=== PATIENT | female | born 1940 | race Caucasian/White ===

== ENCOUNTER → 2016-10-28 | Outpatient (CLI) | payer OTHER ==
[~2016-10-28] MED LIST: ALBU1AER9 INH; ALL180 PO; ATOR10TA88 PO; CLOP1TAB15 PO; GLC500 PO; GLYB2.5T7 PO; LABE1TAB28 PO; PRLSR20 PO; SNG10 PO; SYN75 PO; ULT/50 PO; VERAMYST; WARF5TAB90 PO; ZOLP5TAB PO
--- NOTE | 2016-10-28 15:14 | MAMMOGRAPHY REPORT ---
BILATERAL DIGITAL SCREENING MAMMOGRAM WITH CAD: 10/28/2016 CLINICAL HISTORY: Routine screening. Patient has no complaints. TECHNIQUE: Bilateral CC and MLO views were obtained. Current study was also evaluated with a Comput er Aided Detection (CAD) system. COMPARISON: Comparison is made to exams dated: 10/10/2015 mammogram, 09/26/2014 mammogram, 07/01/2013 mammogram, 12/12/2011 mammogram, 07/06/2013 ultrasound, and 07/06/2013 mammogram - [facility]. BREAST COMPOSITION: The tissue of both breasts is almost entirely fatty. FINDINGS: There are benign rim calcifications in both breasts. No suspicious mass, architectural d istortion or cluster of microcalcifications is seen. IMPRESSION: ACR BI-RADS CATEGORY 2: BENIGN There is no mammographic evidence of malignancy. A 1 year screening mammogram is recommended. The p atient will receive written notification of the results. Approximately 10% of breast cancers are not detected with mammography. A negative mammographic repor t should not delay biopsy if a clinically suggestive mass is present. Ivette Damian M.D. ay/:10/28/2016 15:00:37 Tank Shop Supervisor: Shelly MEAD(R)(M), [facility] letter sent: Normal 1/2 BI-RADS Code: ACR BI-RADS Category 2: Benign
== END | disposition home or self-care (01) ==
LOC: C.MAMM 14:11
PROVIDERS: ATTEND Internal Medicine
DX: Z12.31 Encounter for screening mammogram for malignant neoplasm of breast (principal)

== ENCOUNTER → 2017-01-02 | Outpatient (CLI) | payer OTHER ==
[~2017-01-02] MED LIST changes: +ATOR10TA82 PO; -ATOR10TA88 PO
[2017-01-02 12:07] LABS: HEMATOCRIT 40.1 % (37-47); MEAN CORPUSCULAR HEMOGLOBIN 26.1 pg (25-34); MEAN CORPUSCULAR HGB CONC 30.7 g/dl (32-36); PLATELET COUNT 216 K/uL (130-400); RED BLOOD COUNT 4.72 M/uL (4.2-5.4); WHITE BLOOD COUNT 7.62 K/uL (4.8-10.8)
[2017-01-02 12:47] LABS: ESTIMATED AVERAGE GLUCOSE 146 mg/dl; HA1C FLAG Normal (Normal)
[2017-01-02 12:59] LABS: ALT/SGPT 40 U/L (12-78); BLOOD UREA NITROGEN 15 mg/dl (7-18); BUN/CREATININE RATIO 11.7 (10-20); CALCIUM 9.1 mg/dl (8.5-10.1); CARBON DIOXIDE 29 mmol/L (21-32); CHLORIDE 105 mmol/L (98-107); CHOLESTEROL 139 mg/dl (0-200); GLUCOSE 144 mg/dl (70-99); POTASSIUM 4.3 mmol/L (3.5-5.1); SODIUM 138 mmol/L (136-145)
[2017-01-02 13:08] LABS: ALB/GLOB RATIO 0.7 (0.9-2); ALKALINE PHOSPHATASE 119 U/L (45-117); AST/SGOT 42 U/L (15-37); CHOLESTEROL/HDL RATIO 4.6; HDL CHOLESTEROL 30 mg/dl; LDL CHOLESTEROL CALCULATED 77 mg/dl; TRIGLYCERIDES 161 mg/dl (0-150); VERY LOW DENSITY LIPOPROT CALC 32 mg/dl
[2017-01-02 16:39] LABS: URINE APPEARANCE CLOUDY (CLEAR); URINE BILIRUBIN NEG (NEG); URINE COLOR YELLOW; URINE EPITHELIAL CELL AUTO >30 /lpf (0-5); URINE NITRITE NEG (NEG); URINE PH 5.5 (4.5-7.5); URINE SPECIFIC GRAVITY 1.016 (1.000-1.030); UROBILINOGEN NEG (NEG)
[2017-01-02 16:40] LABS: MANUAL MICROSCOPIC REQUIRED? NO; REVIEW REQ? NO
[2017-01-02 17:39] LABS: URINE PROTIEN/CREAT RATIO 0.3 (0-0.2); URINE TOTAL PROTEIN 26.8 mg/dl (0-11.9)
== END | disposition home or self-care (01) ==
LOC: C.LAB1850 10:00
PROVIDERS: ATTEND Internal Medicine
DX: E78.00 Pure hypercholesterolemia, unspecified (principal); E03.9 Hypothyroidism, unspecified; E11.40 Type 2 diabetes mellitus with diabetic neuropathy, unspecified; E55.9 Vitamin D deficiency, unspecified; N18.3 Chronic kidney disease, stage 3 (moderate); R60.9 Edema, unspecified; I12.9 Hypertensive chronic kidney disease with stage 1 through stage 4 chronic kidney disease, or unspecified chronic kidney disease; E11.22 Type 2 diabetes mellitus with diabetic chronic kidney disease

== ENCOUNTER → 2017-06-19 | Outpatient (CLI) | payer OTHER ==
[~2017-06-19] MED LIST changes: -ATOR10TA82 PO; +ATOR10TA88 PO
--- NOTE | 2017-06-19 15:32 | DIAGNOSTIC IMAGING REPORT ---
CHEST 2 VIEWS ROUTINE CLINICAL HISTORY: J06.9 Acute upper respiratory [id number] COMPARISON STUDY: 03/14/2012 FINDINGS: The heart is normal in size. There is a mild scoliosis. There is no failure. There is no focal pulmonary consolidation. There are no pleural effusions. There is an air-containing retrocardiac opacity consistent with a hiatal hernia.[ IMPRESSION: Hiatal hernia. No active disease in the chest. Electronically signed by: Virgilio Young M.D. 06/19/2017 3:30 PM Dictated Date/Time: 06/19/2017 3:30 PM
[2017-06-19 15:50] LABS: BASO % 0.6 %; BASO ABS # 0.05 K/uL (0-0.2); COMPLETE YES; EOS % 3.6 %; HEMATOCRIT 38.2 % (37-47); IG% 0.6 %; LYMPH % 29.9 %; LYMPH ABS # 2.39 K/uL (1.2-3.4); MEAN CELL VOLUME 83.4 fL (80-100); MEAN CORPUSCULAR HEMOGLOBIN 26.9 pg (25-34); MEAN CORPUSCULAR HGB CONC 32.2 g/dl (32-36); MEAN PLATELET VOLUME 9.7 fL (7.4-10.4); MONO % 6.1 %; NEUT % 59.2 %; PLATELET COUNT 220 K/uL (130-400); RED BLOOD COUNT 4.58 M/uL (4.2-5.4); WHITE BLOOD COUNT 7.99 K/uL (4.8-10.8)
[2017-06-19 16:57] LABS: ALB/GLOB RATIO 0.7 (0.9-2); ALKALINE PHOSPHATASE 122 U/L (45-117); ALT/SGPT 46 U/L (12-78); AST/SGOT 54 U/L (15-37); BLOOD UREA NITROGEN 11 mg/dl (7-18); CALCIUM 9.6 mg/dl (8.5-10.1); CARBON DIOXIDE 24 mmol/L (21-32); CHLORIDE 105 mmol/L (98-107); GLUCOSE 188 mg/dl (70-99); POTASSIUM 3.9 mmol/L (3.5-5.1); SODIUM 137 mmol/L (136-145)
== END | disposition home or self-care (01) ==
LOC: C.LAB1850 14:55
PROVIDERS: ATTEND Internal Medicine
DX: J06.9 Acute upper respiratory infection, unspecified (principal); N18.3 Chronic kidney disease, stage 3 (moderate)

== ENCOUNTER → 2017-10-30 | Outpatient (CLI) | payer OTHER ==
[~2017-10-30] MED LIST changes: +ATOR10TA82 PO; -ATOR10TA88 PO
--- NOTE | 2017-10-30 14:02 | MAMMOGRAPHY REPORT ---
BILATERAL DIGITAL SCREENING MAMMOGRAM TOMOSYNTHESIS WITH CAD: 10/30/2017 CLINICAL HISTORY: Routine screening. Patient has no complaints. TECHNIQUE: Breast tomosynthesis in addition to standard 2D mammography was performed. Current study was also evaluated with a Computer Aided Detection (CAD) system. COMPARISON: Comparison is made to exams dated: 10/28/2016 mammogram, 10/10/2015 mammogram, 09/26/2014 ul trasound, 09/26/2014 mammogram, 07/06/2013 mammogram, and 07/06/2013 ultrasound - [facility]. BREAST COMPOSITION: The tissue of both breasts is almost entirely fatty. FINDINGS: There are scattered benign round and rim calcifications in the breasts. A 4 mm nodular as ymmetry in the anterior subareolar right breast on the CC view appears stable in size dating back to at least 2011, therefore likely benign. No new suspicious mass, architectural distortion or cluster of microcalcifications is seen. IMPRESSION: ACR BI-RADS CATEGORY 2: BENIGN There is no mammographic evidence of malignancy. A 1 year screening mammogram is recommended. The pa tient will receive written notification of the results. Approximately 10% of breast cancers are not detected with mammography. A negative mammographic report should not delay biopsy if a clinically suggestive mass is present. Ivette Damian M.D. ay/:10/30/2017 13:40:23 Screed Person: Shelly Heaton, [facility] letter sent: Normal 1/2 BI-RADS Code: ACR BI-RADS Category 2: Benign
== END | disposition home or self-care (01) ==
LOC: C.MAMM 11:42
PROVIDERS: ATTEND Internal Medicine
DX: Z12.31 Encounter for screening mammogram for malignant neoplasm of breast (principal)

== ENCOUNTER → 2017-12-25 | Outpatient (CLI) | payer OTHER ==
[2017-12-25 10:41] LABS: BASO % 0.4 %; BASO ABS # 0.03 K/uL (0-0.2); EOS ABS # 0.32 K/uL (0-0.5); HEMATOCRIT 39.7 % (37-47); HEMOGLOBIN 12.5 g/dL (12.0-16.0); IG# 0.02 K/uL (0.00-0.02); LYMPH % 31.2 %; LYMPH ABS # 2.48 K/uL (1.2-3.4); MEAN CELL VOLUME 84.1 fL (80-100); MEAN CORPUSCULAR HEMOGLOBIN 26.5 pg (25-34); MEAN CORPUSCULAR HGB CONC 31.5 g/dl (32-36); NEUT % 59.1 %; NEUT ABS # 4.71 K/uL (1.4-6.5); PLATELET COUNT 199 K/uL (130-400); RED CELL DISTRIBUTION WIDTH CV 15.3 % (11.5-14.5); RED CELL DISTRIBUTION WIDTH SD 47.2 fL (36.4-46.3); WHITE BLOOD COUNT 7.96 K/uL (4.8-10.8)
[2017-12-25 11:03] LABS: ALBUMIN 3.2 gm/dl (3.4-5.0); ALT/SGPT 33 U/L (12-78); AST/SGOT 37 U/L (15-37); BLOOD UREA NITROGEN 9 mg/dl (7-18); CARBON DIOXIDE 23 mmol/L (21-32); CHOLESTEROL 120 mg/dl (0-200); CREATININE 1.43 mg/dl (0.60-1.20); GLUCOSE 166 mg/dl (70-99); LIPASE 79 U/L (73-393); POTASSIUM 4.3 mmol/L (3.5-5.1); SODIUM 136 mmol/L (136-145)
[2017-12-25 11:14] LABS: ALKALINE PHOSPHATASE 118 U/L (45-117); LDL CHOLESTEROL CALCULATED 62 mg/dl; TOTAL PROTEIN 7.3 gm/dl (6.4-8.2)
[2017-12-25 11:48] LABS: HEMOGLOBIN A1C 6.5 % (4.5-5.6)
== END | disposition home or self-care (01) ==
LOC: C.LAB1850 09:52
PROVIDERS: ATTEND Internal Medicine
DX: I12.9 Hypertensive chronic kidney disease with stage 1 through stage 4 chronic kidney disease, or unspecified chronic kidney disease (principal); E55.9 Vitamin D deficiency, unspecified; N18.3 Chronic kidney disease, stage 3 (moderate); R80.9 Proteinuria, unspecified; E03.9 Hypothyroidism, unspecified; E11.9 Type 2 diabetes mellitus without complications; R11.2 Nausea with vomiting, unspecified

== ENCOUNTER → 2017-12-31 | Outpatient (CLI) | payer OTHER ==
--- NOTE | 2017-12-31 08:07 | DIAGNOSTIC IMAGING REPORT ---
ULTRASOUND RIGHT UPPER QUADRANT ABDOMEN CLINICAL HISTORY: Nausea and vomiting. COMPARISON STUDY: Abdominal CT dated 06/22/2009. TECHNIQUE: Real-time, grayscale, and color flow sonography of the right upper quadrant of the abdomen was performed. Images are reviewed in the transverse and longitudinal planes. FINDINGS: Liver: The liver is normal in size and demonstrates heterogeneously increased echotexture consistent with hepatic steatosis. There is no intrahepatic biliary ductal dilatation. The main portal vein is patent. Gallbladder: The gallbladder is surgically absent. The common bile duct measures up to 0.5 cm in diameter. Pancreas: Visualized portions of the pancreatic head and body are normal in appearance. The splenic vein is patent. Right kidney: Survey images of the right kidney demonstrate cortical atrophy. There is no hydronephrosis. Ascites: None. IMPRESSION: 1. No acute sonographic abnormality is identified noting status post cholecystectomy. 2. Findings are consistent with mild hepatic steatosis. Electronically signed by: Huan Quintero M.D. 12/31/2017 8:05 AM Dictated Date/Time: 12/31/2017 7:58 AM
--- NOTE | 2017-12-31 08:36 | DIAGNOSTIC IMAGING REPORT ---
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 Dizziness. Gait disturbance. COMPARISON STUDY: MRI of the brain dated 02/05/2013. MR angiogram of the brain dated 12/20/2015. TECHNIQUE: MRI of the brain was performed utilizing various T1 and T2-weighted sequences in the axial, sagittal, and coronal planes. IV contrast was not administered for this examination. FINDINGS: Brain parenchyma: There are age-related involutional changes noting mild subcortical and periventricular microangiopathic disease. There is no hemorrhage or mass effect. There is no restricted diffusion to suggest acute ischemia. Cuevas-white matter differentiation is preserved. No extra-axial fluid collection is seen. The cerebellar tonsils are normal in configuration. Ventricles, sulci, and cisterns: Prominent secondary to involutional change. Pituitary and sella: Unremarkable. Intracranial vasculature: Normal flow voids are maintained at the skull base. Orbits: The bony orbits are grossly intact. Orbital contents are normal in appearance noting bilateral ocular lens implants. Sinuses and mastoids: There is a right mastoid effusion. Left mastoid air cells are clear, as are the paranasal sinuses. Calvarium: Unremarkable. Cervical cord: Partially visualized cervical spinal cord is normal in morphology and signal intensity. IMPRESSION: No acute intracranial abnormality Electronically signed by: Huan Quintero M.D. 12/31/2017 8:35 AM Dictated Date/Time: 12/31/2017 8:31 AM
== END | disposition home or self-care (01) ==
LOC: C.ULTR 07:25
PROVIDERS: ATTEND Internal Medicine
DX: I67.2 Cerebral atherosclerosis (principal); I72.0 Aneurysm of carotid artery; R42 Dizziness and giddiness; R26.9 Unspecified abnormalities of gait and mobility; R11.2 Nausea with vomiting, unspecified; K76.0 Fatty (change of) liver, not elsewhere classified

== ENCOUNTER → 2018-01-01 | Outpatient (CLI) | payer OTHER ==
--- NOTE | 2018-01-01 11:28 | DIAGNOSTIC IMAGING REPORT ---
L RIBS UNILATERAL WITH PA CHEST CLINICAL HISTORY: W19.XXXA trauma. Left rib pain. COMPARISON STUDY: No previous studies for comparison. FINDINGS: Erect chest reveals no pneumothorax. There is a hiatal hernia. No acute rib fractures are visualized. There is a left upper quadrant axial calcification. IMPRESSION: 1. No acute fractures identified on conventional radiographic imaging 2. No evidence of pneumothorax. Electronically signed by: Virgilio Young M.D. 01/01/2018 11:26 AM Dictated Date/Time: 01/01/2018 11:25 AM
== END | disposition home or self-care (01) ==
LOC: C.RAD1850 11:08
PROVIDERS: ATTEND Nurse Practitioner Adult Health
DX: E88.89 Other specified metabolic disorders (principal); R07.81 Pleurodynia; W19.XXXA Unspecified fall, initial encounter

== ENCOUNTER → 2018-01-07 | Outpatient (CLI) | payer OTHER ==
--- NOTE | 2018-01-07 13:21 | DIAGNOSTIC IMAGING REPORT ---
GASTRIC EMPTYING HISTORY: Nausea. Vomiting. M85.80 COMPARISON: None. TECHNIQUE: Following the oral administration of 1.0 mCi of technetium 99m sulfur colloid in egg sandwich and 8 ounces of water, static abdominal images are obtained anteriorly and posteriorly at 0 minutes, 1 hour, 2 hour, and 4 hour time intervals. Gastric emptying was calculated utilizing the geometric mean method. FINDINGS: There is approximately 84 % activity remaining at the 1 hour time interval (normal is less than 90%), 62 % remaining at the 2 hour time interval (normal is less than 60%), and 31 % activity remaining at the 4 hour time interval (normal is less than 10%). IMPRESSION: Moderate gastric emptying delay. The above report was generated using voice recognition software. It may contain grammatical, syntax or spelling errors. Electronically signed by: Yohannes Grover M.D. 01/07/2018 1:20 PM Dictated Date/Time: 01/07/2018 1:19 PM
== END | disposition home or self-care (01) ==
LOC: C.NUCL 08:21
PROVIDERS: ATTEND Internal Medicine
DX: E11.9 Type 2 diabetes mellitus without complications (principal); M85.80 Other specified disorders of bone density and structure, unspecified site; R63.0 Anorexia; R11.2 Nausea with vomiting, unspecified

== ENCOUNTER 2019-03-20 21:25 | Observation (INO) ==
--- NOTE | 2019-03-20 22:23 | XRay Report ---
XR chest 1V portable CLINICAL HISTORY: 78 years-old Female presenting with Chest Pain. TECHNIQUE: Portable upright AP view of the chest was obtained. COMPARISON: 03/16/2018. FINDINGS: Atherosclerosis of the aortic arch. Cardiac silhouette enlarged. No focal opacity. No large effusion or pneumothorax. Degenerative changes of the thoracic spine. Hiatal hernia. IMPRESSION: 1. Cardiomegaly. No other convincing evidence of acute cardiopulmonary disease. 2. Hiatal hernia. Electronically signed by: Juan F Oneal M.D. 03/20/2019 10:22 PM
[2019-03-20 22:30] LABS: Basophils # (auto) 0.02 K/uL (0-0.2); Basophils % (auto) 0.3 %; Eosinophils # (auto) 0.36 K/uL (0-0.5); Eosinophils % (auto) 4.9 %; Hematocrit (blood only) 41.5 % (37-47); Immature Granulocytes # (auto) 0.02 K/uL (0.00-0.02); Immature Granulocytes % (auto) 0.3 %; Lymphocytes # (auto) 2.79 K/uL (1.2-3.4); Lymphocytes % (auto) 37.9 %; Mean Corpuscular Hgb Conc 31.3 g/dL (32-36); Mean Corpuscular Volume 83.3 fL (80-100); Monocytes # (auto) 0.36 K/uL (0.11-0.59); Monocytes % (auto) 4.9 %; Neutrophils # (auto) 3.82 K/uL (1.4-6.5); Neutrophils % (auto) 51.7 %; Platelet Count 213 K/uL (130-400); RDW Coefficient of Variation 15.3 % (11.5-14.5); RDW Standard Deviation 46.4 fL (36.4-46.3); Red Blood Count 4.98 M/uL (4.2-5.4); White Blood Count 7.37 K/uL (4.8-10.8)
--- NOTE | 2019-03-20 22:42 | CT Scan Report ---
CT head/brain wo con CLINICAL HISTORY: 78 years-old Female presenting with tingling, balance problems. TECHNIQUE: Multidetector CT imaging of the head was performed without the use of intravenous contrast . IV contrast: None. One or more dose lowering techniques were used consistent with the principles of ALARA (as low as reasonably achievable), including automatic exposure control, mA or kV adjustment t o individual patient size, and/or use of iterative reconstruction. COMPARISON: 06/26/2018 CT DOSE (mGy.cm): The estimated cumulative dose is 537.48 mGy.cm. FINDINGS: Director Of Fundraising topogram: The patient is edentulous. Ventricles and sulci normal in size. No hemorrhage. Brain parenchyma normal in appearance with preser willa castillo-white differentiation. No acute territorial infarct. No mass effect or midline shift. No ext ra-axial fluid collection. Paranasal sinuses and mastoid air cells clear. Calvarium intact. IMPRESSION: 1. No acute intracranial abnormality. Electronically signed by: Juan F Oneal M.D. 03/20/2019 10:39 PM
[2019-03-20] MEDS ORDERED: ACETAMINOPHEN 1,000 MG/100 ML VIAL IV STA (22:48)
[2019-03-20 22:54] LABS: Alanine Aminotransferase 34 U/L (12-78); Albumin Level 3.5 gm/dl (3.4-5.0); Aspartate Aminotransferase 39 U/L (15-37); BUN Creatinine Ratio 9.9 (10-20); Blood Urea Nitrogen 14 mg/dl (7-18); Calcium 9.2 mg/dl (8.5-10.1); Carbon Dioxide 28 mmol/L (21-32); Chloride 106 mmol/L (98-107); Creatinine Clr Calc Pharmacy 39.2 ml/min; Est GFR (African American) 43.1; Est GFR (Non-African American) 37.2; Glucose 127 mg/dl (70-99); Potassium 3.7 mmol/L (3.5-5.1); Sodium 139 mmol/L (136-145)
[2019-03-20 22:59] LABS: Albumin Globulin Ratio 0.7 (0.9-2); Alkaline Phosphatase 166 U/L (45-117); Bilirubin,Total 0.3 mg/dl (0.2-1); Creatine Kinase 191 U/L (26-192); Globulin 4.8 gm/dl (2.5-4.0); Total Protein 8.3 gm/dl (6.4-8.2); Troponin I < 0.015 ng/ml (0-0.045)
[2019-03-20 23:00] LABS: Appearance Urine Clear (Clear); Bilirubin Urine Negative (Negative); Blood Urine Negative (Negative); Color Urine Yellow; Glucose Urine UA Negative (Negative); Ketones Urine Negative (Negative); Leukocyte Esterase Urine 1+ (Negative); Nitrite Urine Negative (Negative); Protein Urine Negative (Negative); Specific Gravity Urine <= 1.005 (1.000-1.030); Urobilinogen Urine Negative (Negative); pH Urine 5.5 (4.5-7.5)
[2019-03-20 23:30] LABS: Bacteria Urine Negative (Negative); RBC Urine 0-4 /hpf (0-4)
[2019-03-20] MEDS ORDERED: OPTIRAY 320 125ml IV PRN (23:38)
[2019-03-21] MEDS ORDERED: MECLIZINE HCL 25 MG TAB PO PRN (01:27)
--- NOTE | 2019-03-21 01:32 | History & Physical Report ---
Date of Service March 21, 2019 Assessment & Plan (1) Chest pain: The patient will be admitted to telemetry for serial cardiac enzymes, serial EKG's, cardiac rhythm monitoring and a 2-D echocardiogram with Dopplers. Continue all hypertension the vascular medications as noted. Greater likelihood of musculoskeletal pain as opposed to cardiac pain, but could consider stress test as an outpatient if inpatient work-up is negative. 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 Cardiac work-up is negative, should consider trial of Voltaren gel. Present on Admission?: Yes (3) Allergic rhinitis: Continue Singulair Present on Admission?: Yes (4) Asthma: Continue Singulair and albuterol sulfate HFA as needed Present on Admission?: Yes (5) Carotid artery stenosis: Monitored as outpatient. Present on Admission?: Yes (6) Hypercholesterolemia: No medications on outpatient listing Present on Admission?: Yes (7) Hypertension: Continue amlodipine, aspirin, clopidogrel, and labetalol. Present on Admission?: Yes (8) Hypothyroidism: Continue levothyroxine sodium 112 mcg p.o. daily Present on Admission?: Yes (9) Diabetes mellitus type II, controlled: Continue Lantus insulin 30 units subcu at bedtime. Hold standing orders for 40 to 50 units subcu Humalog KwikPen AC. Placed on Accu-Cheks before meals and at bedtime with NovoLog coverage per scale. Present on Admission?: Yes (10) GERD (gastroesophageal reflux disease): Change omeprazole to pantoprazole per formulary interchange Present on Admission?: Yes History of Present Illness Chief Complaint: The patient presents to the ED with 3 days of off an on precordial xiphisternal area discomfort, primarily made worse by activity and moving. Primary Care Provider: Jordana Chen MD The patient is a 78yo female with a PMH including DM, GERD, hypothyroidism, H TN, vertigo, carotid artery stenosis, asthma and hiatal hernia, who presents to the ED with 3 days of intermittent xiphisternal area discomfort worsened by movement. She denies any recent trama, and has not had any recent infections. There is no change in her chronic dyspnea on exertion. Allergies Allergy/AdvReac Type Severity Reaction Status Date / Time fluorouracil Allergy Intermediate Hives Unverified 03/20/19 23:27 codeine Allergy Unknown RECEIVED Verified 03/20/19 23:27 MORPHINE IN OR & PACU, NO REPORTED RXN potassium AdvReac Mild Verified 03/20/19 23:27 enoxaparin AdvReac Unknown UNKNOWN Verified 03/20/19 23:27 Home Medications Home Medications Medication Instructions Recorded Confirmed Type amlodipine 2.5 mg tablet 2.5 mg PO DAILY #90 tab 02/24/19 03/20/19 History aspirin 81 mg tablet,delayed 81 mg PO DAILY tab 02/24/19 03/20/19 History release clopidogrel 75 mg tablet 75 mg PO DAILY #90 tab 02/24/19 03/20/19 History labetalol 100 mg tablet 100 mg PO Q12H #180 tab 02/24/19 03/20/19 History levothyroxine 112 mcg tablet 112 mcg PO DAILY #90 tab 02/24/19 03/20/19 History montelukast 10 mg tablet 10 mg PO QPM #90 tab 02/24/19 03/20/19 Rx omeprazole 20 mg capsule,delayed 20 mg PO DAILY #90 cap 02/24/19 03/20/19 History release albuterol sulfate 2 puff INHALATION Q6H 03/20/19 03/20/19 History cholecalciferol (vitamin D3) 5,000 unit PO 3XWK 03/20/19 03/20/19 History cyanocobalamin (vitamin B-12) 1,000 mcg PO DAILY 03/20/19 03/20/19 History folic acid 1 mg PO DAILY 03/20/19 03/20/19 History insulin glargine [Lantus Solostar 30 unit SUBCUT HS 03/20/19 03/20/19 History U-100 Insulin] insulin lispro [Humalog KwikPen 40 - 50 unit SUBCUT AC 03/20/19 03/20/19 History Insulin] meclizine 25 mg PO DAILY 03/20/19 03/20/19 History tramadol 50 mg PO BID PRN 03/20/19 03/20/19 History Past Med/Surg History Social History Preferred Language: Faroese Beliefs That Will Affect Care: None Current Living Situation: Spouse Other Information That Helps Us Care for You: No Feels Safe at Home: Yes Safety Concerns: Feels Safe At This Time Smoking Status: Never smoker Hx Alcohol Use: No Hx Substance Use: No Review of Systems Review of Systems: The patient denies palpitations, shortness of breath at rest, cough, lower extremity swelling, sore throat, fevers, chills, sweats, weight change, nausea, vomiting, diarrhea , constipation, abdominal pain, pelvic pain, blood in urine or stool, dysuria, urinary frequency or urgency, lightheadedness, dizziness, headache, loss of consciousness, rash, abnormal bruising or bleeding, focal weakness, numbness or tingling in arms or legs, generalized arthralgias or myalgias, back or neck pain, or night sweats. The review of systems is otherwise negative other than for that already noted above, and at least 10 systems have been reviewed. Physical Exam Physical Exam: The patient is awake, alert and oriented 3, well developed and well nourished, normocephalic and atraumatic, lying in bed and in no acute distress. HEENT--PERRL, EOMI, mucous membranes and oropharynx normal. Neck--supple. No JVD. No bruits. Thyroid normal, trachea midline, no adenopathy. Heart--normal S1 and S2. No murmurs, rubs or gallops. Lungs/chest wall--clear bilaterally, no respiratory distress, no accessory muscle use. Very tender to light touch over xiphisternal process. Abdomen--normal bowel sounds and soft. Nontender. Nondistended, obese. Extremities--no cyanosis or clubbing. No edema. There are good distal pulses b/l. Dermatologic--normal skin turgor, normal color, no abnormal lymph nodes, no rash. Neurologic--cranial nerves II through XII grossly intact. Rheumatologic--normal range of motion. Psychiatric--normal affect. Results & Data Vital Signs (Past 12 Hours) Vital Signs Temp Pulse Pulse Resp BP BP Pulse Ox 03/21/19 00:39 73 20 187/61 H 97 03/20/19 21:27 98.1 F 106 H 20 199/80 H 94 Laboratory Results Laboratory Results WBC 7.37 K/uL (4.8-10.8) 03/20/19 22:14 RBC 4.98 M/uL (4.2-5.4) 03/20/19 22:14 Hgb 13.0 g/dL (12.0-16.0) 03/20/19 22:14 Hct 41.5 % (37-47) 03/20/19 22:14 MCV 83.3 fL (80-100) 03/20/19 22:14 MCH 26.1 pg (25-34) 03/20/19 22:14 MCHC 31.3 g/dL (32-36) L 03/20/19 22:14 RDW Std Deviation 46.4 fL (36.4-46.3) H 03/20/19 22:14 RDW Coeff of Afllon 15.3 % (11.5-14.5) H 03/20/19 22:14 Plt Count 213 K/uL (130-400) 03/20/19 22:14 MPV 10.0 fL (7.4-10.4) 03/20/19 22:14 Immature Gran % (Auto) 0.3 % 03/20/19 22:14 Neut % (Auto) 51.7 % 03/20/19 22:14 Lymph % (Auto) 37.9 % 03/20/19 22:14 [place] % (Auto) 4.9 % 03/20/19 22:14 Eos % (Auto) 4.9 % 03/20/19 22:14 Baso % (Auto) 0.3 % 03/20/19 22:14 Immature Gran # (Auto) 0.02 K/uL (0.00-0.02) 03/20/19 22:14 Neut # (Auto) 3.82 K/uL (1.4-6.5) 03/20/19 22:14 Lymph # (Auto) 2.79 K/uL (1.2-3.4) 03/20/19 22:14 [place] # (Auto) 0.36 K/uL (0.11-0.59) 03/20/19 22:14 Eos # (Auto) 0.36 K/uL (0-0.5) 03/20/19 22:14 Baso # (Auto) 0.02 K/uL (0-0.2) 03/20/19 22:14 Sodium 139 mmol/L (136-145) 03/20/19 22:14 Potassium 3.7 mmol/L (3.5-5.1) 03/20/19 22:14 Chloride 106 mmol/L (98-107) 03/20/19 22:14 Carbon Dioxide 28 mmol/L (21-32) 03/20/19 22:14 Anion Gap 5.0 (3-11) 03/20/19 22:14 BUN 14 mg/dl (7-18) 03/20/19 22:14 Creatinine 1.36 mg/dl (0.6-1.2) H 03/20/19 22:14 Est Cr Clr Drug Dosing 39.2 ml/min 03/20/19 22:14 Est GFR ( Amer) 43.1 03/20/19 22:14 Est GFR (Non-Af Amer) 37.2 03/20/19 22:14 BUN/Creatinine Ratio 9.9 (10-20) L 03/20/19 22:14 Glucose 127 mg/dl (70-99) H 03/20/19 22:14 Calcium 9.2 mg/dl (8.5-10.1) 03/20/19 22:14 Magnesium 2.0 mg/dl (1.8-2.4) 03/20/19 22:14 Total Bilirubin 0.3 mg/dl (0.2-1) 03/20/19 22:14 AST 39 U/L (15-37) H 03/20/19 22:14 ALT 34 U/L (12-78) 03/20/19 22:14 Alkaline Phosphatase 166 U/L (45-117) H 03/20/19 22:14 Total Creatine Kinase 191 U/L (26-192) 03/20/19 22:14 POC Troponin I < 0.03 ng/ml (0-0.045) 03/20/19 22:19 Troponin I < 0.015 ng/ml (0-0.045) 03/20/19 22:14 Total Protein 8.3 gm/dl (6.4-8.2) H 03/20/19 22:14 Albumin 3.5 gm/dl (3.4-5.0) 03/20/19 22:14 Globulin 4.8 gm/dl (2.5-4.0) H 03/20/19 22:14 Albumin/Globulin Ratio 0.7 (0.9-2) L 03/20/19 22:14 Lipase 108 U/L (73-393) 03/20/19 22:14 Urine Color Yellow 03/20/19 22:30 Urine Appearance Clear (Clear) 03/20/19 22:30 Urine pH 5.5 (4.5-7.5) 03/20/19 22:30 Ur Specific Edna <= 1.005 (1.000-1.030) 03/20/19 22:30 Urine Protein Negative (Negative) 03/20/19 22:30 Urine Glucose (UA) Negative (Negative) 03/20/19 22:30 Urine Ketones Negative (Negative) 03/20/19 22:30 Urine Blood Negative (Negative) 03/20/19 22:30 Urine Nitrite Negative (Negative) 03/20/19: Urine Bilirubin Negative (Negative) 03/20/19 22: Urine Urobilinogen Negative (Negative) 03/20/19 22:30 Ur Leukocyte Esterase 1+ (Negative) H 03/20/19 22:30 Urine RBC 0-4 /hpf (0-4) 03/20/19 22:30 Urine WBC 5-10 /hpf (0-5) H 03/20/19 22:30 Ur Epithelial Cells 10-20 /lpf (0-5) H 03/20/19 22:30 Urine Bacteria Negative (Negative) 03/20/19:30 Diagnostic Findings [place], [place] [phone] CT Scan Report Patient: JACKIE CESPEDES Date: 03/20/19 MR#: [id number]: [address] Acct ID:[id number]: [facility] Zip[facility] [place] [address] Age: 78Location: ED Sex: F Room/Bed: Att Phy: Diagnosis: PAIN IN CHEST, MOVING LUMP IN CHEST Jessica Phy: RV. Rebekah, MDService Date: 03/20/19 Fam Phy: Interpreting Phy: Juan F Oneal MD Admit Phy: Ordering Phy: Tg Amanda .CONOR cc: ~ CT head/brain wo con CLINICAL HISTORY: 78 years-old Female presenting with tingling, balance problems. TECHNIQUE: Multidetector CT imaging of the head was performed without the use of intravenous contrast. IV contrast: None. One or more dose lowering techniques were used consistent with the principles of ALARA (as low as reasonably achievable), including automatic exposure control, mA or kV adjustment to individual patient size, and/or use of iterative reconstruction. COMPARISON: 06/26/2018 CT DOSE (mGy.cm): The estimated cumulative dose is 537.48 mGy.cm. FINDINGS: Guest Services Agent topogram: The patient is edentulous. Ventricles and sulci normal in size. No hemorrhage. Brain parenchyma normal in appearance with preserved castillo-white differentiation. No acute territorial infarct. No mass effect or midline shift. No extra-axial fluid collection. Paranasal sinuses and mastoid air cells clear. Calvarium intact. IMPRESSION: 1. No acute intracranial abnormality. Electronically signed by: Juan F Oneal M.D. 03/20/2019 10:39 PM Dictated: 03/20/192236 Transcribed: 03/20/192236 [facility] [place] [phone] XRay Report Patient: JACKIE CESPEDES Date: 03/20/19 MR#: [id number]: [address] Acct ID:[id number]: Date: [facility] Zip: [place] [address] Age: 78Location: ED Sex: F Room/Bed: Att Phy: Diagnosis: PAIN IN CHEST, MOVING LUMP IN CHEST Jessica Phy: RV. Rebekah, MDService Date: 03/20/19 Fam Phy: Interpreting Phy: Juan F Oneal MD Admit Phy: Ordering Phy: Tg Amanda .CONOR cc: ~ XR chest 1V portable CLINICAL HISTORY: 78 years-old Female presenting with Chest Pain. TECHNIQUE: Portable upright AP view of the chest was obtained. COMPARISON: 03/16/2018. FINDINGS: Atherosclerosis of the aortic arch. Cardiac silhouette enlarged. No focal opacity. No large effusion or pneumothorax. Degenerative changes of the thoracic spine. Hiatal hernia. IMPRESSION: 1. Cardiomegaly. No other convincing evidence of acute cardiopulmonary disease. 2. Hiatal hernia. Electronically signed by: Juan F Oneal M.D. 03/20/2019 10:22 PM Dictated: 03/20/192220 Transcribed: 03/20/192220 [facility] Patient: JACKIE CESPEDES (Female) Age: 78 MR #: [id number] Status: ER Date: 03/20/19 23:48 Slices: [id number] History: mid sternalm chest pain Priors: Tech: Chevy Hanson @ [phone] Exams: CTA CHEST Contrast: IV Amt: 115 ml optiray Accession Numbers: [id number] Preliminary Findings Only See Final Report For Complete Findings CTA CHEST: No pulmonary embolus. Trace left pleural fluid. No consolidation. Moderate to large hiatal hernia. Cholecystectomy. Radiologist: Brant Garcia M.D. Study ready at 23:53 and initial results transmitted at 00:16 *This report constitutes a preliminary interpretation only. Non-acute findings felt to be unrelated to the clinical presentation may not be discussed in this report. The study will be interpreted and a final report will be generated by the local Radiologist the following shift. To reach the hospital radiology department call [phone]. If a discrepancy is found between the preliminary and final interpretations of this study, please notify us via our Client Portal at [email or web address] under QA [email or web address]. You can also fax this report with a description of the discrepancy, or include the final report, to our daytime fax number [phone]. If faxing, please indicate the severity of discrepancy using one of the following categories: [ ] 1 - Agree/Informational [ ] 2 - Unlikely to Affect Management [ ] 3 - Possible Eventual Change of Management [ ] 4 - Probable Immediate Change of Management For all other patient related information, please fax us at [phone]. [id number] Code Status & VTE Plan Code Status Full code VTE Prophylaxis Plan VTE Prophylaxis will be ordered: Yes PG Care Time/CCT Total # of Minutes Spent Total Time Spent with Patient: Total time spent is greater than 50% in coordination of care (as documented) at patient's floor/unit and/or counseling patient:
[2019-03-21] MEDS ORDERED: TRAMADOL HCL 50 MG TABLET PO PRN (02:20)
[2019-03-21] MEDS ORDERED: ACETAMINOPHEN 325 MG TAB PO PRN (02:20)
[2019-03-21] MEDS ORDERED: ONDANSETRON INJ 2 MG/ML 2 ML VIAL IV PRN (02:20)
[2019-03-21] MEDS ORDERED: MAGNESIUM HYDROXIDE SUSP 30 ML UDC PO PRN (02:20)
[2019-03-21] MEDS ORDERED: ALUMINUM/MAGNESIUM SUSP 30 ML UDC PO PRN (02:20)
[2019-03-21] MEDS ORDERED: ALBUTEROL HFA 8 GM INHALER INH PRN (02:20)
[2019-03-21] MEDS ORDERED: DEXTROSE 50% 50 ML SYRINGE IV PRN (03:00)
[2019-03-21] MEDS ORDERED: GLUCOSE 40% GEL 15 GM TUBE PO PRN (03:00)
[2019-03-21] MEDS ORDERED: GLUCAGON FOR INJ 1 MG VIAL SQ PRN (03:00)
[2019-03-21] MEDS ORDERED: CARBOHYDRATES FOR HYPOGLYCEMIA PO PRN (03:00)
[2019-03-21] MEDS ORDERED: GLUCOSE 10 TABS/TUBE PO PRN (03:00)
--- NOTE | 2019-03-21 04:12 | Emergency Department Note ---
History of Present Illness General Chief complaint: Chest Pain Stated complaint: PAIN IN CHEST, MOVING LUMP History of Present Illness Maximum Pain Intensity: 0 This 78-year-old presents to the ER complaining of midsternal chest pain and vertigo Location: Midsternal chest Quality: Painful Severity: Moderate Duration: Past few days Timing: Started few days Context: Symptoms persisted and patient came in Modifying factors: better with rest; worse with activity Patient also states she is been having some vertigo problems and some tingling in her right arm. She is a history of vertigo. No prior heart disease. Patient denies exertional chest pain, cough, congestion, dyspnea, abdominal pain, leg pain, localized weakness. Home Medications Home Medications Medication Instructions Recorded Confirmed Type amlodipine 2.5 mg tablet 2.5 mg PO DAILY #90 tab 02/24/19 03/20/19 History aspirin 81 mg tablet,delayed 81 mg PO DAILY tab 02/24/19 03/20/19 History release clopidogrel 75 mg tablet 75 mg PO DAILY #90 tab 02/24/19 03/20/19 History labetalol 100 mg tablet 100 mg PO Q12H #180 tab 02/24/19 03/20/19 History levothyroxine 112 mcg tablet 112 mcg PO DAILY #90 tab 02/24/19 03/20/19 History montelukast 10 mg tablet 10 mg PO QPM #90 tab 02/24/19 03/20/19 Rx omeprazole 20 mg capsule,delayed 20 mg PO DAILY #90 cap 02/24/19 03/20/19 History release albuterol sulfate 2 puff INHALATION Q6H 03/20/19 03/20/19 History cholecalciferol (vitamin D3) 5,000 unit PO 3XWK 03/20/19 03/20/19 History cyanocobalamin (vitamin B-12) 1,000 mcg PO DAILY 03/20/19 03/20/19 History folic acid 1 mg PO DAILY 03/20/19 03/20/19 History insulin glargine [Lantus Solostar 30 unit SUBCUT HS 03/20/19 03/20/19 History U-100 Insulin] insulin lispro [Humalog KwikPen 40 - 50 unit SUBCUT AC 03/20/19 03/20/19 History Insulin] meclizine 25 mg PO DAILY 03/20/19 03/20/19 History tramadol 50 mg PO BID PRN 03/20/19 03/20/19 History Allergies Allergy/AdvReac Type Severity Reaction Status Date / Time fluorouracil Allergy Intermediate Hives Unverified 03/20/19 23:27 codeine Allergy Unknown RECEIVED Verified 03/20/19 23:27 MORPHINE IN OR & PACU, NO REPORTED RXN potassium AdvReac Mild Verified 03/20/19 23:27 enoxaparin AdvReac Unknown UNKNOWN Verified 03/20/19 23:27 Past Med/Surg History Medical History Diabetes mellitus type II, controlled (Acute) Social History Preferred Language: Maori Beliefs That Will Affect Care: None Current Living Situation: Spouse Other Information That Helps Us Care for You: No Feels Safe at Home: Yes Safety Concerns: Feels Safe At This Time Smoking Status: Never smoker Hx Alcohol Use: No Hx Substance Use: No Review of Systems All systems reviewed & are unremarkable except as noted in HPI & below Physical Exam Vital Signs Vital Signs - 24 hr 03/20/19 21:26 03/20/19 21:27 03/20/19 21:57 Temperature 36.7 C Temperature Source Oral Sepsis Recent Fever Within 48 Hours No Sepsis Action Taken by Nursing No Action Required Pulse Rate 106 H Pulse Rate [Apical] Respiratory Rate 20 Respiratory Effort / Characteristics Non-Labored Spontaneous Respiratory Depth Normal Blood Pressure 199/80 H Blood Pressure [Right Arm] Blood Pressure Mean 119 Blood Pressure Mean [Right Arm] Pulse Oximetry 94 Oxygen Delivery Method Room Air Room Air Room Air 03/21/19 00:39 Temperature Temperature Source Sepsis Recent Fever Within 48 Hours Sepsis Action Taken by Nursing Pulse Rate Pulse Rate [Apical] 73 Respiratory Rate 20 Respiratory Effort / Characteristics Non-Labored Spontaneous Respiratory Depth Normal Blood Pressure Blood Pressure [Right Arm] 187/61 H Blood Pressure Mean Blood Pressure Mean [Right Arm] 103 Pulse Oximetry 97 Oxygen Delivery Method Room Air VITALS: Vitals are noted on the nurse's note and reviewed by myself. Vital signs hypertensive. GENERAL: Does not female, in no acute distress, nondiaphoretic, well-developed well-nourished. SKIN: The skin was without rashes, erythema, edema, or bruising. There is no tenting of the skin. Capillary reflex less than 2 seconds. HEAD: Normocephalic atraumatic. EARS: External auditory canals clear, tympanic membranes pearly castillo without erythema or effusion bilaterally. EYES: Pupils equal round and reactive to light and accommodation. Conjunctivae without injection, sclerae without icterus. Extraocular movements intact. NOSE: Patent, turbinates without inflammation or discharge. MOUTH: Mucous membranes moist. Pharynx without erythema or exudate. Uvula midline. Airway patent. Tongue does not deviate. NECK: Supple without nuchal rigidity. No lymphadenopathy. No thyromegaly. Cervical spine is nontender. No JVD. HEART: Regular rate and rhythm: Midsternal chest tender to palpation easily reproducing symptoms LUNGS: Clear to auscultation bilaterally without wheezes, rales or rhonchi. No retractions or accessory muscle use. ABDOMEN: Positive bowel sounds x 4. Normal tympanic percussion. Soft, nontender, without masses or organomegaly. Griggs sign negative. No guarding or rebound tenderness. No CVA tenderness MUSCULOSKELETAL: No muscle atrophy, erythema, or edema noted. NEURO: Patient was alert and oriented to person place and time. Normal sensation to light and sharp touch. No focal neurological deficits. Cranial nerves II through XII grossly intact. No prior drift. Cerebellar exam intact. Course Administered Medications Ioversol (Optiray 320 125ml) 115 ml IV ONCE PRN PRN Reason: Interaction Checking Stop: 03/24/19 23:37 Last Admin: 03/20/19 23:39 Dose: 1 ml Documented by: [id number] Discontinued Medications Acetaminophen (Ofirmev) 1,000 mg in 100 mls @ 400 mls/hr IV NOW STA Stop: 03/20/19 23:02 Last Infusion: 03/20/19 23:30 Dose: 0 mls/hr Documented by: [id number] Admin: 03/20/19 23:05 Dose: 400 mls/hr Documented by: [id number] Medical Decision Making Medical Records Attestation: I reviewed the patient's medical records. Home Medications Current Medication List: was personally reviewed by me Laboratory Data Attestation: I reviewed the patient's lab results. Result diagrams: 03/20/19 22:14 03/20/19 22:14 Lab Results 03/20/19 03/20/19 03/20/19 Range/Units 22:14 22:14 22:19 WBC 7.37 (4.8-10.8) K/uL RBC 4.98 (4.2-5.4) M/uL Hgb 13.0 (12.0-16.0) g/dL Hct 41.5 (37-47) % MCV 83.3 (80-100) fL MCH 26.1 (25-34) pg MCHC 31.3 L (32-36) g/dL RDW Std Deviation 46.4 H (36.4-46.3) fL RDW Coeff of Fallon 15.3 H (11.5-14.5) % Plt Count 213 (130-400) K/uL MPV 10.0 (7.4-10.4) fL Immature Gran % (Auto) 0.3 % Neut % (Auto) 51.7 % Lymph % (Auto) 37.9 % Hall % (Auto) 4.9 % Eos % (Auto) 4.9 % Baso % (Auto) 0.3 % Immature Gran # (Auto) 0.02 (0.00-0.02) K/uL Neut # (Auto) 3.82 (1.4-6.5) K/uL Lymph # (Auto) 2.79 (1.2-3.4) K/uL Hall # (Auto) 0.36 (0.11-0.59) K/uL Eos # (Auto) 0.36 (0-0.5) K/uL Baso # (Auto) 0.02 (0-0.2) K/uL Sodium 139 (136-145) mmol/L Potassium 3.7 (3.5-5.1) mmol/L Chloride 106 (98-107) mmol/L Carbon Dioxide 28 (21-32) mmol/L Anion Gap 5.0 (3-11) BUN 14 (7-18) mg/dl Creatinine 1.36 H (0.6-1.2) mg/dl Est Cr Clr Drug Dosing 39.2 ml/min Est GFR ( Amer) 43.1 Est GFR (Non-Af Amer) 37.2 BUN/Creatinine Ratio 9.9 L (10-20) Glucose 127 H (70-99) mg/dl Calcium 9.2 (8.5-10.1) mg/dl Magnesium 2.0 (1.8-2.4) mg/dl Total Bilirubin 0.3 (0.2-1) mg/dl AST 39 H (15-37) U/L ALT 34 (12-78) U/L Alkaline Phosphatase 166 H (45-117) U/L Total Creatine Kinase 191 (26-192) U/L POC Troponin I < 0.03 (0-0.045) ng/ml Troponin I < 0.015 (0-0.045) ng/ml Total Protein 8.3 H (6.4-8.2) gm/dl Albumin 3.5 (3.4-5.0) gm/dl Globulin 4.8 H (2.5-4.0) gm/dl Albumin/Globulin Ratio 0.7 L (0.9-2) Lipase 108 (73-393) U/L Urine Color Urine Appearance (Clear) Urine pH (4.5-7.5) Ur Specific Ward (1.000-1.030) Urine Protein (Negative) Urine Glucose (UA) (Negative) Urine Ketones (Negative) Urine Blood (Negative) Urine Nitrite (Negative) Urine Bilirubin (Negative) Urine Urobilinogen (Negative) Ur Leukocyte Esterase (Negative) Urine RBC (0-4) /hpf Urine WBC (0-5) /hpf Ur Epithelial Cells (0-5) /lpf Urine Bacteria (Negative) 03/20/19 Range/Units 22:30 WBC (4.8-10.8) K/uL RBC (4.2-5.4) M/uL Hgb (12.0-16.0) g/dL Hct (37-47) % MCV (80-100) fL MCH (25-34) pg MCHC (32-36) g/dL RDW Std Deviation (36.4-46.3) fL RDW Coeff of Fallon (11.5-14.5) % Plt Count (130-400) K/uL MPV (7.4-10.4) fL Immature Gran % (Auto) % Neut % (Auto) % Lymph % (Auto) % Hall % (Auto) % Eos % (Auto) % Baso % (Auto) % Immature Gran # (Auto) (0.00-0.02) K/uL Neut # (Auto) (1.4-6.5) K/uL Lymph # (Auto) (1.2-3.4) K/uL Hall # (Auto) (0.11-0.59) K/uL Eos # (Auto) (0-0.5) K/uL Baso # (Auto) (0-0.2) K/uL Sodium (136-145) mmol/L Potassium (3.5-5.1) mmol/L Chloride (98-107) mmol/L Carbon Dioxide (21-32) mmol/L Anion Gap (3-11) BUN (7-18) mg/dl Creatinine (0.6-1.2) mg/dl Est Cr Clr Drug Dosing ml/min Est GFR ( Amer) Est GFR (Non-Af Amer) BUN/Creatinine Ratio (10-20) Glucose (70-99) mg/dl Calcium (8.5-10.1) mg/dl Magnesium (1.8-2.4) mg/dl Total Bilirubin (0.2-1) mg/dl AST (15-37) U/L ALT (12-78) U/L Alkaline Phosphatase (45-117) U/L Total Creatine Kinase (26-192) U/L POC Troponin I (0-0.045) ng/ml Troponin I (0-0.045) ng/ml Total Protein (6.4-8.2) gm/dl Albumin (3.4-5.0) gm/dl Globulin (2.5-4.0) gm/dl Albumin/Globulin Ratio (0.9-2) Lipase (73-393) U/L Urine Color Yellow Urine Appearance Clear (Clear) Urine pH 5.5 (4.5-7.5) Ur Specific Ward <= 1.005 (1.000-1.030) Urine Protein Negative (Negative) Urine Glucose (UA) Negative (Negative) Urine Ketones Negative (Negative) Urine Blood Negative (Negative) Urine Nitrite Negative (Negative) Urine Bilirubin Negative (Negative) Urine Urobilinogen Negative (Negative) Ur Leukocyte Esterase 1+ H (Negative) Urine RBC 0-4 (0-4) /hpf Urine WBC 5-10 H (0-5) /hpf Ur Epithelial Cells 10-20 H (0-5) /lpf Urine Bacteria Negative (Negative) Imaging Data Attestation: I personally reviewed and interpreted this imaging study as follows: Blood Pressure Blood Pressure Findings: Elevated blood pressure Blood Pressure Disposition: Referred to patients primary care provider MDM Narrative Prior records/ancillary studies reviewed. Triage Nursing notes reviewed. Additional history obtained from family. The patient's history was concerning for chest pain. Differential diagnosis: Etiologies such as cardiac ischemia, aortic dissection, pulmonary embolism, pneumonia, pneumothorax, musculoskeletal, infections, pericarditis, myocarditis, esophageal rupture, gastrointestinal, as well as others were entertained. Physical examination: As above. ER treatment provided: Tylenol On reassessment the patient felt better. Diagnostic interpretation by me: The electrocardiogram was minimal ST depression in the lateral leads, normal intervals. Prior EKG is reviewed with new EKG changes. Impression minimal ST depression in the lateral leads interpreted by myself I think arrhythmia is unlikely. EKG shows normal sinus rhythm with no interval abnormalities such as QT prolongation or WPW. There are no findings to suggest Brugada syndrome. Cardiac monitoring in the emergency department reveals no tachycardic or bradycardic dysrhythmia. Hypertrophic cardiomyopathy was considered but there are no clear historical elements pointing toward this. EKG is not suggestive. The QRS voltage is not extremely large and there are no suggestive Q waves. The labs revealed negative troponin Imaging studies: XR chest 1V portable CLINICAL HISTORY: 78 years-old Female presenting with Chest Pain. TECHNIQUE: Portable upright AP view of the chest was obtained. COMPARISON: 03/16/2018. FINDINGS: Atherosclerosis of the aortic arch. Cardiac silhouette enlarged. No focal opacity. No large effusion or pneumothorax. Degenerative changes of the thoracic spine. Hiatal hernia. IMPRESSION: 1. Cardiomegaly. No other convincing evidence of acute cardiopulmonary disease. 2. Hiatal hernia. Electronically signed by: Juan F Oneal M.D. 03/20/2019 10:[address] head/brain wo con CLINICAL HISTORY: 78 years-old Female presenting with tingling, balance problems. TECHNIQUE: Multidetector CT imaging of the head was performed without the use of intravenous contrast. IV contrast: None. One or more dose lowering techniques were used consistent with the principles of ALARA (as low as reasonably achievable), including automatic exposure control, mA or kV adjustment to individual patient size, and/or use of iterative reconstruction. COMPARISON: 06/26/2018 CT DOSE (mGy.cm): The estimated cumulative dose is 537.48 mGy.cm. FINDINGS: Intelligence Support Officer topogram: The patient is edentulous. Ventricles and sulci normal in size. No hemorrhage. Brain parenchyma normal in appearance with preserved castillo-white differentiation. No acute territorial infarct. No mass effect or midline shift. No extra-axial fluid collection. Paran warner sinuses and mastoid air cells clear. Calvarium intact. IMPRESSION: 1. No acute intracranial abnormality. Electronically signed by: Juan F Oneal M.D. CTA CHEST: No pulmonary embolus. Trace left pleural fluid. No consolidation. Moderate to large hiatal hernia. Cholecystectomy. Radiologist: Brant Garcia M.D. HEART SCORE: Hx: high/mod/low suspicion: 0 ECG: ST depression/nonspecific changes/normal: 1 Age: Greater than 65/45-64/less than 45: 2 Risk factors: (Hypertension, hyperlipidemia, diabetes, coronary disease, tobacco use, cocaine use): 2 Troponin: Greater than 2 times normal limits/1-2 times normal limits/normal: 0 Total: 5 Consultation: A consultation was placed with the hospitalist, Dr. Frye. The case was discussed and diagnostics were reviewed. The patient was evaluated in the ER for further treatment. Exam and history seem consistent with chest pain and vertigo with right arm tingling. Patient has multiple risk factors. Medicine was consulted. Patient will be evaluated for possible admission for chest pain rule out. By the evaluation outlined above emergent etiologies such as aortic dissection, pulmonary embolism, pneumonia, pneumothorax, infections, pericarditis, myocarditis, gastrointestinal, as well as others were deemed relatively u nlikely. The pt informed about the findings as listed above. All questions were answered and pleased with the treatment. Case reviewed with my attending The chart was completed utilizing studentSN voice recognition software. Grammatical errors, random word insertions, pronoun errors, and incomplete sentences are an occassional consequence of this system due to software limitations, ambient noise, and hardware issues. Any formal questions or concerns about the content, text, or information contained within the body of this dictation should be directly addressed to the physician photography assistant for clarification. Impression & Plan Chest pain, Vertigo, Tingling of right upper extremity Discharge Plan Visit Data *Final* Discharge Date/Time: 03/21/19 01:57 Chief Complaint: Chest Pain Stated Complaint: PAIN IN CHEST, MOVING LUMP ED Provider: Anders Nino ED Midlevel Provider: Tg Amanda Discharge Problem: Chest pain, Vertigo, Tingling of right upper extremity Patient Disposition: Admitted As Inpatient Condition: Fair Discharge Instructions Interventions: ED Discharge Assessment Last Done: 03/21/19 01:57
[2019-03-21] MEDS ORDERED: LEVOTHYROXINE SODIUM 112 MCG TABLET PO SCH (06:30)
[2019-03-21] MEDS ORDERED: CLOPIDOGREL BISULFATE 75 MG TAB PO SCH (09:00)
[2019-03-21] MEDS ORDERED: FOLIC ACID 1 MG TAB PO SCH (09:00)
[2019-03-21] MEDS ORDERED: CYANOCOBALAMIN 500 MCG TABLET (VITAMIN B-12) PO SCH (09:00)
[2019-03-21] MEDS ORDERED: PANTOprazole 40 MG TAB PO SCH (09:00)
[2019-03-21] MEDS ORDERED: ASPIRIN 81 MG ECTAB PO SCH (09:00)
[2019-03-21] MEDS ORDERED: LABETALOL HCL 100 MG TAB PO SCH (09:00)
[2019-03-21] MEDS ORDERED: AMLODIPINE BESYLATE 5 MG TAB PO SCH (09:00)
--- NOTE | 2019-03-21 09:28 | CT Scan Report ---
CT ANGIOGRAM OF THE CHEST CLINICAL HISTORY: Midsternal chest pain. COMPARISON STUDY: Chest x-ray dated 03/20/2019. Chest CT dated 03/12/2012. TECHNIQUE: Following the IV administration of 115 cc of Optiray 320, CT angiogram of the chest was pe rformed from the upper abdomen to the thoracic inlet utilizing the pulmonary embolus protocol. Images are reviewed in the axial, sagittal, and coronal planes. 3-D MIPS images are created and assessed. I V contrast was administered without complication. A dose lowering technique was utilized adhering to the principles of ALARA. CT DOSE: 683.28 mGy.cm FINDINGS: Thyroid: Imaged portions of the thyroid gland are normal in size and attenuation. Thoracic aorta: There is atherosclerotic calcification of the thoracic aorta, which is normal in melissa srinivasa and demonstrates standard 3-vessel arch anatomy. No dissection is seen. Pulmonary vasculature: The pulmonary trunk is normal in caliber. There are no filling defects identif ied in main, lobar, or segmental pulmonary branches to suggest pulmonary embolus. Heart: The heart is enlarged and without pericardial effusion. The coronary arteries are densely calc ified. Lungs and pleural spaces: There is a trace left pleural effusion with left basilar scarring/atelecta sis. No airspace consolidation is seen typical for pneumonia. Mild diffuse peribronchial thickening i s observed. The trachea and central airways are clear. Mediastinum: There is no mediastinal lymphadenopathy. Krystina: Clear. Axillae: There is no axillary lymphadenopathy. Upper abdomen: There is a large hiatal hernia, with the majority of the stomach located in the thorac ic cavity. Cholecystectomy clips are noted. There is minimal central intrahepatic biliary ductal dila tation. Prominent lymph nodes are noted in the upper abdomen and measure up to 11 mm in short axis. Skeletal structures: The skeletal structures are osteopenic. Degenerative change is noted in the shou lders and thoracic spine. There is mild thoracic kyphoscoliosis. A hemangioma is noted in the body of T4. No lytic or blastic bony lesions are seen. IMPRESSION: 1. There is no evidence of pulmonary embolus in the main, lobar, or segmental pulmonary arteries. 2. There is a trace left pleural effusion. No airspace consolidation is seen typical for pneumonia. 3. Mild diffuse peribronchial thickening suggests reactive air disease. Clinical correlation will be required. 4. Cardiomegaly. 5. Large hiatal hernia. Electronically signed by: Huan Quintero M.D. 03/21/2019 9:27 AM
[2019-03-21 09:53] LABS: iSTAT Creatinine 1.3 mg/dl (0.6-1.3); iSTAT Hemoglobin 14.3 g/dl (12.0-16.0); iSTAT Ionized Calcium 1.22 mmol/l (1.12-1.32); iSTAT Potassium 3.7 mEq/L (3.3-5.0)
--- NOTE | 2019-03-21 13:54 | Discharge Summary ---
Date of Service March 21, 2019 Admission HPI Per Admitting Provider The patient is a 78yo female with a PMH including DM, GERD, hypothyroidism, HTN, vertigo, carotid artery stenosis, asthma and hiatal hernia, who presents to the ED with 3 days of intermittent xiphisternal area discomfort worsened by movement. She denies any recent trama, and has not had any recent infections. There is no change in her chronic dyspnea on exertion. Principal Diagnosis Chest pain, likely costochondritis Discharge Exam Constitutional WD/WN, vitals as above + obese Eyes PERRL, conjunctivae normal, anicteric sclerae ENMT external ear and nose normal, oropharynx normal Neck trachea midline, no thyromegaly Respiratory normal respiratory effort, lungs clear to auscultation Cardiovascular RRR, no murmur, no edema Chest (Breasts) normal inspection/palpation of breasts (chest tender to palpation over sternum) Gastrointestinal (Abdomen) normal bowel sounds, soft, nontender, no hepatosplenomegaly Musculoskeletal no cyanosis or clubbing, extremities motor strength 5/5 Skin no rashes, warm and dry Neurologic patellar DTR's 2+ bilat, sensation intact and PERRL, EOMI, accommodation nl, no face palsy, no dysarthria Psychiatric A+Ox3, euthymic affect Lymphatic no cervical or axillary lymphadenopathy Discharge Data Allergies Allergy/AdvReac Type Severity Reaction Status Date / Time fluorouracil Allergy Intermediate Hives Unverified 03/20/19 23:27 codeine Allergy Unknown RECEIVED Verified 03/20/19 23:27 MORPHINE IN OR & PACU, NO REPORTED RXN potassium AdvReac Mild Verified 03/20/19 23:27 enoxaparin AdvReac Unknown UNKNOWN Verified 03/20/19 23:27 Consultations 03/21/19 00:39 ED Decision to Admit Stat 03/21/19 02:20 Consult Case Management - Discharge Planning Routine Ordered Studies 03/20/19 21:57 CT head/brain wo con Stat 03/20/19 22:58 CT angio chest PE protocol Stat Hospital Course (1) Chest pain: still with pain on palpation EKG in the morning on day of discharge showed sinus rhythm, no ischemic changes troponin negative x 3 sets echocardiogram showed EF 65%, no regional wall motion abnormalities, was exactly the same as previous echo thus ACS was ruled out Greater likelihood of musculoskeletal pain as opposed to cardiac pain discussed that patient could talk with PCP about a stress test as outpatient (2) Costochondritis: 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 will try Ibuprofen 600mg q8 x 3-5 days, take with food look for improvement in pain follow up with PCP (3) Allergic rhinitis: Continue Singulair (4) Asthma: Continue Singulair and albuterol sulfate HFA as needed (5) Carotid artery stenosis: Monitored as outpatient. (6) Hypercholesterolemia: No medications on outpatient listing (7) Hypertension: Continue amlodipine, aspirin, clopidogrel, and labetalol. BP well controlled (8) Hypothyroidism: Continue levothyroxine sodium 112 mcg p.o. daily (9) Diabetes mellitus type II, controlled: Continue Lantus insulin 30 units subcu at bedtime. Hold standing orders for 40 to 50 units subcu Humalog KwikPen AC. Placed on Accu-Cheks before meals and at bedtime with NovoLog coverage per scale. (10) GERD (gastroesophageal reflux disease): Change omeprazole to pantoprazole per formulary interchange Total Time Total Time Spent Total Time Spent (In Minutes): 31 minutes Total Time Includes: Examination of the Patient, Discharge Planning and Medication Reconciliation Discharge Plan Discharge Items Patient Disposition: Home - Self-Care Reason For Visit: CHEST PAIN Discharge Diagnosis: Chest pain, likely musculoskeletal Condition: Good Discharge Goals: Diagnostic testing and Improve function Activity: Resume your previous activity Non-emergency contact: Primary Care Provider Call non-emergency contact if: you have any medication questions, your symptoms worsen, your pain is not controlled and you have a fever Follow-up/Referrals: Jordana Chen MD [Primary Care Provider] - Diet: Carb Consistent or DM2 Addtl Provider Instructions: Medications: no changes to outpatient medications - IBUPROFEN: take 600mg every 8 hours as needed for chest pain, no more than 5 days take with full stomach Chest pain: atypical symptoms for anginal type pain pain is reproducible suggesting musculoskeletal, could be costochondritis troponin (heart enzyme) negative for three sets, rules out heart attack no ischemic changes on resting EKG today echocardiogram done and results pending but can be followed up on as outpatient recommend that you try taking the ibuprofen 600mg every 8 hours for 5 days if pain goes away this would confirm that this is muscular pain can follow up with DR. Mead to discuss the pain, discuss getting stress test as outpatient recommend that you call her office tomorrow to be seen later this week Prescriptions: New ibuprofen 200 mg capsule 600 mg PO Q8H PRN (Reason: pain) 5 Days Qty: 60 RF: 0 Continued montelukast 10 mg tablet 10 mg PO QPM Qty: 90 RF: 3 labetalol 100 mg tablet 100 mg PO Q12H Qty: 180 RF: 0 levothyroxine 112 mcg tablet 112 mcg PO DAILY Qty: 90 RF: 0 omeprazole 20 mg capsule,delayed release(DR/EC) 20 mg PO DAILY Qty: 90 RF: 0 amlodipine 2.5 mg tablet 2.5 mg PO DAILY Qty: 90 RF: 0 aspirin 81 mg tablet,delayed release (DR/EC) 81 mg PO DAILY RF: 0 clopidogrel 75 mg tablet 75 mg PO DAILY Qty: 90 RF: 0 meclizine 25 mg tablet 25 mg PO DAILY RF: 0 albuterol sulfate 90 mcg/actuation HFA aerosol inhaler 2 puff inhalation Q6H RF: 0 folic acid 1 mg tablet 1 mg PO DAILY RF: 0 tramadol 50 mg tablet 50 mg PO BID PRN (Reason: Pain) RF: 0 cyanocobalamin (vitamin B-12) 1,000 mcg Tablet 1,000 mcg PO DAILY RF: 0 cholecalciferol (vitamin D3) 5,000 unit Tablet 5,000 unit PO 3XWK RF: 0 Lantus Solostar U-100 Insulin 100 unit/mL (3 mL) insulin pen 30 unit subcut HS RF: 0 insulin lispro [Humalog KwikPen Insulin] 100 unit/mL insulin pen 40 - 50 unit subcut AC RF: 0 Stand-Alone Forms: Call Back Authorization, [facility] Discharge Orders: Discharge Order (Routine); Ordered 03/21/19 Ordered By: Jay Becker Admission Data Admit Date/Time: 03/21/19 01:24 Attending Provider: Jay Becker Admit Provider: Franklin Mack Primary Care Provider: Jordana Chen V. Other Providers: Franklin Mack Service: Telemetry Other Interventions: Discharge Summary Assessment (RN) Last Done: 03/21/19 14:21 DC Date/Time DO NOT enter until pt leaves facility: 03/21/19 14:28
[2019-03-21] MEDS ORDERED: INSULIN GLARGINE SOLOSTAR 100 UNITS/ML 3 ML PEN SQ SCH (21:00)
[2019-03-21] MEDS ORDERED: MONTELUKAST SODIUM 10 MG TABLET PO SCH (21:00)
== END 2019-03-21 14:28 | disposition home or self-care (01) ==
LOC: ED 21:25 → 2E 21:25 → SUATTDRO 03-21 01:24 → 2E 03-21 01:57

== ENCOUNTER 2019-06-16 06:14 | Observation (INO) ==
--- NOTE | 2019-06-09 15:15 | Anesthesiology Consultation ---
Date of Service June 09, 2019 Assessment & Plan Chart Review Chart Review: Pending: Refer to Additional Notes / Consult section (labs,EKG,) Patient has a left distal ICA aneurysm. Is being followed by neurosurgery at [place]. It is stable and has not progressed in a year. History Surgery Operation Date: 06/16/19 07:30 Proposed Procedures p Robotic Laparoscopic Fundoplication Esophagogastroduoedenoscopy - Luís Mueller MD, FACS Height/Weight Height: 5 ft 6 in Weight: 98.8 kg Allergies Allergy/AdvReac Type Severity Reaction Status Date / Time codeine Allergy Intermediate HYPERACTIVE, Verified 06/08/19 09:04 HIVES/SYNCOPE enoxaparin Allergy Intermediate syncope Verified 06/08/19 09:04 fluorouracil Allergy Intermediate Hives Verified 06/08/19 09:04 potassium Allergy Mild IV Verified 06/08/19 09:04 potassium caused hypotension Medications Home Medications Medication Instructions Recorded Confirmed Last Taken aspirin 81 mg tablet,delayed 81 mg PO QAM tab 02/24/19 06/08/19 04/27/19 release clopidogrel 75 mg tablet 75 mg PO QAM #90 tab 02/24/19 06/08/19 04/27/19 labetalol 100 mg tablet 50 mg PO Q12H #180 tab 02/24/19 06/08/19 04/28/19 10:00 albuterol sulfate 2 puff INHALATION Q6H PRN 03/20/19 06/08/19 Unknown cholecalciferol (vitamin D3) 5,000 unit PO 3XWK 03/20/19 06/08/19 04/27/19 folic acid 1 mg PO QAM 03/20/19 06/08/19 04/27/19 insulin lispro [Humalog KwikPen 40 - 60 unit SUBCUT AC 03/20/19 06/08/19 04/27/19 19:00 Insulin] meclizine 25 mg PO HS 03/20/19 06/08/19 04/27/19 21:00 gabapentin 100 mg capsule 100 mg PO HS 03/26/19 06/09/19 04/27/19 amlodipine 2.5 mg PO QAM 04/19/19 06/08/19 04/27/19 levothyroxine 112 mcg PO QAM 04/19/19 06/08/19 04/28/19 10:00 montelukast 10 mg PO QAM 04/19/19 06/08/19 04/28/19 10:00 Lantus Solostar U-100 Insulin 100 30 units SUBCUT HS #30 ml NS 05/14/19 06/08/19 Unknown unit/mL (3 mL) subcutaneous pen omeprazole 20 mg capsule,delayed 20 mg PO BID #180 cap 05/25/19 06/08/19 Unknown release atorvastatin 10 mg tablet 10 mg PO QAM #90 tab 05/31/19 06/08/19 Unknown Past Medical History Medical History Aneurysm of left carotid artery (Chronic) 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 NO PROBLEMS CURRENTLY. Stroke 1985. MILD [facility] MEMORY LOSS. TIA (transient ischemic attack) MULTIPLE. MOST RECENT MARCH 2018 Past Family History Family History Unknown Osteoporosis Mother Rheumatoid arthritis History of nephrectomy Stroke syndrome Hypertension Stroke Family history of diabetes mellitus Aunt Rheumatoid arthritis Father Heart disease Hx of CABG Hypertension Brother Acute myocardial infarction Past Surgical History Surgical History H/O dilation and curettage History of ankle surgery RIGHT History of appendectomy History of colonoscopy History of esophagogastroduodenoscopy (EGD) WITH REMOVAL OF ESOPHAGEAL POLYPS History of tonsillectomy and adenoidectomy History of total abdominal hysterectomy and bilateral salpingo-oophorectomy History of total knee replacement BILATERAL AND A STEEL JAD IN RIGHT LEG D/T CURVATURE Hx of cholecystectomy Social History Smoking Status: Never smoker Do You Dip or Chew Tobacco: No Hx Alcohol Use: No Hx Substance Use: No Physical Exam Vital Signs Last Vital Signs Temp 36.7 C 06/09/19 14:39 Pulse 83 06/09/19 14:39 Resp 18 06/09/19 14:39 BP 149/84 H 06/09/19 14:39 Pulse Ox 96 06/09/19 14:39 Testing Electrocardiogram Date: 06/09/19 Findings: + NSR @ (76) and + no change from Chest X-Ray Date: 03/20/19 No convincing evidence of cardiopulmonary disease. Hiatal hernia. Echocardiogram Date: 03/16/18 EF: 60-65% LV Function: normal RWMA: + none Other Findings: + diastolic dysfunction (grade 1 DD) Valvular Disease: + no significant valvular disease Saline contrast study negative for interatrial shunt. chest ct 03/20/19: trace L pleursl effusing. No consolidation typical of pneumonia. Mild diffuse peribronchial thickening suggesting reactive airway disease. Cardiomegaly. Large hiatal hernia.
[2019-06-09 15:42] LABS: Basophils # (auto) 0.03 K/uL (0-0.2); Basophils % (auto) 0.4 %; Eosinophils # (auto) 0.19 K/uL (0-0.5); Eosinophils % (auto) 2.7 %; Hematocrit (blood only) 37.3 % (37-47); Hemoglobin 11.4 g/dL (12.0-16.0); Immature Granulocytes # (auto) 0.02 K/uL (0.00-0.02); Immature Granulocytes % (auto) 0.3 %; Lymphocytes # (auto) 3.16 K/uL (1.2-3.4); Lymphocytes % (auto) 44.8 %; Mean Corpuscular Hemoglobin 25.3 pg (25-34); Mean Corpuscular Hgb Conc 30.6 g/dL (32-36); Mean Corpuscular Volume 82.9 fL (80-100); Mean Platelet Volume 10.2 fL (7.4-10.4); Monocytes # (auto) 0.31 K/uL (0.11-0.59); Monocytes % (auto) 4.4 %; Neutrophils # (auto) 3.35 K/uL (1.4-6.5); Neutrophils % (auto) 47.4 %; Platelet Count 205 K/uL (130-400); RDW Coefficient of Variation 15.2 % (11.5-14.5); RDW Standard Deviation 46.2 fL (36.4-46.3); White Blood Count 7.06 K/uL (4.8-10.8)
[2019-06-09 15:50] LABS: Calcium 8.7 mg/dl (8.5-10.1); Creatinine Clr Calc Pharmacy 42.6 ml/min; Est GFR (African American) 45.9; Est GFR (Non-African American) 39.6; Potassium 3.9 mmol/L (3.5-5.1)
[~2019-06-16 06:14] MED LIST changes: -ALBU1AER9 INH; -ALL180 PO; -ATOR10TA82 PO; -CLOP1TAB15 PO; -GLC500 PO; -GLYB2.5T7 PO; -LABE1TAB28 PO; +LR 15ML/HR IV SCH; -PRLSR20 PO; -SNG10 PO; -SYN75 PO; -ULT/50 PO; -VERAMYST; -WARF5TAB90 PO; -ZOLP5TAB PO
[2019-06-16] MEDS ORDERED: SODIUM CHLORIDE 0.9% PF 50 ML VIAL ONE (07:02)
[2019-06-16] MEDS ORDERED: BUPIVACAINE 0.5 % 5 MG/1 ML MPF 30ML VIAL ONE (07:02)
[2019-06-16] MEDS ORDERED: BUPIVACAINE LIPOSOME 1.3% 266 MG/20 ML VIAL ONE (07:02)
[2019-06-16] MEDS ORDERED: ePHEDrine sulfate 50 MG/ML AMP IV PRN (07:03)
[2019-06-16] MEDS ORDERED: ONDANSETRON INJ 2 MG/ML 2 ML VIAL IV PRN (07:03)
[2019-06-16] MEDS ORDERED: ATROPINE SULFATE 0.1 MG/ML 10ML SYR IV PRN (07:03)
[2019-06-16] MEDS ORDERED: fentaNYL citrate 100 MCG/2 ML VIAL IV PRN (07:03)
--- NOTE | 2019-06-16 07:04 | History & Physical Bridge Note ---
Date of Service June 16, 2019 History & Physical Bridge Note I have examined the patient, reviewed the History & Physical and in the interval since the performance of the History & Physical I have noted the following changes of clinical significance: no changes noted
[2019-06-16] MEDS ORDERED: fentaNYL citrate 100 MCG/2 ML VIAL ONE ×2 (07:12→11:34)
[2019-06-16] MEDS ORDERED: CLINDAMYCIN PHOS 900 MG/6 ML VIAL IV SCH (09:15)
[2019-06-16] MEDS ORDERED: NEOSTIGMINE METHYLSULFATE 5 MG/5 ML SYR ONE (10:02)
[2019-06-16] MEDS ORDERED: LIDOCAINE HCL 2% 2 ML VIAL/AMP(20MG/ML) INFIL ONE (10:02)
[2019-06-16] MEDS ORDERED: CLINDAMYCIN PHOS 300 MG/2 ML VIAL ONE (10:02)
[2019-06-16] MEDS ORDERED: GLYCOPYRROLATE 0.2 MG/ML VIAL ONE (10:02)
[2019-06-16] MEDS ORDERED: ROCURONIUM BROMIDE 10 MG/ML 5 ML VIAL ONE (10:02)
[2019-06-16] MEDS ORDERED: PHENYLEPHRINE HCL 10 MG/ML VIAL ONE (10:02)
[2019-06-16] MEDS ORDERED: PROPOFOL IV EMULSION 10 MG/ML 20 ML VIAL IV ONE (10:02)
[2019-06-16] MEDS ORDERED: ePHEDrine sulfate 50 MG/ML SYR ONE (10:02)
[2019-06-16] MEDS ORDERED: PHENYLEPHRINE 100MCG/ML 5ML SYR ONE (10:02)
--- NOTE | 2019-06-16 11:29 | Post Operative Brief Note ---
PG Immediate Post Op with CF Date of Surgery June 16, 2019 Pre & Post Diagnosis Operation Date: 06/16/19 07:30 Pre-Op Diagnosis: Hiatal Hernia Post-Op Diagnosis: Hiatal Hernia I personally identified the patient: Yes Procedure Operation Date: 06/16/19 07:30 Actual Procedures p Robotic assisted Laparoscopic repair of hiatal hernia with prosthetic bio- absorbable mesh, robert Fundoplication Esophagogastroduoedenoscopy(Not Applicable) - Luís Mueller MD, FACS Surgeon Luís Mueller MD, FACS [employer] Roxane AMAYA, Margy Yang DO Estimated Blood Loss 75 Findings Consistent with Post-Op Diagnosis Specimens Specimen Description: A: gastroesophageal fat pad and hernia sac Drains [place] Catheter (inserted without difficulty with normal drainag present, anesthesia to monitor output throughout procedure)
[2019-06-16] MEDS ORDERED: METOCLOPRAMIDE HCL INJ 5 MG/ML 2 ML VIAL IV ONE (11:45)
--- NOTE | 2019-06-16 12:05 | XRay Report ---
XR chest 1V portable CLINICAL HISTORY: Postop Randolph fundoplication COMPARISON STUDY: 03/20/2019 FINDINGS: The heart is enlarged. There is no pneumothorax. There is no pneumoperitoneum. Minimal pneu momediastinum is suspected. There are low lung volumes with bronchovascular crowding at the lung base s. There is mild elevation of interstitium finding which may be exaggerated by the suboptimal inspira tion IMPRESSION: 1. Low lung volumes with bronchovascular crowding the lung bases and elevation of interstitium 2. Suspected minimal mediastinal gas 3. No evidence of pneumothorax. No evidence of pneumoperitoneum Electronically signed by: Virgilio Young M.D. 06/16/2019 12:04 PM
--- NOTE | 2019-06-16 13:04 | Anesthesiology Progress Note ---
Date of Service June 16, 2019 Anesthesia Post Procedure Vital Signs Vital Signs: Temp Pulse Pulse Resp BP Pulse Ox 06/16/19 12:55 98.2 F 81 21 126/60 93 06/16/19 12:46 98.2 F 80 19 132/67 94 06/16/19 12:35 80 22 138/76 94 06/16/19 12:25 84 15 129/70 94 06/16/19 12:15 81 18 121/66 97 06/16/19 12:05 97.3 F L 83 17 115/64 97 06/16/19 11:55 97.3 F L 88 20 123/59 L 96 06/16/19 11:45 97.3 F L 82 16 109/54 L 96 06/16/19 06:54 98.6 F 73 20 173/78 H 97 Pain Intensity Upper Back: Pain Intensity: 4 Transfer of Care Handoff Completed per policy Notes Mental Status: alert / awake / arousable and participated in evaluation Patient Amnestic to Procedure: Yes Nausea / Vomiting: adequately controlled Pain: adequately controlled Airway Patency, RR, SpO2: stable & adequate BP & HR: stable & adequate Hydration State: stable & adequate Anesthetic Complications: no major complications apparent and Pt Satisfied with anesthetic care Notes: The patient states having mild L scapular pain, described as achy. The patient denies radiation of the pain. She denies CP or SOB. VSS throughout. The patient is otherwise stable for discharge.
[2019-06-16] MEDS ORDERED: HYDROmorphone INJ 0.5 MG/0.5 ML SYR IV PRN (13:33)
[2019-06-16] MEDS ORDERED: ALBUTEROL HFA 8 GM INHALER INH PRN (13:33)
[2019-06-16] MEDS ORDERED: MECLIZINE HCL 25 MG TAB PO PRN (13:56)
[2019-06-16] MEDS ORDERED: GLUCOSE 40% GEL 15 GM TUBE PO PRN (14:00)
[2019-06-16] MEDS ORDERED: GLUCOSE 10 TABS/TUBE PO PRN (14:00)
[2019-06-16] MEDS ORDERED: DEXTROSE 50% 50 ML SYRINGE IV PRN (14:00)
[2019-06-16] MEDS ORDERED: GLUCAGON FOR INJ 1 MG VIAL IM PRN (14:00)
[2019-06-16] MEDS ORDERED: CARBOHYDRATES FOR HYPOGLYCEMIA PO PRN (14:00)
[2019-06-16] MEDS: SODIUM CHLORIDE 0.9% 1000ML 1,000 ML IV SCH (14:01)
[2019-06-16] MEDS: ACETAMINOPHEN 1,000 MG/100 ML VIAL IV SCH ×2 (14:11→21:07)
[2019-06-16] MEDS: ONDANSETRON INJ 2 MG/ML 2 ML VIAL IV SCH ×3 (14:11→21:24)
[2019-06-16] MEDS: INSULIN ASPART 100 UNITS/ML 3 ML PEN SC SCH ×2 (18:12→21:09)
[2019-06-16] MEDS ORDERED: GABAPENTIN 100 MG CAP PO SCH (21:00)
[2019-06-16] MEDS: METOCLOPRAMIDE HCL INJ 5 MG/ML 2 ML VIAL IV SCH (21:05)
[2019-06-16] MEDS: PANTOprazole 40 MG TAB PO SCH (21:07)
[2019-06-16] MEDS: LABETALOL HCL 100 MG TAB PO SCH (21:20)
--- NOTE | 2019-06-17 00:22 | Operative Report ---
DATE OF OPERATION: 06/16/2019 PREOPERATIVE DIAGNOSES: 1. Large hiatal hernia with paraesophageal component. 2. Gastroesophageal reflux disease. POSTOPERATIVE DIAGNOSES: 1. Large hiatal hernia with paraesophageal component. 2. Gastroesophageal reflux disease. PROCEDURES: 1. Robot-assisted thoracoscopic repair of hiatal hernia with reduction of paraesophageal hernia. 2. Reinforcement of hiatal repair using OviTex bioabsorbable mesh. 3. Randolph fundoplication. 4. On-table esophagogastroscopy. SURGEON: Luís Mueller MD. CLIPPER COUNTERS: JOSE LUIS Dickey (MrParker Leta was present for the entire case and was instrumental at the patient's bedside while I was at the console and then closed incisions at the conclusion of the case) (Margy Yang DO) ANESTHESIA: General anesthesia, endotracheal intubation. INDICATION FOR PROCEDURE AND FINDINGS: Unique Alegria is a very nice 78-year-old female that I have seen several times in the office. The patient has marked reflux and has to sleep sitting up and often times will sleep in a chair. She was found to have a large hiatal hernia. This appeared to me to have a paraesophageal component and indeed it did when we went in. We elected to proceed with a robot-assisted laparoscopic repair. On 06/16/2019, the patient was brought to the operating room and underwent uncomplicated robot-assisted laparoscopic repair. The patient had very large hernia sac and hernia, but we were able to reduce the stomach all the way back down and really the esophagus had plenty of length. This all went without difficulty. We identified the vagus nerves. We performed a repair and actually there was no tension on the crura at all, but it was a sizable defect. We reinforced this with an OviTex patch. We then did a fairly loose Randolph fundoplication, which came together very nicely under no tension. She tolerated it well. Esophagoscopy looked quite good at the conclusion of the case. She was extubated in the room with negligible blood loss. DESCRIPTION OF PROCEDURE: The patient was brought to the operating room and laid in supine position. General anesthesia induced. Endotracheal intubation was performed. After prepping and draping with appropriate positioning on the table, a timeout was called and prophylactic antibiotics given. Incision was made in the midline below the xiphoid process with a 5-mm scope which was placed under vision with the 5-mm trocar and we went into the pleural cavity and carbon dioxide was insufflated. This was switched over to a 12 mm camera port. We then put an 8 mm port in the left midclavicular line just below the costal margin. We also put an 8 mm port in the midclavicular line on the right; however, we did this several centimeters below the costal margin. A 5 mm port was placed on the left and the right flanks. One was for a 5 mm thoracic grasper for the robot and the other was for the liver retractor. The assistance port was then placed in the left paraumbilical area. We had some adhesions to taken down, which were done sharply using a cautery and this helped quite nicely. We then placed the pretzel retractor in and retracted the liver up. The patient had a very large amount of intra-abdominal fat. We were able to identify the left crura fairly easily and then we went ahead and took down all of our short gastrics with a vessel sealer. This worked very nicely. As we did this, the stomach began to reduce. We then created a flap between the hernia sac and the mediastinal area. We did not get into either pleural cavity. The esophagus was identified and it really was not very high up and there was a large gastric component which indeed was a paraesophageal hernia. We were able to finally reduce this with all of the fat and this came out quite nicely. We had a fairly large defect. I removed the hernia sac sharply as well as the gastroesophageal fat pad. Upon removing all of these, the GE junction was nicely seen and we identified both vagus nerves. A 0 Vicryl was used in a [id number] fashion x3 sutures to reapproximate the left and right crura. It should be noted that there was really no tension under this at all. It still appeared that the defect was a bit larger than I would liked, so I put one more single 0 silk simple suture. I was quite pleased with the way it looked. A piece of OviTex was selected and cut to shape and I sutured this over the repair and on either side, although it was only about 4 x 6 cm. It did not touch the esophagus. This was held in place with 3-0 Vicryl suture. I then selected an area on the anterior and posterior fundus and then this pulled around as we developed a nice area around the retroesophageal area. We did put a 3/4-inch [place] around the distal esophagus and used it for retraction. The fundus was under no tension, it came together nicely, and we did perform a shoeshine maneuver and made sure we did not have this twisted or folded in the back. A 2-0 Vicryl was used in a simple fashion to suture the posterior and anterior fundus together anteriorly. We then did 2 more 2-0 silk sutures, but incorporated the esophagus into each. We then placed 1 more suture from both fundi to the anterior crura. This was all under no tension and actually looked quite good. We then undocked the robot and placed the patient from her marked reverse Trendelenburg position back into a supine position. I performed an esophagoscopy and this actually looked quite good. She had very mild narrowing at the GE junction, but upon retroflexion, the fundoplication looked very good. We saw no evidence of perforation when insufflating air and bathing the area with warm saline. I then suctioned out the CO2 and decompressed the stomach and removed the esophagoscope. We then closed the 2 larger incisions which were the camera port and the left paramedian assistance port with #1 Maxon. A 4-0 Monocryl was then used in running subcuticular fashion to approximate all of the wound edges after we had evacuated the carbon dioxide from the abdomen. She tolerated this quite well and was extubated in the room. I attest to the content of the Intraoperative Record and any orders documented therein. Any exceptions are noted below. GREYSON
[2019-06-17] MEDS ORDERED: Nursing to Pharmacy Communication ONE (01:12)
[2019-06-17] MEDS: ONDANSETRON INJ 2 MG/ML 2 ML VIAL IV SCH ×4 (01:28→13:19)
[2019-06-17] MEDS: SODIUM CHLORIDE 0.9% 1000ML 1,000 ML IV SCH (03:38)
[2019-06-17] MEDS: METOCLOPRAMIDE HCL INJ 5 MG/ML 2 ML VIAL IV SCH (03:38)
[2019-06-17] MEDS: INSULIN ASPART 100 UNITS/ML 3 ML PEN SC SCH ×2 (05:38→13:23)
[2019-06-17] MEDS: ACETAMINOPHEN 1,000 MG/100 ML VIAL IV SCH (05:48)
[2019-06-17] MEDS ORDERED: LEVOTHYROXINE SODIUM 112 MCG TABLET PO SCH (06:30)
--- NOTE | 2019-06-17 08:31 | Anesthesiology Progress Note ---
Date of Service June 17, 2019 Anesthesia Post Procedure Vital Signs Vital Signs: Temp Pulse Pulse Resp BP BP Pulse Ox 06/17/19 05:50 93 06/17/19 05:45 81 L 06/17/19 05:25 36.9 C 87 18 144/72 H 95 06/17/19 01:23 37.2 C 79 18 101/59 L 93 06/16/19 23:22 37.1 C 76 16 110/66 95 06/16/19 21:16 36.9 C 86 16 145/73 H 90 06/16/19 19:17 36.6 C 85 16 148/70 H 92 06/16/19 17:37 36.6 C 83 16 118/67 94 06/16/19 16:21 36.9 C 82 16 123/69 94 06/16/19 15:29 36.5 C 81 18 116/67 95 06/16/19 14:20 81 18 126/70 91 06/16/19 13:53 80 18 127/73 93 06/16/19 13:25 36.4 C L 85 18 117/71 93 06/16/19 13:05 36.8 C 78 17 119/65 93 06/16/19 12:55 36.8 C 81 21 126/60 93 06/16/19 12:46 36.8 C 80 19 132/67 94 06/16/19 12:35 80 22 138/76 94 06/16/19 12:25 84 15 129/70 94 06/16/19 12:15 81 18 121/66 97 06/16/19 12:05 36.3 C L 83 17 115/64 97 06/16/19 11:55 36.3 C L 88 20 123/59 L 96 06/16/19 11:45 36.3 C L 82 16 109/54 L 96 Pain Intensity Upper Back: Pain Intensity: 4 Notes Notes: Patient not in room. EDGAR.
--- NOTE | 2019-06-17 08:55 | Fluoroscopy Report ---
SINGLE CONTRAST ESOPHAGRAM CLINICAL HISTORY: Postoperative examination status post Randolph fundoplication. COMPARISON STUDY: Barium esophagram dated 04/19/2019. TECHNIQUE: A single contrast esophagram is performed plan the patient perform several swallows of Opt iray 300. Multiple spot images of the stomach and esophagus are acquired. FINDINGS: The patient swallowed water-soluble contrast without difficulty. Postoperative change is co nsistent with a Randolph fundoplication. The esophagus is morphologically normal. Mild dysmotility is s een distally. No extraluminal contrast is identified. The gastroesophageal junction distends normally . There is minimal pooling of contrast within the stomach with normal emptying into the duodenum and proximal small bowel. Fluoroscopy time: 1.3 minutes. Fluoroscopic images: 15 IMPRESSION: 1. Findings are consistent with the reported history of Randolph fundoplication. No extraluminal contra st is identified. 2. Mild esophageal dysmotility. 3. There is mild pooling of contrast within the stomach which then clears into the duodenum. Electronically signed by: Huan Quintero M.D. 06/17/2019 8:53 AM
[2019-06-17] MEDS ORDERED: ATORVASTATIN 10 MG TAB PO SCH (09:00)
[2019-06-17] MEDS ORDERED: NYSTATIN CR 15 GM TUBE EXT SCH (09:00)
[2019-06-17] MEDS ORDERED: ASPIRIN 81 MG ECTAB PO SCH (09:00)
[2019-06-17] MEDS ORDERED: FOLIC ACID 1 MG TAB PO SCH (09:00)
[2019-06-17] MEDS ORDERED: MONTELUKAST SODIUM 10 MG TABLET PO SCH (09:00)
[2019-06-17] MEDS ORDERED: AMLODIPINE BESYLATE 5 MG TAB PO SCH (09:00)
[2019-06-17] MEDS: PANTOprazole 40 MG TAB PO SCH (13:14)
[2019-06-17] MEDS: ACETAMINOPHEN 325 MG TAB PO SCH ×2 (13:15→13:42)
[2019-06-17] MEDS: LABETALOL HCL 100 MG TAB PO SCH (13:16)
--- NOTE | 2019-06-18 00:34 | Discharge Summary ---
ADMISSION DIAGNOSES: Large hiatal hernia with paraesophageal component and gastroesophageal reflux disease. DISCHARGE DIAGNOSES: Large hiatal hernia with paraesophageal component and gastroesophageal reflux disease. HOSPITAL COURSE: The patient was seen and evaluated by Dr. Mueller as an outpatient secondary to admission diagnosis. On date of admission, Dr. Mueller took her to the operating room and performed a robotic-assisted laparoscopic repair of hiatal hernia and reduction of paraesophageal hernia which was reinforced by absorbable mesh patch along with a Randolph fundoplication and intraoperative EGD. The patient's surgery was without complications. On postoperative day #1, the patient did undergo a barium swallow evaluation. This did not show any evidence of contrast extravasation. Some esophageal dysmotility was noted and some contrast did pull in the stomach, but cleared into the duodenum. Following the study, the patient was advanced to a liquid diet which she tolerated well. She did not have any nausea, vomiting and had adequate pain control. She ambulated in the hallway and had her oxygen successfully weaned off as her pulse ox was greater than 90% on room air. Because of this, she was deemed stable for discharge home. DISCHARGE INSTRUCTIONS: The patient was given both written and verbal instructions. She was told to walk daily. She was told not to drive until cleared by Dr. Mueller. She was also told not to lift objects heavier than 10 pounds until cleared by Dr. Mueller. She was told she can remove her dressings in 3 days and then shower. DIET: She was allowed full liquids, but not to consume any foods that require chewing such as meat or bread. FOLLOWUP: The patient will have a followup with Dr. Mueller in approximately 1 week and the office will call to verify time and date of appointment. DISCHARGE MEDICATIONS: The patient does have AN ALLERGY TO CODEINE WHICH CAUSES HIVES, so she was not given any narcotic pain medications. She was instructed to take Tylenol 650 mg every 6 hours, regardless whether or not she was having pain as this should achieve adequate pain control. She was also given a prescription for Zofran 4 mg every 6 hours as needed for nausea, vomiting and she was instructed on the use of this and this was sent to her pharmacy. The remainder of her home medicines was the same. As noted, her postoperative course was uneventful. She was discharged home on postoperative day #1.
== END 2019-06-17 16:40 | disposition home or self-care (01) ==
LOC: 3N 06:14 → ASU 06:14

== ENCOUNTER 2021-01-29 14:21 | Inpatient (IN) ==
[2021-01-29] MEDS ORDERED: OPTIRAY 350 500ml IV ONE ×2 (14:41→23:06)
[2021-01-29 14:50] LABS: Basophils # (auto) 0.02 K/uL (0-0.2); Basophils % (auto) 0.4 %; Eosinophils # (auto) 0.35 K/uL (0-0.5); Eosinophils % (auto) 6.4 %; Hematocrit (blood only) 42.8 % (37-47); Hemoglobin 14.2 g/dL (12.0-16.0); Lymphocytes # (auto) 2.25 K/uL (1.2-3.4); Lymphocytes % (auto) 41.1 %; Mean Corpuscular Hemoglobin 30.3 pg (25-34); Mean Corpuscular Hgb Conc 33.2 g/dL (32-36); Mean Corpuscular Volume 91.5 fL (80-100); Mean Platelet Volume 10.8 fL (7.4-10.4); Monocytes % (auto) 5.5 %; Neutrophils # (auto) 2.55 K/uL (1.4-6.5); Neutrophils % (auto) 46.6 %; Platelet Count 109 K/uL (130-400); RDW Coefficient of Variation 13.8 % (11.5-14.5); RDW Standard Deviation 46.2 fL (36.4-46.3); Red Blood Count 4.68 M/uL (4.2-5.4); White Blood Count 5.47 K/uL (4.8-10.8)
--- NOTE | 2021-01-29 14:58 | CT Scan Report ---
CT head/brain wo con CLINICAL HISTORY: Stroke Like Symptoms COMPARISON STUDY: 09/03/2020 TECHNIQUE: Axial CT of the brain is performed from the vertex to the skull base. IV contrast was not administered for this examination. A dose lowering technique was utilized adhering to the principles of ALARA. CT DOSE: 1050.71 mGy.cm FINDINGS: No intra or extra-axial mass lesions are visualized. There is no CT evidence of acute cortical infarc tion. There is no evidence of midline shift. There is no acute hemorrhage. No calvarial fractures ar e visualized. There are patchy white matter hypodensities likely on a small vessel basis. 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 There is a chronic right mastoid effusion. IMPRESSION: No acute intracranial findings ACT 112: Negative or not required by law. Electronically signed by: Virgilio Young M.D. 01/29/2021 2:56 PM
[2021-01-29 15:01] LABS: Partial Thromboplastin Time 26.2 Seconds (21.0-31.0); Prothrombin Time 10.3 Seconds (9.0-12.0)
[2021-01-29 15:08] LABS: Alanine Aminotransferase 30 U/L (12-78); Albumin Level 3.5 gm/dl (3.4-5.0); Aspartate Aminotransferase 42 U/L (15-37); BUN Creatinine Ratio 10.9 (10-20); Blood Urea Nitrogen 12 mg/dl (7-18); Calcium 9.2 mg/dl (8.5-10.1); Carbon Dioxide 26 mmol/L (21-32); Chloride 111 mmol/L (98-107); Est GFR (African American) 56.1 ml/min; Est GFR (Non-African American) 48.4 ml/min; Glucose 135 mg/dl (70-99); Potassium 3.7 mmol/L (3.5-5.1); Sodium 143 mmol/L (136-145)
--- NOTE | 2021-01-29 15:09 | CT Scan Report ---
HEAD CTA HISTORY: Left-sided weakness. Difficulty speaking. TECHNIQUE: Multiaxial CT images of the head were performed both before and after the intravenous admi nistration of contrast to evaluate the major cerebral vessels. Maximum intensity projection images we re also obtained. A dose lowering technique was utilized adhering to the principles of ALARA. COMPARISON: None. FINDINGS: There is no mass, hematoma, midline shift, or acute infarct. Mild to moderate multifocal st enosis seen within the bilateral distal vertebral arteries due to the calcified plaque. Mild focal st enosis at the distal basilar artery. Mild to moderate multifocal stenosis seen within the bilateral P Dharmesh. Moderate calcified plaque within the bilateral carotid siphons resulting in mild diffuse narrowi ng. No significant stenosis, occlusion, or aneurysm within the bilateral ACAs are MCAs. The major dur al venous sinuses appear patent. IMPRESSION: 1. Mild to moderate multifocal stenosis seen within the posterior circulation as described above. 2. No significant stenosis, occlusion, or aneurysm within the bilateral ACAs are MCAs. 3. Mild diffuse narrowing of the bilateral carotid siphons due to the calcified plaque. ACT 112: Negative or not required by law. Electronically signed by: Krishan Velasquez M.D. 01/29/2021 3:08 PM
[2021-01-29 15:13] LABS: Albumin Globulin Ratio 0.8 (0.9-2); Alkaline Phosphatase 155 U/L (45-117); Bilirubin,Total 0.7 mg/dl (0.2-1); Globulin 4.5 gm/dl (2.5-4.0); Magnesium 2.2 mg/dl (1.8-2.4); Troponin I < 0.015 ng/ml (0-0.045)
--- NOTE | 2021-01-29 15:22 | CT Scan Report ---
CT angio neck with con CLINICAL HISTORY: Stroke Like Symptoms COMPARISON STUDY: No previous studies for comparison. TECHNIQUE: CT angiography was performed from the aortic arch to the skull base. MIP imaging was perfo rmed. The patient was scanned in a dynamic helical fashion during intravenous administration of cc of Optiray. A dose lowering technique was utilized adhering to the principles of ALARA. CT DOSE: Technique: CT angiogram of the carotid and vertebral arteries was obtained using intravenous contrast and 3-D reconstruction. NASCET criteria was utilized. Findings: Heavy calcified plaque is seen within right carotid bulb and proximal aspect of the left internal car otid artery is with approximately 50% stenosis. Bilateral external carotid arteries are tortuous. Concentric calcified plaques are seen within cavernosal and supraclinoid aspect of the bilateral inte rnal carotid arteries without hemodynamically significant stenosis. There is left predominant vertebral circulation. Significant narrowing of the distal aspect of the V4 segment of the right vertebral artery is unchanged since prior. Redemonstration of concentric calcified plaque at the distal aspect of the left vertebral artery is a gain seen without hemodynamically significant stenosis. Right vertebral artery is extremely tortuous. Redemonstration of slightly beaded appearance of the bilateral internal carotid arteries which someti mes could be seen in fibromuscular dysplasia. No evidence of aneurysmal dilatation, dissection or focal occlusion seen. Overall findings are simila r to prior study performed in September 03, 2020. IMPRESSION: No hemodynamically significant stenosis within internal carotid arteries. Stable atherosclerotic invo lvement as detailed above. Stable long segment of narrowing within right V4 segment. Arterial tortuosity. Stable minimal beaded appearance of the internal carotid arteries which sometime s could be seen in fibromuscular dysplasia. Please correlate above-mentioned findings was prior histo ry. ACT 112: Negative or not required by law. The above report was generated using voice recognition software. It may contain grammatical, syntax o r spelling errors. Electronically signed by: Heather Chanel DO 01/29/2021 3:21 PM
[2021-01-29] MEDS ORDERED: ASPIRIN CHEW 324 MG PO STA (15:39)
--- NOTE | 2021-01-29 15:59 | Emergency Department Note ---
History of Present Illness General Chief complaint: Dizziness Stated complaint: REFERRED BY MD, DIZZINESS, NUMBNESS R SIDE Time Seen by Provider: 01/29/21 14:32 Source: family () History of Present Illness Provider complaint: Dysarthria and weakness Onset (ago): minute(s) (90) 80-year-old female presents emergency department for dysarthria and weakness. She presents to the emergency department with her . reports that her symptoms began at 1 PM when she went for her visit with her PCP Dr. Mead. states that the patient slumped over and then was having increased difficulty speaking and left-sided weakness. History of stroke. Home Medications Medication Instructions Recorded Confirmed Type aspirin 81 mg tablet,delayed 81 mg PO QAM tab 02/24/19 01/29/21 History release albuterol sulfate 1 puff INHALATION Q4 PRN 03/20/19 01/29/21 History cholecalciferol (vitamin D3) 5,000 unit PO 3XWK 03/20/19 01/29/21 History ondansetron HCl [Zofran] 4 mg PO Q4H PRN #20 tab 06/17/19 01/29/21 Rx clopidogrel 75 mg tablet 75 mg PO QAM #90 tab 02/23/20 01/29/21 Rx gabapentin 100 mg capsule 100 mg PO HS #90 cap 03/06/20 01/29/21 Rx insulin lispro 100 unit/mL 80 unit SUBCUT DAILY #5 box 06/08/20 01/29/21 Rx subcutaneous pen labetalol 100 mg tablet 50 mg PO Q12H #180 tab 07/17/20 01/29/21 Rx levothyroxine 112 mcg tablet 112 mcg PO QAM #90 tab 08/25/20 01/29/21 Rx fexofenadine 180 mg PO QAM 09/03/20 01/29/21 History blood sugar diagnostic #10 ea 09/27/20 01/29/21 History folic acid 1 mg tablet 1 mg PO QAM #90 tab 11/30/20 01/29/21 Rx atorvastatin 10 mg tablet 10 mg PO BID #180 tab 12/19/20 01/29/21 Rx amlodipine 5 mg tablet 2.5 mg PO QAM tab 12/27/20 01/29/21 History Lantus Solostar U-100 Insulin 30 unit SUBCUT HS 01/29/21 01/29/21 History cyanocobalamin (vitamin B-12) 1,000 mcg PO DAILY 01/29/21 01/29/21 History meclizine 25 mg PO TID PRN 01/29/21 01/29/21 History montelukast 10 mg PO QPM 01/29/21 01/29/21 History omeprazole 20 mg PO QAM 01/29/21 01/29/21 History Allergies Allergy/AdvReac Type Severity Reaction Status Date / Time codeine Allergy Intermediate HYPERACTIVE, Verified 01/29/21 13:21 HIVES/SYNCOPE enoxaparin Allergy Intermediate syncope Verified 01/29/21 13:21 fluorouracil Allergy Intermediate Hives Verified 01/29/21 13:21 potassium Allergy Mild IV Verified 01/29/21 13:21 potassium caused hypotension Past Med/Surg History Medical History Aneurysm of left carotid artery Pseudoaneurysm, Neurosurg AT [facility] Arthritis Asthma INHALER PRN>HAS NOT USED FOR A WHILE Atrial fibrillation NOTED WHEN WEARING HOLTER MONITOR 2020>[facility] FOLLOWS Chest discomfort Chronic kidney disease, stage III (moderate) FOLLOWS W/ DR. BECKMAN Diabetes mellitus, type 2 IDDM - follows with [facility] endocrine Diastasis recti Fibromuscular hyperplasia of left carotid artery GERD (gastroesophageal reflux disease) Hiatal hernia Hyperlipemia Hypertension Hypothyroidism Idiopathic thrombocytopenia purpura referred to heme/onc for evaluation of thrombocytopenia- clinical picture suggestive of ITP - started on steroid therapy Stroke 1985. MILD RETIREMENT MEMORY LOSS. TIA (transient ischemic attack) MULTIPLE. MOST RECENT 10/2020 >FOLLOWED UP WITH PCP>FACIAL NUMBNESS AND SHORT PERIOD OF NOT BEING ABLE TO TALK. (REASON FOR PLAVIX) Surgical History H/O dilation and curettage H/O hernia repair (03/08/20) Ventral hernia repair Dr. Jane 03/08/20 H/O umbilical hernia repair History of ankle surgery RIGHT History of appendectomy History of colonoscopy History of esophageal dilatation History of esophagogastroduodenoscopy (EGD) WITH REMOVAL OF ESOPHAGEAL POLYPS History of loop recorder IMPLANTED NOVEMBER 2020 History of repair of hiatal hernia (06/16/19) Robotic assisted Laparoscopic repair of hiatal hernia with prosthetic bio- absorbable mesh, robert Fundoplication Esophagogastroduoedenoscopy Dr. Mueller 06/16/19 History of tonsillectomy and adenoidectomy History of total abdominal hysterectomy and bilateral salpingo-oophorectomy History of total knee replacement BILATERAL AND A STEEL JAD IN RIGHT LEG D/T CURVATURE Hx of cholecystectomy Family History Unknown Osteoporosis Mother Rheumatoid arthritis Family history of diabetes mellitus History of nephrectomy Stroke syndrome Hypertension Stroke Aunt Rheumatoid arthritis Father Heart disease Myocardial infarction Hx of CABG Hypertension Brother Acute myocardial infarction Myocardial infarction Other No family history of adverse response to anesthesia Denies family history of Ovarian cancer Prostate cancer Clotting disorder Breast cancer Social History Smoking Status: Never smoker Second Hand Exposure: Yes (as a child); Hx Alcohol Use: No Preferred Language: Ivorian Communication Ability: Effective Visual Impairment: No Limitations Hearing Ability: Normal 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: No Beliefs That Will Affect Care: None marital status: Current Living Situation: Spouse current occupational status: retired How many Children do You have: 4 Feels Safe at Home: Yes Childhood Exposure to Second-Hand Smoke: Yes Dental Care, Regularly: No Physical Activity Frequency: Daily Seatbelt Use: always Sunscreen Use: No Assistive Devices: Cane, Denture - Upper, Denture - Lower and Glasses Review of Systems Unobtainable due to cognitive status Physical Exam Vital Signs Vital Signs - 24 hr 01/29/21 14:27 01/29/21 14:35 01/29/21 14:36 Temperature 36.3 C L Temperature Source Temporal Artery Scan Pulse Rate 72 72 73 Pulse Rate [Right Finger] 69 Pulse Rate from SpO2 Sensor 72 72 Pulse Rhythm [Right Finger] Regular Pulse Strength [Right Finger] Normal Respiratory Rate 20 20 17 Respiratory Effort / Characteristics Non-Labored Spontaneous Respiratory Depth Normal Normal Respiratory Pattern Regular Blood Pressure 169/95 H 180/91 H Blood Pressure [Right Arm] 180/91 H Blood Pressure Mean 119 120 Blood Pressure Mean [Right Arm] 120 Blood Pressure Position [Right Arm] Lying Pulse Oximetry 97 97 98 Oxygen Delivery Method Room Air Room Air Sepsis Recent Fever Within 48 Hours No Sepsis New/Unexplained Change in Mental Status N/A Sepsis Action Taken by Nursing No Action Required 01/29/21 14:54 01/29/21 15:00 01/29/21 15:07 Temperature Temperature Source Pulse Rate 61 75 Pulse Rate [Right Finger] Pulse Rate from SpO2 Sensor 75 77 74 Pulse Rhythm [Right Finger] Pulse Strength [Right Finger] Respiratory Rate 18 21 26 H Respiratory Effort / Characteristics Respiratory Depth Respiratory Pattern Blood Pressure 179/69 H Blood Pressure [Right Arm] Blood Pressure Mean 105 Blood Pressure Mean [Right Arm] Blood Pressure Position [Right Arm] Pulse Oximetry 97 98 98 Oxygen Delivery Method Sepsis Recent Fever Within 48 Hours Sepsis New/Unexplained Change in Mental Status Sepsis Action Taken by Nursing 01/29/21 15:10 01/29/21 15:20 01/29/21 15:30 Temperature Temperature Source Pulse Rate 71 65 69 Pulse Rate [Right Finger] Pulse Rate from SpO2 Sensor 70 62 70 Pulse Rhythm [Right Finger] Pulse Strength [Right Finger] Respiratory Rate 25 H 21 21 Respiratory Effort / Characteristics Respiratory Depth Respiratory Pattern Blood Pressure Blood Pressure [Right Arm] Blood Pressure Mean Blood Pressure Mean [Right Arm] Blood Pressure Position [Right Arm] Pulse Oximetry 97 96 98 Oxygen Delivery Method Sepsis Recent Fever Within 48 Hours Sepsis New/Unexplained Change in Mental Status Sepsis Action Taken by Nursing Physical Exam HENT: Exam performed. -Head: Normocephalic and atraumatic. -Right Ear: External ear normal. No mastoid tenderness. -Left Ear: External ear normal. No mastoid tenderness. -Mouth/Throat: The oropharynx is clear and moist. No trismus in the jaw. No dental abscesses or uvula swelling. No oropharyngeal exudate or tonsillar abscesses. EYES: Conjunctivae and EOM are normal. Pupils are equal, round, and reactive to light. Right eye exhibits no discharge. Left eye exhibits no discharge. No scleral icterus. NECK: Normal range of motion. Neck supple. No JVD present. No spinous process tenderness present. No carotid bruit present. No rigidity. No tracheal deviation and normal range of motion present. No Brudzinski's sign and no Kernig's sign noted. CV: Normal rate, regular rhythm, normal heart sounds and intact distal pulses. There is no peripheral edema. Palpable radial pulses bue. PULM/CHEST: Effort normal and breath sounds normal. No respiratory distress. No stridor. She has no wheezes. She has no rales. -Chest Wall: She exhibits no tenderness. ABD: The abdomen is soft. Bowel sounds are normal. She has no distension. No mass is present. There is no tenderness. There is no rebound, no guarding, no Griggs's sign and no tenderness at McBurney's point. Rovsig negative MUSC/SKEL: Normal range of motion. There is no peripheral edema, tenderness or deformity. LYMPH: No cervical adenopathy. NEURO: NIHSS: 8 (5a:2, 6a:1, 7:1, 8:1, 9:1, 10:1, 11:1) SKIN: Skin is warm and dry. She is not diaphoretic. PSYCH: She has a normal mood and affect. Behavior is normal. Judgment and thought content normal. Course Course 1432: The patient was evaluated in room B11. A complete history and physical exam was performed Cardiac monitoring: An order was placed for continuous cardiac monitoring. The monitor shows a rate of 70 with sinus rhythm Code stroke called. EMR reviewed. Patient has a history of CVAs. She has residual left-sided weakness and dysarthria. states that the dysarthria and weakness are worse than normal. 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 During time of consult by neurosurgery they stated they would watch the aneurysm and if it got significantly larger they will consider endovascular repair. 1508: Spoke with Dr. Helm [facility] who states she will evaluate the patient. She states she will reviewed the notes from neurology and neurosurgery and then evaluate the patient. 1537: On reassessment the patient is neurologically much more intact. Her dysarthria and weakness have improved. CTs are at the patient's baseline. Patient's states she is at his baseline. Spoke with [facility] Dr. Helm who states she reviewed the notes and the patient has multiple similar episodes. She states no TPA at this time. She recommends that the patient be admitted for TIA work-up, she recommends EEG and MRI. She also states that the patient with aspirin. Administered Medications Discontinued Medications Aspirin (Aspirin Chew 324 Mg) 324 mg PO NOW STA Stop: 01/29/21 15:40 Last Admin: 01/29/21 16:05 Dose: Not Given Documented by: Ioversol (Optiray 350 500ml) 120 ml IV ONCE ONE Stop: 01/29/21 14:42 Last Admin: 01/29/21 14:41 Dose: 120 ml Documented by: [id number] Critical Care Time Critical Care Time: Yes Total Critical Care Time: 65 I have personally spent greater than 65 minutes of critical care time in the direct management of this patient. This includes bedside care, interpretation of diagnostic studies, and testing, discussion with consultants, patient, and family members, and other required patient management activities. This 65 minutes is in excess of all separately billable procedures. Medical Decision Making Laboratory Data Result diagrams: 01/29/21 14:40 01/29/21 14:40 Lab Results 01/29/21 01/29/21 01/29/21 Range/Units 14:40 14:40 14:40 WBC 5.47 (4.8-10.8) K/uL RBC 4.68 (4.2-5.4) M/uL Hgb 14.2 (12.0-16.0) g/dL Hct 42.8 (37-47) % MCV 91.5 (80-100) fL MCH 30.3 (25-34) pg MCHC 33.2 (32-36) g/dL RDW Std Deviation 46.2 (36.4-46.3) fL RDW Coeff of Fallon 13.8 (11.5-14.5) % Plt Count 109 L (130-400) K/uL MPV 10.8 H (7.4-10.4) fL Immature Gran % (Auto) 0.0 % Neut % (Auto) 46.6 % Lymph % (Auto) 41.1 % [place] % (Auto) 5.5 % Eos % (Auto) 6.4 % Baso % (Auto) 0.4 % Neut # (Auto) 2.55 (1.4-6.5) K/uL Lymph # (Auto) 2.25 (1.2-3.4) K/uL [place] # (Auto) 0.30 (0.11-0.59) K/uL Eos # (Auto) 0.35 (0-0.5) K/uL Baso # (Auto) 0.02 (0-0.2) K/uL Immature Gran # (Auto) 0.00 (0.00-0.02) K/uL PT 10.3 (9.0-12.0) Seconds INR 1.0 (0.9-1.1) APTT 26.2 (21.0-31.0) Seconds PTT Ratio 1.0 Sodium (136-145) mmol/L Potassium (3.5-5.1) mmol/L Chloride (98-107) mmol/L Carbon Dioxide (21-32) mmol/L Anion Gap (3-11) BUN (7-18) mg/dl Creatinine (0.6-1.2) mg/dl Est Cr Clr Drug Dosing Est GFR ( Amer) ml/min Est GFR (Non-Af Amer) ml/min BUN/Creatinine Ratio (10-20) Glucose (70-99) mg/dl Calcium (8.5-10.1) mg/dl Magnesium (1.8-2.4) mg/dl Total Bilirubin (0.2-1) mg/dl AST (15-37) U/L ALT (12-78) U/L Alkaline Phosphatase (45-117) U/L Troponin I (0-0.045) ng/ml Total Protein (6.4-8.2) gm/dl Albumin (3.4-5.0) gm/dl Globulin (2.5-4.0) gm/dl Albumin/Globulin Ratio (0.9-2) COVID-19 Eval Order Blood Type O Positive Antibody Screen NEGATIVE 01/29/21 01/29/21 Range/Units 14:40 16:05 WBC (4.8-10.8) K/uL RBC (4.2-5.4) M/uL Hgb (12.0-16.0) g/dL Hct (37-47) % MCV (80-100) fL MCH (25-34) pg MCHC (32-36) g/dL RDW Std Deviation (36.4-46.3) fL RDW Coeff of Fallon (11.5-14.5) % Plt Count (130-400) K/uL MPV (7.4-10.4) fL Immature Gran % (Auto) % Neut % (Auto) % Lymph % (Auto) % [place] % (Auto) % Eos % (Auto) % Baso % (Auto) % Neut # (Auto) (1.4-6.5) K/uL Lymph # (Auto) (1.2-3.4) K/uL [place] # (Auto) (0.11-0.59) K/uL Eos # (Auto) (0-0.5) K/uL Baso # (Auto) (0-0.2) K/uL Immature Gran # (Auto) (0.00-0.02) K/uL PT (9.0-12.0) Seconds INR (0.9-1.1) APTT (21.0-31.0) Seconds PTT Ratio Sodium 143 (136-145) mmol/L Potassium 3.7 (3.5-5.1) mmol/L Chloride 111 H (98-107) mmol/L Carbon Dioxide 26 (21-32) mmol/L Anion Gap 6.0 (3-11) BUN 12 (7-18) mg/dl Creatinine 1.08 (0.6-1.2) mg/dl Est Cr Clr Drug Dosing Not Reportable Est GFR ( Amer) 56.1 ml/min Est GFR (Non-Af Amer) 48.4 ml/min BUN/Creatinine Ratio 10.9 (10-20) Glucose 135 H (70-99) mg/dl Calcium 9.2 (8.5-10.1) mg/dl Magnesium 2.2 (1.8-2.4) mg/dl Total Bilirubin 0.7 (0.2-1) mg/dl AST 42 H (15-37) U/L ALT 30 (12-78) U/L Alkaline Phosphatase 155 H (45-117) U/L Troponin I < 0.015 (0-0.045) ng/ml Total Protein 8.0 (6.4-8.2) gm/dl Albumin 3.5 (3.4-5.0) gm/dl Globulin 4.5 H (2.5-4.0) gm/dl Albumin/Globulin Ratio 0.8 L (0.9-2) COVID-19 Eval Order Covid19 at [facility] Blood Type Antibody Screen Imaging Data Radiologist's Impression: Head CT 01/29/21 14:34 CT head/brain wo con CLINICAL HISTORY: Stroke Like Symptoms COMPARISON STUDY: 09/03/2020 TECHNIQUE: Axial CT of the brain is performed from the vertex to the skull base. IV contrast was not administered for this examination. A dose lowering technique was utilized adhering to the principles of ALARA. CT DOSE: 1050.71 mGy.cm FINDINGS: No intra or extra-axial mass lesions are visualized. There is no CT evidence of acute cortical infarction. There is no evidence of midline shift. There is no acute hemorrhage. No calvarial fractures are visualized. There are patchy white matter hypodensities likely on a small vessel basis. 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 There is a chronic right mastoid effusion. IMPRESSION: No acute intracranial findings ACT 112: Negative or not required by law. Electronically signed by: Virgilio Young M.D. 01/29/2021 2:56 PM Head CTA 01/29/21 14:34 HEAD CTA HISTORY: Left-sided weakness. Difficulty speaking. TECHNIQUE: Multiaxial CT images of the head were performed both before and after the intravenous administration of contrast to evaluate the major cerebral vessels. Maximum intensity projection images were also obtained. A dose lowering technique was utilized adhering to the principles of ALARA. COMPARISON: None. FINDINGS: There is no mass, hematoma, midline shift, or acute infarct. Mild to moderate multifocal stenosis seen within the bilateral distal vertebral arteries due to the calcified plaque. Mild focal stenosis at the distal basilar artery. Mild to moderate multifocal stenosis seen within the bilateral custom designer. Moderate calcified plaque within the bilateral carotid siphons resulting in mild diffuse narrowing. No significant stenosis, occlusion, or aneurysm within the bilateral ACAs are MCAs. The major dural venous sinuses appear patent. IMPRESSION: 1. Mild to moderate multifocal stenosis seen within the posterior circulation as described above. 2. No significant stenosis, occlusion, or aneurysm within the bilateral ACAs are MCAs. 3. Mild diffuse narrowing of the bilateral carotid siphons due to the calcified plaque. ACT 112: Negative or not required by law. Electronically signed by: Krishan Velasquez M.D. 01/29/2021 3:08 PM Neck CTA 01/29/21 14:34 CT angio neck with con CLINICAL HISTORY: Stroke Like Symptoms COMPARISON STUDY: No previous studies for comparison. TECHNIQUE: CT angiography was performed from the aortic arch to the skull base. MIP imaging was performed. The patient was scanned in a dynamic helical fashion during intravenous administration of cc of Optiray. A dose lowering technique was utilized adhering to the principles of ALARA. CT DOSE: Technique: CT angiogram of the carotid and vertebral arteries was obtained using intravenous contrast and 3-D reconstruction. NASCET criteria was utilized. Findings: Heavy calcified plaque is seen within right carotid bulb and proximal aspect of the left internal carotid artery is with approximately 50% stenosis. Bilateral external carotid arteries are tortuous. Concentric calcified plaques are seen within cavernosal and supraclinoid aspect of the bilateral internal carotid arteries without hemodynamically significant stenosis. There is left predominant vertebral circulation. Significant narrowing of the distal aspect of the V4 segment of the right vertebral artery is unchanged since prior. Redemonstration of concentric calcified plaque at the distal aspect of the left vertebral artery is again seen without hemodynamically significant stenosis. Right vertebral artery is extremely tortuous. Redemonstration of slightly beaded appearance of the bilateral internal carotid arteries which sometimes could be seen in fibromuscular dysplasia. No evidence of aneurysmal dilatation, dissection or focal occlusion seen. Overall findings are similar to prior study performed in September 03, 2020. IMPRESSION: No hemodynamically significant stenosis within internal carotid arteries. Stable atherosclerotic involvement as detailed above. Stable long segment of narrowing within right V4 segment. Arterial tortuosity. Stable minimal beaded appearance of the internal carotid arteries which sometimes could be seen in fibromuscular dysplasia. Please correlate above-mentioned findings was prior history. ACT 112: Negative or not required by law. The above report was generated using voice recognition software. It may contain grammatical, syntax or spelling errors. Electronically signed by: Heather Chanel DO 01/29/2021 3:21 PM ECG Data Indication: + other (cva) Rate (beats per minute): 63 Rhythm: + normal sinus ECG Intervals/blocks: + Normal MD and + Normal QT-c ECG ST segments: + Normal ST segments Additional Comments: QRS 70 MDM Narrative 1432: The patient was evaluated in room B11. A complete history and physical exam was performed Cardiac monitoring: An order was placed for continuous cardiac monitoring. The monitor shows a rate of 70 with sinus rhythm Code stroke called. EMR reviewed. Patient has a history of CVAs. She has residual left-sided weakness and dysarthria. states that the dysarthria and weakness are worse than normal. 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 During time of consult by neurosurgery they stated they would watch the aneurysm and if it got significantly larger they will consider endovascular repair. 1508: Spoke with Dr. Alicja Fowlery [facility] who states she will evaluate the patient. She states she will reviewed the notes from neurology and neurosurgery and then evaluate the patient. 1537: On reassessment the patient is neurologically much more intact. Her dysarthria and weakness have improved. CTs are at the patient's baseline. Patient's states she is at his baseline. Spoke with [facility] Dr. Helm who states she reviewed the notes and the patient has multiple similar episodes. She states no TPA at this time. She recommends that the patient be admitted for TIA work-up, she recommends EEG and MRI. She also states that the patient with aspirin. Impression & Plan TIA (transient ischemic attack) Discharge Plan Visit Data Chief Complaint: Dizziness Stated Complaint: REFERRED BY MD, DIZZINESS, NUMBNESS R SIDE ED Provider: Bhaskar Rivera Discharge Problem: TIA (transient ischemic attack) Patient Disposition: Admitted As Inpatient Forms Stand Alone Forms: [facility] Prescriptions Prescriptions: No Action clopidogrel 75 mg tablet 75 mg PO QAM Qty: 90 RF: 3 gabapentin 100 mg capsule 100 mg PO HS Qty: 90 RF: 3 insulin lispro [Humalog KwikPen Insulin] 100 unit/mL insulin pen 80 unit subcut DAILY Qty: 5 RF: 3 levothyroxine [Levoxyl] 112 mcg tablet 112 mcg PO QAM Qty: 90 RF: 3 folic acid 1 mg tablet 1 mg PO QAM Qty: 90 RF: 3 aspirin 81 mg tablet,delayed release (DR/EC) 81 mg PO QAM RF: 0 atorvastatin 10 mg tablet 10 mg PO BID Qty: 180 RF: 1 (DME) FreeStyle Lite Strips Strip See Rx Instructions .ROUTE .MEDSUPPLY Qty: 10 RF: 0 amlodipine 5 mg tablet 2.5 mg PO QAM RF: 0 labetalol 100 mg tablet 50 mg PO Q12H Qty: 180 RF: 3 albuterol sulfate 90 mcg/actuation HFA aerosol inhaler 1 puff inhalation Q4 PRN (Reason: Wheezing) RF: 0 cholecalciferol (vitamin D3) 5,000 unit Tablet 5,000 unit PO 3XWK RF: 0 ondansetron HCl [Zofran] 4 mg tablet 4 mg PO Q4H PRN (Reason: nausea and vomiting) Qty: 20 RF: 1 fexofenadine 180 mg Tablet 180 mg PO QAM RF: 0 omeprazole 20 mg capsule,delayed release(DR/EC) 20 mg PO QAM RF: 0 montelukast 10 mg tablet 10 mg PO QPM RF: 0 Lantus Solostar U-100 Insulin 100 unit/mL (3 mL) insulin pen 30 unit subcut HS RF: 0 meclizine 25 mg tablet 25 mg PO TID PRN (Reason: Dizziness) RF: 0 cyanocobalamin (vitamin B-12) 1,000 mcg Tablet 1,000 mcg PO DAILY RF: 0 Referrals Referrals: Jordana Chen MD [Primary Care Provider] -
--- NOTE | 2021-01-29 17:43 | History & Physical Report ---
Date of Service January 29, 2021 Assessment & Plan (1) Left-sided weakness: Mrs. 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 This initially started on the evening of 01/26/21. Patient went to bed and the next morning woke up with normal baseline neurologic status. Today she was scheduled to see her PCP, and as she was walking back to the exam room she developed significant left leg and arm weakness and dysarthric speech. These symptoms have persisted until now -- although patient and her admit that her symptoms have improved. Still with left arm weakness, left leg weakness, and speech is not yet at baseline. When she had these symptoms Friday evening she transmitted her LINQ loop recorde r but I don't have access to that report at the moment. CTA's of Neck and Head as described below. CT Scan Head shows no acute intracranial findings. MRI of the Brain is ordered. -- Admit to PCU on telemetry. -- Continue Aspirin and Plavix daily. -- Stop Omeprazole due to potential interaction with Plavix. -- Begin Protonix 40 mg daily. -- Neurology consultation. -- Neuro checks per protocol. -- PT/OT/Speech Evaluations. -- Interrogate Medtronic LINQ loop recorder, assess for atrial arrhythmias. -- MRI Brain. -- NPO for now. -- IVF NSS. (2) Cryptogenic stroke: -- s/p Medtronic LINQ loop recorder. -- Interrogate device. (3) Fibromuscular hyperplasia of left carotid artery: -- Followed at [facility] [place]. (4) Aneurysm of left carotid artery: Pseudoaneurysm -- followed at [facility] [place]. (5) Hypertension: -- Amlodipine 2.5 mg daily. -- Labetalol 50 mg b.i.d.. (6) Hyperlipemia: Atorvastatin 10 mg daily. (7) Uncontrolled insulin-treated type 2 diabetes mellitus: -- Continue long acting insulin. -- Glycemic pharmacy consult. History of Present Illness Chief Complaint: -- Left sided weakness. -- Dysarthria. -- Recurrent CVA's. Primary Care Provider: Jordana Chen MD Mrs. 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 This initially started on the evening of 01/26/21. Patient went to bed and the next morning woke up with normal baseline neurologic status. Today she was scheduled to see her PCP, and as she was walking back to the exam room she developed significant left leg and arm weakness and dysarthric speech. These symptoms have persisted until now -- although patient and her admit that her symptoms have improved. Still with left arm weakness, left leg weakness, and speech is not yet at baseline. When she had these symptoms Friday evening she transmitted her LINQ loop recorder but I don't have access to that report at the moment. Allergies Allergy/AdvReac Type Severity Reaction Status Date / Time codeine Allergy Intermediate HYPERACTIVE, Verified 01/29/21 13:21 HIVES/SYNCOPE enoxaparin Allergy Intermediate syncope Verified 01/29/21 13:21 fluorouracil Allergy Intermediate Hives Verified 01/29/21 13:21 potassium Allergy Mild IV Verified 01/29/21 13:21 potassium caused hypotension Home Medications Medication Instructions Recorded Confirmed Type aspirin 81 mg tablet,delayed 81 mg PO QAM tab 02/24/19 01/29/21 History release albuterol sulfate 1 puff INHALATION Q4 PRN 03/20/19 01/29/21 History cholecalciferol (vitamin D3) 5,000 unit PO 3XWK 03/20/19 01/29/21 History ondansetron HCl [Zofran] 4 mg PO Q4H PRN #20 tab 06/17/19 01/29/21 Rx clopidogrel 75 mg tablet 75 mg PO QAM #90 tab 02/23/20 01/29/21 Rx gabapentin 100 mg capsule 100 mg PO HS #90 cap 03/06/20 01/29/21 Rx insulin lispro 100 unit/mL 80 unit SUBCUT DAILY #5 box 06/08/20 01/29/21 Rx subcutaneous pen labetalol 100 mg tablet 50 mg PO Q12H #180 tab 07/17/20 01/29/21 Rx levothyroxine 112 mcg tablet 112 mcg PO QAM #90 tab 08/25/20 01/29/21 Rx fexofenadine 180 mg PO QAM 09/03/20 01/29/21 History blood sugar diagnostic #10 ea 09/27/20 01/29/21 History folic acid 1 mg tablet 1 mg PO QAM #90 tab 11/30/20 01/29/21 Rx atorvastatin 10 mg tablet 10 mg PO BID #180 tab 12/19/20 01/29/21 Rx amlodipine 5 mg tablet 2.5 mg PO QAM tab 12/27/20 01/29/21 History Lantus Solostar U-100 Insulin 30 unit SUBCUT HS 01/29/21 01/29/21 History cyanocobalamin (vitamin B-12) 1,000 mcg PO DAILY 01/29/21 01/29/21 History meclizine 25 mg PO TID PRN 01/29/21 01/29/21 History montelukast 10 mg PO QPM 01/29/21 01/29/21 History omeprazole 20 mg PO QAM 01/29/21 01/29/21 History Past Med/Surg History Medical History Aneurysm of left carotid artery Pseudoaneurysm, Neurosurg AT [facility] Arthritis Asthma INHALER PRN>HAS NOT USED FOR A WHILE Atrial fibrillation NOTED WHEN WEARING HOLTER MONITOR 2020>[facility] CARDIOLOGY FOLLOWS Chest discomfort Chronic kidney disease, stage III (moderate) FOLLOWS W/ DR. BECKMAN Diabetes mellitus, type 2 IDDM - follows with [facility] endocrine Diastasis recti Fibromuscular hyperplasia of left carotid artery GERD (gastroesophageal reflux disease) Hiatal hernia Hyperlipemia Hypertension Hypothyroidism Idiopathic thrombocytopenia purpura referred to heme/onc for evaluation of thrombocytopenia- clinical picture suggestive of ITP - started on steroid therapy Stroke 1985. MILD HALF-WAY MEMORY LOSS. TIA (transient ischemic attack) MULTIPLE. MOST RECENT 10/2020 >FOLLOWED UP WITH PCP>FACIAL NUMBNESS AND SHORT PERIOD OF NOT BEING ABLE TO TALK. (REASON FOR PLAVIX) Surgical History H/O dilation and curettage H/O hernia repair (03/08/20) Ventral hernia repair Dr. Jane 03/08/20 H/O umbilical hernia repair History of ankle surgery RIGHT History of appendectomy History of colonoscopy History of esophageal dilatation History of esophagogastroduodenoscopy (EGD) WITH REMOVAL OF ESOPHAGEAL POLYPS History of loop recorder IMPLANTED NOVEMBER 2020 History of repair of hiatal hernia (06/16/19) Robotic assisted Laparoscopic repair of hiatal hernia with prosthetic bio- absorbable mesh, robert Fundoplication Esophagogastroduoedenoscopy Dr. Mueller 06/16/19 History of tonsillectomy and adenoidectomy History of total abdominal hysterectomy and bilateral salpingo-oophorectomy History of total knee replacement BILATERAL AND A STEEL JAD IN RIGHT LEG D/T CURVATURE Hx of cholecystectomy Family History Unknown Osteoporosis Mother Rheumatoid arthritis Family history of diabetes mellitus History of nephrectomy Stroke syndrome Hypertension Stroke Aunt Rheumatoid arthritis Father Heart disease Myocardial infarction Hx of CABG Hypertension Brother Acute myocardial infarction Myocardial infarction Other No family history of adverse response to anesthesia Denies family history of Ovarian cancer Prostate cancer Clotting disorder Breast cancer Social History Smoking Status: Never smoker Second Hand Exposure: Yes (as a child); Hx Alcohol Use: No Preferred Language: Czech Communication Ability: Effective Visual Impairment: No Limitations Hearing Ability: Normal Steno Typist Required: No Beliefs That Will Affect Care: None marital status: Current Living Situation: Spouse current occupational status: retired How many Children do You have: 4 Feels Safe at Home: Yes Childhood Exposure to Second-Hand Smoke: Yes Dental Care, Regularly: No Physical Activity Frequency: Daily Seatbelt Use: always Sunscreen Use: No Assistive Devices: Cane, Denture - Upper, Denture - Lower and Glasses Review of Systems Review of Systems: All systems reviewed & are unremarkable except as noted in Subjective Physical Exam Physical Exam: GENERAL: Patient in no acute distress. HEENT: Head is atraumatic, normocephalic. EOM's intact. Facies symmetric. No perioral cyanosis. NECK: No JVD. JVP is at the level of the clavicle sitting upright. Carotid upstrokes are + 2 bilaterally. No bruits are noted. CHEST/LUNGS: Clear to auscultation throughout all lung brandt. No wheezes, rales, or crackles. CVS: S1 and S2 are regular without obvious murmurs, gallops, or rubs. PMI is nondisplaced. No lifts, heaves, or thrills. No abdominal aortic or renal bruits. Palpable loop recorder is present at the left sternal border. Surgical wound is closed, well healed. ABDOMINAL EXAM: Bowel sounds are present. No masses, organomegaly, or tenderness. EXTREMITIES: No clubbing or cyanosis. No edema. Intact posterior tibial and radial pulses bilaterally. NEUROLOGIC EXAM: Patient is awake, alert, and oriented. Answers questions appropriately. Speech is slightly thick, slurred. +2/5 LUE and +3/5 LLE strength in the major muscle group. Mild left facial droop. Junior Accountant shows normal sinus rhythm. EKG 01/29/21: -- NSR at 63 bpm. -- Low voltage QRS. -- Borderline EKG. Results & Data Results & Data ([facility]) Vital Signs (Past 12 Hours) Vital Signs Temp Pulse Pulse Resp BP BP Pulse Ox 01/29/21 17:10 63 16 96 01/29/21 17:00 66 23 96 01/29/21 16:53 64 19 161/60 H 96 01/29/21 16:51 59 L 14 01/29/21 16:00 65 17 96 01/29/21 15:50 68 16 97 01/29/21 15:40 71 16 96 01/29/21 15:30 69 21 98 01/29/21 15:20 65 21 96 01/29/21 15:10 71 25 H 97 01/29/21 15:07 75 26 H 179/69 H 98 01/29/21 15:00 61 21 98 01/29/21 14:54 18 97 01/29/21 14:36 73 17 98 01/29/21 14:35 72 69 20 180/91 H 180/91 H 97 01/29/21 14:27 36.3 C L 72 20 169/95 H 97 Laboratory Results Laboratory Results - last 24 hr 01/29/21 01/29/21 01/29/21 14:40 14:40 14:40 WBC 5.47 RBC 4.68 Hgb 14.2 Hct 42.8 MCV 91.5 MCH 30.3 MCHC 33.2 RDW Std Deviation 46.2 RDW Coeff of Fallon 13.8 Plt Count 109 L MPV 10.8 H Immature Gran % (Auto) 0.0 Neut % (Auto) 46.6 Lymph % (Auto) 41.1 Sauk % (Auto) 5.5 Eos % (Auto) 6.4 Baso % (Auto) 0.4 Neut # (Auto) 2.55 Lymph # (Auto) 2.25 Sauk # (Auto) 0.30 Eos # (Auto) 0.35 Baso # (Auto) 0.02 Immature Gran # (Auto) 0.00 PT 10.3 INR 1.0 APTT 26.2 PTT Ratio 1.0 Sodium Potassium Chloride Carbon Dioxide Anion Gap BUN Creatinine Est Cr Clr Drug Dosing Est GFR ( Amer) Est GFR (Non-Af Amer) BUN/Creatinine Ratio Glucose Calcium Magnesium Total Bilirubin AST ALT Alkaline Phosphatase Troponin I Total Protein Albumin Globulin Albumin/Globulin Ratio COVID-19 Eval Order SARS-CoV-2 (PCR) Blood Type O Positive Antibody Screen NEGATIVE 01/29/21 01/29/21 01/29/21 14:40 16:05 16:05 WBC RBC Hgb Hct MCV MCH MCHC RDW Std Deviation RDW Coeff of Fallon Plt Count MPV Immature Gran % (Auto) Neut % (Auto) Lymph % (Auto) Sauk % (Auto) Eos % (Auto) Baso % (Auto) Neut # (Auto) Lymph # (Auto) Sauk # (Auto) Eos # (Auto) Baso # (Auto) Immature Gran # (Auto) PT INR APTT PTT Ratio Sodium 143 Potassium 3.7 Chloride 111 H Carbon Dioxide 26 Anion Gap 6.0 BUN 12 Creatinine 1.08 Est Cr Clr Drug Dosing Not Reportable Est GFR ( Amer) 56.1 Est GFR (Non-Af Amer) 48.4 BUN/Creatinine Ratio 10.9 Glucose 135 H Calcium 9.2 Magnesium 2.2 Total Bilirubin 0.7 AST 42 H ALT 30 Alkaline Phosphatase 155 H Troponin I < 0.015 Total Protein 8.0 Albumin 3.5 Globulin 4.5 H Albumin/Globulin Ratio 0.8 L COVID-19 Eval Order Covid19 at [facility] SARS-CoV-2 (PCR) NEGATIVE Blood Type Antibody Screen Diagnostic Findings CTA NECK 01/29/21: Heavy calcified plaque is seen within right carotid bulb and proximal aspect of the left internal carotid artery is with approximately 50% stenosis. Bilateral external carotid arteries are tortuous. Concentric calcified plaques are seen within cavernosal and supraclinoid aspect of the bilateral internal carotid arteries without hemodynamically significant stenosis. There is left predominant vertebral circulation. Significant narrowing of the distal aspect of the V4 segment of the right vertebral artery is unchanged since prior. Redemonstration of concentric calcified plaque at the distal aspect of the left vertebral artery is again seen without hemodynamically significant stenosis. Right vertebral artery is extremely tortuous. Redemonstration of slightly beaded appearance of the bilateral internal carotid arteries which sometimes could be seen in fibromuscular dysplasia. No evidence of aneurysmal dilatation, dissection or focal occlusion seen. Overa ll findings are similar to prior study performed in September 03, 2020. IMPRESSION: -- No hemodynamically significant stenosis within internal carotid arteries. Stable atherosclerotic involvement as detailed above. -- Stable long segment of narrowing within right V4 segment. -- Arterial tortuosity. Stable minimal beaded appearance of the internal carotid arteries which sometimes could be seen in fibromuscular dysplasia. Please correlate above-mentioned findings was prior history. CTA BRAIN 01/29/21: There is no mass, hematoma, midline shift, or acute infarct. Mild to moderate multifocal stenosis seen within the bilateral distal vertebral arteries due to the calcified plaque. Mild focal stenosis at the distal basilar artery. Mild to moderate multifocal stenosis seen within the bilateral zoo caretaker. Moderate calcified plaque within the bilateral carotid siphons resulting in mild diffuse narrowing. No significant stenosis, occlusion, or aneurysm within the bilateral ACAs are MCAs. The major dural venous sinuses appear patent. IMPRESSION: 1. Mild to moderate multifocal stenosis seen within the posterior circulation as described above. 2. No significant stenosis, occlusion, or aneurysm within the bilateral ACAs are MCAs. 3. Mild diffuse narrowing of the bilateral carotid siphons due to the calcified plaque. CT SCAN HEAD 01/29/21: No intra or extra-axial mass lesions are visualized. There is no CT evidence of acute cortical infarction. There is no evidence of midline shift. There is no acute hemorrhage. No calvarial fractures are visualized. There are patchy white matter hypodensities likely on a small vessel basis. There is an old right basal ganglia lacunar infarct There is no evidence of pathologic ventricular dilatation. There is a chronic right mastoid effusion. IMPRESSION: -- No acute intracranial findings. Medications Administered Medications aspirin 81 mg tablet,delayed release 81 mg PO QAM tab 02/24/19 [History Confirmed 01/29/21] albuterol sulfate 1 puff INHALATION Q4 PRN 03/20/19 [History Confirmed 01/29/21] cholecalciferol (vitamin D3) 5,000 unit PO 3XWK 03/20/19 [History Confirmed 0 01/29/21] ondansetron HCl [Zofran] 4 mg PO Q4H PRN #20 tab 06/17/19 [Rx Confirmed 01/29/21] clopidogrel 75 mg tablet 75 mg PO QAM #90 tab 02/23/20 [Rx Confirmed 01/29/21] gabapentin 100 mg capsule 100 mg PO HS #90 cap 03/06/20 [Rx Confirmed 01/29/21] insulin lispro 100 unit/mL subcutaneous pen 80 unit SUBCUT DAILY #5 box 06/08/20 [Rx Confirmed 01/29/21] labetalol 100 mg tablet 50 mg PO Q12H #180 tab 07/17/20 [Rx Confirmed 01/29/21] levothyroxine 112 mcg tablet 112 mcg PO QAM #90 tab 08/25/20 [Rx Confirmed 01/29/21] fexofenadine 180 mg PO QAM 09/03/20 [History Confirmed 01/29/21] blood sugar diagnostic #10 ea 09/27/20 [History Confirmed 01/29/21] folic acid 1 mg tablet 1 mg PO QAM #90 tab 11/30/20 [Rx Confirmed 01/29/21] atorvastatin 10 mg tablet 10 mg PO BID #180 tab 12/19/20 [Rx Confirmed 01/29/21] amlodipine 5 mg tablet 2.5 mg PO QAM tab 12/27/20 [History Confirmed 01/29/21] Lantus Solostar U-100 Insulin 30 unit SUBCUT HS 01/29/21 [History Confirmed 01/29/21] cyanocobalamin (vitamin B-12) 1,000 mcg PO DAILY 01/29/21 [History Confirmed 01/29/21] meclizine 25 mg PO TID PRN 01/29/21 [History Confirmed 01/29/21] montelukast 10 mg PO QPM 01/29/21 [History Confirmed 01/29/21] omeprazole 20 mg PO QAM 01/29/21 [History Confirmed 01/29/21] Code Status & VTE Plan Code Status Full Code VTE Prophylaxis Plan VTE Prophylaxis will be ordered: Yes Supervising Physician Co-Signing Physician Notes Case discussed with CONOR, reviewed note above. Agree with above. Patient is here for left-sided weakness along with dysarthria which seems to be above her baseline. She does have residual weakness from a previous stroke. Concern is for new TIA versus recrudescence of old infarct. Patient is to get a work-up as defined above, including 2D echo, MRI, and interrogation of her loop recorder. Continue on aspirin and Plavix as ordered. Treatment of diabetes. Blood pressure controlled with current medications. PG Care Time/CCT Total # of Minutes Spent Total Time Spent with Patient: Total time spent is greater than 50% in coordination of care (as documented) at patient's floor/unit and/or counseling patient:45 Coding Level of Care Code 10639 Initial Inpt Care Lvl 3 Diagnoses Left-sided weakness R53.1 Cryptogenic stroke I63.9 Fibromuscular hyperplasia of left carotid artery I77.3 Aneurysm of left carotid artery I72.0 Hypertension I10 Hyperlipemia E78.5 Uncontrolled insulin-treated type 2 diabetes mellitus E11.65; Z79.4
[2021-01-29] MEDS ORDERED: MAGNESIUM HYDROXIDE SUSP 30 ML UDC PO PRN (19:40)
[2021-01-29] MEDS ORDERED: POLYETHYLENE (MIRALAX) 17 GM PACK PO PRN (19:40)
[2021-01-29] MEDS ORDERED: SODIUM CHLORIDE 0.9% 1000ML 1,000 ML IV SCH (19:40)
[2021-01-29] MEDS ORDERED: NITROGLYCERIN SL 0.4 MG/TAB TAB SL PRN (19:40)
[2021-01-29] MEDS ORDERED: ACETAMINOPHEN 325 MG TAB PO PRN (19:40)
[2021-01-29] MEDS ORDERED: ALBUTEROL HFA 8 GM INHALER INH PRN (19:40)
[2021-01-29] MEDS ORDERED: ONDANSETRON INJ 2 MG/ML 2 ML VIAL IV PRN (19:40)
[2021-01-29] MEDS ORDERED: ONDANSETRON 4 MG OD TAB PO PRN (19:40)
[2021-01-29] MEDS ORDERED: ALUMINUM/MAGNESIUM SUSP 30 ML UDC PO PRN (19:40)
[2021-01-29] MEDS ORDERED: ZOLPIDEM TARTRATE 5 MG TAB PO PRN (19:40)
[2021-01-29] MEDS ORDERED: PHARMACY GLYCEMIC MGMT CONSULT PRN (19:58)
[2021-01-29] MEDS ORDERED: MECLIZINE HCL 25 MG TAB PO PRN (20:04)
[2021-01-29] MEDS ORDERED: GLUCOSE 40% GEL 15 GM TUBE PO PRN (20:30)
[2021-01-29] MEDS ORDERED: GLUCOSE 10 TABS/TUBE PO PRN (20:30)
[2021-01-29] MEDS ORDERED: GLUCAGON FOR INJ 1 MG VIAL SQ PRN (20:30)
[2021-01-29] MEDS ORDERED: DEXTROSE 50% 50 ML SYRINGE IV PRN (20:30)
[2021-01-29] MEDS ORDERED: CARBOHYDRATES FOR HYPOGLYCEMIA PO PRN (20:30)
[2021-01-29] MEDS ORDERED: INSULIN GLARGINE SOLOSTAR 100 UNITS/ML 3 ML PEN SQ SCH ×2 (21:00)
[2021-01-29] MEDS ORDERED: GABAPENTIN 100 MG CAP PO SCH (21:00)
[2021-01-29] MEDS: LABETALOL HCL 100 MG TAB PO SCH (21:08)
[2021-01-29] MEDS: MONTELUKAST SODIUM 10 MG TABLET PO SCH (21:10)
[2021-01-29] MEDS: ATORVASTATIN 10 MG TAB PO SCH (21:11)
[2021-01-29] MEDS: HEPARIN SOD 5,000 UNIT/0.5 ML VIAL SQ SCH (21:28)
[2021-01-29] MEDS ORDERED: FAMOTIDINE 20 MG in SYRINGE 3 ML IV STA (21:47)
[2021-01-29] MEDS ORDERED: NITROGLYCERIN 2% OINTMENT 30GM TUBE ONE (21:48)
[2021-01-29] MEDS ORDERED: methylPREDNISolone 100 MG in SYRINGE 0 ML IV STA (21:52)
[2021-01-29 22:02] LABS: Basophils # (auto) 0.04 K/uL (0-0.2); Basophils % (auto) 0.6 %; Eosinophils # (auto) 0.36 K/uL (0-0.5); Eosinophils % (auto) 5.4 %; Hematocrit (blood only) 41.3 % (37-47); Hemoglobin 13.6 g/dL (12.0-16.0); Immature Granulocytes # (auto) 0.02 K/uL (0.00-0.02); Immature Granulocytes % (auto) 0.3 %; Lymphocytes # (auto) 2.51 K/uL (1.2-3.4); Lymphocytes % (auto) 37.6 %; Mean Platelet Volume 10.6 fL (7.4-10.4); Monocytes # (auto) 0.25 K/uL (0.11-0.59); Monocytes % (auto) 3.7 %; Neutrophils # (auto) 3.49 K/uL (1.4-6.5); Neutrophils % (auto) 52.4 %; Platelet Count 110 K/uL (130-400); RDW Coefficient of Variation 13.7 % (11.5-14.5); RDW Standard Deviation 45.6 fL (36.4-46.3); Red Blood Count 4.54 M/uL (4.2-5.4); White Blood Count 6.67 K/uL (4.8-10.8)
[2021-01-29 22:06] LABS: Mean Corpuscular Hgb Conc 32.9 g/dL (32-36)
[2021-01-29 22:16] LABS: INR 1.1 (0.9-1.1); Partial Thromboplastin Time 26.9 Seconds (21.0-31.0); Prothrombin Time 10.7 Seconds (9.0-12.0)
[2021-01-29] MEDS ORDERED: diphenhydrAMINE 50 MG/ML VIAL IV STA (22:19)
--- NOTE | 2021-01-29 22:21 | Communication Note ---
Date of Service: January 29, 2021 Presented for evaluation after a Code Purple was called around 21:45 on 01/29/21. Patient had recently received a does of heparin sq shortly before and had in dicated to nursing staff that she was having increased shortness of breathing and a feeling as though she could not breath (this was revisited with the patient several hours later and she noted that she felt as though she was more having cramping and "lumps" in the L side of her neck). This was complicated as patient was having dysarthria due to her recent suspected stroke. Patient was given Benadryl 50mg IV, Pepcid 20mg IV, Methylprednisolone 100mg IV, and NSS bolus 500ml. At this time patient was also noting to have centralized chest pain which improved with sublingual nitroglycerin. EKG was taken without obvious ST- Twave abnormalities during time of chest pain. At roughly 22:00 patient was noted to have worsening weakness of her L arm and L leg. She continued to have dysarthria. Patient then had roughly 30-45 seconds of over all body "shaking" and appeared very drowsy and sleepy afterwards. A stroke alert was called due to the worsening weakness of her L upper and lower extremities. Patient was immediately sent to CT for CT head which was negative for acute bleed. Discussed the case with Dr. Gaitan ([facility]) who noted patient would not be a candidate for TPA since her symptoms had originally started on 01/26/21 and had never returned to baseline. Dr. Gaitan recommended CTA head for the patient which returned negative for any occlusions. Patient was returned to PCU room after CTA head. Evaluated patient again around midnight. Patient now awake and much less dysarthric, able to hold conversation and able to recall the events of the past 2 hours. She also was able to demonstrate movement of her L upper and lower extremity to great improvement. Plan: -Suspect patient may have initially had an allergic reaction to the heparin (has had ?syncope to lovenox in the past) vs. anxiety -In regards to her worsening symptoms, ?cerebral vasospasm vs. drowsiness from diphenhydramine administered for the allergic reaction vs. new stroke -Will hold further heparin at this time -EKG's without ST-Twave abnormalities when compared to previous -Troponin negative and electrolytes balanced -CT head and CTA negative for acute findings -MRI Head pending -Low suspicion for true seizure as patient recalls the event, though at Neurology recommendation will order for morning EEG. -At this time patient well appearing with improved dysarthria and L lower and upper extremity movement/strength -Notified patient's family in regards to tonights events - patient's notes that the patient has been having waxing and waning symptoms the past few days as well, typically worse at night. Resident Activity Tracking Resident Involvement: Resident Care Provided and Animator Coverage Note Care Provided: Adult Hospital Medicine
[2021-01-29 22:36] LABS: Alanine Aminotransferase 27 U/L (12-78); Albumin Level 3.3 gm/dl (3.4-5.0); Blood Urea Nitrogen 11 mg/dl (7-18); Carbon Dioxide 27 mmol/L (21-32); Chloride 110 mmol/L (98-107); Creatinine Clr Calc Pharmacy 51.9 ml/min; Est GFR (African American) 62.4 ml/min; Est GFR (Non-African American) 53.8 ml/min; Glucose 108 mg/dl (70-99); Magnesium 2.3 mg/dl (1.8-2.4); Potassium 3.7 mmol/L (3.5-5.1); Sodium 143 mmol/L (136-145)
[2021-01-29 22:57] LABS: Albumin Globulin Ratio 0.8 (0.9-2); Alkaline Phosphatase 135 U/L (45-117); Aspartate Aminotransferase 37 U/L (15-37); Bilirubin,Total 0.7 mg/dl (0.2-1); Globulin 4.1 gm/dl (2.5-4.0); Phosphorus 2.9 mg/dl (2.5-4.9); Total Protein 7.4 gm/dl (6.4-8.2); Troponin I < 0.015 ng/ml (0-0.045)
[2021-01-29] MEDS: INSULIN ASPART 100 UNITS/ML 3 ML PEN SC SCH (23:56)
[2021-01-30] MEDS: HEPARIN SOD 5,000 UNIT/0.5 ML VIAL SQ SCH (00:04)
[2021-01-30] MEDS: LEVOTHYROXINE SODIUM 112 MCG TABLET PO SCH (05:04)
[2021-01-30] MEDS: INSULIN ASPART 100 UNITS/ML 3 ML PEN SC SCH ×4 (05:59→21:41)
[2021-01-30 06:36] LABS: Basophils # (auto) 0.01 K/uL (0-0.2); Basophils % (auto) 0.2 %; Hematocrit (blood only) 39.3 % (37-47); Immature Granulocytes # (auto) 0.01 K/uL (0.00-0.02); Immature Granulocytes % (auto) 0.2 %; Lymphocytes # (auto) 1.05 K/uL (1.2-3.4); Lymphocytes % (auto) 21.1 %; Mean Corpuscular Hemoglobin 29.6 pg (25-34); Mean Corpuscular Hgb Conc 33.1 g/dL (32-36); Mean Corpuscular Volume 89.5 fL (80-100); Mean Platelet Volume 10.5 fL (7.4-10.4); Monocytes # (auto) 0.05 K/uL (0.11-0.59); Neutrophils # (auto) 3.86 K/uL (1.4-6.5); Neutrophils % (auto) 77.5 %; Platelet Count 103 K/uL (130-400); RDW Coefficient of Variation 13.5 % (11.5-14.5); RDW Standard Deviation 44.2 fL (36.4-46.3); Red Blood Count 4.39 M/uL (4.2-5.4); White Blood Count 4.98 K/uL (4.8-10.8)
[2021-01-30 07:03] LABS: BUN Creatinine Ratio 12.1 (10-20); Calcium 8.8 mg/dl (8.5-10.1); Creatinine Clr Calc Pharmacy 47.6 ml/min; Est GFR (African American) 56.1 ml/min; Est GFR (Non-African American) 48.4 ml/min
[2021-01-30 07:18] LABS: RBC Morphology Unremarkable
--- NOTE | 2021-01-30 07:21 | CT Scan Report ---
NONCONTRAST HEAD CT, HEAD CTA HISTORY: L side weakness TECHNIQUE: Multiaxial CT images of the head were performed both before and after the intravenous admi nistration of contrast to evaluate the major cerebral vessels. Maximum intensity projection images we re also obtained. A dose lowering technique was utilized adhering to the principles of ALARA. COMPARISON: None. FINDINGS: NONCONTRAST HEAD CT: Old lacunar infarct seen within the right basal ganglia and left cerebellar mikhail sphere. Mild atrophy and microvascular ischemic changes are noted. The calvarium and skull base are i ntact. Paranasal sinuses and mastoid air cells are clear. HEAD CTA: Mild to moderate multifocal stenosis seen within the bilateral distal vertebral arteries du e to the calcified plaque. Mild focal stenosis at the distal basilar artery. Mild to moderate multifo donavon stenosis seen within the bilateral all source intelligence analyst. Moderate calcified plaque within the bilateral carotid s iphons resulting in mild diffuse narrowing. No significant stenosis, occlusion, or aneurysm within th e bilateral ACAs are MCAs. The major dural venous sinuses appear patent. IMPRESSION: 1. Mild to moderate multifocal stenosis seen within the posterior circulation as described above. 2. No significant stenosis, occlusion, or aneurysm within the bilateral ACAs are MCAs. 3. Mild diffuse narrowing of the bilateral carotid siphons due to the calcified plaque. 4. No acute intracranial abnormality. ACT 112: Negative or not required by law. Electronically signed by: Krishan Velasquez M.D. 01/30/2021 7:20 AM
[2021-01-30] MEDS: FOLIC ACID 1 MG TAB PO SCH (07:40)
[2021-01-30] MEDS: LABETALOL HCL 100 MG TAB PO SCH ×2 (07:40→21:48)
[2021-01-30] MEDS: ASPIRIN 81 MG ECTAB PO SCH (07:41)
[2021-01-30] MEDS: FEXOFENADINE HCL 180 MG TAB PO SCH (07:41)
[2021-01-30] MEDS: CYANOCOBALAMIN 500 MCG TABLET (VITAMIN B-12) PO SCH (07:41)
[2021-01-30] MEDS: ATORVASTATIN 10 MG TAB PO SCH (07:41)
[2021-01-30] MEDS: PANTOprazole 40 MG TAB PO SCH (07:41)
[2021-01-30] MEDS: CLOPIDOGREL BISULFATE 75 MG TAB PO SCH (07:42)
--- NOTE | 2021-01-30 07:52 | Magnetic Resonance Report ---
Brain MRI WITHOUT CONTRAST HISTORY: Left sided arm weakness. TECHNIQUE: Multiplanar multisequence MRI of the brain was performed without the use of contrast. COMPARISON STUDY: Head CT 01/29/2021. FINDINGS: There is no mass, hematoma, midline shift, or acute infarct. The ventricles and sulci demon strate mild age-related involutional changes. Scattered foci of T2 hyperintensity seen within the per iventricular and subcortical white matter are nonspecific but suggestive of mild microvascular ischem ic changes. The major vascular flow voids at the skull base are well-maintained. There are old lacuna r infarct seen within the right basal ganglia and left cerebellar hemisphere. These remain unchanged. Small mastoid effusions. Mild mucosal thickening within the ethmoid air cells. Evidence for prior bi lateral lens replacement. The temporal lobes are symmetric. IMPRESSION: 1. No acute intracranial abnormality. 2. Old lacunar infarcts within the right basal ganglia and left cerebellar hemisphere, unchanged. 3. Small bilateral mastoid effusions. ACT 112: Negative or not required by law. Electronically signed by: Krishan Velasquez M.D. 01/30/2021 7:51 AM
[2021-01-30] MEDS ORDERED: amLODIPine BESYLATE 5 MG TAB PO SCH (09:00)
[2021-01-30 09:07] LABS: Basophils # (auto) 0.02 K/uL (0-0.2); Basophils % (auto) 0.3 %; Eosinophils # (auto) 0.01 K/uL (0-0.5); Eosinophils % (auto) 0.2 %; Hematocrit (blood only) 37.8 % (37-47); Hemoglobin 12.7 g/dL (12.0-16.0); Immature Granulocytes # (auto) 0.01 K/uL (0.00-0.02); Immature Granulocytes % (auto) 0.2 %; Lymphocytes % (auto) 26.3 %; Mean Corpuscular Hemoglobin 30.3 pg (25-34); Mean Corpuscular Volume 90.2 fL (80-100); Mean Platelet Volume 10.3 fL (7.4-10.4); Monocytes # (auto) 0.23 K/uL (0.11-0.59); Monocytes % (auto) 3.6 %; Neutrophils % (auto) 69.4 %; Platelet Count 110 K/uL (130-400); RDW Coefficient of Variation 13.5 % (11.5-14.5); RDW Standard Deviation 44.9 fL (36.4-46.3); Red Blood Count 4.19 M/uL (4.2-5.4); White Blood Count 6.47 K/uL (4.8-10.8)
[2021-01-30 09:16] LABS: Allen Test Pos (Pos); Base Excess ABG 0.8 mEq/L (-9-1.8); HCO3 ABG 25 mmol/L (19-24); Oxygen Saturation ABG 95.2 % (90-95); PCO2 ABG 38 mmHg (35-46); PO2 ABG 70 mmHg (80-95); pH ABG 7.44 (7.35-7.45)
[2021-01-30 09:23] LABS: BUN Creatinine Ratio 12.8 (10-20); Blood Urea Nitrogen 13 mg/dl (7-18); Calcium 8.6 mg/dl (8.5-10.1); Carbon Dioxide 26 mmol/L (21-32); Chloride 109 mmol/L (98-107); Creatinine Clr Calc Pharmacy 48.6 ml/min; Est GFR (African American) 58.1 ml/min; Est GFR (Non-African American) 50.1 ml/min; Glucose 181 mg/dl (70-99); Lipase 30 U/L (73-393); Potassium 3.9 mmol/L (3.5-5.1); Sodium 141 mmol/L (136-145)
[2021-01-30 09:28] LABS: Troponin I < 0.015 ng/ml (0-0.045)
[2021-01-30 09:43] LABS: Mean Corpuscular Hgb Conc 33.6 g/dL (32-36)
--- NOTE | 2021-01-30 09:49 | Pharmacy Report ---
Pharmacy Glycemic Short Note 2 - Date of Service January 30, 2021 - Glycemic Short BSG Results (Last 24 hours): 01/29/21 01/29/21 01/29/21 14:40 20:43 21:53 Glucose 135 H 108 H POC Glucose 105 H 01/29/21 01/29/21 01/30/21 22:06 23:55 05:55 Glucose POC Glucose 107 H 112 H 191 H 01/30/21 01/30/21 01/30/21 06:13 08:20 08:51 Glucose 188 H 181 H POC Glucose 185 H OUTPATIENT ANTIDIABETIC REGIMEN: * Lantus 34 units HS * Humalog 20 units breakfast and lunch, 30 units dinner + sliding scale * HbA1c = 7.3% (01/01/21) ASSESSMENT: * 80 yo F admitted last evening secondary to stroke-like symptoms. Remains NPO this morning. * Received 15 units of Lantus at bedtime last night * Fasting elevated at 191 mg/dL this morning * Will increase Lantus dose this evening but will not resume home dose until patient starts eating * Novolog tightened to more closely match home dose PLAN FOR INPATIENT GLYCEMIC CONTROL: * Basal insulin - increased * Lantus 28 units SQ HS * Bolus insulin - tightened * NovoLog per scale ACHS or Q6hrs while NPO * Goal Range: Low 110 mg/dL - High 140 mg/dL * Correction Factor: 20 mg/dL/unit * Nutritional / Prandial insulin per carb ratio of 1 unit per 6 grams CHO consumed PLAN FOR DISCHARGE: * HbA1c = 7.3% from December 2020. Given patient's age and comorbidities, goal HbA1c should be < 8%. * No changes recommended to outpatient insulin regimen upon discharge as long as patient is not experiencing hypoglycemia at home. * Continue to [facility] with [facility].
--- NOTE | 2021-01-30 13:11 | Electrocardiogram Report ---
Test Reason : Blood Pressure : / mmHG Vent. Rate : 063 BPM Atrial Rate : 063 BPM P-R Int : 182 ms QRS Dur : 070 ms QT Int : 442 ms P-R-T Axes : 003 004 008 degrees QTc Int : 452 ms Normal sinus rhythm Low voltage QRS Borderline ECG When compared with ECG of 14-DEC-2020 19:14, Premature supraventricular complexes are no longer Present Confirmed by Trey Dixon ([id number]) on 01/30/2021 1:11:12 PM Referred By: Jordana Neri Confirmed By:Trey Dixon
[2021-01-30] MEDS ORDERED: Nursing to Pharmacy Communication SCH (13:15)
--- NOTE | 2021-01-30 13:20 | Electrocardiogram Report ---
Test Reason : Blood Pressure : / mmHG Vent. Rate : 085 BPM Atrial Rate : 085 BPM P-R Int : 172 ms QRS Dur : 074 ms QT Int : 376 ms P-R-T Axes : 017 -06 -09 degrees QTc Int : 447 ms Sinus rhythm with Premature supraventricular complexes Minimal voltage criteria for LVH, may be normal variant Borderline ECG When compared with ECG of 29-JAN-2021 15:51, (unconfirmed) Premature supraventricular complexes are now Present Confirmed by Trey Dixon ([id number]) on 01/30/2021 1:20:44 PM Referred By: Jordana Neri Confirmed By:Trey Dixon
--- NOTE | 2021-01-30 13:21 | Electrocardiogram Report ---
Test Reason : Blood Pressure : / mmHG Vent. Rate : 080 BPM Atrial Rate : 080 BPM P-R Int : 178 ms QRS Dur : 076 ms QT Int : 406 ms P-R-T Axes : 029 -12 -10 degrees QTc Int : 468 ms Normal sinus rhythm Minimal voltage criteria for LVH, may be normal variant Borderline ECG When compared with ECG of 29-JAN-2021 21:47, (unconfirmed) Premature supraventricular complexes are no longer Present Confirmed by Trey Dixon ([id number]) on 01/30/2021 1:21:28 PM Referred By: Jordana Neri Confirmed By:Trey Dixon
--- NOTE | 2021-01-30 13:41 | Medical Student Progress Note ---
Date of Service January 30, 2021 Assessment & Plan (1) Left-sided weakness: Ms. 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 Suspected recrudescence of previous stroke given same clinical picture as previous stroke and lack of acute change on imaging. Believe that this may be secondary to chronic venous stasis resulting in orthostatic hypotension and subsequent decreased perfusion to the cerebral tissue. (1) Stroke Recrudescence - CT Head and MRI on 01/29 with no acute intracranial findings. - Patient on telemetry with no acute events noted. Multiple EKGs which show no acute changes. Loop recorder with no evidence of a-fib. Continue cardiac monitoring. - Continue Aspirin daily. - Neuro checks and vitals per protocol. - Appreciate neuro recs. - Pending TTE. - PT/OT/Speech Evaluations. - Start apixaban given increased stroke risk in the context of possible afib. - Consider increasing to atorvastatin 40 mg for secondary prevention. (2) HTN: - BP parameters: SBP CAP 180, restart home anti-hypertensives. - Consider removing labetalol in the setting of orthostatic hypotension. (3) Orthostasis: - Orthostatic vitals. - Counseled on compression stockings. - Consider removing labetalol as above. (4) DMII: - Sliding scale insulin and accuchecks per primary team to avoid hyperglycemia. (5) Hyperlipidemia - Consider increasing atorvastatin dose as above. Admission and Anticipated Discharge Date Admission Date: January 29, 2021 Supervising Attestation I personally examined the patient and verified all frost points of history and exam, discussed case, and agree with decision making with Vanessa Costa. Feeling better. Still has left arm weakness and difficulty speaking but way better than it was before. She notes this is very similar to her prior stroke. Daughter notes that she has orthostatic-like episodes frequently, way worse recently. Patient notes her feet have been more swollen recently. Both seem to note that she does not drink a whole lot of fluid. Vitals noted, in general she is awake and alert pleasant no distress. HEENT normocephalic atraumatic mucous membranes moist. Neuro shows dysarthria as well as left arm weakness at about 3+ to 4- out of 5. Dysarthria and left arm weaknessdoes not appear to be acute stroke given lack of findings on MRI, however given her orthostasis and symptoms reminiscent of her prior stroke, I agree with stroke recrudescence as the most likely cause of her symptoms. Secondary risk reduction ongoing. Manage orthostasisdiscussed with her venous insufficiency she would likely benefit from compression stockings, discussed adequate p.o. fluid intake, and also we will hold her amlodipine for now. PT/OT eval and treat, may need rehab. Subjective Ms. 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 While the patient's symptoms began to resolve while in the ED, the team was called to the bedside acutely for recurrent episodes of dysarthria and weakness x2. Upon examination later in the day, patient was closer to her baseline and was able to give a thomas history. She continues to endorse left-sided weakness and dysarthria which she states are very similar to her previous stroke. At that time she states she had to do significant speech therapy as she was completely mute but regained her ability to speak and returned almost entirely to her baseline. She also states that she has recently had increased lower extremity swelling. She states that her lower legs and ankles often appear red and very edematous by the end of the day. Moreover, she and her daughter endorse that, frequently, upon standing up the patient loses consciousness. Physical Exam Constitutional: WD/WN, vitals as above Musculoskeletal: Ankle: no skin erythema Skin: no rashes, warm and dry Neurologic: normal touch/pain/proprioception, moves all extremities (decreased strength in left upper extremity ) and awake Speech / Cognition: + abnormal speech (dysarthric speech ) Cranial Nerves: + abnormal facial strength (decreased strength on left lower face) Psychiatric: A+Ox3, euthymic affect Results & Data ([facility]) Vital Signs (Past 12 Hours) Vital Signs Temp Pulse Pulse Resp BP Pulse Ox 01/30/21 11:19 36.6 C 71 18 145/71 H 94 01/30/21 09:13 81 20 159/83 H 96 01/30/21 08:45 80 18 161/83 H 96 01/30/21 08:21 36.8 C 84 18 161/81 H 96 01/30/21 08:00 68 01/30/21 07:13 36.6 C 74 18 134/71 94 01/30/21 02:51 36.8 C 76 17 154/71 H 95 Laboratory Results 01/30/21 01/30/21 01/30/21 16:36 14:41 14:41 WBC RBC Hgb Hct MCV MCH MCHC RDW Std Deviation RDW Coeff of Fallon Plt Count MPV Immature Gran % (Auto) Neut % (Auto) Lymph % (Auto) Bowman % (Auto) Eos % (Auto) Baso % (Auto) Neut # (Auto) Lymph # (Auto) Bowman # (Auto) Eos # (Auto) Baso # (Auto) Immature Gran # (Auto) RBC Morphology ESR PT INR APTT PTT Ratio ABG pH ABG pCO2 ABG pO2 ABG HCO3 ABG O2 Saturation ABG Base Excess Altaf Test Barometric Pressure Oxygen Given Sodium Potassium Chloride Carbon Dioxide Anion Gap BUN Creatinine Est Cr Clr Drug Dosing Est GFR ( Amer) Est GFR (Non-Af Amer) BUN/Creatinine Ratio Glucose POC Glucose 185 H Calcium Phosphorus Magnesium Total Bilirubin AST ALT Alkaline Phosphatase Ammonia Troponin I C-Reactive Protein 0.82 H Total Protein Albumin Globulin Albumin/Globulin Ratio Triglycerides 133 Cholesterol 92 LDL Cholesterol, Calc 35 VLDL Cholesterol, Calc 27 HDL Cholesterol 30 Cholesterol/HDL Ratio 3 Lipase 01/30/21 01/30/21 01/30/21 11:31 08:56 08:56 WBC RBC Hgb Hct MCV MCH MCHC RDW Std Deviation RDW Coeff of Fallon Plt Count MPV Immature Gran % (Auto) Neut % (Auto) Lymph % (Auto) Bowman % (Auto) Eos % (Auto) Baso % (Auto) Neut # (Auto) Lymph # (Auto) Bowman # (Auto) Eos # (Auto) Baso # (Auto) Immature Gran # (Auto) RBC Morphology ESR PT INR APTT PTT Ratio ABG pH 7.44 ABG pCO2 38 ABG pO2 70 L ABG HCO3 25 H ABG O2 Saturation 95.2 H ABG Base Excess 0.8 Altaf Test Pos Barometric Pressure 737.9 Oxygen Given RA Sodium Potassium Chloride Carbon Dioxide Anion Gap BUN Creatinine Est Cr Clr Drug Dosing Est GFR ( Amer) Est GFR (Non-Af Amer) BUN/Creatinine Ratio Glucose POC Glucose 156 H Calcium Phosphorus Magnesium Total Bilirubin AST ALT Alkaline Phosphatase Ammonia 37.0 H Troponin I C-Reactive Protein Total Protein Albumin Globulin Albumin/Globulin Ratio Triglycerides Cholesterol LDL Cholesterol, Calc VLDL Cholesterol, Calc HDL Cholesterol Cholesterol/HDL Ratio Lipase 01/30/21 01/30/21 01/30/21 08:51 08:51 08:51 WBC 6.47 RBC 4.19 L Hgb 12.7 Hct 37.8 MCV 90.2 MCH 30.3 MCHC 33.6 RDW Std Deviation 44.9 RDW Coeff of Fallon 13.5 Plt Count 110 L MPV 10.3 Immature Gran % (Auto) 0.2 Neut % (Auto) 69.4 Lymph % (Auto) 26.3 Bowman % (Auto) 3.6 Eos % (Auto) 0.2 Baso % (Auto) 0.3 Neut # (Auto) 4.50 Lymph # (Auto) 1.70 Bowman # (Auto) 0.23 Eos # (Auto) 0.01 Baso # (Auto) 0.02 Immature Gran # (Auto) 0.01 RBC Morphology ESR 20 PT INR APTT PTT Ratio ABG pH ABG pCO2 ABG pO2 ABG HCO3 ABG O2 Saturation ABG Base Excess Altaf Test Barometric Pressure Oxygen Given Sodium 141 Potassium 3.9 Chloride 109 H Carbon Dioxide 26 Anion Gap 6.0 BUN 13 Creatinine 1.05 Est Cr Clr Drug Dosing 48.6 Est GFR ( Amer) 58.1 Est GFR (Non-Af Amer) 50.1 BUN/Creatinine Ratio 12.8 Glucose 181 H POC Glucose Calcium 8.6 Phosphorus Magnesium Total Bilirubin AST ALT Alkaline Phosphatase Ammonia Troponin I < 0.015 C-Reactive Protein Total Protein Albumin Globulin Albumin/Globulin Ratio Triglycerides Cholesterol LDL Cholesterol, Calc VLDL Cholesterol, Calc HDL Cholesterol Cholesterol/HDL Ratio Lipase 30 L 01/30/21 01/30/21 01/30/21 08:20 06:13 06:13 WBC 4.98 RBC 4.39 Hgb 13.0 Hct 39.3 MCV 89.5 MCH 29.6 MCHC 33.1 RDW Std Deviation 44.2 RDW Coeff of Fallon 13.5 Plt Count 103 L MPV 10.5 H Immature Gran % (Auto) 0.2 Neut % (Auto) 77.5 Lymph % (Auto) 21.1 Bowman % (Auto) 1.0 Eos % (Auto) 0.0 Baso % (Auto) 0.2 Neut # (Auto) 3.86 Lymph # (Auto) 1.05 L Bowman # (Auto) 0.05 L Eos # (Auto) 0.00 Baso # (Auto) 0.01 Immature Gran # (Auto) 0.01 RBC Morphology Unremarkable ESR PT INR APTT PTT Ratio ABG pH ABG pCO2 ABG pO2 ABG HCO3 ABG O2 Saturation ABG Base Excess Altaf Test Barometric Pressure Oxygen Given Sodium 141 Potassium 4.0 Chloride 108 H Carbon Dioxide 27 Anion Gap 6.0 BUN 13 Creatinine 1.08 Est Cr Clr Drug Dosing 47.6 Est GFR ( Amer) 56.1 Est GFR (Non-Af Amer) 48.4 BUN/Creatinine Ratio 12.1 Glucose 188 H POC Glucose 185 H Calcium 8.8 Phosphorus Magnesium Total Bilirubin AST ALT Alkaline Phosphatase Ammonia Troponin I C-Reactive Protein Total Protein Albumin Globulin Albumin/Globulin Ratio Triglycerides Cholesterol LDL Cholesterol, Calc VLDL Cholesterol, Calc HDL Cholesterol Cholesterol/HDL Ratio Lipase 01/30/21 01/29/21 01/29/21 05:55 23:55 22:06 WBC RBC Hgb Hct MCV MCH MCHC RDW Std Deviation RDW Coeff of Fallon Plt Count MPV Immature Gran % (Auto) Neut % (Auto) Lymph % (Auto) Bowman % (Auto) Eos % (Auto) Baso % (Auto) Neut # (Auto) Lymph # (Auto) Bowman # (Auto) Eos # (Auto) Baso # (Auto) Immature Gran # (Auto) RBC Morphology ESR PT INR APTT PTT Ratio ABG pH ABG pCO2 ABG pO2 ABG HCO3 ABG O2 Saturation ABG Base Excess Altaf Test Barometric Pressure Oxygen Given Sodium Potassium Chloride Carbon Dioxide Anion Gap BUN Creatinine Est Cr Clr Drug Dosing Est GFR ( Amer) Est GFR (Non-Af Amer) BUN/Creatinine Ratio Glucose POC Glucose 191 H 112 H 107 H Calcium Phosphorus Magnesium Total Bilirubin AST ALT Alkaline Phosphatase Ammonia Troponin I C-Reactive Protein Total Protein Albumin Globulin Albumin/Globulin Ratio Triglycerides Cholesterol LDL Cholesterol, Calc VLDL Cholesterol, Calc HDL Cholesterol Cholesterol/HDL Ratio Lipase 01/29/21 01/29/21 01/29/21 21:53 21:53 21:53 WBC 6.67 RBC 4.54 Hgb 13.6 Hct 41.3 MCV 91.0 MCH 30.0 MCHC 32.9 RDW Std Deviation 45.6 RDW Coeff of Fallon 13.7 Plt Count 110 L MPV 10.6 H Immature Gran % (Auto) 0.3 Neut % (Auto) 52.4 Lymph % (Auto) 37.6 Bowman % (Auto) 3.7 Eos % (Auto) 5.4 Baso % (Auto) 0.6 Neut # (Auto) 3.49 Lymph # (Auto) 2.51 Bowman # (Auto) 0.25 Eos # (Auto) 0.36 Baso # (Auto) 0.04 Immature Gran # (Auto) 0.02 RBC Morphology ESR PT 10.7 INR 1.1 APTT 26.9 PTT Ratio 1.0 ABG pH ABG pCO2 ABG pO2 ABG HCO3 ABG O2 Saturation ABG Base Excess Altaf Test Barometric Pressure Oxygen Given Sodium 143 Potassium 3.7 Chloride 110 H Carbon Dioxide 27 Anion Gap 6.0 BUN 11 Creatinine 0.99 Est Cr Clr Drug Dosing 51.9 Est GFR ( Amer) 62.4 Est GFR (Non-Af Amer) 53.8 BUN/Creatinine Ratio 11.0 Glucose 108 H POC Glucose Calcium 9.0 Phosphorus 2.9 Magnesium 2.3 Total Bilirubin 0.7 AST 37 ALT 27 Alkaline Phosphatase 135 H Ammonia Troponin I < 0.015 C-Reactive Protein Total Protein 7.4 Albumin 3.3 L Globulin 4.1 H Albumin/Globulin Ratio 0.8 L Triglycerides Cholesterol LDL Cholesterol, Calc VLDL Cholesterol, Calc HDL Cholesterol Cholesterol/HDL Ratio Lipase 01/29/21 20:43 WBC RBC Hgb Hct MCV MCH MCHC RDW Std Deviation RDW Coeff of Fallon Plt Count MPV Immature Gran % (Auto) Neut % (Auto) Lymph % (Auto) Bowman % (Auto) Eos % (Auto) Baso % (Auto) Neut # (Auto) Lymph # (Auto) Bowman # (Auto) Eos # (Auto) Baso # (Auto) Immature Gran # (Auto) RBC Morphology ESR PT INR APTT PTT Ratio ABG pH ABG pCO2 ABG pO2 ABG HCO3 ABG O2 Saturation ABG Base Excess Altaf Test Barometric Pressure Oxygen Given Sodium Potassium Chloride Carbon Dioxide Anion Gap BUN Creatinine Est Cr Clr Drug Dosing Est GFR ( Amer) Est GFR (Non-Af Amer) BUN/Creatinine Ratio Glucose POC Glucose 105 H Calcium Phosphorus Magnesium Total Bilirubin AST ALT Alkaline Phosphatase Ammonia Troponin I C-Reactive Protein Total Protein Albumin Globulin Albumin/Globulin Ratio Triglycerides Cholesterol LDL Cholesterol, Calc VLDL Cholesterol, Calc HDL Cholesterol Cholesterol/HDL Ratio Lipase Medications Administered Current Inpatient Medications Acetaminophen (Acetaminophen 325 Mg Tab) 650 mg PO Q4H PRN PRN Reason: Pain or Fever Stop: 02/28/21 19:39 Al Hydrox/Mg Hydrox/Simethicone (Aluminum/Magnesium Susp 30 Ml Udc) 15 ml PO Q4H PRN PRN Reason: Dyspepsia Stop: 02/28/21 19:39 Albuterol (Albuterol Hfa 8 Gm Inhaler) 1 puffs INH Q4R PRN PRN Reason: Wheezing Stop: 02/28/21 19:39 Amlodipine Besylate (Amlodipine Besylate 5 Mg Tab) 2.5 mg PO QAM [facility] Stop: 03/01/21 08:59 Last Admin: 01/30/21 07:41 Dose: 2.5 mg Documented by: Aspirin (Aspirin 81 Mg Ectab) 81 mg PO QAM [facility] Stop: 03/01/21 08:59 Last Admin: 01/30/21 07:41 Dose: 81 mg Documented by: Atorvastatin Calcium (Atorvastatin 10 Mg Tab) 10 mg PO BID [facility] Stop: 02/28/21 20:59 Last Admin: 01/30/21 07:41 Dose: 10 mg Documented by: Clopidogrel Bisulfate (Clopidogrel Bisulfate 75 Mg Tab) 75 mg PO QAM [facility] Stop: 03/01/21 08:59 Last Admin: 01/30/21 07:42 Dose: 75 mg Documented by: Cyanocobalamin (Cyanocobalamin 500 Mcg Tablet (Vitamin B-12)) 1,000 mcg PO DAILY [facility] Stop: 03/01/21 08:59 Last Admin: 01/30/21 07:41 Dose: 1,000 mcg Documented by: Dextrose (Dextrose 50% 50 Ml Syringe) 25 - 50 ml IV UD PRN; Protocol PRN Reason: Hypoglycemia Protocol Stop: 02/28/21 20:29 Fexofenadine HCl (Fexofenadine Hcl 180 Mg Tab) 180 mg PO QAM [facility] Stop: 03/01/21 08:59 Last Admin: 01/30/21 07:41 Dose: 180 mg Documented by: Folic Acid (Folic Acid 1 Mg Tab) 1 mg PO QAM [facility] Stop: 03/01/21 08:59 Last Admin: 01/30/21 07:40 Dose: 1 mg Documented by: Gabapentin (Gabapentin 100 Mg Cap) 100 mg PO [facility] Stop: 02/28/21 20:59 Last Admin: 01/29/21 21:10 Dose: 100 mg Documented by: Glucagon (Glucagon For Inj 1 Mg Vial) 1 mg SQ UD PRN; Protocol PRN Reason: Hypoglycemia Protocol Stop: 02/28/21 20:29 Glucose (Glucose 40% Gel 15 Gm Tube) 15 - 30 gm PO UD PRN; Protocol PRN Reason: Hypoglycemia Protocol Stop: 02/28/21 20:29 Glucose (Glucose 10 Tabs/Tube) 4 - 8 tabs PO UD PRN; Protocol PRN Reason: Hypoglycemia Protocol Stop: 02/28/21 20:29 Insulin Aspart (Insulin Aspart 100 Units/Ml 3 Ml Pen) 0 units [facility]; Protocol Stop: 03/01/21 16:29 Insulin Glargine (Insulin Glargine Solostar 100 Units/Ml 3 Ml Pen) 28 units SQ [facility]; Protocol Stop: 02/28/21 20:59 Labetalol HCl (Labetalol Hcl 100 Mg Tab) 50 mg PO Q12 [facility] Stop: 02/28/21 20:59 Last Admin: 01/30/21 07:40 Dose: 50 mg Documented by: Levothyroxine Sodium ([facility]othyroxine S[facility] 112 Mcg [facility]t) [facility]: 03/01/21 06:29 Last Admin: 01/30/21 05:04 Dose: 112 mcg Documented by: Magnesium Hydroxide (Magnesium Hydroxide Susp 30 Ml Udc) 30 ml PO Q12H PRN PRN Reason: Constipation Stop: 02/28/21 19:39 Meclizine HCl (Meclizine Hcl 25 Mg Tab) 25 mg PO TID PRN PRN Reason: Dizziness Stop: 02/28/21 20:03 Miscellaneous (Carbohydrates For Hypoglycemia ) 15 - 30 gm PO UD PRN PRN Reason: Hypoglycemia Treatment Stop: 02/28/21 20:29 Miscellaneous Information (Pharmacy Glycemic Mgmt Consult) 1 ea N/A UD PRN PRN Reason: Consult Stop: 02/28/21 19:57 Montelukast Sodium (Montelukast Sodium 10 Mg Tablet) 10 mg PO QPM [facility] Stop: 02/28/21 20:59 Last Admin: 01/29/21 21:10 Dose: 10 mg Documented by: Nitroglycerin (Nitroglycerin Sl 0.4 Mg/Tab Tab) 0.4 mg SL UD PRN PRN Reason: Chest Pain Stop: 02/28/21 19:39 Ondansetron HCl (Ondansetron 4 Mg Od Tab) 4 mg PO Q4H PRN PRN Reason: nausea and vomiting Ondansetron HCl (Ondansetron Inj 2 Mg/Ml 2 Ml Vial) 4 mg IV Q6H PRN PRN Reason: Nausea Stop: 02/28/21 19:39 Pantoprazole Sodium (Pantoprazole 40 Mg Tab) 40 mg PO DAILY [facility] Stop: 03/01/21 08:59 Last Admin: 01/30/21 07:41 Dose: 40 mg Documented by: Polyethylene Glycol (Polyethylene (Miralax) 17 Gm Pack) 17 gm PO DAILY PRN PRN Reason: Constipation Stop: 02/28/21 19:39 Vitamin D (Cholecalciferol 1,000 Units 25 Mcg Tab) 5,000 units PO [id number] [facility] Stop: 03/02/21 08:59 Zolpidem Tartrate (Zolpidem Tartrate 5 Mg Tab) 5 mg PO HS PRN PRN Reason: Sleep Stop: 02/28/21 19:39
--- NOTE | 2021-01-30 13:51 | Electrocardiogram Report ---
Test Reason : Blood Pressure : / mmHG Vent. Rate : 077 BPM Atrial Rate : 077 BPM P-R Int : 172 ms QRS Dur : 076 ms QT Int : 428 ms P-R-T Axes : 054 -08 002 degrees QTc Int : 484 ms Normal sinus rhythm Normal ECG When compared with ECG of 29-JAN-2021 22:08, (unconfirmed) No significant change was found Confirmed by Trey Dixon ([id number]) on 01/30/2021 1:51:08 PM Referred By: Jordana Neri Confirmed By:Trey Dixon
--- NOTE | 2021-01-30 13:56 | Electrocardiogram Report ---
Test Reason : Blood Pressure : / mmHG Vent. Rate : 080 BPM Atrial Rate : 080 BPM P-R Int : 176 ms QRS Dur : 086 ms QT Int : 406 ms P-R-T Axes : 065 -04 -09 degrees QTc Int : 468 ms Normal sinus rhythm with occasional Premature atrial complexes Nonspecific ST abnormality Abnormal ECG When compared with ECG of 30-JAN-2021 06:00, (unconfirmed) No significant change was found Confirmed by Trey Dixon ([id number]) on 01/30/2021 1:55:34 PM Referred By: Jordana Neri Confirmed By:Trey Dixon
--- NOTE | 2021-01-30 14:30 | Neurology Consultation ---
Date of Consultation January 30, 2021 Assessment & Plan (1) TIA (transient ischemic attack): (2) Left-sided weakness: Unique Alegria is an 80 yo woman w/ PMH of asthma, Afib on ASA, HTN, HLD, DM, h/o stroke, CKDIII and FMD who p/t [facility] for acute onset of worsening dysarthria, left sided numbness and dizziness. Symptom localization: right basal ganglia/cerebellum recrudescence Stroke mechanism: cardioembolic vs stroke recrudescence (most likely recrudescence in the setting of hypoglycemic episodes) Stroke WorkUp: - CT head: no hemorrhage or new hypodensity, mild to moderate SVID, chronic right basal ganglia infarct, chronic right mastoid effusion - CTA head/neck: notable for beading of bilateral internal carotid arteries consistent with history of fibromuscular dysplasia, stable right vertebral artery stenosis, diffuse intracranial atherosclerosis predominantly of the posterior circulation with multi focal stenosis noted - MRI brain: shows no acute infarct, stable chronic infarcts in the right basal ganglia and left cerebellum, mild to moderate SVID and bilateral mastoid effusions - TTE: pending (TTE in 09/2020 showed no valvular disease) - Telemetry: pending - A1c: pending - FLP: pending - Troponin, TSH: negative, WNL - Urinalysis: pending Stroke Management: - Acute treatment: ASA - Continuous cardiac monitoring - Vitals, Neurochecks, NIHSS per unit routine - BP parameters: SBP CAP 180, restart home anti-hypertensives for goal normotension over next 3-4 days - Complete ischemic stroke workup with TTE without bubble, A1c, fasting lipid panel, routine EEG, UA - Consult speech, PT, OT for supportive management - Will counsellors concerning stroke education, smoking cessation, healthy diet, physical activity, weight loss - Follow up with PCP for assistance with outpatient goals (BP <130/80, LDL <70, A1c <7) - Follow up in neurology clinic in 6-8 weeks with JOSE LUIS Burgos Secondary Stroke Prevention: - Antiplatelet: stop ASA at this time - Anticoagulation: would change to apixaban given non-valvular pAFib on prior TTE and increased stroke risk - Statin: Increase to Atorvastatin 40mg daily HTN: - BP parameters, as above - Restart home medications with goal of lowering BP to normotension over next 3- 4 days - Would check orthostatic vitals and consider conservative therapy with fluids/light salt/compression stockings; defer to cardiology for medication management if needed (likely 2/2 underlying poorly controlled DM) FEN/GI: - Diet: Cardiac HH/diabetic diet and PO meds given absence of bulbar signs or symptoms - Monitor lytes and replete PRN Glucose Control: - Sliding scale insulin and accuchecks per primary team to avoid hyperglycemia - Would monitor insulin needs as she appears to have brittle diabetes with multiple hypoglycemic episodes that may be causing her recurrent stroke like episodes Thank you for this interesting consult. Plan of care was discussed with primary team. Please call with any questions. 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 [employer] ~1pm on 01/29/21. In the ED, she was afebrile, BP 169/95, heart rate 72, respiratory 20, satting 97% on room air. Labs notable for WBC 11.7, hemoglobin 13.9, platelets low at 109, electrolytes within normal, creatinine 1.0, glucose 135, INR 1, troponin negative, Covid negative. Imaging independently reviewed. CT head shows no hemorrhage or new hypodensity, mild to moderate SVID, chronic right basal ganglia infarct, chronic right mastoid effusion. CTA head and neck notable for beading of bilateral internal carotid arteries consistent with history of fibromuscular dysplasia, stable right vertebral artery stenosis, diffuse intracranial atherosclerosis predominantly of the posterior circulation with multi focal stenosis noted. MRI brain shows no acute infarct, stable chronic infarcts in the right basal ganglia and left cerebellum, mild to moderate SVID and bilateral mastoid effusions. She was admitted for TIA workup with plan to also obtain [place] [facility]. On examination, she was unable to provide a good history; history obtained from family. They report that she has been having recurrent episodes of the above symptoms mainly in the setting of hypoglycemia ( reports that her blood sugars will often be in the 40-60s when these episodes occur) and resolve with eating a candy or other sweet treat. They are also worried that whenever she stands up for any prolonged period, she will get dizzy/lightheaded and have difficulties with ambulation/falls. This has been ongoing for some time now. She reports taking ASA/plavix at home with no recent missed doses. No other recent medication changes, illnesses or injuries. Family is concerned that her insulin dose is high at home and she has not been receiving as much insulin while admitted (on SSI currently). Allergies Allergy/AdvReac Type Severity Reaction Status Date / Time codeine Allergy Intermediate HYPERACTIVE, Verified 01/29/21 13:21 HIVES/SYNCOPE enoxaparin Allergy Intermediate syncope Verified 01/29/21 13:21 fluorouracil Allergy Intermediate Hives Verified 01/29/21 13:21 potassium Allergy Mild IV Verified 01/29/21 13:21 potassium caused hypotension Home Medications Medication Instructions Recorded Confirmed Type aspirin 81 mg tablet,delayed 81 mg PO QAM tab 02/24/19 01/29/21 History release albuterol sulfate 1 puff INHALATION Q4 PRN 03/20/19 01/29/21 History cholecalciferol (vitamin D3) 5,000 unit PO 3XWK 03/20/19 01/29/21 History ondansetron HCl [Zofran] 4 mg PO Q4H PRN #20 tab 06/17/19 01/29/21 Rx clopidogrel 75 mg tablet 75 mg PO QAM #90 tab 02/23/20 01/29/21 Rx gabapentin 100 mg capsule 100 mg PO HS #90 cap 03/06/20 01/29/21 Rx insulin lispro 100 unit/mL 80 unit SUBCUT DAILY #5 box 06/08/20 01/29/21 Rx subcutaneous pen labetalol 100 mg tablet 50 mg PO Q12H #180 tab 07/17/20 01/29/21 Rx levothyroxine 112 mcg tablet 112 mcg PO QAM #90 tab 08/25/20 01/29/21 Rx fexofenadine 180 mg PO QAM 09/03/20 01/29/21 History blood sugar diagnostic #10 ea 09/27/20 01/29/21 History folic acid 1 mg tablet 1 mg PO QAM #90 tab 11/30/20 01/29/21 Rx atorvastatin 10 mg tablet 10 mg PO BID #180 tab 12/19/20 01/29/21 Rx amlodipine 5 mg tablet 2.5 mg PO QAM tab 12/27/20 01/29/21 History Lantus Solostar U-100 Insulin 30 unit SUBCUT HS 01/29/21 01/29/21 History cyanocobalamin (vitamin B-12) 1,000 mcg PO DAILY 01/29/21 01/29/21 History meclizine 25 mg PO TID PRN 01/29/21 01/29/21 History montelukast 10 mg PO QPM 01/29/21 01/29/21 History omeprazole 20 mg PO QAM 01/29/21 01/29/21 History Patient History Medical History Aneurysm of left carotid artery Pseudoaneurysm, Neurosurg AT [facility] Arthritis Asthma INHALER PRN>HAS NOT USED FOR A WHILE Atrial fibrillation NOTED WHEN WEARING HOLTER MONITOR 2020>[facility] CARDIOLOGY FOLLOWS Chest discomfort Chronic kidney disease, stage III (moderate) FOLLOWS W/ DR. BECKMAN Diabetes mellitus, type 2 IDDM - follows with [facility] endocrine Diastasis recti Fibromuscular hyperplasia of left carotid artery GERD (gastroesophageal reflux disease) Hiatal hernia Hyperlipemia Hypertension Hypothyroidism Idiopathic thrombocytopenia purpura referred to heme/onc for evaluation of thrombocytopenia- clinical picture suggestive of ITP - started on steroid therapy Stroke 1985. MILD JAIL MEMORY LOSS. TIA (transient ischemic attack) MULTIPLE. MOST RECENT 10/2020 >FOLLOWED UP WITH PCP>FACIAL NUMBNESS AND SHORT PERIOD OF NOT BEING ABLE TO TALK. (REASON FOR PLAVIX) Surgical History H/O dilation and curettage H/O hernia repair (03/08/20) Ventral hernia repair Dr. Jane 03/08/20 H/O umbilical hernia repair History of ankle surgery RIGHT History of appendectomy History of colonoscopy History of esophageal dilatation History of esophagogastroduodenoscopy (EGD) WITH REMOVAL OF ESOPHAGEAL POLYPS History of loop recorder IMPLANTED NOVEMBER 2020 History of repair of hiatal hernia (06/16/19) Robotic assisted Laparoscopic repair of hiatal hernia with prosthetic bio- absorbable mesh, robert Fundoplication Esophagogastroduoedenoscopy Dr. Mueller 06/16/19 History of tonsillectomy and adenoidectomy History of total abdominal hysterectomy and bilateral salpingo-oophorectomy History of total knee replacement BILATERAL AND A STEEL JAD IN RIGHT LEG D/T CURVATURE Hx of cholecystectomy Family History Unknown Osteoporosis Mother Rheumatoid arthritis Family history of diabetes mellitus History of nephrectomy Stroke syndrome Hypertension Stroke Aunt Rheumatoid arthritis Father Heart disease Myocardial infarction Hx of CABG Hypertension Brother Acute myocardial infarction Myocardial infarction Other No family history of adverse response to anesthesia Denies family history of Ovarian cancer Prostate cancer Clotting disorder Breast cancer Social History Smoking Status: Never smoker Second Hand Exposure: No; Do You Dip or Chew Tobacco: No; Tobacco Cessation Education Requested by Patient: No Hx Alcohol Use: No Hx Substance Use: No Preferred Language: Greenlandic Communication Ability: Impaired Visual Impairment: No Limitations Hearing Ability: Normal 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 Exam (Neuro) Physical Exam: General Exam: GEN: NAD, lying down in examination bed. HEENT: No conjunctival injection, no rhinorrhea. CV: RRR on monitor, no significant edema. PULM: Nonlabored respirations on room air. Neuro Exam: MS: Awake and Alert. Oriented to person, place, and date. Speech fluent and appropriate without dysarthria or paraphasic errors. Language intact including naming, comprehension, repetition. Cognition and memory grossly intact. Attention intact. No neglect. CN: Visual brandt full, + blink to threat bilaterally (left eye blurry compared to right eye per pt report). No extinction to double simultaneous stimuli. Unable to visualize fundi on fundoscopic exam. PERRLA OU. EOMI without nys tagmus. Facial sensation intact to LT. Facial muscles full and symmetric. Hearing intact to conversation. Shoulder shrug normal. Tongue midline. MOTOR: Normal bulk and tone. No pronator drift. BUE strength 5/5 at deltoids, biceps, triceps, wrist flexors and extensors, and finger flexors bilaterally. BLE strength 5/5 at iliopsoas, hamstrings, quadriceps, tibialis anterior, and gastrocnemius bilaterally. REFLEXES: Trace at biceps, triceps, brachioradialis, absent patella, and absent Achilles bilaterally. Flexor plantar responses bilaterally. SENSORY: Intact to LT throughout, no extinction to double simultaneous stimuli. Reports mildly decreased vibration in the LUE compared to the RUE COORDINATION: No dysmetria or ataxia on [id number] bilaterally. Normal Marilin bilaterally. GAIT: Deferred due to physical status. NIH STROKE SCALE 1A. Level of Consciousness (0-3) = 0 1B. LOC Questions (0-2) = 0 1C. LOC Commands (0-2) = 0 2. Best Horizontal Gaze (0-2) = 0 3. Visual Brandt (0-3) = 0 4. Facial Palsy (0-3) = 0 5. Motor Arm Right (0-4) = 0 Left (0-4) = 0 6. Motor Leg Right (0-4) = 0 Left (0-4) = 0 7. Limb Ataxia (0-2) = 0 8. Sensory (0-2) = 1 9. Best Language (0-3) = 0 10. Dysarthria (0-2) = 0 11. Extinction and Inattention (0-2) = 0 NIHSS TOTAL = 1 Results & Data ([facility]) Vital Signs (Past 12 Hours) Vital Signs Temp Pulse Pulse Resp BP Pulse Ox 01/30/21 11:19 36.6 C 71 18 145/71 H 94 01/30/21 09:13 81 20 159/83 H 96 01/30/21 08:45 80 18 161/83 H 96 01/30/21 08:21 36.8 C 84 18 161/81 H 96 01/30/21 08:00 68 01/30/21 07:13 36.6 C 74 18 134/71 94 01/30/21 02:51 36.8 C 76 17 154/71 H 95 PG Care Time/CCT Total # of Minutes Spent Total Time Spent with Patient: Total time spent is greater than 50% in coordination of care (as documented) at patient's floor/unit and/or counseling patient: Coding Level of Care Code 87647 Initial Inpt Care Lvl 3 Diagnoses TIA (transient ischemic attack) G45.9 Left-sided weakness R53.1 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
[2021-01-30 15:23] LABS: Chol HDL Ratio 3; Cholesterol 92 mg/dl (0-200); HDL Cholesterol 30 mg/dl; LDL Cholesterol Calculated 35 mg/dl; Triglycerides 133 mg/dl (0-150); VLDL Cholesterol 27 mg/dl
--- NOTE | 2021-01-30 16:41 | XRay Report ---
SINGLE VIEW CHEST CLINICAL HISTORY: Aspiration. FINDINGS: An AP, portable, upright chest radiograph is compared to chest x-ray and chest CT dated 12/14. The heart is enlarged noting atherosclerotic calcification of the thoracic aorta. The pulmonar y vasculature is noncongested. Chronic interstitial thickening is similar to previous. Atelectasis is noted at the left lung base. No airspace consolidation or large pleural effusion is identified. No p neumothorax is seen. The skeletal structures are osteopenic. The bony thorax is grossly intact. Degen erative change and scoliosis are noted in the thoracic spine. IMPRESSION: Cardiomegaly with no acute cardiopulmonary abnormality. ACT 112: Negative or not required by law. Electronically signed by: Huan Quintero M.D. 01/30/2021 4:40 PM
--- NOTE | 2021-01-30 19:00 | Billing Data ---
Date of Service January 30, 2021 Coding Level of Care Code 15116 Subseq Hosp Care Lvl 3
[2021-01-30 20:28] LABS: Appearance Urine Cloudy (Clear); Bacteria Urine Automated 4+ (Negative); Bilirubin Urine Negative (Negative); Blood Urine Trace (Negative); Color Urine Yellow; Epithelial Cell Urine Auto >30 /lpf (0-5); Glucose Urine UA Negative (Negative); Ketones Urine Trace (Negative); Leukocyte Esterase Urine 1+ (Negative); Nitrite Urine Negative (Negative); Protein Urine 1+ (Negative); Specific Gravity Urine 1.036 (1.000-1.030); Urobilinogen Urine Negative (Negative); WBC Urine Automated >30 /hpf (0-5); pH Urine 5.5 (4.5-7.5)
[2021-01-30] MEDS ORDERED: INSULIN GLARGINE SOLOSTAR 100 UNITS/ML 3 ML PEN SQ SCH (21:00)
[2021-01-30] MEDS: MONTELUKAST SODIUM 10 MG TABLET PO SCH (21:44)
[2021-01-31] MEDS: LEVOTHYROXINE SODIUM 112 MCG TABLET PO SCH (05:29)
[2021-01-31 05:33] LABS: Estimated Average Glucose 157 mg/dl; Hemoglobin A1C 7.1 % (4.5-5.6)
[2021-01-31 06:42] LABS: Hemoglobin 11.9 g/dL (12.0-16.0); Mean Corpuscular Hemoglobin 30.2 pg (25-34); Mean Corpuscular Hgb Conc 33.1 g/dL (32-36); Mean Corpuscular Volume 91.4 fL (80-100); RDW Coefficient of Variation 13.7 % (11.5-14.5); RDW Standard Deviation 45.9 fL (36.4-46.3); Red Blood Count 3.94 M/uL (4.2-5.4); White Blood Count 5.76 K/uL (4.8-10.8)
[2021-01-31 07:06] LABS: Basophils # (auto) 0.03 K/uL (0-0.2); Basophils % (auto) 0.5 %; Eosinophils % (auto) 3.5 %; Immature Granulocytes # (auto) 0.01 K/uL (0.00-0.02); Immature Granulocytes % (auto) 0.2 %; Lymphocytes # (auto) 2.68 K/uL (1.2-3.4); Lymphocytes % (auto) 46.5 %; Mean Platelet Volume 10.5 fL (7.4-10.4); Monocytes # (auto) 0.36 K/uL (0.11-0.59); Monocytes % (auto) 6.3 %; Neutrophils # (auto) 2.48 K/uL (1.4-6.5); Platelet Count 97 K/uL (130-400); Platelet Estimate Decreased (Normal)
[2021-01-31 07:14] LABS: BUN Creatinine Ratio 13.1 (10-20); Calcium 8.7 mg/dl (8.5-10.1); Est GFR (African American) 46.2 ml/min; Est GFR (Non-African American) 39.8 ml/min; Potassium 3.3 mmol/L (3.5-5.1)
[2021-01-31] MEDS ORDERED: POTASSIUM CHLORIDE 20 MEQ/15 ML UDC PO ONE (08:00)
--- NOTE | 2021-01-31 08:18 | Pharmacy Report ---
Pharmacy Glycemic Short Note 2 - Date of Service January 31, 2021 - Glycemic Short BSG Results (Last 24 hours): 01/30/21 01/30/21 01/30/21 08:20 08:51 11:31 Glucose 181 H POC Glucose 185 H 156 H 01/30/21 01/30/21 01/31/21 16:36 20:41 06:24 Glucose 173 H POC Glucose 185 H 181 H 01/31/21 07:17 Glucose POC Glucose 162 H OUTPATIENT ANTIDIABETIC REGIMEN: * Lantus 34 units HS * Humalog 20 units breakfast and lunch, 30 units dinner + sliding scale * HbA1c = 7.3% (01/01/21) ASSESSMENT: 01/31: * Unique received a total of 48 units of insulin yesterday * 28 units basal + 20 units bolus * BSGs were acceptable: [phone] mg/dL * Fasting BSG was 162 mg/dL which is improved but still above goal * Will increase basal by 15% today * Tightening Novolog slightly as well 01/30: * 80 yo F admitted last evening secondary to stroke-like symptoms. Remains NPO this morning. * Received 15 units of Lantus at bedtime last night * Fasting elevated at 191 mg/dL this morning * Will increase Lantus dose this evening but will not resume home dose until patient starts eating * Novolog tightened to more closely match home dose PLAN FOR INPATIENT GLYCEMIC CONTROL: * Basal insulin - increased 15% * Lantus 32 units SQ HS * Bolus insulin - tightened * NovoLog per scale ACHS or Q6hrs while NPO * Goal Range: Low 110 mg/dL - High 140 mg/dL * Correction Factor: 15 mg/dL/unit * Nutritional / Prandial insulin per carb ratio of 1 unit per 5 grams CHO consumed PLAN FOR DISCHARGE: * HbA1c = 7.3% from December 2020. Given patient's age and comorbidities, goal HbA1c should be < 8%. * No changes recommended to outpatient insulin regimen upon discharge as long as patient is not experiencing hypoglycemia at home. * Continue to follow with [facility] [place].
[2021-01-31] MEDS: LABETALOL HCL 100 MG TAB PO SCH ×2 (08:34→20:37)
[2021-01-31] MEDS: CYANOCOBALAMIN 500 MCG TABLET (VITAMIN B-12) PO SCH (08:34)
[2021-01-31] MEDS: FEXOFENADINE HCL 180 MG TAB PO SCH (08:35)
[2021-01-31] MEDS: ASPIRIN 81 MG ECTAB PO SCH (08:35)
[2021-01-31] MEDS: CLOPIDOGREL BISULFATE 75 MG TAB PO SCH (08:35)
[2021-01-31] MEDS: FOLIC ACID 1 MG TAB PO SCH (08:35)
[2021-01-31] MEDS: PANTOprazole 40 MG TAB PO SCH (08:35)
[2021-01-31] MEDS: ATORVASTATIN 40 MG TAB PO SCH (08:36)
[2021-01-31] MEDS: INSULIN ASPART 100 UNITS/ML 3 ML PEN SC SCH ×4 (08:37→20:24)
[2021-01-31] MEDS ORDERED: CHOLECALCIFEROL 1,000 UNITS 25 MCG TAB PO SCH (09:00)
[2021-01-31] MEDS ORDERED: SODIUM CHLORIDE 0.9% 1000ML 500 ML IV ONE (09:45)
--- NOTE | 2021-01-31 11:30 | Medical Student Progress Note ---
Date of Service January 31, 2021 Assessment & Plan (1) Left-sided weakness: Ms. 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 She did have an additional episode of increased dysarthria and left-sided weakness overnight. Suspected recrudescence of previous stroke given same clinical picture as previous stroke and lack of acute change on imaging. Believe that this may be secondary to chronic venous stasis resulting in orthostatic hypotension and subsequent decreased perfusion to the cerebral tissue. (1) Stroke Recrudescence - CT Head and MRI on 01/29 with no acute intracranial findings. - Patient on telemetry with no acute events noted. Multiple EKGs which show no acute changes. Loop recorder with no evidence of a-fib. Continue cardiac monitoring. In the setting of no evidence of atrial fibrillation, no need for anticoagulation at this time. - Pending TTE. - Continue aspirin and clopidogrel daily. - Neuro checks and vitals per protocol. - Appreciate neuro recs. - Being evaluated by PT/OT. - Seen by speech. 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 - Given significant weakness, patient to rehab at discharge. (2) HTN: - BP parameters: SBP CAP 180, restart home anti-hypertensives with the exception of amlodipine in the setting of orthostatic hypotension as below. (3) Orthostasis: - Orthostatic vitals. - Counseled on compression stockings and increasing PO intake. Educate patient on connection between orthostasis and stroke-like symptoms and the role of fluid intake. - Discontinued amlodipine. Due to suspected underlying cause of venous stasis, removing a vasodilator should target the underlying cause. However, should the orthostasis not improve, could consider removing labetalol. (4) Increased Cr: - Likely due to decreased PO intake. - Given bolus of NS. - Specifically mortgage loan counselor on increasing fluid intake (60-80 oz daily). (5) Hypokalemia: - Repleting orally. Continue to monitor labs. (6) DMII: - Sliding scale insulin and accuchecks per primary team to avoid hyperglycemia. (7) Hyperlipidemia - Atorvastatin 40 mg as above. Admission and Anticipated Discharge Date Admission Date: January 29, 2021 Supervising Attestation I personally examined the patient and verified all frost points of history and exam, discussed case, and agree with decision making with Vanessa Costa. Speech improving, arm strength improving. Had a little bit of blurred vision earlier today that is improving, a little bit of facial numbness earlier today that is improving (left sided for both). She also walked in the halls without orthostasis. Vitals noted, in general she is awake and alert pleasant no distress. HEENT normocephalic atraumatic mucous membranes moist. Neuro shows dysarthria that has improved. Vision was 20/200 left eye this morning, more 20/70 this afternoon. Both conjunctivae are injected. Dysarthria and left arm weaknessdoes not appear to be acute stroke given lack of findings on MRI, however given her orthostasis and symptoms reminiscent of her prior stroke, I agree with stroke recrudescence as the most likely cause of her symptoms. Secondary risk reduction ongoing. Manage orthostasisfluids, compression stockings, holding amlodipine seems to have helped. Dispositionappears to be right on the fence between needing rehab, or if she shows more progression, being able to go home. Continue PT/OT eval and treat. Subjective Ms. Alegria is an 80-year-old female with stroke recrudescence. She had an acute exacerbation of dysarthria and left-sided weakness overnight. She also reports worsened vision in her left eye. She states that she feels her strength is increasing on her left side. She is not yet ambulating but did get out of bed this morning without incidence of orthostasis. She had a bowel movement last night. Physical Exam Constitutional: WD/WN, vitals as above Eyes: normal accommodation; no EOM movement deficit Left Eye: 20/100 Right Eye: 20/40 Peripheral vision intact Musculoskeletal: Ankle: no skin erythema Skin: no rashes, warm and dry Neurologic: normal touch/pain/proprioception, moves all extremities (decreased strength in left upper extremity ), + focal motor deficit (left-sided ) and awake Speech / Cognition: + abnormal speech (dysarthric speech ) Motor/Sensory: + sensory deficit (decreased sensation on left extremities and in the distribution of CN V2/V3) Cranial Nerves: EOM intact bilaterally; + abnormal facial strength (decreased strength on left lower face) MMSE Psychiatric: A+Ox3, euthymic affect Results & Data ([facility]) Vital Signs (Past 12 Hours) Vital Signs Temp Pulse Pulse Resp BP Pulse Ox 01/31/21 09:23 151/78 H 01/31/21 09:22 73 18 169/84 H 95 01/31/21 09:21 110 H 19 176/76 H 94 01/31/21 08:00 67 01/31/21 06:53 36.7 C 74 18 125/69 93 01/31/21 03:18 36.9 C 70 18 125/71 93 01/31/21 02:29 76 Laboratory Results 01/31/21 01/31/21 01/31/21 07:17 06:24 06:24 WBC 5.76 RBC 3.94 L Hgb 11.9 L Hct 36.0 L MCV 91.4 MCH 30.2 MCHC 33.1 RDW Std Deviation 45.9 RDW Coeff of [place] 13.7 Plt Count 97 L MPV 10.5 H Immature Gran % (Auto) 0.2 Neut % (Auto) 43.0 Lymph % (Auto) 46.5 [place] % (Auto) 6.3 Eos % (Auto) 3.5 Baso % (Auto) 0.5 Neut # (Auto) 2.48 Lymph # (Auto) 2.68 [place] # (Auto) 0.36 Eos # (Auto) 0.20 Baso # (Auto) 0.03 Immature Gran # (Auto) 0.01 Platelet Estimate Decreased L ESR Sodium 140 Potassium 3.3 L D Chloride 108 H Carbon Dioxide 28 Anion Gap 4.0 BUN 17 Creatinine 1.27 H Est Cr Clr Drug Dosing 40.0 Est GFR ( Amer) 46.2 Est GFR (Non-Af Amer) 39.8 BUN/Creatinine Ratio 13.1 Glucose 173 H POC Glucose 162 H Estimat Average Glucose Hemoglobin A1c Calcium 8.7 C-Reactive Protein Triglycerides Cholesterol LDL Cholesterol, Calc VLDL Cholesterol, Calc HDL Cholesterol Cholesterol/HDL Ratio Urine Color Urine Appearance Urine pH Ur Specific [place] Urine Protein Urine Glucose (UA) Urine Ketones Urine Blood Urine Nitrite Urine Bilirubin Urine Urobilinogen Ur Leukocyte Esterase Urine WBC (Auto) Urine RBC (Auto) U Hyaline Cast (Auto) U Epithel Cells (Auto) Urine Bacteria (Auto) 01/30/21 01/30/21 01/30/21 20:41 20:15 16:36 WBC RBC Hgb Hct MCV MCH MCHC RDW Std Deviation RDW Coeff of [place] Plt Count MPV Immature Gran % (Auto) Neut % (Auto) Lymph % (Auto) [place] % (Auto) Eos % (Auto) Baso % (Auto) Neut # (Auto) Lymph # (Auto) [place] # (Auto) Eos # (Auto) Baso # (Auto) Immature Gran # (Auto) Platelet Estimate ESR Sodium Potassium Chloride Carbon Dioxide Anion Gap BUN Creatinine Est Cr Clr Drug Dosing Est GFR ( Amer) Est GFR (Non-Af Amer) BUN/Creatinine Ratio Glucose POC Glucose 181 H 185 H Estimat Average Glucose Hemoglobin A1c Calcium C-Reactive Protein Triglycerides Cholesterol LDL Cholesterol, Calc VLDL Cholesterol, Calc HDL Cholesterol Cholesterol/HDL Ratio Urine Color Yellow Urine Appearance Cloudy A Urine pH 5.5 Ur Specific [place] 1.036 H Urine Protein 1+ H Urine Glucose (UA) Negative Urine Ketones Trace H Urine Blood Trace H Urine Nitrite Negative Urine Bilirubin Negative Urine Urobilinogen Negative Ur Leukocyte Esterase 1+ H Urine WBC (Auto) >30 H Urine RBC (Auto) 10-30 H U Hyaline Cast (Auto) 5-10 H U Epithel Cells (Auto) >30 H Urine Bacteria (Auto) 4+ H 01/30/21 01/30/21 01/30/21 14:41 14:41 14:41 WBC RBC Hgb Hct MCV MCH MCHC RDW Std Deviation RDW Coeff of [place] Plt Count MPV Immature Gran % (Auto) Neut % (Auto) Lymph % (Auto) [place] % (Auto) Eos % (Auto) Baso % (Auto) Neut # (Auto) Lymph # (Auto) [place] # (Auto) Eos # (Auto) Baso # (Auto) Immature Gran # (Auto) Platelet Estimate ESR Sodium Potassium Chloride Carbon Dioxide Anion Gap BUN Creatinine Est Cr Clr Drug Dosing Est GFR ( Amer) Est GFR (Non-Af Amer) BUN/Creatinine Ratio Glucose POC Glucose Estimat Average Glucose 157 Hemoglobin A1c 7.1 H Calcium C-Reactive Protein 0.82 H Triglycerides 133 Cholesterol 92 LDL Cholesterol, Calc 35 VLDL Cholesterol, Calc 27 HDL Cholesterol 30 Cholesterol/HDL Ratio 3 Urine Color Urine Appearance Urine pH Ur Specific [place] Urine Protein Urine Glucose (UA) Urine Ketones Urine Blood Urine Nitrite Urine Bilirubin Urine Urobilinogen Ur Leukocyte Esterase Urine WBC (Auto) Urine RBC (Auto) U Hyaline Cast (Auto) U Epithel Cells (Auto) Urine Bacteria (Auto) 01/30/21 01/30/21 11:31 08:51 WBC RBC Hgb Hct MCV MCH MCHC RDW Std Deviation RDW Coeff of [place] Plt Count MPV Immature Gran % (Auto) Neut % (Auto) Lymph % (Auto) [place] % (Auto) Eos % (Auto) Baso % (Auto) Neut # (Auto) Lymph # (Auto) [place] # (Auto) Eos # (Auto) Baso # (Auto) Immature Gran # (Auto) Platelet Estimate ESR 20 Sodium Potassium Chloride Carbon Dioxide Anion Gap BUN Creatinine Est Cr Clr Drug Dosing Est GFR ( Amer) Est GFR (Non-Af Amer) BUN/Creatinine Ratio Glucose POC Glucose 156 H Estimat Average Glucose Hemoglobin A1c Calcium C-Reactive Protein Triglycerides Cholesterol LDL Cholesterol, Calc VLDL Cholesterol, Calc HDL Cholesterol Cholesterol/HDL Ratio Urine Color Urine Appearance Urine pH Ur Specific [place] Urine Protein Urine Glucose (UA) Urine Ketones Urine Blood Urine Nitrite Urine Bilirubin Urine Urobilinogen Ur Leukocyte Esterase Urine WBC (Auto) Urine RBC (Auto) U Hyaline Cast (Auto) U Epithel Cells (Auto) Urine Bacteria (Auto) Medications Administered Current Inpatient Medications Acetaminophen (Acetaminophen 325 Mg Tab) 650 mg PO Q4H PRN PRN Reason: Pain or Fever Stop: 02/28/21 19:39 Al Hydrox/Mg Hydrox/Simethicone (Aluminum/Magnesium Susp 30 Ml Udc) 15 ml PO Q4H PRN PRN Reason: Dyspepsia Stop: 02/28/21 19:39 Albuterol (Albuterol Hfa 8 Gm Inhaler) 1 puffs INH Q4R PRN PRN Reason: Wheezing Stop: 02/28/21 19:39 Aspirin (Aspirin 81 Mg Ectab) 81 mg PO QAM [facility] Stop: 03/01/21 08:59 Last Admin: 01/31/21 08:35 Dose: 81 mg Documented by: Atorvastatin Calcium (Atorvastatin 40 Mg Tab) 40 mg PO DAILY [facility] Stop: 03/02/21 08:59 Last Admin: 01/31/21 08:36 Dose: 40 mg Documented by: Clopidogrel Bisulfate (Clopidogrel Bisulfate 75 Mg Tab) 75 mg PO QAM [facility] Stop: 03/01/21 08:59 Last Admin: 01/31/21 08:35 Dose: 75 mg Documented by: Cyanocobalamin (Cyanocobalamin 500 Mcg Tablet (Vitamin B-12)) 1,000 mcg PO DAILY [facility] Stop: 03/01/21 08:59 Last Admin: 01/31/21 08:34 Dose: 1,000 mcg Documented by: Dextrose (Dextrose 50% 50 Ml Syringe) 25 - 50 ml IV UD PRN; Protocol PRN Reason: Hypoglycemia Protocol Stop: 02/28/21 20:29 Fexofenadine HCl (F[facility]ofenadine Hcl 180 Mg Tab) [facility] [place] 03/01/21 08:59 Last Admin: 01/31/21 08:35 Dose: 180 mg Documented by: Folic Acid (Folic Acid 1 Mg Tab) 1 [facility] [place]: 03/01/21 08:59 Last Admin: 01/31/21 08:35 Dose: 1 mg Documented by: Gabapentin (Gabapentin 100 Mg Cap) 100 mg PO [facility] Stop: 02/28/21 20:59 Last Admin: 01/29/21 21:10 Dose: 100 mg Documented by: Glucagon (Glucagon For Inj 1 Mg Vial) 1 mg SQ UD PRN; Protocol PRN Reason: Hypoglycemia Protocol Stop: 02/28/21 20:29 Glucose (Glucose 40% Gel 15 Gm Tube) 15 - 30 gm PO UD PRN; Protocol PRN Reason: Hypoglycemia Protocol Stop: 02/28/21 20:29 Glucose (Glucose 10 Tabs/Tube) 4 - 8 tabs PO UD PRN; Protocol PRN Reason: Hypoglycemia Protocol Stop: 02/28/21 20:29 Insulin Aspart (Insulin Aspart 100 Units/Ml 3 Ml Pen) 0 units SC [facility]; Protocol Stop: 03/01/21 16:29 Last Admin: 01/31/21 08:37 Dose: 13 units Documented by: Insulin Glargine (Insulin Glargine Solostar 100 Units/Ml 3 Ml Pen) 32 units SQ [facility]; Protocol Stop: 02/28/21 20:59 Labetalol HCl (Labetalol Hcl 100 Mg Tab) 50 mg PO Q12 [facility] Stop: 02/28/21 20:59 Last Admin: 01/31/21 08:34 Dose: 50 mg Documented by: Levothyroxine Sodium (Levothyroxine Sodium 112 Mcg Tablet) 112 mcg PO DAILYBB [facility] Stop: 03/01/21 06:29 Last Admin: 01/31/21 05:29 Dose: 112 mcg Documented by: Magnesium Hydroxide (Magnesium Hydroxide Susp 30 Ml Udc) 30 ml PO Q12H PRN PRN Reason: Constipation Stop: 02/28/21 19:39 Meclizine HCl (Meclizine Hcl 25 Mg Tab) 25 mg PO TID PRN PRN Reason: Dizziness Stop: 02/28/21 20:03 Miscellaneous (Carbohydrates For Hypoglycemia ) 15 - 30 gm PO UD PRN PRN Reason: Hypoglycemia Treatment Stop: 02/28/21 20:29 Miscellaneous Information (Pharmacy Glycemic Mgmt Consult) 1 ea N/A UD PRN PRN Reason: Consult Stop: 02/28/21 19:57 Montelukast Sodium (Montelukast Sodium 10 Mg Tablet) 10 mg PO QPM [facility] Stop: 02/28/21 20:59 Last Admin: 01/30/21 21:44 Dose: 10 mg Documented by: Nitroglycerin (Nitroglycerin Sl 0.4 Mg/Tab Tab) 0.4 mg SL UD PRN PRN Reason: Chest Pain Stop: 02/28/21 19:39 Ondansetron HCl (Ondansetron 4 Mg Od Tab) 4 mg PO Q4H PRN PRN Reason: nausea and vomiting Ondansetron HCl (Ondansetron Inj 2 Mg/Ml 2 Ml Vial) 4 mg IV Q6H PRN PRN Reason: Nausea Stop: 02/28/21 19:39 Pantoprazole Sodium (Pantoprazole 40 Mg Tab) 40 mg PO DAILY [facility] Stop: 03/01/21 08:59 Last Admin: 01/31/21 08:35 Dose: 40 mg Documented by: Polyethylene Glycol (Polyethylene (Miralax) 17 Gm Pack) 17 gm PO DAILY PRN PRN Reason: Constipation Stop: 02/28/21 19:39 Vitamin D (Cholecalciferol 1,000 Units 25 Mcg Tab) 5,000 units PO MoWeFr@0900 [facility] Stop: 03/02/21 08:59 Last Admin: 01/31/21 08:35 Dose: 5,000 units Documented by: Zolpidem Tartrate (Zolpidem Tartrate 5 Mg Tab) 5 mg PO HS PRN PRN Reason: Sleep Stop: 02/28/21 19:39
--- NOTE | 2021-01-31 13:44 | Electrocardiogram Report ---
Test Reason : Blood Pressure : / mmHG Vent. Rate : 069 BPM Atrial Rate : 069 BPM P-R Int : 178 ms QRS Dur : 078 ms QT Int : 420 ms P-R-T Axes : 014 -06 -01 degrees QTc Int : 450 ms Sinus rhythm with occasional Premature atrial complexes Septal infarct , age undetermined Abnormal ECG When compared with ECG of 30-JAN-2021 08:26, Septal infarct is now Present Confirmed by Trey Dixon ([id number]) on 01/31/2021 1:43:45 PM Referred By: Jordana Neri Confirmed By:Trey Dixon
--- NOTE | 2021-01-31 16:22 | Electroencephalogram ---
EEG Procedure Note Date of Service January 31, 2021 Start / End Times Start Time: 11:54am End Time: 12:14pm Referring Physician Dr Gr History transient left sided weakness Home Medication List Medication Instructions Recorded Confirmed Type aspirin 81 mg tablet,delayed 81 mg PO QAM tab 02/24/19 01/29/21 History release albuterol sulfate 1 puff INHALATION Q4 PRN 03/20/19 01/29/21 History cholecalciferol (vitamin D3) 5,000 unit PO 3XWK 03/20/19 01/29/21 History ondansetron HCl [Zofran] 4 mg PO Q4H PRN #20 tab 06/17/19 01/29/21 Rx clopidogrel 75 mg tablet 75 mg PO QAM #90 tab 02/23/20 01/29/21 Rx gabapentin 100 mg capsule 100 mg PO HS #90 cap 03/06/20 01/29/21 Rx insulin lispro 100 unit/mL 80 unit SUBCUT DAILY #5 box 06/08/20 01/29/21 Rx subcutaneous pen labetalol 100 mg tablet 50 mg PO Q12H #180 tab 07/17/20 01/29/21 Rx levothyroxine 112 mcg tablet 112 mcg PO QAM #90 tab 08/25/20 01/29/21 Rx fexofenadine 180 mg PO QAM 09/03/20 01/29/21 History blood sugar diagnostic #10 ea 09/27/20 01/29/21 History folic acid 1 mg tablet 1 mg PO QAM #90 tab 11/30/20 01/29/21 Rx atorvastatin 10 mg tablet 10 mg PO BID #180 tab 12/19/20 01/29/21 Rx amlodipine 5 mg tablet 2.5 mg PO QAM tab 12/27/20 01/29/21 History Lantus Solostar U-100 Insulin 30 unit SUBCUT HS 01/29/21 01/29/21 History cyanocobalamin (vitamin B-12) 1,000 mcg PO DAILY 01/29/21 01/29/21 History meclizine 25 mg PO TID PRN 01/29/21 01/29/21 History montelukast 10 mg PO QPM 01/29/21 01/29/21 History omeprazole 20 mg PO QAM 01/29/21 01/29/21 History Inpatient Medication List Aspirin (Aspirin 81 Mg Ectab) 81 mg PO [facility] Stop: 03/01/21 08:59 Last Admin: 01/31/21 08:35 Dose: 81 mg Documented by: [id number] Admin: 01/30/21 07:41 Dose: 81 mg Documented by: [id number] Atorvastatin Calcium (Atorvastatin 40 Mg Tab) 40 mg PO DAILY [facility] Stop: 03/02/21 08:59 Last Admin: 01/31/21 08:36 Dose: 40 mg Documented by: [id number] Clopidogrel Bisulfate (Clopidogrel Bisulfate 75 Mg Tab) 75 mg PO [facility] Stop: 03/01/21 08:59 Last Admin: 01/31/21 08:35 Dose: 75 mg Documented by: [id number] Admin: 01/30/21 07:42 Dose: 75 mg Documented by: [id number] Cyanocobalamin (Cyanocobalamin 500 Mcg Tablet (Vitamin B-12)) 1,000 mcg PO DAILY [facility] Stop: 03/01/21 08:59 Last Admin: 01/31/21 08:34 Dose: 1,000 mcg Documented by: [id number] Admin: 01/30/21 07:41 Dose: 1,000 mcg Documented by: [id number] Fexofenadine HCl (Fexofenadine Hcl 180 Mg Tab) 180 mg PO [facility] Stop: 03/01/21 08:59 Last Admin: 01/31/21 08:35 Dose: 180 mg Documented by: [id number] Admin: 01/30/21 07:41 Dose: 180 mg Documented by: [id number] Folic Acid (Folic Acid 1 Mg Tab) 1 mg PO [facility] Stop: 03/01/21 08:59 Last Admin: 01/31/21 08:35 Dose: 1 mg Documented by: [id number] Admin: 01/30/21 07:40 Dose: 1 mg Documented by: [id number] Gabapentin (Gabapentin 100 Mg Cap) [address] [facility] Stop: 02/28/21 20:59 Last Admin: 01/29/21 21:10 Dose: 100 mg Documented by: [id number] Insulin Aspart (Insulin Aspart 100 Units/Ml 3 Ml Pen) 0 units SC [facility]; Protocol Stop: 03/01/21 16:29 Last Admin: 01/31/21 12:28 Dose: 12 units Documented by: [id number] Cosigned by: [id number] Admin: 01/31/21 08:37 Dose: 13 units Documented by: [id number] Cosigned by: [id number] Admin: 01/30/21 21:41 Dose: 3 units Documented by: [id number] Cosigned by: [id number] Admin: 01/30/21 18:02 Dose: 8 units Documented by: [id number] Cosigned by: [id number] Labetalol HCl (Labetalol Hcl 100 Mg Tab) 50 mg PO Q12 [facility] Stop: 02/28/21 20:59 Last Admin: 01/31/21 08:34 Dose: 50 mg Documented by: [id number] Admin: 01/30/21 21:48 Dose: 50 mg Documented by: [id number] Admin: 01/30/21 07:40 Dose: 50 mg Documented by: [id number] Admin: 01/29/21 21:08 Dose: 50 mg Documented by: [id number] Levothyroxine Sodium (Levothyroxine Sodium 112 Mcg Tablet) 112 mcg PO DAILYBB [facility] Stop: 03/01/21 06:29 Last Admin: 01/31/21 05:29 Dose: 112 mcg Documented by: [id number] Admin: 01/30/21 05:04 Dose: 112 mcg Documented by: [id number] Montelukast Sodium (Montelukast Sodium 10 Mg Tablet) 10 mg PO QPM [facility] Stop: 02/28/21 20:59 Last Admin: 01/30/21 21:44 Dose: 10 mg Documented by: [id number] Admin: 01/29/21 21:10 Dose: 10 mg Documented by: [id number] Ondansetron HCl (Ondansetron Inj 2 Mg/Ml 2 Ml Vial) 4 mg IV Q6H PRN PRN Reason: Nausea Stop: 02/28/21 19:39 Last Admin: 01/31/21 14:35 Dose: 4 mg Documented by: [id number] Pantoprazole Sodium (Pantoprazole 40 Mg Tab) 40 mg PO DAILY [facility] Stop: 03/01/21 08:59 Last Admin: 01/31/21 08:35 Dose: 40 mg Documented by: [id number] Admin: 01/30/21 07:41 Dose: 40 mg Documented by: [id number] Vitamin D (Cholecalciferol 1,000 Units 25 Mcg Tab) 5,000 units PO MoWeFr@0900 [facility] Stop: 03/02/21 08:59 Last Admin: 01/31/21 08:35 Dose: 5,000 units Documented by: [id number] Discontinued Medications Amlodipine Besylate (Amlodipine Besylate 5 Mg Tab) 2.5 mg PO QAM [facility] Stop: 03/01/21 08:59 Last Admin: 01/30/21 07:41 Dose: 2.5 mg Documented by: [id number] Aspirin (Aspirin Chew 324 Mg) 324 mg PO NOW STA Stop: 01/29/21 15:40 Last Admin: 01/29/21 16:05 Dose: Not Given Documented by: [id number] Atorvastatin Calcium (Atorvastatin 10 Mg Tab) 10 mg PO BID [facility] Stop: 02/28/21 20:59 Last Admin: 01/30/21 07:41 Dose: 10 mg Documented by: [id number] Admin: 01/29/21 21:11 Dose: 10 mg Documented by: [id number] Diphenhydramine HCl (Diphenhydramine 50 Mg/Ml Vial) 50 mg IV NOW STA Stop: 01/29/21 22:20 Last Admin: 01/29/21 22:53 Dose: Not Given Documented by: [id number] Heparin Sodium (Porcine) (Heparin Sod 5,000 Unit/0.5 Ml Vial) 5,000 units SQ Q8 [facility] Stop: 02/28/21 21:59 Last Admin: 01/30/21 00:04 Dose: Not Given Documented by: [id number] Admin: 01/29/21 21:28 Dose: 5,000 units Documented by: [id number] Sodium Chloride (Nss 1000ml) 1,000 mls @ 100 mls/hr IV .Q10H [facility] Stop: 01/30/21 05:39 Last Infusion: 01/30/21 00:04 Dose: 0 mls/hr Documented by: [id number] Admin: 01/29/21 21:19 Dose: 100 mls/hr Documented by: [id number] Famotidine 20 mg/ Syringe 5 mls @ 2.5 mls/min IV NOW STA Stop: 01/29/21 21:48 Last Admin: 01/29/21 22:16 Dose: Not Given Documented by: [id number] Methylprednisolone 100 mg/ (Syringe) 1.6 mls @ 1.5 mls/min IV NOW STA Stop: 01/29/21 21:53 Last Admin: 01/29/21 22:17 Dose: Not Given Documented by: [id number] Sodium Chloride (Nss 1000ml) 500 mls @ 999 mls/hr IV .Q31M ONE Stop: 01/31/21 10:15 Last Infusion: 01/31/21 10:32 Dose: 0 mls/hr Documented by: [id number] Admin: 01/31/21 09:49 Dose: 999 mls/hr Documented by: [id number] Insulin Aspart (Insulin Aspart 100 Units/Ml 3 Ml Pen) 0 units SC Q6 [facility]; Protocol Stop: 03/01/21 00:00 Last Admin: 01/30/21 12:55 Dose: 6 units Documented by: [id number] Cosigned by: [id number] Admin: 01/30/21 05:59 Dose: 3 units Documented by: [id number] Cosigned by: [id number] Admin: 01/29/21 23:56 Dose: Not Given Documented by: [id number] Insulin Glargine (Insulin Glargine Solostar 100 Units/Ml 3 Ml Pen) 15 units SQ HS [facility] Stop: 02/28/21 20:59 Last Admin: 01/29/21 21:13 Dose: 15 units Documented by: [id number] Cosigned by: [id number] Insulin Glargine (Insulin Glargine Solostar 100 Units/Ml 3 Ml Pen) 28 units SQ HS [facility]; Protocol Stop: 02/28/21 20:59 Last Admin: 01/30/21 21:42 Dose: 28 units Documented by: [id number] Cosigned by: [id number] Ioversol (Optiray 350 500ml) 120 ml IV ONCE ONE Stop: 01/29/21 14:42 Last Admin: 01/29/21 14:41 Dose: 120 ml Documented by: [id number] Ioversol (Optiray 350 500ml) 118 ml IV ONCE ONE Stop: 01/29/21 23:07 Last Admin: 01/29/21 23:07 Dose: 1 ml Documented by: [id number] Nitroglycerin (Nitroglycerin 2% Ointment 30gm Tube) Confirm Administered Dose 18 inch .ROUTE .STK-MED ONE Stop: 01/29/21 21:49 Last Admin: 01/29/21 22:16 Dose: Not Given Documented by: [id number] Potassium Chloride (Potassium Chloride 20 Meq/15 Ml Udc) 40 meq PO ONE ONE Stop: 01/31/21 08:01 Last Admin: 01/31/21 08:34 Dose: 40 meq Documented by: [id number] Description This is a 21 electrode EEG with a single channel dedicated to limited EKG. The electrodes were placed in accordance with the International 10-20 system. History: transient left sided weakness Rx: n/a Start/Stop: 11:54am/12:14pm Attending reading: Katya Hidalgo EEG Description: EEG background: Background was low voltage with intermixed symmetric theta slowing/alpha rhythm with significant muscle artifact throughout the recording. A poorly formed 7-8 Hz posterior dominant rhythm was observed. The EEG is continuous. There is variability and reactivity present. Activation and reactivity: Photic stimulation performed without any abnormalities noted. No photic driving observed. Hyperventilation was not performed. Sleep: No sleep architecture noted. Epileptiform discharges: No epileptiform discharges were observed. Rhythmic and periodic patterns: None Seizures: None Impression: This was a mildly abnormal EEG given mild generalized slowing consistent with mild global cerebral dysfunction (such as MCI or dementia). No seizures or epileptiform discharges were seen. Clinical correlation required. [facility] Procedure Codes Indication for Procedure (1) TIA (transient ischemic attack): (2) Left-sided weakness: Neurology Neurology: 10006 EEG include record awake & drowsy
--- NOTE | 2021-01-31 18:01 | Billing Data ---
Date of Service January 31, 2021 Coding Level of Care Code 03506 Subseq Hosp Care Lvl 3
[2021-01-31] MEDS: MONTELUKAST SODIUM 10 MG TABLET PO SCH (20:37)
[2021-01-31] MEDS ORDERED: INSULIN GLARGINE SOLOSTAR 100 UNITS/ML 3 ML PEN SQ SCH (21:00)
[2021-02-01 06:08] LABS: Hematocrit (blood only) 36.1 % (37-47); Hemoglobin 12.1 g/dL (12.0-16.0); Mean Corpuscular Hemoglobin 30.5 pg (25-34); Mean Corpuscular Hgb Conc 33.5 g/dL (32-36); Mean Corpuscular Volume 90.9 fL (80-100); RDW Coefficient of Variation 13.7 % (11.5-14.5); RDW Standard Deviation 45.6 fL (36.4-46.3); Red Blood Count 3.97 M/uL (4.2-5.4); White Blood Count 5.71 K/uL (4.8-10.8)
[2021-02-01] MEDS: LEVOTHYROXINE SODIUM 112 MCG TABLET PO SCH (06:11)
[2021-02-01 06:21] LABS: Mean Platelet Volume 10.2 fL (7.4-10.4); Platelet Count 95 K/uL (130-400)
[2021-02-01 06:47] LABS: BUN Creatinine Ratio 12.1 (10-20); Calcium 8.8 mg/dl (8.5-10.1); Creatinine Clr Calc Pharmacy 41.3 ml/min; Est GFR (Non-African American) 41.4 ml/min; Potassium 3.7 mmol/L (3.5-5.1)
[2021-02-01 06:53] LABS: Basophils # (auto) 0.02 K/uL (0-0.2); Basophils % (auto) 0.4 %; Eosinophils # (auto) 0.26 K/uL (0-0.5); Eosinophils % (auto) 4.6 %; Immature Granulocytes # (auto) 0.01 K/uL (0.00-0.02); Immature Granulocytes % (auto) 0.2 %; Lymphocytes # (auto) 2.42 K/uL (1.2-3.4); Lymphocytes % (auto) 42.4 %; Monocytes % (auto) 5.3 %; Neutrophils % (auto) 47.1 %; RBC Morphology Unremarkable
[2021-02-01] MEDS: FEXOFENADINE HCL 180 MG TAB PO SCH (07:55)
[2021-02-01] MEDS: PANTOprazole 40 MG TAB PO SCH (07:56)
[2021-02-01] MEDS: ATORVASTATIN 40 MG TAB PO SCH (07:56)
[2021-02-01] MEDS: ASPIRIN 81 MG ECTAB PO SCH (07:56)
[2021-02-01] MEDS: LABETALOL HCL 100 MG TAB PO SCH (07:56)
[2021-02-01] MEDS: FOLIC ACID 1 MG TAB PO SCH (07:56)
[2021-02-01] MEDS: CLOPIDOGREL BISULFATE 75 MG TAB PO SCH (07:56)
[2021-02-01] MEDS: CYANOCOBALAMIN 500 MCG TABLET (VITAMIN B-12) PO SCH (07:57)
[2021-02-01] MEDS: INSULIN ASPART 100 UNITS/ML 3 ML PEN SC SCH ×3 (07:57→17:38)
--- NOTE | 2021-02-01 09:22 | Pharmacy Report ---
Pharmacy Glycemic Short Note 2 - Date of Service February 01, 2021 - Glycemic Short BSG Results (Last 24 hours): 01/31/21 01/31/21 01/31/21 11:13 16:13 20:16 Glucose POC Glucose 194 H 129 H 140 H 02/01/21 02/01/21 05:49 07:06 Glucose 134 H POC Glucose 150 H OUTPATIENT ANTIDIABETIC REGIMEN: * Lantus 34 units HS * Humalog 20 units breakfast and lunch, 30 units dinner + sliding scale * HbA1c = 7.3% (01/01/21) ASSESSMENT: 02/01: * Pt has received 62 units of insulin over the past 24hrs * 32 units of basal with Lantus * 30 units of bolus with NovoLog * BSGs 146-118-277-140-150 mg/dl * Fasting BSG is 150 mg/dl Lantus increased from 28-32 units last evening. Will continue this dosing one more day- if fasting BSG still > 140 mg/dl tomorrow AM will increase Lantus back to outpatient dosing of 34 units * No changes needed to CF/CR. Pre-lunch BSG was slightly elevated but CF/CR also tightened yesterday. 01/31: * Unique received a total of 48 units of insulin yesterday * 28 units basal + 20 units bolus * BSGs were acceptable: [phone] mg/dL * Fasting BSG was 162 mg/dL which is improved but still above goal * Will increase basal by 15% today * Tightening Novolog slightly as well 01/30: * 80 yo F admitted last evening secondary to stroke-like symptoms. Remains NPO this morning. * Received 15 units of Lantus at bedtime last night * Fasting elevated at 191 mg/dL this morning * Will increase Lantus dose this evening but will not resume home dose until patient starts eating * Novolog tightened to more closely match home dose PLAN FOR INPATIENT GLYCEMIC CONTROL: no changes needed at this time * Basal insulin * Lantus 32 units SQ HS * Bolus insulin * NovoLog per scale ACHS or Q6hrs while NPO * Goal Range: Low 110 mg/dL - High 140 mg/dL * Correction Factor: 15 mg/dL/unit * Nutritional / Prandial insulin per carb ratio of 1 unit per 5 grams CHO consumed PLAN FOR DISCHARGE: * HbA1c = 7.3% from December 2020. Given patient's age and comorbidities, goal HbA1c should be < 8%. * No changes recommended to outpatient insulin regimen upon discharge as long as patient is not experiencing hypoglycemia at home. * Continue to follow with [facility].
--- NOTE | 2021-02-01 10:44 | Medical Student Progress Note ---
Date of Service February 01, 2021 Assessment & Plan (1) Left-sided weakness: Ms. 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 She did have an additional episode of increased dysarthria and left-sided weakness overnight. Suspected recrudescence of previous stroke given same clinical picture as previous stroke and lack of acute change on imaging. Believe that this may be secondary to chronic venous stasis resulting in orthostatic hypotension and subsequent decreased perfusion to the cerebral tissue. (1) Stroke Recrudescence - CT Head and MRI on 01/29 with no acute intracranial findings. - Patient on telemetry with no acute events noted. Multiple EKGs which show no acute changes. Loop recorder with no evidence of a-fib. Continue cardiac monitoring. In the setting of no evidence of atrial fibrillation, no need for anticoagulation at this time. - Continue aspirin and clopidogrel daily. - Neuro checks and vitals per protocol. - Appreciate neuro recs. - Seen by speech. Determined that patient 'would not benefit from SENIOR APPLICATIONS DEVELOPER intervention.' - Atorvastatin increased to 40 mg for secondary prevention. - Given PT evaluation, patient to be discharged to rehab today. (2) HTN: - BP parameters: SBP CAP 180, restart home anti-hypertensives with the exception of amlodipine in the setting of orthostatic hypotension as below. (3) Orthostasis: - Orthostatic vitals. - Counseled on compression stockings and increasing PO intake. Educated patient on connection between orthostasis and stroke-like symptoms and the role of fluid intake. - Discontinued amlodipine. Due to suspected underlying cause of venous stasis, removing a vasodilator should target the underlying cause. However, should orthostasis continue to be a problem, could consider removing labetalol in the outpatient setting. (4) Increased Cr: - Trending down today. - Likely due to decreased PO intake. - Given bolus of NS. - Specifically compliance counsel on increasing fluid intake (60-80 oz daily). (5) Hypokalemia: - Repleted orally. Resolved at 3.7 today. (6) DMII: - Sliding scale insulin and accuchecks per primary team to avoid hyperglycemia. (7) Hyperlipidemia - Atorvastatin 40 mg as above. Dispo: D/c to rehab. FEN: Diabetic. Code: Full code. Admission and Anticipated Discharge Date Admission Date: January 29, 2021 Subjective Ms. Alegria is an [id number] here with stroke recrudescence. She reports feeling well today. She has had no episodes of stroke-like symptoms. She states that she feels that her speech and strength are subjectively improved. She has been going to the restroom with nursing assistance without any incidence of orthostasis. She is tolerating PO intake well and moving her bowels. Physical Exam Constitutional: WD/WN, vitals as above Cardiovascular: Rate/Rhythm: regular rate and regular rhythm Heart Sounds: normal S1, normal S2 and + murmur Extremities: no calf tenderness and no edema Gastrointestinal (Abdomen): Percussion/Palpation: abdomen nontender and + abdomen not soft Skin: no rashes, warm and dry Neurologic: moves all extremities (decreased strength in left upper and lower extremity ), + focal motor deficit (left-sided) and awake Speech / Cognition: + abnormal speech (dysarthric speech; improving ) Motor/Sensory: + sensory deficit (decreased sensation on left extremities and in the distribution of CN V2/V3) Cranial Nerves: EOM intact bilaterally; + abnormal facial strength (decreased strength on left lower face) Psychiatric: A+Ox3, euthymic affect Results & Data ([facility]) Vital Signs (Past 12 Hours) Vital Signs Temp Pulse Pulse Resp BP Pulse Ox 02/01/21 09:56 66 02/01/21 07:04 36.7 C 66 18 127/67 93 02/01/21 03:49 36.6 C 67 18 144/69 H 91 01/31/21 23:50 37 C 58 L 18 110/62 92 Laboratory Results 02/01/21 02/01/21 02/01/21 07:06 05:49 05:49 WBC 5.71 RBC 3.97 L Hgb 12.1 Hct 36.1 L MCV 90.9 MCH 30.5 MCHC 33.5 RDW Std Deviation 45.6 RDW Coeff of [place] 13.7 Plt Count 95 L MPV 10.2 Immature Gran % (Auto) 0.2 Neut % (Auto) 47.1 Lymph % (Auto) 42.4 [place] % (Auto) 5.3 Eos % (Auto) 4.6 Baso % (Auto) 0.4 Neut # (Auto) 2.70 Lymph # (Auto) 2.42 [place] # (Auto) 0.30 Eos # (Auto) 0.26 Baso # (Auto) 0.02 Immature Gran # (Auto) 0.01 RBC Morphology Unremarkable Sodium 141 Potassium 3.7 Chloride 109 H Carbon Dioxide 29 Anion Gap 3.0 BUN 15 Creatinine 1.23 H Est Cr Clr Drug Dosing 41.3 Est GFR ( Amer) 48.0 Est GFR (Non-Af Amer) 41.4 BUN/Creatinine Ratio 12.1 Glucose 134 H POC Glucose 150 H Calcium 8.8 01/31/21 01/31/21 01/31/21 20:16 16:13 11:13 WBC RBC Hgb Hct MCV MCH MCHC RDW Std Deviation RDW Coeff of [place] Plt Count MPV Immature Gran % (Auto) Neut % (Auto) Lymph % (Auto) [place] % (Auto) Eos % (Auto) Baso % (Auto) Neut # (Auto) Lymph # (Auto) [place] # (Auto) Eos # (Auto) Baso # (Auto) Immature Gran # (Auto) RBC Morphology Sodium Potassium Chloride Carbon Dioxide Anion Gap BUN Creatinine Est Cr Clr Drug Dosing Est GFR ( Amer) Est GFR (Non-Af Amer) BUN/Creatinine Ratio Glucose POC Glucose 140 H 129 H 194 H Calcium
--- NOTE | 2021-02-01 14:36 | Med Student Discharge Summary ---
Date of Service February 01, 2021 Admission HPI Per Admitting Provider Mrs. 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 This initially started on the evening of 01/26/21. Patient went to bed and the next morning woke up with normal baseline neurologic status. Today she was scheduled to see her PCP, and as she was walking back to the exam room she developed significant left leg and arm weakness and dysarthric speech. These symptoms have persisted until now -- although patient and her admit that her symptoms have improved. Still with left arm weakness, left leg weakness, and speech is not yet at baseline. When she had these symptoms Friday evening she transmitted her LINQ loop recorde r but I don't have access to that report at the moment. Discharge Data Consultations 01/29/21 15:39 ED Decision to Admit Stat 01/29/21 19:40 Consult Neurology Routine Hospital Course (1) Left-sided weakness: Ms. 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 These symptoms have shown some improvement but she has not returned to baseline. Of note, she did have several additional episodes of increased dysarthria and left- sided weakness throughout the first three days of her hospital stay. Moreover, she had several episodes of orthostasis. It was suspected that she had recrudescence of previous stroke given same clinical picture as previous stroke and lack of acute change on imaging. Believe that this may be secondary to chronic venous stasis resulting in orthostatic hypotension and subsequent decreased perfusion to the cerebral tissue. (1) Stroke Recrudescence - CT Head and MRI on 01/29 with no acute intracranial findings. - Patient on telemetry with no acute events noted. Multiple EKGs which show no acute changes. Loop recorder with no evidence of a-fib. Continue cardiac monitoring. In the setting of no evidence of atrial fibrillation, no need for anticoagulation at this time. - Continue aspirin and clopidogrel daily. - Neuro checks and vitals per protocol. - Appreciate neuro recs. - Seen by speech. Determined that patient 'would not benefit from TRANSPORT SPECIALIST intervention.' - Atorvastatin increased to 40 mg for secondary prevention. - Given PT evaluation, patient to be discharged to rehab today, 02/01. (2) HTN: - BP parameters: SBP CAP 180, restart home anti-hypertensives with the exception of amlodipine in the setting of orthostatic hypotension as below. (3) Orthostasis: - Orthostatic vitals. - Counseled on compression stockings and increasing PO intake. Educated patient on connection between orthostasis and stroke-like symptoms and the role of fluid intake. - Discontinued amlodipine. Due to suspected underlying cause of venous stasis, removing a vasodilator should target the underlying cause. However, should orthostasis continue to be a problem, could consider removing labetalol in the outpatient setting. (4) Increased Cr: - Trending down today. - Likely due to decreased PO intake. - Given bolus of NS. - Specifically counselor aide on increasing fluid intake (60-80 oz daily). (5) Hypokalemia: - Repleted orally. Resolved at 3.7 today. (6) DMII: - Sliding scale insulin and accuchecks per primary team to avoid hyperglycemia. (7) Hyperlipidemia - Atorvastatin 40 mg as above. Discharge Plan Discharge Items Patient Disposition: Transfer Inpatient Rehab Fac Reason For Visit: CVA SYMPTOMS Discharge Diagnosis: Stroke Recrudescence Activity: Per Instructions section Non-emergency contact: Primary Care Provider Call non-emergency contact if: you have any medication questions Follow-up/Referrals: Jordana Chen MD [Primary Care Provider] - Diet: Carb Consistent or DM2 Addtl Attending Provider Instructions: Ms. 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 Suspected recrudescence of previous stroke given same clinical picture as previous stroke and lack of acute change on imaging. Believe that this may be secondary to chronic venous stasis resulting in orthostatic hypotension and subsequent decreased perfusion to the cerebral tissue. Stroke Recrudescence - CT Head and MRI on 01/29 with no acute intracranial findings. - Patient on telemetry with no acute events noted. Multiple EKGs which show no acute changes. Loop recorder with no evidence of a-fib. In the setting of no evidence of atrial fibrillation, no need for anticoagulation at this time. - Continue aspirin and clopidogrel daily. - Atorvastatin increased to 40 mg for secondary prevention. Please continue atorvastatin 40mg po daily. - Continue PT/OT rehab and inpatient rehab facility. Hypertension - Will discontinue amlodipine. - Otherwise continue labetalol 50mg po BID. Orthostasis - Orthostatic vitals. - Counseled on compression stockings and increasing PO intake. Educated patient on connection between orthostasis and stroke-like symptoms and the role of fluid intake. - Discontinued amlodipine. Due to suspected underlying cause of venous stasis, removing a vasodilator should target the underlying cause. However, should orthostasis continue to be a problem, could consider decreasing/discontinuing labetalol in the outpatient setting. Asymptomatic Bacteruria (ASB) - Patient confirms asymptomatic status and actively denies dysuria, suprapubic pain, hematuria, urinary urgency, or increased urinary frequency from baseline - Cx with enterococcus - Abx therapy deferred due to asymptomatic component of the bacteruria based on IDSA clinical practice guidelines for ASB Increased Cr - Trending down on day of discharge -- 1.23 today - Specifically counselor aide on increasing fluid intake (goal of 60-80 oz daily). Hypokalemia, resolved - Repleted orally. Resolved at 3.7 today. - Recommend repeat BMP in 3 days. DMII - Home lantus Hyperlipidemia - Atorvastatin 40 mg as above. Hypothyroidism - Continue home Synthroid 112mcg po daily Please have patient follow up with her primary care provider within the next 1 week. Pending Studies at Discharge: No Stand-Alone Forms: [facility] Patient informed of condition?: Yes DNR: No Discharge Level of Care: Acute rehab Communicable Disease: No Discharge Prognosis: Stable Lines: None Urinary Catheter: No Medications and DC Order Prescriptions: Continued clopidogrel 75 mg tablet 75 mg PO QAM Qty: 90 RF: 3 gabapentin 100 mg capsule 100 mg PO HS Qty: 90 RF: 3 insulin lispro [Humalog KwikPen Insulin] 100 unit/mL insulin pen 80 unit subcut DAILY Qty: 5 RF: 3 levothyroxine [Levoxyl] 112 mcg tablet 112 mcg PO QAM Qty: 90 RF: 3 folic acid 1 mg tablet 1 mg PO QAM Qty: 90 RF: 3 aspirin 81 mg tablet,delayed release (DR/EC) 81 mg PO QAM RF: 0 atorvastatin 10 mg tablet 10 mg PO BID Qty: 180 RF: 1 (DME) FreeStyle Lite Strips Strip See Rx Instructions .ROUTE .MEDSUPPLY Qty: 10 RF: 0 labetalol 100 mg tablet 50 mg PO Q12H Qty: 180 RF: 3 albuterol sulfate 90 mcg/actuation HFA aerosol inhaler 1 puff inhalation Q4 PRN (Reason: Wheezing) RF: 0 cholecalciferol (vitamin D3) 5,000 unit Tablet 5,000 unit PO 3XWK RF: 0 ondansetron HCl [Zofran] 4 mg tablet 4 mg PO Q4H PRN (Reason: nausea and vomiting) Qty: 20 RF: 1 fexofenadine 180 mg Tablet 180 mg PO QAM RF: 0 omeprazole 20 mg capsule,delayed release(DR/EC) 20 mg PO QAM RF: 0 montelukast 10 mg tablet 10 mg PO QPM RF: 0 Lantus Solostar U-100 Insulin 100 unit/mL (3 mL) insulin pen 30 unit subcut HS RF: 0 meclizine 25 mg tablet 25 mg PO TID PRN (Reason: Dizziness) RF: 0 cyanocobalamin (vitamin B-12) 1,000 mcg Tablet 1,000 mcg PO DAILY RF: 0 Discontinued amlodipine 5 mg tablet 2.5 mg PO QAM RF: 0 Discharge Orders: Discharge Order (Routine); Ordered 02/01/21 Ordered By: Marialuisa Nance/Other Patient Handouts: Managing Type 2 Diabetes, A1C Admission Data Admit Date/Time: 01/29/21 17:20 Attending Provider: Anders Dubois Admit Provider: Dima Gr Primary Care Provider: Jordana Chen V. Other Providers: Dima Gr ; Katya Hidalgo ; [facility] Other Interventions: Discharge Summary Assessment (RN) Last Done: 02/01/21 16:07 Supervising Attestation I personally examined the patient and verified all frost points of history and exam, discussed case, and agree with decision making with Vanessa Costa. Had a minor orthostatic episodereported to us by nursingwhen discussed with the patient, she noted it was very mild, and noted she was actually quite proud of herself because she had walked twice as far as yesterday before it happened. Otherwise slowly doing better. Excited to go to rehab. Vitals noted, in general she is awake and alert pleasant no distress. HEENT normocephalic atraumatic mucous membranes moist. Neurodysarthria slowly improving, arm weakness seems to be doing better. Dysarthria and left arm weaknessdoes not appear to be acute stroke given lack of findings on MRI, however given her orthostasis and symptoms reminiscent of her prior stroke, I agree with stroke recrudescence as the most likely cause of her symptoms. Secondary risk reduction. Manage orthostasisp.o. fluids with a goal of 60 to 80 ounces a day, compression stockings, holding amlodipine seems to have helped. Can also reduce labetalol should she have ongoing symptoms. Dispositionstable for rehab
--- NOTE | 2021-02-01 20:08 | Billing Data ---
Date of Service February 01, 2021 Coding Level of Care Code D/C Day Management <30 mins
--- NOTE | 2021-02-06 16:04 | Communication Note ---
Date of Service: February 06, 2021 Urine culture grew enterococcus at time of discharge; 5-day culture positive. Called [facility] and spoke to nursing group home supervisor. Patient not having uri nary symptoms or changes in mental status at this time. As such, no treatment needed as this represents asymptomatic bacteruria. Encouraged nursing group home supervisor to follow up with in-house physician at [facility] should patient develop any symptoms.
== END 2021-02-01 17:50 | DRG 57 ==
LOC: ED 14:21 → SUATTDRO 17:20 → 2S 17:20

== ENCOUNTER 2021-06-05 13:11 | Inpatient (IN) ==
--- NOTE | 2021-06-05 13:30 | Emergency Department Note ---
Impression & Plan Syncope, Thrombocytopenia, Bradycardia ED Provider Note NAME: JACKIE CESPEDES AGE: 80 SEX: F : 1940 ARRIVES VIA: Ambulance INFORMANT: Patient, ED PROVIDER(S): Trey Gaviria DO CHIEF COMPLAINT: Syncope HPI: The patient is an 80-year-old female who presented to the emergency department for an evaluation after having multiple syncopal episodes. The patient was at the actuarial technician office today. She started feeling dizzy and lightheaded. She had a syncopal episode which was witnessed. She had three total syncopal episodes prior to arrival. She was on the cardiac sonographer for EMS and did not have any dysrhythmia according to the pipe covering molder while she had the syncopal episode. At this time the patient denies having any chest pain. She denies having any shortness of breath. She denies having any lower extremity swelling or pain. She denies having any recent trauma. She states that she has been compliant with all of her outpatient medications. The patient has a Holter monitor in the past and was diagnosed with atrial fibrillation. She recently started taking Eliquis. The patient states that she still feels somewhat dizzy. She denies having any vertigo symptoms. She states she has a history of vertigo in the past. The patient did not have hypoglycemia reported prior to arrival. The patient was noted to have elevated blood pressure prior to arrival. ROS: See above HPI for pertinent positives & negatives. A total of 10 systems reviewed and were otherwise negative. PAST MEDICAL HISTORY: See Below PAST SURGICAL HISTORY: See Below FAMILY HISTORY: See Below SOCIAL HISTORY: See Below HOME MEDICATIONS: See Below ALLERGIES: See Below VITALS: See Below PHYSICAL EXAMINATION: GENERAL: Patient is awake alert in no acute distress patient is resting comfortably and showing no signs of anxiety EYES: The conjunctivae are clear. The pupils are round and reactive. EARS, NOSE, MOUTH AND THROAT: The nose is without any evidence of any deformity. NECK: The neck is nontender and supple. RESPIRATORY: Normal respiratory effort is noted there is no evidence of wheezing rhonchi or rales CARDIOVASCULAR: Regular rate and rhythm noted there no murmurs rubs or gallops normal S1 normal S2. GASTROINTESTINAL: The abdomen is soft. Abdomen is nontender. MUSCULOSKELETAL/EXTREMITIES: There is no evidence of gross deformity full range of motion is noted in the hips and shoulders. SKIN: There is no obvious evidence of any rash. There are no petechiae, pallor or cyanosis noted. NEUROLOGIC: Patient is awake alert and oriented x3 strength is symmetric patellar reflexes are 2+ bilaterally MEDICAL DECISION MAKING: The patient is an 80-year-old female who presented to the emergency department after having multiple syncopal episodes. She does have a history of atrial fibrillation and does take Eliquis. I discussed the patient's laboratory and ra diographic studies with her. Her blood pressure was found to be elevated on multiple occasions. The patient attempted to ambulate but became very symptomatic. I am very concerned given the patient's thrombocytopenia as well as her use of Eliquis for atrial fibrillation that she may be a significant fall risk with a resultant severe head injury or intracranial hemorrhage. For this reason I discussed her case with the on-call [facility]. They have agreed to evaluate the patient in the emergency department for further management and disposition. Triage Nursing notes reviewed. Prior medical records reviewed Vital Signs: reviewed and remarkable for hypertension. Differential diagnosis: Vasovagal event, dehydration, infection, hypoglycemia, electrolyte abnormalities, cardiac sources, intracerebral event, pulmonary embolism, seizure, toxicologic, neurologic, as well as other pathologies. ER treatment provided: See below Diagnostics interpreted by me: ECG: EKG was obtained in the emergency department. My interpretation is normal sinus rhythm at 56 bpm. There was no ectopy. There was no acute ST segment abnormalities noted. LVH was suggested by voltage criteria. This was compared to a tracing from January 312020. No significant changes were noted. Cardiac Monitoring: An order was placed for continuous cardiac monitoring. The monitor shows a rate of 75 bpm with sinus rhythm. Laboratory studies: As stated above and show below. Imaging studies: See below Consultation(s): 6192: I discussed this case with Dr. Dubois who is on-call for the [facility] group. He will evaluate the patient in the emergency department. Past Med/Surg History Medical History Aneurysm of left carotid artery Pseudoaneurysm, Neurosurg [facility] Arthritis Asthma INHALER PRN>HAS NOT USED FOR A WHILE Atrial fibrillation NOTED WHEN WEARING HOLTER MONITOR 2020>[facility] C[facility] FOLLOWS Chest discomfort Chronic kidney disease, stage III (moderate) FOLLOWS W/ DR. BECKMAN Diabetes mellitus, type 2 IDDM - follows with [facility] endocrine Diastasis recti Fibromuscular hyperplasia of left carotid artery GERD (gastroesophageal reflux disease) Hiatal hernia Hyperlipemia Hypertension Hypothyroidism Idiopathic thrombocytopenia purpura referred to heme/onc for evaluation of thrombocytopenia- clinical picture suggestive of ITP - started on steroid therapy Stroke 1985. MILD RESIDENTIAL MEMORY LOSS. TIA (transient ischemic attack) MULTIPLE. MOST RECENT 10/2020 >FOLLOWED UP WITH PCP>FACIAL NUMBNESS AND SHORT PERIOD OF NOT BEING ABLE TO TALK. (REASON FOR PLAVIX) Surgical History H/O dilation and curettage H/O hernia repair (03/08/20) Ventral hernia repair Dr. Jane 03/08/20 H/O umbilical hernia repair History of ankle surgery RIGHT History of appendectomy History of colonoscopy History of esophageal dilatation History of esophagogastroduodenoscopy (EGD) WITH REMOVAL OF ESOPHAGEAL POLYPS History of loop recorder IMPLANTED NOVEMBER 2020 History of repair of hiatal hernia (06/16/19) Robotic assisted Laparoscopic repair of hiatal hernia with prosthetic bio- absorbable mesh, robert Fundoplication Esophagogastroduoedenoscopy Dr. Mueller 06/16/19 History of tonsillectomy and adenoidectomy History of total abdominal hysterectomy and bilateral salpingo-oophorectomy History of total knee replacement BILATERAL AND A STEEL JAD IN RIGHT LEG D/T CURVATURE Hx of cholecystectomy Family History Unknown Osteoporosis Mother Rheumatoid arthritis Family history of diabetes mellitus History of nephrectomy Stroke syndrome Hypertension Stroke Aunt Rheumatoid arthritis Father Heart disease Myocardial infarction Hx of CABG Hypertension Brother Acute myocardial infarction Myocardial infarction Other No family history of adverse response to anesthesia Denies family history of Ovarian cancer Prostate cancer Clotting disorder Breast cancer Social History Smoking Status: Never smoker Second Hand Exposure: No; Hx Alcohol Use: No Hx Substance Use: No Preferred Language: German Communication Ability: Impaired Visual Impairment: No Limitations Hearing Ability: Normal Chairman Of The Board Required: No Beliefs That Will Affect Care: None marital status: Current Living Situation: Spouse current occupational status: retired How many Children do You have: 4 Feels Safe at Home: Yes Childhood Exposure to Second-Hand Smoke: Yes Dental Care, Regularly: No Physical Activity Frequency: Daily Seatbelt Use: always Sunscreen Use: No Assistive Devices: Cane and Walker Allergies Allergies Allergy/AdvReac Type Severity Reaction Status Date / Time codeine Allergy Intermediate HYPERACTIVE, Verified 06/05/21 17:04 HIVES/SYNCOPE enoxaparin Allergy Intermediate syncope Verified 06/05/21 17:04 fluorouracil Allergy Intermediate Hives Verified 06/05/21 17:04 potassium Allergy Mild IV Verified 06/05/21 17:04 potassium caused hypotension Home Meds Home Medications Medication Instructions Recorded Confirmed albuterol sulfate 90 mcg/actuation 1 puff INHALATION Q4 PRN 03/20/19 06/05/21 aerosol inhaler cholecalciferol (vitamin D3) 125 5,000 unit PO 3XWK 03/20/19 06/05/21 mcg (5,000 unit) tablet fexofenadine 180 mg tablet 180 mg PO QAM 09/03/20 06/05/21 blood sugar diagnostic (FreeStyle #10 ea 09/27/20 05/24/21 Lite Strips) cyanocobalamin (vitamin B-12) 1,000 mcg PO DAILY 01/29/21 06/05/21 1,000 mcg tablet meclizine 25 mg tablet 25 mg PO TID PRN 01/29/21 06/05/21 omeprazole 20 mg capsule,delayed 20 mg PO QAM 01/29/21 06/05/21 release insulin glargine 100 unit/mL (3 34 unit SUBCUT HS ml 02/13/21 06/05/21 mL) subcutaneous pen (Lantus Solostar U-100 Insulin) Previous Rx's Medication Instructions Recorded ondansetron HCl 4 mg tablet 4 mg PO Q4H PRN #20 tab 06/17/19 (Zofran) insulin lispro 100 unit/mL 80 unit SUBCUT DAILY #5 box 06/08/20 subcutaneous pen (Humalog KwikPen (U-100) Insulin) labetalol 100 mg tablet 50 mg PO Q12H #180 tab 07/17/20 levothyroxine 112 mcg tablet 112 mcg PO QAM #90 tab 08/25/20 (Levoxyl) folic acid 1 mg tablet 1 mg PO QAM #90 tab 11/30/20 clopidogrel 75 mg tablet 75 mg PO QAM #90 tab 03/20/21 gabapentin 100 mg capsule 100 mg PO HS #90 cap 03/23/21 montelukast 10 mg tablet 10 mg PO QPM #90 tab 03/26/21 apixaban 5 mg tablet (Eliquis) 5 mg PO BID #60 tab 04/23/21 atorvastatin 10 mg tablet 10 mg PO BID #180 tab 06/01/21 Results & Data (ED) Vital Signs Vital Signs - 24 hr 06/05/21 13:11 06/05/21 13:18 06/05/21 13:41 Temperature 36.7 C Temperature Source Oral Pulse Rate 64 57 L Pulse Rate from SpO2 Sensor 57 L Respiratory Rate 16 17 Blood Pressure 210/80 H 210/80 H Blood Pressure Mean 123 123 Pulse Oximetry 96 97 Oxygen Delivery Method Room Air Room Air Sepsis Recent Fever Within 48 Hours No Sepsis New/Unexplained Change in Mental Status No Sepsis Action Taken by Nursing No Action Required 06/05/21 14:52 Temperature Temperature Source Pulse Rate 71 Pulse Rate from SpO2 Sensor 62 Respiratory Rate 21 Blood Pressure 183/72 H Blood Pressure Mean 109 Pulse Oximetry 97 Oxygen Delivery Method Sepsis Recent Fever Within 48 Hours Sepsis New/Unexplained Change in Mental Status Sepsis Action Taken by Detention Medications Current Medication List: was personally reviewed by me Laboratory Data Attestation: I reviewed the patient's lab results. Result diagrams: 06/05/21 13:42 06/05/21 13:42 Lab Results 06/05/21 06/05/21 06/05/21 Range/Units 13:42 13:42 13:42 WBC 5.40 (4.8-10.8) K/uL RBC 4.27 (4.2-5.4) M/uL Hgb 13.0 (12.0-16.0) g/dL Hct 40.4 (37-47) % MCV 94.6 (80-100) fL MCH 30.4 (25-34) pg MCHC 32.2 (32-36) g/dL RDW Std Deviation 48.2 H (36.4-46.3) fL RDW Coeff of [place] 14.1 (11.5-14.5) % Plt Count 88 L (130-400) K/uL MPV 10.8 H (7.4-10.4) fL Immature Gran % (Auto) 0.0 % Neut % (Auto) 43.5 % Lymph % (Auto) 40.9 % [place] % (Auto) 5.9 % Eos % (Auto) 9.1 % Baso % (Auto) 0.6 % Neut # (Auto) 2.35 (1.4-6.5) K/uL Lymph # (Auto) 2.21 (1.2-3.4) K/uL [place] # (Auto) 0.32 (0.11-0.59) K/uL Eos # (Auto) 0.49 (0-0.5) K/uL Baso # (Auto) 0.03 (0-0.2) K/uL Immature Gran # (Auto) 0.00 (0.00-0.02) K/uL Tear Drop Cells 1+ PT 11.2 (9.0-12.0) Seconds INR 1.1 (0.9-1.1) APTT 30.9 (21.0-31.0) Seconds PTT Ratio 1.2 Sodium 142 (136-145) mmol/L Potassium 3.8 (3.5-5.1) mmol/L Chloride 110 H (98-107) mmol/L Carbon Dioxide 26 (21-32) mmol/L Anion Gap 6.0 (3-11) BUN 12 (7-18) mg/dl Creatinine 1.23 H (0.6-1.2) mg/dl Est Cr Clr Drug Dosing 40.6 ml/min Est GFR ( Amer) 48.0 ml/min Est GFR (Non-Af Amer) 41.4 ml/min BUN/Creatinine Ratio 9.9 L (10-20) Glucose 133 H (70-99) mg/dl Calcium 8.9 (8.5-10.1) mg/dl Magnesium 2.1 (1.8-2.4) mg/dl Total Bilirubin 0.5 (0.2-1) mg/dl AST 35 (15-37) U/L ALT 26 (12-78) U/L Alkaline Phosphatase 132 H (45-117) U/L Troponin I < 0.015 (0-0.045) ng/ml Total Protein 6.8 (6.4-8.2) gm/dl Albumin 2.8 L (3.4-5.0) gm/dl Globulin 4.0 (2.5-4.0) gm/dl Albumin/Globulin Ratio 0.7 L (0.9-2) TSH 0.791 (0.300-4.500) uIu/ml Imaging Data Radiologist's Impression: Chest X-Ray 06/05/21 13:20 XR chest 1V portable HISTORY: 80 years-old Female syncope acute syncope COMPARISON: Chest radiograph 01/30/2021 TECHNIQUE: Portable AP view of the chest FINDINGS: Cardiac silhouette is enlarged. Loop recorder device. Calcified plaque of the thoracic aorta. No pneumothorax, pleural effusion, airspace consolidation or overt pulmonary edema. Degenerative changes of the shoulders and spine. Mild mid thoracic dextroscoliosis. Mild right hemidiaphragmatic elevation. IMPRESSION: Cardiomegaly without acute process. ACT 112: Negative or not required by law. The above report was generated using voice recognition software. It may contain grammatical, syntax or spelling errors. Electronically signed by: Francis Banda M.D. 06/05/2021 1:[address] 06/05/21 13:20 CT head/brain wo con CLINICAL HISTORY: 80 years-old Female with syncope. Acute syncope TECHNIQUE: Multiple axial CT images of the head were obtained without contrast. A dose lowering technique was utilized adhering to the principles of ALARA. CT DOSE: 537.48 mGy.cm COMPARISON: Brain MRI 01/30/2021, head CT 01/29/2021 FINDINGS: No acute intracranial hemorrhage, midline shift, intracranial mass, hydrocephal us, territorial ischemia or abnormal extra-axial collection. Age-related involutional changes. White matter hypodensities compatible with chronic microvascular ischemic disease. Chronic lacunar infarcts of the basal ganglia and left cerebellar hemisphere redemonstrated. Cerebral vascular calcifications. The calvarium is intact. Right mastoid effusion. Left mastoid air cells are clear. Minimal mucosal thickening of the ethmoid sinuses. Unremarkable soft tissues. Prior bilateral lens repair. IMPRESSION: Chronic findings as above without acute intracranial abnormality. ACT 112: Negative or not required by law. The above report was generated using voice recognition software. It may contain grammatical, syntax or spelling errors. Electronically signed by: Francis Banda M.D. 06/05/2021 2:53 PM Discharge Plan Visit Data Chief Complaint: Syncope Stated Complaint: SYNCOPE ED Provider: Trey Gaviria Discharge Problem: Syncope, Thrombocytopenia, Bradycardia Patient Disposition: Being Evaluated by Hospitalist Condition: Good Discharge Instructions Krames/Other Patient Handouts: ED Fainting, Uncertain Cause Activity Restrictions/Additional Instructions: Continue all medications as prescribed. Continue to drink plenty clear liquids. Call your family doctor to schedule a follow-up appointment. You may require further studies to further evaluate the cause of your passing out episode. Return the emergency department immediately if symptoms change worsen or the need arises. Be sure to have your blood pressure rechecked and be sure to have your CBC rechecked. Your platelets were low in the emergency department today. You're currently to be a blood thinner and this could be dangerous together if you can to need pass out do not drive or operate any heavy machinery. Forms Stand Alone Forms: My [facility], Virtual Emergency Department, Important Visit Information Prescriptions Prescriptions: No Action insulin lispro [Humalog KwikPen Insulin] 100 unit/mL insulin pen 80 unit subcut DAILY Qty: 5 RF: 3 levothyroxine [Levoxyl] 112 mcg tablet 112 mcg PO QAM Qty: 90 RF: 3 folic acid 1 mg tablet 1 mg PO QAM Qty: 90 RF: 3 Lantus Solostar U-100 Insulin 100 unit/mL (3 mL) insulin pen 34 unit subcut HS RF: 0 clopidogrel 75 mg tablet 75 mg PO QAM Qty: 90 RF: 3 gabapentin 100 mg capsule 100 mg PO HS Qty: 90 RF: 3 montelukast 10 mg tablet 10 mg PO QPM Qty: 90 RF: 1 atorvastatin 10 mg tablet 10 mg PO BID Qty: 180 RF: 1 (DME) FreeStyle Lite Strips Strip See Rx Instructions .ROUTE .MEDSUPPLY Qty: 10 RF: 0 labetalol 100 mg tablet 50 mg PO Q12H Qty: 180 RF: 3 Eliquis 5 mg tablet 5 mg PO BID Qty: 60 RF: 2 albuterol sulfate 90 mcg/actuation HFA aerosol inhaler 1 puff inhalation Q4 PRN (Reason: Wheezing) RF: 0 cholecalciferol (vitamin D3) 5,000 unit Tablet 5,000 unit PO 3XWK RF: 0 ondansetron HCl [Zofran] 4 mg tablet 4 mg PO Q4H PRN (Reason: nausea and vomiting) Qty: 20 RF: 1 fexofenadine 180 mg Tablet 180 mg PO QAM RF: 0 omeprazole 20 mg capsule,delayed release(DR/EC) 20 mg PO QAM RF: 0 meclizine 25 mg tablet 25 mg PO TID PRN (Reason: Dizziness) RF: 0 cyanocobalamin (vitamin B-12) 1,000 mcg Tablet 1,000 mcg PO DAILY RF: 0 Referrals Referrals: Jordana Chen MD [Primary Care Provider] - Discharge Problem: Syncope Qualifiers: Syncope type: unspecified Qualified Code(s): R55 - Syncope and collapse
--- NOTE | 2021-06-05 13:42 | XRay Report ---
XR chest 1V portable HISTORY: 80 years-old Female syncope acute syncope COMPARISON: Chest radiograph 01/30/2021 TECHNIQUE: Portable AP view of the chest FINDINGS: Cardiac silhouette is enlarged. Loop recorder device. Calcified plaque of the thoracic aorta. No pneu mothorax, pleural effusion, airspace consolidation or overt pulmonary edema. Degenerative changes of the shoulders and spine. Mild mid thoracic dextroscoliosis. Mild right hemidiaphragmatic elevation. IMPRESSION: Cardiomegaly without acute process. ACT 112: Negative or not required by law. The above report was generated using voice recognition software. It may contain grammatical, syntax o r spelling errors. Electronically signed by: Francis Banda M.D. 06/05/2021 1:41 PM
[2021-06-05 14:01] LABS: Hematocrit (blood only) 40.4 % (37-47); INR 1.1 (0.9-1.1); Mean Corpuscular Hemoglobin 30.4 pg (25-34); Mean Corpuscular Hgb Conc 32.2 g/dL (32-36); Mean Corpuscular Volume 94.6 fL (80-100); Mean Platelet Volume 10.8 fL (7.4-10.4); Partial Thromboplastin Ratio 1.2; Partial Thromboplastin Time 30.9 Seconds (21.0-31.0); Platelet Count 88 K/uL (130-400); Prothrombin Time 11.2 Seconds (9.0-12.0); RDW Coefficient of Variation 14.1 % (11.5-14.5); RDW Standard Deviation 48.2 fL (36.4-46.3); Red Blood Count 4.27 M/uL (4.2-5.4)
[2021-06-05 14:10] LABS: Alanine Aminotransferase 26 U/L (12-78); Albumin Level 2.8 gm/dl (3.4-5.0); Aspartate Aminotransferase 35 U/L (15-37); BUN Creatinine Ratio 9.9 (10-20); Basophils # (auto) 0.03 K/uL (0-0.2); Basophils % (auto) 0.6 %; Blood Urea Nitrogen 12 mg/dl (7-18); Calcium 8.9 mg/dl (8.5-10.1); Carbon Dioxide 26 mmol/L (21-32); Chloride 110 mmol/L (98-107); Creatinine Clr Calc Pharmacy 40.6 ml/min; Eosinophils # (auto) 0.49 K/uL (0-0.5); Eosinophils % (auto) 9.1 %; Est GFR (Non-African American) 41.4 ml/min; Glucose 133 mg/dl (70-99); Lymphocytes # (auto) 2.21 K/uL (1.2-3.4); Lymphocytes % (auto) 40.9 %; Magnesium 2.1 mg/dl (1.8-2.4); Monocytes # (auto) 0.32 K/uL (0.11-0.59); Monocytes % (auto) 5.9 %; Neutrophils # (auto) 2.35 K/uL (1.4-6.5); Neutrophils % (auto) 43.5 %; Potassium 3.8 mmol/L (3.5-5.1); Sodium 142 mmol/L (136-145); Tear Drop Cells 1+
[2021-06-05 14:21] LABS: Albumin Globulin Ratio 0.7 (0.9-2); Alkaline Phosphatase 132 U/L (45-117); Bilirubin,Total 0.5 mg/dl (0.2-1); Thyroid Stimulating Hormone 0.791 uIu/ml (0.300-4.500); Total Protein 6.8 gm/dl (6.4-8.2); Troponin I < 0.015 ng/ml (0-0.045)
--- NOTE | 2021-06-05 14:54 | CT Scan Report ---
CT head/brain wo con CLINICAL HISTORY: 80 years-old Female with syncope. Acute syncope TECHNIQUE: Multiple axial CT images of the head were obtained without contrast. A dose lowering tech nique was utilized adhering to the principles of ALARA. CT DOSE: 537.48 mGy.cm COMPARISON: Brain MRI 01/30/2021, head CT 01/29/2021 FINDINGS: No acute intracranial hemorrhage, midline shift, intracranial mass, hydrocephalus, territorial ischem ia or abnormal extra-axial collection. Age-related involutional changes. White matter hypodensities c ompatible with chronic microvascular ischemic disease. Chronic lacunar infarcts of the basal ganglia and left cerebellar hemisphere redemonstrated. Cerebral vascular calcifications. The calvarium is intact. Right mastoid effusion. Left mastoid air cells are clear. Minimal mucosal t hickening of the ethmoid sinuses. Unremarkable soft tissues. Prior bilateral lens repair. IMPRESSION: Chronic findings as above without acute intracranial abnormality. ACT 112: Negative or not required by law. The above report was generated using voice recognition software. It may contain grammatical, syntax o r spelling errors. Electronically signed by: Francis Banda M.D. 06/05/2021 2:53 PM
--- NOTE | 2021-06-05 18:44 | History & Physical Report ---
Date of Service June 05, 2021 Assessment & Plan (1) Syncope: Plan: Uncertain etiology. She does appear to have 2 distinct "dizzy" sensationsand while one does seem to be more vertiginous and positional, she clearly distinguishes this from the lightheaded sensation she gets with standing and caused her to have several syncopal episodes today. To that end, I doubt this represents any type of an inner ear or neurologic process. What is a bit odd is that her symptoms would fit quite well with symptomatic bradycardia but she has not shown any bradycardia arrhythmias or heart blocks on her loop recorder previously, and her symptoms would also fit quite nicely with orthostatic or vagal events, but her blood pressures have been elevated not low. Certainly those are both still on the differential, but we will need to cast a "wider net" given her symptoms not necessarily fitting classic diagnoses. While she is on a very low-dose of labetalol, it is not likely, but possible, that she could have a degree of symptoms from the alpha albaro of this. Also in the differential would be autonomic insufficiencyperhaps in a bit of a discoordinated fashionrelated to her longstanding diabetes. And we will also pursue adrenal insufficiency. Additionally, serial exams, and trying to keep an open mind for other possible differentials that could come to the surface --Interrogate loop recorder --Twice daily to 3 times daily orthostatics --Hold labetalol and follow symptoms/orthostatics --A.m. cortisol --Echocardiogram --Consult cardiology for thoughts and input on other possible etiologies of her symptoms such as POTS, etc. --If no other etiologies present themselves, then consider trial of midodrinebut given her already elevated blood pressures, I would hesitate to do this with any other differentials "on the table" and would definitely want to at least start this while still in the hospital to follow for progress and blood pressure readings. -----Also of note, they do mention that her blood pressures are much higher than she normally runs, but it would seem implausible for a hypertensive urgency to cause positional symptoms that fit more with an orthostatic event, and further, her symptoms improve once she lays down, while obviously her blood pressure does not. 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 We will keep her on her home regimen and follow her glucoses. Rapid shifts in glucose could cause symptoms, but certainly would not be positional, and her symptoms do not seem to really correlate to glucoses. (3) Hypertension: Plan: See above. For now we will hold her labetalol and follow (4) Paroxysmal atrial fibrillation: Plan: Rate is controlled, off the labetalol we may need to add a low-dose of something like metoprolol, but for now we will just continue to follow. She is anticoagulated with apixaban. Given that she does not have any concern for life-threatening arrhythmias, and is generally low probability of even bradycardia arrhythmias, given that she has a loop recorder there does not appear to be a need to have her on continuous cardiac monitoring on top of the monitoring provided by the loop. (5) Cryptogenic stroke: Plan: Was probably A. fib related. Continue secondary risk reduction (6) DVT prophylaxis: Plan: Anticoagulated (7) Discharge planning issues: Plan: [place] [facility] [place] get to the bottom of symptoms, ultimate goal of getting home. full code History of Present Illness Chief Complaint: Recurrent syncopal events Primary Care Provider: Jordana Chen MD Patient is a very pleasant 80-year-old female known to me from prior admissions. She was in her usual state of health this morning and went to an endocrine appointment. At the endocrine appointment she had 3 separate episodes of syncopethey sent her to the ER, here she felt okay laying down, but as soon as she stood up to try to walk she felt a terrible dizzy sensation that made her feel like she was going to pass out. She has had these sensations before, but right now seems to be far worse/far more intense than recently. Typically whenever she has the symptoms at home they are fairly intense, but go away whenever she lays down. Afterwards when she lays down she does feels very tiredfrequently she will sleep for 2 to 3 hours and then feel better afterwards. She does have a very hard time describing the episodesbut with a lot of time, and degree of directed questioning (tried to do this as minimally as possible) and comparative questions, it seems that her sensations are a lightheaded kind of dizziness that starts shortly before the syncopal episode, builds in intensity to where she feels like she is going to faint/pass out, as that sensation builds in more intensity, then she feels very heavy all over, and then right before she goes out she feels a degree of heaviness in her chest. When she wakes up she feels weak all over and very tired, but the rest of the sensations have passed. It seems to happen worse when standing, but also can happen sitting. Does definitely not happen all the time. Over the summer it was hard to quantify how often it was happening, but definitely not this intensely. Separate to that, on directed questioning, she has a positional dizziness that she has a hard time describing with different words than the above sensation, but when asked to directly compare the 2, she notes that while both are a dizzy sensation they are distinctly different. This other dizzy sensation is kind of a rushing sensation that she notices when she rapidly moves her head from right to left, or when she is being moved fast (uses the example of being wheeled into the ER bay), or when things are moving fast around her (uses the example of a lot of people moving in and out of the aisle at congregation on Friday). And has a totally different sensation she occasionally gets a very sharp stabbing chest pain that seems to come on with rest. Not a pressure, just stabbingthis happened the other day. She notes that her peripheral edema is much better than it was back in Mayright now it is essentially not present at all. She probably drinks about 60 ounces of fluid on a day on average. Allergies Allergy/AdvReac Type Severity Reaction Status Date / Time codeine Allergy Intermediate HYPERACTIVE, Verified 06/05/21 17:04 HIVES/SYNCOPE enoxaparin Allergy Intermediate syncope Verified 06/05/21 17:04 fluorouracil Allergy Intermediate Hives Verified 06/05/21 17:04 potassium Allergy Mild IV Verified 06/05/21 17:04 potassium caused hypotension Home Medications Medication Instructions Recorded Confirmed Type albuterol sulfate 90 mcg/actuation 1 puff INHALATION Q4 PRN 03/20/19 06/05/21 History aerosol inhaler cholecalciferol (vitamin D3) 125 5,000 unit PO 3XWK 03/20/19 06/05/21 History mcg (5,000 unit) tablet ondansetron HCl 4 mg tablet 4 mg PO Q4H PRN #20 tab 06/17/19 06/05/21 Rx (Zofran) insulin lispro 100 unit/mL 80 unit SUBCUT DAILY #5 box 06/08/20 06/05/21 Rx subcutaneous pen (Humalog KwikPen (U-100) Insulin) labetalol 100 mg tablet 50 mg PO Q12H #180 tab 07/17/20 06/05/21 Rx levothyroxine 112 mcg tablet 112 mcg PO QAM #90 tab 08/25/20 06/05/21 Rx (Levoxyl) fexofenadine 180 mg tablet 180 mg PO QAM 09/03/20 06/05/21 History blood sugar diagnostic (FreeStyle #10 ea 09/27/20 05/24/21 History Lite Strips) folic acid 1 mg tablet 1 mg PO QAM #90 tab 11/30/20 06/05/21 Rx cyanocobalamin (vitamin B-12) 1,000 mcg PO DAILY 01/29/21 06/05/21 History 1,000 mcg tablet meclizine 25 mg tablet 25 mg PO TID PRN 01/29/21 06/05/21 History omeprazole 20 mg capsule,delayed 20 mg PO QAM 01/29/21 06/05/21 History release insulin glargine 100 unit/mL (3 34 unit SUBCUT HS ml 02/13/21 06/05/21 History mL) subcutaneous pen (Lantus Solostar U-100 Insulin) clopidogrel 75 mg tablet 75 mg PO QAM #90 tab 03/20/21 06/05/21 Rx gabapentin 100 mg capsule 100 mg PO HS #90 cap 03/23/21 06/05/21 Rx montelukast 10 mg tablet 10 mg PO QPM #90 tab 03/26/21 06/05/21 Rx apixaban 5 mg tablet (Eliquis) 5 mg PO BID #60 tab 04/23/21 06/05/21 Rx atorvastatin 10 mg tablet 10 mg PO BID #180 tab 06/01/21 06/05/21 Rx Past Med/Surg History Medical History Aneurysm of left carotid artery Pseudoaneurysm, Neurosurg AT [place] Arthritis Asthma INHALER PRN>HAS NOT USED FOR A WHILE Atrial fibrillation NOTED WHEN WEARING HOLTER MONITOR 2020>[facility] FOLL[facility] Chest discomfort Chronic kidney disease, stage III (moderate) FOLLOWS W/ DR. BECKMAN Diabetes mellitus, type 2 IDDM - follows with a[facility] gr[facility] endocrine Diastasis recti Fibromuscular hyperplasia of left carotid artery GERD (gastroesophageal reflux disease) Hiatal hernia Hyperlipemia Hypertension Hypothyroidism Idiopathic thrombocytopenia purpura referred to heme/onc for evaluation of thrombocytopenia- clinical picture suggestive of ITP - started on steroid therapy Stroke 1985. [facility] HOME MEMORY LOSS. TIA (transient ischemic attack) MULTIPLE. MOST RECENT 10/2020 >FOLLOWED UP WITH PCP>FACIAL NUMBNESS AND SHORT PERIOD OF NOT BEING ABLE TO TALK. (REASON FOR PLAVIX) Surgical History H/O dilation and curettage H/O hernia repair (03/08/20) Ventral hernia repair Dr. Jane 03/08/20 H/O umbilical hernia repair History of ankle surgery RIGHT History of appendectomy History of colonoscopy History of esophageal dilatation History of esophagogastroduodenoscopy (EGD) WITH REMOVAL OF ESOPHAGEAL POLYPS History of loop recorder IMPLANTED NOVEMBER 2020 History of repair of hiatal hernia (06/16/19) Robotic assisted Laparoscopic repair of hiatal hernia with prosthetic bio- absorbable mesh, robert Fundoplication Esophagogastroduoedenoscopy Dr. Mueller 06/16/19 History of tonsillectomy and adenoidectomy History of total abdominal hysterectomy and bilateral salpingo-oophorectomy History of total knee replacement BILATERAL AND A STEEL JAD IN RIGHT LEG D/T CURVATURE Hx of cholecystectomy Family History Unknown Osteoporosis Mother Rheumatoid arthritis Family history of diabetes mellitus History of nephrectomy Stroke syndrome Hypertension Stroke Aunt Rheumatoid arthritis Father Heart disease Myocardial infarction Hx of CABG Hypertension Brother Acute myocardial infarction Myocardial infarction Other No family history of adverse response to anesthesia Denies family history of Ovarian cancer Prostate cancer Clotting disorder Breast cancer Social History Smoking Status: Never smoker Second Hand Exposure: No; Hx Alcohol Use: No Hx Substance Use: No Preferred Language: Czech Communication Ability: Impaired Visual Impairment: No Limitations Hearing Ability: Normal 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 HEENT normocephalic atraumatic mucous membranes are moist. Lungs are clear to auscultation bilaterally no rales rhonchi or wheezes good effort. Cardio is r egular, slightly distant no rubs murmurs or gallops. Abdomen is soft nondistended nontender no masses organomegaly. Extremities show no cyanosis clubbing or edema, no calf tenderness. Skin shows no rashes, no pallor, no icterus. Neuro she has some chronic weakness that does not seem to be new or different from whenever I last saw her, with [place]-Hallpike type maneuvers I am able to reproduce dizziness, as I move her head from right to left it really provokes dizziness, although the first time she closes her eyes from the dizzy sensation, and the second time I am not able to visibly reproduce nystagmus. Mental status shows good recent and remote recall normal mood and affect good judgment and insight. Musculoskeletal exam shows no gross lesions. Results & Data Results & Data ([facility]) Vital Signs (Past 12 Hours) Vital Signs Temp Pulse Resp BP Pulse Ox 06/05/21 14:52 71 21 183/72 H 97 06/05/21 13:18 57 L 17 210/80 H 97 06/05/21 13:11 98.1 F 64 16 210/80 H 96 Code Status & VTE Plan VTE Prophylaxis Plan VTE Prophylaxis will be ordered: Yes PG Care Time/CCT Total # of Minutes Spent Total Time Spent with Patient: Total time spent is greater than 50% in coordination of care (as documented) at patient's floor/unit and/or counseling patient: Coding Level of Care Code 45743 Initial Inpt Care Lvl 3 Diagnoses Syncope R55 Syncope type: unspecified 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
[2021-06-05 20:15] LABS: Appearance Urine Clear (Clear); Bilirubin Urine Negative (Negative); Blood Urine Negative (Negative); Color Urine Yellow; Glucose Urine UA Negative (Negative); Ketones Urine Negative (Negative); Leukocyte Esterase Urine Negative (Negative); Nitrite Urine Negative (Negative); Protein Urine Negative (Negative); Specific Gravity Urine 1.006 (1.000-1.030); Urobilinogen Urine Negative (Negative); pH Urine 6.5 (4.5-7.5)
[2021-06-05] MEDS ORDERED: hydrALAZINE HCL 20 MG/ML VIAL IV STA (21:42)
[2021-06-05] MEDS ORDERED: ONDANSETRON INJ 2 MG/ML 2 ML VIAL IV PRN (21:47)
[2021-06-05] MEDS ORDERED: NITROGLYCERIN SL 0.4 MG/TAB TAB SL PRN (21:47)
[2021-06-05] MEDS: NITROGLYCERIN 2% OINTMENT 30GM TUBE EXT SCH (21:56)
[2021-06-05] MEDS ORDERED: METOPROLOL TARTRATE 1 MG/ML VIAL IV STA (22:15)
[2021-06-06] MEDS ORDERED: ALUMINUM/MAGNESIUM SUSP 30 ML UDC PO PRN (01:01)
[2021-06-06] MEDS ORDERED: ALBUTEROL HFA 8 GM INHALER INH PRN (01:01)
[2021-06-06] MEDS ORDERED: ONDANSETRON INJ 2 MG/ML 2 ML VIAL IV PRN (01:01)
[2021-06-06] MEDS ORDERED: MAGNESIUM HYDROXIDE SUSP 30 ML UDC PO PRN (01:01)
[2021-06-06] MEDS ORDERED: ACETAMINOPHEN 325 MG TAB PO PRN (01:01)
[2021-06-06] MEDS ORDERED: POLYETHYLENE (MIRALAX) 17 GM PACK PO PRN (01:01)
[2021-06-06] MEDS ORDERED: ONDANSETRON 4 MG OD TAB PO PRN (01:44)
[2021-06-06] MEDS: GABAPENTIN 100 MG CAP PO SCH ×2 (01:48→20:32)
[2021-06-06] MEDS: ATORVASTATIN 10 MG TAB PO SCH ×3 (01:48→20:32)
[2021-06-06] MEDS: APIXABAN 5 MG TABLET PO SCH ×3 (01:49→20:31)
[2021-06-06] MEDS: ACETAMINOPHEN 325 MG TAB PO PRN (01:49)
[2021-06-06] MEDS: MONTELUKAST SODIUM 10 MG TABLET PO SCH ×2 (01:49→20:32)
[2021-06-06] MEDS: INSULIN GLARGINE SOLOSTAR 100 UNITS/ML 3 ML PEN SQ SCH ×2 (01:50→20:47)
[2021-06-06 02:20] LABS: BUN Creatinine Ratio 10.1 (10-20); Calcium 8.6 mg/dl (8.5-10.1); Creatinine Clr Calc Pharmacy 38.6 ml/min; Est GFR (African American) 45.3 ml/min; Est GFR (Non-African American) 39.1 ml/min; Potassium 3.6 mmol/L (3.5-5.1)
[2021-06-06] MEDS: LEVOTHYROXINE SODIUM 112 MCG TABLET PO SCH (05:20)
[2021-06-06] MEDS: NITROGLYCERIN 2% OINTMENT 30GM TUBE EXT SCH (05:20)
[2021-06-06 06:26] LABS: Hematocrit (blood only) 38.9 % (37-47); Hemoglobin 12.8 g/dL (12.0-16.0); Mean Corpuscular Hemoglobin 29.8 pg (25-34); Mean Corpuscular Hgb Conc 32.9 g/dL (32-36); Mean Corpuscular Volume 90.7 fL (80-100); RDW Standard Deviation 45.5 fL (36.4-46.3); Red Blood Count 4.29 M/uL (4.2-5.4); White Blood Count 6.93 K/uL (4.8-10.8)
[2021-06-06 06:55] LABS: Platelet Count 92 K/uL (130-400)
[2021-06-06 06:58] LABS: Basophils # (auto) 0.04 K/uL (0-0.2); Basophils % (auto) 0.6 %; Eosinophils # (auto) 0.49 K/uL (0-0.5); Eosinophils % (auto) 7.1 %; Immature Granulocytes # (auto) 0.01 K/uL (0.00-0.02); Immature Granulocytes % (auto) 0.1 %; Lymphocytes # (auto) 2.42 K/uL (1.2-3.4); Lymphocytes % (auto) 34.9 %; Monocytes # (auto) 0.35 K/uL (0.11-0.59); Monocytes % (auto) 5.1 %; Neutrophils # (auto) 3.62 K/uL (1.4-6.5); Neutrophils % (auto) 52.2 %
[2021-06-06 07:05] LABS: Alanine Aminotransferase 25 U/L (12-78); Albumin Level 2.7 gm/dl (3.4-5.0); Aspartate Aminotransferase 31 U/L (15-37); Blood Urea Nitrogen 14 mg/dl (7-18); Calcium 8.7 mg/dl (8.5-10.1); Carbon Dioxide 28 mmol/L (21-32); Chloride 110 mmol/L (98-107); Creatinine Clr Calc Pharmacy 38.7 ml/min; Est GFR (African American) 45.3 ml/min; Est GFR (Non-African American) 39.1 ml/min; Glucose 176 mg/dl (70-99); Potassium 3.7 mmol/L (3.5-5.1); Sodium 140 mmol/L (136-145)
[2021-06-06 07:10] LABS: Albumin Globulin Ratio 0.7 (0.9-2); Alkaline Phosphatase 113 U/L (45-117); Bilirubin,Total 0.7 mg/dl (0.2-1); Globulin 3.8 gm/dl (2.5-4.0); Total Protein 6.5 gm/dl (6.4-8.2); Troponin I < 0.015 ng/ml (0-0.045)
[2021-06-06] MEDS: CLOPIDOGREL BISULFATE 75 MG TAB PO SCH (07:46)
[2021-06-06] MEDS: CYANOCOBALAMIN 500 MCG TABLET (VITAMIN B-12) PO SCH (07:46)
[2021-06-06] MEDS: FEXOFENADINE HCL 180 MG TAB PO SCH (07:46)
[2021-06-06] MEDS: CHOLECALCIFEROL 1,000 UNITS 25 MCG TAB PO SCH (07:47)
[2021-06-06] MEDS: PANTOprazole 40 MG TAB PO SCH (07:47)
[2021-06-06] MEDS: FOLIC ACID 1 MG TAB PO SCH (07:47)
[2021-06-06] MEDS: INSULIN ASPART 100 UNITS/ML 3 ML PEN SC SCH ×4 (08:59→20:36)
[2021-06-06] MEDS: MECLIZINE HCL 25 MG TAB PO PRN ×2 (09:08→18:36)
--- NOTE | 2021-06-06 10:55 | XCELERA ---
[id number]
--- NOTE | 2021-06-06 11:08 | Cardiology Consultation ---
Date of Consultation June 06, 2021 Assessment & Plan (1) Syncope: (2) Paroxysmal atrial fibrillation: (3) Chest discomfort: (4) History of loop recorder: (5) Aneurysm of left carotid artery: (6) Fibromuscular dysplasia of both carotid arteries: (7) Hypertension: ASSESSMENT/PLAN: 1. Syncope: Etiology is not well defined. Does not appear to be cardiac in nature. Arrhythmia, tachyarrhythmia, or significant bradycardia are not playing a role as there was a witnessed event today on telemetry and she also has a loop recorder in place. Orthostatics have been unremarkable per nursing staff and she was not orthostatic just before today's event. Also, she had been stable, sitting and eating breakfast without change in position while today's event occurred. Although she had chest discomfort during yesterday's event, there was no such discomfort today to suggest a vagal component from pain (also her heart rate did not significantly change and her blood pressure was actually hypertensive immediately following today's event as it was witnessed by nursing staff). Consider neurologic issues. Consider repeating CTA of the neck given concern for fibromuscular dysplasia in the past to rule out dissection. Will defer the studies to primary hospitalist service and Neurology, as neurology consult is pending. 2. Fibromuscular dysplasia of bilateral carotid arteries: She has been seen by neuro surgery in the past [facility]. Defer to Neurology and primary service. 3. Left carotid artery aneurysm: Deferred to primary service. Has been followed by neurosurgery at [facility]. 4. Paroxysmal atrial fibrillation: Remains in sinus rhythm. She is on anticoagulation for stroke risk reduction. 5. Loop recorder: Followed by electrophysiology/primary retail field supervisor, Dr. Wheat. Interrogation was performed today by [employer]. 6. Hypertension: She has been significantly hypertensive for much of this hospital stay including systolic blood pressures as high as 233. She has not been proven to be orthostatic. Her blood pressure today has been mostly normotensive to mildly hypertensive, although moderately hypertensive immediately following her syncopal event. If blood pressure becomes more elevated today, would more aggressively manage her blood pressure. 7. Chest discomfort: Her presentation is not consistent with ischemic heart disease. She is currently chest pain-free and did not have any chest discomfort today. Possible that severe hypertension is playing a role. Plan as above. Chest pain is atypical and she had negative dobutamine stress echo on 12/12/2020. 8. Disposition: Patient care communicated with Dr. Dubois of the primary hospitalist service. Please call with any other questions or concerns. Thank you for allowing me to participate in the care of your patient. Please call for any other questions or concerns. Sincerely, Valente Kyle M.D. History of Present Illness Reason for Consultation: Recurrent syncope Requesting Physician: Anders Dubois DO Attending Physician: Anders Dubois DO History of Present Illness Mrs. Alegria is a pleasant 80-year-old female with a history significant for recurrent syncope, type 2 diabetes, fibromuscular hyperplasia of the carotid arteries, distal left cervical ICA aneurysm (seen by [facility] neuro surgery 11/13/2020), right vertebral artery narrowing, carotid artery stenosis, paroxysmal atrial fibrillation, stroke, ITP, and CKD. Her primary retail field supervisor is Dr. Wheat. She has a loop recorder in place, which he also manages. She was hospitalized on 06/05/2021 after experiencing 3 separate syncopal episodes at her endocrinology appointment. She had reported sensations of lightheadedness and dizziness that occurred just before syncope. She also sometimes has chest heaviness just prior to syncope according to admitting records. Symptoms occur while standing but also while sitting. When I entered the room today for consultation, I was greeted by nursing staff who stated that she had just had a syncopal episode that was witnessed by the nurse. She had been sitting upright for some time, with no recent change in position. She was eating and speaking with the nurse. She then complained that she did not feel well, experiencing lightheadedness and dizziness and then within seconds, had a syncopal event and fell over in bed. Nursing staff estimates that she was unconscious for approximately 10 seconds. Her blood pressure immediately following the event was hypertensive with systolic blood pressure in the 170s. Earlier this morning, during the same shift, nursing staff checked orthostatic vitals and they were unremarkable per her report and patient had no symptoms of lightheadedness, near-syncope, or syncope with changing of position. She had already walks 2 laps in the hallway without symptoms as well. When she awakened, she appeared to be completely washed out with fatigue, but was able to answer questions. She had no chest discomfort today, and also denies shortness of breath, orthopnea, palpitations. She admits that yesterday, while in the emergency department, her arms felt heavy and she was unable to move them. She otherwise denies any focal neurologic deficits. She reported to me 3 or 4 episodes of syncope yesterday. She also reported the chest discomfort which was a substernal heaviness and sharp knife sensation that was so strong at times, it would cause her to cry. She recalls having episodes on 05/29/2021 as well, specifically the chest pain while getting dressed. She had occasional chest pain prior to that intermittently. Episodes of chest pain typically last up to 3 minutes before spontaneously resolving. Her chest discomfort can happen any time, not specifically exertional. She has chronic dyspnea with exertion which she describes as stable. She was last seen by Dr. Wheat on 04/23/2021 and he had an if I had 1 episode of AFib on loop recorder on 04/09/2021. The episode of AFib lasted for 4 hours approximately. He initiated Eliquis for stroke risk reduction at that time. She underwent interrogation of her loop recorder during this hospital stay. Although the actual documentation is not available, have communicated with [employer] rep who has reported 2 episodes of symptoms on 05/29/2021 but rhythm was sinus in the 50s to 60s with occasional PACs. She had paroxysmal atrial fibrillation on 05/23/2021, 04/21/2021, and 04/09/2021. There was no identified bradycardia or AV block. During today's episode, telemetry was personally reviewed and there was no pause, significant bradycardia, tachycardia, or arrhythmia. There was no evidence of AV block. Her heart rate did not significantly change with her syncopal episode today. Review of systems: As above. Review of systems otherwise negative/unremarkable. Family history: Father had CAD and CABG. Brother had congenital heart disease. Sister had CAD with CABG. Social history: She denies tobacco or alcohol abuse. No drug abuse. She lives at home with her . She has 4 children (3 daughters, including a nurse and it help desk associate, and 1 son), 12 grandchildren, 1 great grandchild. Allergies Allergy/AdvReac Type Severity Reaction Status Date / Time codeine Allergy Intermediate HYPERACTIVE, Verified 06/05/21 17:04 HIVES/SYNCOPE enoxaparin Allergy Intermediate syncope Verified 06/05/21 17:04 fluorouracil Allergy Intermediate Hives Verified 06/05/21 17:04 potassium Allergy Mild IV Verified 06/05/21 17:04 potassium caused hypotension Home Medications Medication Instructions Recorded Confirmed Type albuterol sulfate 90 mcg/actuation 1 puff INHALATION Q4 PRN 03/20/19 06/05/21 History aerosol inhaler cholecalciferol (vitamin D3) 125 5,000 unit PO 3XWK 03/20/19 06/05/21 History mcg (5,000 unit) tablet ondansetron HCl 4 mg tablet 4 mg PO Q4H PRN #20 tab 06/17/19 06/05/21 Rx (Zofran) insulin lispro 100 unit/mL 80 unit SUBCUT DAILY #5 box 06/08/20 06/05/21 Rx subcutaneous pen (Humalog KwikPen (U-100) Insulin) labetalol 100 mg tablet 50 mg PO Q12H #180 tab 07/17/20 06/05/21 Rx levothyroxine 112 mcg tablet 112 mcg PO QAM #90 tab 08/25/20 06/05/21 Rx (Levoxyl) fexofenadine 180 mg tablet 180 mg PO QAM 09/03/20 06/05/21 History blood sugar diagnostic (FreeStyle #10 ea 09/27/20 05/24/21 History Lite Strips) folic acid 1 mg tablet 1 mg PO QAM #90 tab 11/30/20 06/05/21 Rx cyanocobalamin (vitamin B-12) 1,000 mcg PO DAILY 01/29/21 06/05/21 History 1,000 mcg tablet meclizine 25 mg tablet 25 mg PO TID PRN 01/29/21 06/05/21 History omeprazole 20 mg capsule,delayed 20 mg PO QAM 01/29/21 06/05/21 History release insulin glargine 100 unit/mL (3 34 unit SUBCUT HS ml 02/13/21 06/05/21 History mL) subcutaneous pen (Lantus Solostar U-100 Insulin) clopidogrel 75 mg tablet 75 mg PO QAM #90 tab 03/20/21 06/05/21 Rx gabapentin 100 mg capsule 100 mg PO HS #90 cap 03/23/21 06/05/21 Rx montelukast 10 mg tablet 10 mg PO QPM #90 tab 03/26/21 06/05/21 Rx apixaban 5 mg tablet (Eliquis) 5 mg PO BID #60 tab 04/23/21 06/05/21 Rx atorvastatin 10 mg tablet 10 mg PO BID #180 tab 06/01/21 06/05/21 Rx Patient History Medical History (Updated 06/06/21 @ 11:33 by Ruben Kyle MD) Aneurysm of left carotid artery Pseudoaneurysm, Neurosurg AT [place] Arthritis Asthma INHALER PRN>HAS NOT USED FOR A WHILE Chest discomfort Chronic kidney disease, stage III (moderate) FOLLOWS W/ DR. BECKMAN Diabetes mellitus, type 2 IDDM - follows with [facility] endocrine Diastasis recti Fibromuscular hyperplasia of left carotid artery GERD (gastroesophageal reflux disease) Hiatal hernia Hyperlipemia Hypertension Hypothyroidism Idiopathic thrombocytopenia purpura referred to heme/onc for evaluation of thrombocytopenia- clinical picture suggestive of ITP - started on steroid therapy Paroxysmal atrial fibrillation Stroke 1985. MILD [facility] MEMORY LOSS. TIA (transient ischemic attack) MULTIPLE. MOST RECENT 10/2020 >FOLLOWED UP WITH PCP>FACIAL NUMBNESS AND SHORT PERIOD OF NOT BEING ABLE TO TALK. (REASON FOR PLAVIX) Surgical History H/O dilation and curettage H/O hernia repair (03/08/20) Ventral hernia repair Dr. Jane 03/08/20 H/O umbilical hernia repair History of ankle surgery RIGHT History of appendectomy History of colonoscopy History of esophageal dilatation History of esophagogastroduodenoscopy (EGD) WITH REMOVAL OF ESOPHAGEAL POLYPS History of loop recorder IMPLANTED NOVEMBER 2020 History of repair of hiatal hernia (06/16/19) Robotic assisted Laparoscopic repair of hiatal hernia with prosthetic bio- absorbable mesh, robert Fundoplication Esophagogastroduoedenoscopy Dr. Mueller 06/16/19 History of tonsillectomy and adenoidectomy History of total abdominal hysterectomy and bilateral salpingo-oophorectomy History of total knee replacement BILATERAL AND A STEEL JAD IN RIGHT LEG D/T CURVATURE Hx of cholecystectomy Family History Unknown Osteoporosis Mother Rheumatoid arthritis Family history of diabetes mellitus History of nephrectomy Stroke syndrome Hypertension Stroke Aunt Rheumatoid arthritis Father Heart disease Myocardial infarction Hx of CABG Hypertension Brother Acute myocardial infarction Myocardial infarction Other No family history of adverse response to anesthesia Denies family history of Ovarian cancer Prostate cancer Clotting disorder Breast cancer Social History Smoking Status: Never smoker Second Hand Exposure: No; Hx Alcohol Use: No Hx Substance Use: No Preferred Language: Icelandic Communication Ability: Impaired Visual Impairment: No Limitations Hearing Ability: Normal Bottling Line Attendant Required: No Beliefs That Will Affect Care: None marital status: Current Living Situation: Spouse Current Living Situation Comment: Home w/ current occupational status: retired How many Children do You have: 4 Feels Safe at Home: Yes Childhood Exposure to Second-Hand Smoke: Yes Dental Care, Regularly: No Physical Activity Frequency: Daily Seatbelt Use: always Sunscreen Use: No Assistive Devices: None Physical Exam Physical Exam: Gen.: No acute distress. Somnolent but converses freely and answers questions appropriately. HEENT: Anicteric sclera. Neck: No JVD. Bilateral carotid bruit. Normal carotid upstrokes bilaterally. Cardiac: PMI was nonpalpable. No ventricular heave. Regular. Normal S1-S2. 2/6 early peaking systolic ejection murmur best heard at the right upper sternal border. No rubs or gallops. Pulmonary: Clear to auscultation bilaterally without wheezes, rales, or rhonchi. Abdomen: Soft, nontender, nondistended, with normoactive bowel sounds. No bruits noted. Extremities: 2+ radial pulses bilaterally. 2+ posterior tibialis pulses bilaterally. No significant pitting edema or cyanosis. Psychiatric: Affect appears appropriate. Results & Data ([facility]) Vital Signs (Past 12 Hours) Vital Signs Temp Pulse Pulse Pulse Resp BP BP 06/06/21 09:11 60 172/71 H 06/06/21 07:34 36.8 C 62 20 135/71 06/06/21 05:21 147/80 H 06/06/21 02:53 36.7 C 76 18 145/62 H 06/06/21 00:55 78 06/06/21 00:53 81 188/96 H 06/06/21 00:51 37 C 80 18 190/80 H 06/06/21 00:37 78 18 06/05/21 23:30 79 17 167/72 H Pulse Ox 06/06/21 09:11 95 06/06/21 07:34 95 06/06/21 05:21 06/06/21 02:53 95 06/06/21 00:55 06/06/21 00:53 06/06/21 00:51 97 06/06/21 00:37 96 06/05/21 23:30 98 Laboratory Results Laboratory Results - last 24 hr 06/05/21 06/05/21 06/05/21 13:42 13:42 13:42 WBC 5.40 RBC 4.27 Hgb 13.0 Hct 40.4 MCV 94.6 MCH 30.4 MCHC 32.2 RDW Std Deviation 48.2 H RDW Coeff of [place] 14.1 Plt Count 88 L MPV 10.8 H Immature Gran % (Auto) 0.0 Neut % (Auto) 43.5 Lymph % (Auto) 40.9 Rankin % (Auto) 5.9 Eos % (Auto) 9.1 Baso % (Auto) 0.6 Neut # (Auto) 2.35 Lymph # (Auto) 2.21 Rankin # (Auto) 0.32 Eos # (Auto) 0.49 Baso # (Auto) 0.03 Immature Gran # (Auto) 0.00 Tear Drop Cells 1+ PT 11.2 INR 1.1 APTT 30.9 PTT Ratio 1.2 Sodium 142 Potassium 3.8 Chloride 110 H Carbon Dioxide 26 Anion Gap 6.0 BUN 12 Creatinine 1.23 H Est Cr Clr Drug Dosing 40.6 Est GFR ( Amer) 48.0 Est GFR (Non-Af Amer) 41.4 BUN/Creatinine Ratio 9.9 L Glucose 133 H POC Glucose Calcium 8.9 Magnesium 2.1 Total Bilirubin 0.5 AST 35 ALT 26 Alkaline Phosphatase 132 H Troponin I < 0.015 Total Protein 6.8 Albumin 2.8 L Globulin 4.0 Albumin/Globulin Ratio 0.7 L TSH 0.791 Cortisol AM Sample Urine Color Urine Appearance Urine pH Ur Specific [place] Urine Protein Urine Glucose (UA) Urine Ketones Urine Blood Urine Nitrite Urine Bilirubin Urine Urobilinogen Ur Leukocyte Esterase COVID-19 Eval Order SARS-CoV-2 (PCR) 06/05/21 06/05/21 06/05/21 18:00 18:00 19:56 WBC RBC Hgb Hct MCV MCH MCHC RDW Std Deviation RDW Coeff of [place] Plt Count MPV Immature Gran % (Auto) Neut % (Auto) Lymph % (Auto) Rankin % (Auto) Eos % (Auto) Baso % (Auto) Neut # (Auto) Lymph # (Auto) Rankin # (Auto) Eos # (Auto) Baso # (Auto) Immature Gran # (Auto) Tear Drop Cells PT INR APTT PTT Ratio Sodium Potassium Chloride Carbon Dioxide Anion Gap BUN Creatinine Est Cr Clr Drug Dosing Est GFR ( Amer) Est GFR (Non-Af Amer) BUN/Creatinine Ratio Glucose POC Glucose Calcium Magnesium Total Bilirubin AST ALT Alkaline Phosphatase Troponin I Total Protein Albumin Globulin Albumin/Globulin Ratio TSH Cortisol AM Sample Urine Color Yellow Urine Appearance Clear Urine pH 6.5 Ur Specific [place] 1.006 Urine Protein Negative Urine Glucose (UA) Negative Urine Ketones Negative Urine Blood Negative Urine Nitrite Negative Urine Bilirubin Negative Urine Urobilinogen Negative Ur Leukocyte Esterase Negative COVID-19 Eval Order Covid19 at [facility] SARS-CoV-2 (PCR) NEGATIVE 06/05/21 06/06/21 06/06/21 22:40 01:29 01:44 WBC RBC Hgb Hct MCV MCH MCHC RDW Std Deviation RDW Coeff of [place] Plt Count MPV Immature Gran % (Auto) Neut % (Auto) Lymph % (Auto) Rankin % (Auto) Eos % (Auto) Baso % (Auto) Neut # (Auto) Lymph # (Auto) Rankin # (Auto) Eos # (Auto) Baso # (Auto) Immature Gran # (Auto) Tear Drop Cells PT INR APTT PTT Ratio Sodium 144 Potassium 3.6 Chloride 111 H Carbon Dioxide 27 Anion Gap 6.0 BUN 13 Creatinine 1.29 H Est Cr Clr Drug Dosing 38.6 Est GFR ( Amer) 45.3 Est GFR (Non-Af Amer) 39.1 BUN/Creatinine Ratio 10.1 Glucose 205 H POC Glucose 186 H Calcium 8.6 Magnesium Total Bilirubin AST ALT Alkaline Phosphatase Troponin I < 0.015 Total Protein Albumin Globulin Albumin/Globulin Ratio TSH Cortisol AM Sample Urine Color Urine Appearance Urine pH Ur Specific [place] Urine Protein Urine Glucose (UA) Urine Ketones Urine Blood Urine Nitrite Urine Bilirubin Urine Urobilinogen Ur Leukocyte Esterase COVID-19 Eval Order SARS-CoV-2 (PCR) 06/06/21 06/06/21 06/06/21 06:15 06:15 07:11 WBC 6.93 RBC 4.29 Hgb 12.8 Hct 38.9 MCV 90.7 MCH 29.8 MCHC 32.9 RDW Std Deviation 45.5 RDW Coeff of [place] 14.0 Plt Count 92 L MPV 11.0 H Immature Gran % (Auto) 0.1 Neut % (Auto) 52.2 Lymph % (Auto) 34.9 Rankin % (Auto) 5.1 Eos % (Auto) 7.1 Baso % (Auto) 0.6 Neut # (Auto) 3.62 Lymph # (Auto) 2.42 Rankin # (Auto) 0.35 Eos # (Auto) 0.49 Baso # (Auto) 0.04 Immature Gran # (Auto) 0.01 Tear Drop Cells PT INR APTT PTT Ratio Sodium 140 Potassium 3.7 Chloride 110 H Carbon Dioxide 28 Anion Gap 2.0 L BUN 14 Creatinine 1.29 H Est Cr Clr Drug Dosing 38.7 Est GFR ( Amer) 45.3 Est GFR (Non-Af Amer) 39.1 BUN/Creatinine Ratio 11.0 Glucose 176 H POC Glucose Calcium 8.7 Magnesium Total Bilirubin 0.7 AST 31 ALT 25 Alkaline Phosphatase 113 Troponin I < 0.015 Total Protein 6.5 Albumin 2.7 L Globulin 3.8 Albumin/Globulin Ratio 0.7 L TSH Cortisol AM Sample 4.53 Urine Color Urine Appearance Urine pH Ur Specific [place] Urine Protein Urine Glucose (UA) Urine Ketones Urine Blood Urine Nitrite Urine Bilirubin Urine Urobilinogen Ur Leukocyte Esterase COVID-19 Eval Order SARS-CoV-2 (PCR) 06/06/21 08:31 WBC RBC Hgb Hct MCV MCH MCHC RDW Std Deviation RDW Coeff of [place] Plt Count MPV Immature Gran % (Auto) Neut % (Auto) Lymph % (Auto) Rankin % (Auto) Eos % (Auto) Baso % (Auto) Neut # (Auto) Lymph # (Auto) Rankin # (Auto) Eos # (Auto) Baso # (Auto) Immature Gran # (Auto) Tear Drop Cells PT INR APTT PTT Ratio Sodium Potassium Chloride Carbon Dioxide Anion Gap BUN Creatinine Est Cr Clr Drug Dosing Est GFR ( Amer) Est GFR (Non-Af Amer) BUN/Creatinine Ratio Glucose POC Glucose 138 H Calcium Magnesium Total Bilirubin AST ALT Alkaline Phosphatase Troponin I Total Protein Albumin Globulin Albumin/Globulin Ratio TSH Cortisol AM Sample Urine Color Urine Appearance Urine pH Ur Specific [place] Urine Protein Urine Glucose (UA) Urine Ketones Urine Blood Urine Nitrite Urine Bilirubin Urine Urobilinogen Ur Leukocyte Esterase COVID-19 Eval Order SARS-CoV-2 (PCR) Diagnostic Findings Telemetry personally reviewed: Sinus rhythm. No arrhythmia. Telemetry was reviewed to second time after notified that she had a syncopal event, within 10 minutes of the event and once again there was no significant change in heart rate and rhythm remained sinus throughout without AV block, pause, significant bradycardia or tachycardia. ECGs personally reviewed: ECG 06/06/2021 at 6:19 a.m.: Sinus rhythm 64 beats per minute. Possible septal infarct. ECG 06/05/2021 at 9:23 p.m.: Sinus rhythm 65 beats per minute. ECG 06/05/2021 at 1:32 p.m.: Sinus bradycardia 56 beats per minute. LVH. Echo 06/06/2021: Normal LV size. EF > 70%. Normal wall motion. No significant valvular abnormalities. RVSP 22. Neuro surgery note from [facility] reviewed. CTA neck 01/29/2021: Stable long segment of narrowing within the right V4 segment. Stable minimal beaded appearance of the internal carotid arteries, which could be seen in fibromuscular dysplasia. Interpretation as per Radiology. Head CT 06/05/2021: No acute intracranial abnormality per Radiology. Medications Administered Current Inpatient Medications Acetaminophen (Acetaminophen 325 Mg Tab) 650 mg PO Q4H PRN PRN Reason: Pain or Fever Stop: 07/05/21 21:46 Last Admin: 06/06/21 01:49 Dose: 650 mg Documented by: Acetaminophen (Acetaminophen 325 Mg Tab) 650 mg PO Q4H PRN PRN Reason: pain/fever Stop: 07/06/21 01:00 Al Hydrox/Mg Hydrox/Simethicone (Aluminum/Magnesium Susp 30 Ml Udc) 30 ml PO Q6H PRN PRN Reason: Dyspepsia Stop: 07/06/21 01:00 Albuterol (Albuterol Hfa 8 Gm Inhaler) 1 puffs INH Q4R PRN PRN Reason: Wheezing Stop: 07/06/21 01:00 Apixaban (Apixaban 5 Mg Tablet) 5 mg PO BID LUIS Stop: 07/06/21 01:29 Last Admin: 06/06/21 07:50 Dose: 5 mg Documented by: Atorvastatin Calcium (Atorvastatin 10 Mg Tab) 10 mg PO BID LUIS Stop: 07/06/21 01:29 Last Admin: 06/06/21 07:50 Dose: 10 mg Documented by: Clopidogrel Bisulfate (Clopidogrel Bisulfate 75 Mg Tab) 75 mg PO QAM [facility]IS Stop: 07/06/21 08:59 Last Admin: 06/06/21 07:46 Dose: 75 mg Documented by: Cyanocobalamin (Cyanocobalamin 500 Mcg Tablet (Vitamin B-12)) 1,000 mcg PO DAILY LUIS Stop: 07/06/21 08:59 Last Admin: 06/06/21 07:46 Dose: 1,000 mcg Documented by: Fexofenadine HCl (Fexofenadine Hcl 180 Mg Tab) 180 mg PO QAM [facility]IS Stop: 07/06/21 08:59 Last Admin: 06/06/21 07:46 Dose: 180 mg Documented by: Folic Acid (Folic Acid 1 Mg Tab) 1 mg PO QAM [facility] Stop: 07/06/21 08:59 Last Admin: 06/06/21 07:47 Dose: 1 mg Documented by: Gabapentin (Gabapentin 100 Mg Cap) 100 mg PO [facility] Stop: 07/06/21 01:29 Last Admin: 06/06/21 01:48 Dose: 100 mg Documented by: Cosyntropin 250 mcg/ Syringe 5 mls @ 2.5 mls/min IV ONE ONE Stop: 06/07/21 08:01 Lactated Ringer's (Lr) 1,000 mls @ 250 mls/hr IV .Q4H LUIS Stop: 06/06/21 19:29 Insulin Aspart (Insulin Aspart 100 Units/Ml 3 Ml Pen) 0 units SC ACHS [facility]IS Stop: 07/06/21 07:29 Last Admin: 06/06/21 08:59 Dose: 7 units Documented by: Insulin Glargine (Insulin Glargine Solostar 100 Units/Ml 3 Ml Pen) 34 units SQ HS [facility] Stop: 07/06/21 01:29 Last Admin: 06/06/21 01:50 Dose: 34 units Documented by: Levothyroxine Sodium (Levothyroxine Sodium 112 Mcg Tablet) 112 mcg PO DAILYBB [facility] Stop: 07/06/21 06:29 Last Admin: 06/06/21 05:20 Dose: 112 mcg Documented by: Magnesium Hydroxide (Magnesium Hydroxide Susp 30 Ml Udc) 30 ml PO Q6H PRN PRN Reason: Constipation Stop: 07/06/21 01:00 Meclizine HCl (Meclizine Hcl 25 Mg Tab) 25 mg PO TID PRN PRN Reason: Dizziness Stop: 07/06/21 01:42 Last Admin: 06/06/21 09:08 Dose: 25 mg Documented by: Montelukast Sodium (Montelukast Sodium 10 Mg Tablet) 10 mg PO QPM [facility]IS Stop: 07/06/21 01:29 Last Admin: 06/06/21 01:49 Dose: 10 mg Documented by: Nitroglycerin (Nitroglycerin Sl 0.4 Mg/Tab Tab) 0.4 mg SL UD PRN PRN Reason: Chest Pain Stop: 07/05/21 21:46 Ondansetron HCl (Ondansetron Inj 2 Mg/Ml 2 Ml Vial) 4 mg IV Q6H PRN PRN Reason: Nausea Stop: 07/05/21 21:46 Ondansetron HCl (Ondansetron 4 Mg Od Tab) 4 mg PO Q4H PRN PRN Reason: nausea and vomiting Stop: 07/06/21 01:43 Ondansetron HCl (Ondansetron Inj 2 Mg/Ml 2 Ml Vial) 4 mg IV Q6H PRN PRN Reason: Nausea Stop: 07/06/21 01:00 Pantoprazole Sodium (Pantoprazole 40 Mg Tab) 40 mg PO QAM [facility]; Protocol Stop: 07/06/21 08:59 Last Admin: 06/06/21 07:47 Dose: 40 mg Documented by: Polyethylene Glycol (Polyethylene (Miralax) 17 Gm Pack) 17 gm PO DAILY PRN PRN Reason: Constipation Stop: 07/06/21 01:00 Vitamin D (Cholecalciferol 1,000 Units 25 Mcg Tab) 5,000 units PO [id number] [facility] Stop: 07/06/21 07:29 Last Admin: 06/06/21 07:47 Dose: 5,000 units Documented by: PG Care Time/CCT Total # of Minutes Spent Total Time Spent with Patient: Total time spent is greater than 50% in coordination of care (as documented) at patient's floor/unit and/or counseling patient: Coding Level of Care Code 20958 Initial Inpt Care Lvl 3 Diagnoses Syncope R55 Syncope type: unspecified Paroxysmal atrial fibrillation I48.0 Chest discomfort R07.89 History of loop recorder Z98.890 Aneurysm of left carotid artery I72.0 Fibromuscular dysplasia of both carotid arteries I77.3 Hypertension I10 (1) Syncope Syncope type: unspecified Qualified Code(s): R55 - Syncope and collapse
[2021-06-06] MEDS: LACTATED RINGER'S 1,000 ML IV SCH ×2 (12:05→16:19)
--- NOTE | 2021-06-06 13:06 | Medical Student Progress Note ---
Date of Service June 06, 2021 Assessment & Plan (1) Syncope: Plan: 80 yo woman with PMH of syncope, TIA,T 2DM, sequela of lacunar infarction, cryptogenic stroke of basal ganglia and cerebellum, bradycardia, paroxysmal atrial fibrillation, fibromuscular hyperplasia and aneurysm of left carotid artery, hyperlipidemia, hypothyroidism, hypertension, diabetic neuropathy, left sided weakness, CKD stage III, presented to ED after several syncopal events at diabetic automobile [employer]ill[employer]er office on Tuesday 06/05. Syncope - Echo showed left ventricular hyperdynamic with systolic function EF > 70%. - continue meclizine for vertiginous symptoms. May consider meclizine scheduled - consider Head/Neck CTA if patient's syncopal episodes don't improve - continue IV fluids (2 liter bolus Lactated Ringer's) 250 mls/hr for hydration - Plan to repeat echo tomorrow - continue taking orthostatic vital signs (laying down, sitting, standing) TID - No orthostatics noted during evaluation - Cardiology consulted. Appreciate their assistance and recommendations. - Does not appear to be cardiac in nature. Telemetry reviewed. No arrhythmia, tachyarrhythmia, or significant bradycardia noted during today's witnessed episode - Neuro consulted. Appreciate their assistance and recommendations. May consider EEG Paroxysmal A-fib - continue Apixaban and Clopidogrel - continue to monitor on telemetry - keep track of loop monitor Hyperlipidemia - continue atorvastatin 10 mg HTN - Currently holding labetolol 100 mg - monitor patient's BP closely CKD Stage III - monitor BMP daily, Cr 1.23 today Type 2 Diabetes Mellitus - last A1C January 2021: 7.1 - continue monitoring glucose, continue home regimen insulin Neuropathy - sensation in all extremities bilaterally intact - continue Gabapentin as needed for symptoms Syncope type: unspecified Qualified Code(s): R55 - Syncope and collapse (2) Hypertension: (3) Paroxysmal atrial fibrillation: (4) Hyperlipemia: (5) Chronic kidney disease, stage III (moderate): Chronic kidney disease stage 3 subtype: unspecified whether 3a or 3b Qualified Code(s): N18.30 - Chronic kidney disease, stage 3 unspecified (6) 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 Episodes basically feel about the same as what she described before. Vitals noted, in general she is awake and alert pleasant no distress. HEENT normocephalic atraumatic mucous membranes moist. Breathing unlabored no acc essory muscle use good effort. Skin shows no rashes no pallor or icterus. Recurrent syncopedifferential still broad -Does not appear to be bradycardia arrhythmia/heart block related, does not appear to be typical orthostatic/vasovagal -Given the fact that it is coming on more right now, and her LV is hyperdynamic on echoquestion whether or not she could have a degree of relative intracranial watershed exacerbated by dehydrationcertainly seems to be at the fringe of probabilities, but given that her overall situation does not seem to be fitting with any typical/classic diagnoses, it is worth entertainingto that end we are giving her 2 L of fluid, will continue to check orthostatics and how she does walking, repeat echocardiogram to follow progress of the hyperdynamic as a surrogate for adequate volume resuscitation, and if her symptoms reliably resolve with fluids, this would at least corroborate to some degree of hypovolemic exacerbation of what ever the mechanism may be. -In discussion with nursing, she was able to walk much better about 2 hours after a meclizine dose, and while the patient herself seems to relate a different history for her presyncopal dizziness then she does to her vertiginous dizziness, it is possible that both overlap. Therefore if we fail with the therapeutic trial of volume challenge, we may want to proceed with a therapeutic trial of scheduled meclizine and follow closely. -While adrenal insufficiency would not be overly likely to cause this, her a.m. cortisol was less than robust, although technically normalcosyntropin stim tomorrow. -Seems unlikely to be seizure driven, but will be asking neuro for input broadly with differentials, including consideration for seizures/utility for EEG/etc. -Far less likely to have been oversensitivity to the alpha blockade of labetalol, given that it was held this morning and she still had episodes. For now we will continue to hold just to avoid confounding factors, as long as her heart rate stays controlled. 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 Patient states that she has a history of syncopal episodes and she relayed some history of these syncopal events to me. She says that in the last 1-2 years (since Aug 2020 really) she has had more issues with syncope. She states she has mini strokes and "issues with light". She tells me that she cannot remember what was going on prior to August 2020. Her may be able to share better history. In January and February 2021, she has other syncopal events. She doesn't really remember any episodes between Aug 2020 and January 2021. She follows with Dr. Dang and Kalia Jhaevri in neurology for her "mini strokes". With the episode yesterday, she had no loss of speech. She said people told her it may have been related to her BP. She told me that she had a major stroke in January and her BP was 295/195 and that she woke up 1 week later in the ICU after the onset of the stroke. When she was in the hospital in January, she says her L arm had no strength, and that PT helped her regain strength. She believes her issues from that event resolved. She said she was doing well until last week when she started feeling fatigued (no fever, chills, SOB etc). 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 She turned and told her she "wasn't feeling good". She tells me that her told her, her pupils dilated and she was provided a chair immediately and had to sit down. She says she doesn't remember passing out, but that other people told her she did. She was brought back into the office to see her doctor and she was told that she passed out 2-3 more times but she doesn't remember these other episodes. She describes the feeling before passing out as lightheadedness and she just "doesn't feel right". She tells me that sometimes she gets a spinning sensation before her syncopal events, but sometimes she doesn't and it just goes dark. She says that she doesn't experience headaches before, but does have headaches after these episodes. They are located at the front and center and her temples. Sometimes rubbing her temples helps. She says she doesn't get migraines regularly, she has only had 2 that she knows of, but when she gets them, she has passed out after high sensitivity to light. In fact, she tells me she needed morphine the 2 times she had migraines. She shares with me that she started Eliquis recently (around May 03) for her A fib. She does follow with cardiology regularly and has another appointment in about a month. During her last orthostatic vital signs check, she was stood up by nursing and felt lightheaded, fell to the left and had some L arm weakness. She has no vision changes with any of the syncopal episodes. However, she says she has had an overall decrease in hearing of her L ear. She hears a ringing or singing constantly in L ear, not R ear. With these episodes, she says that her always catches her, but there is certainly a possibility of falling. She said she can't really bend her R leg because she has a bar in it. Notably, right before yesterday's events, she had a sharp pain right in the center of her chest. She said it felt similar to her a-fib "attacks" near the upper left side of her breast. She doesn't have shortness of breath. She says during her syncopal events she always leans to the left before passing out. She does have chronic vertigo, for which she takes Meclizine. She tells me this help s. When her events are especially bad, she feels weakness in her L arm and L leg. Also, her L arm (fingers to elbow) tingles and has pins in it. She begins to lean to the left side if she is lightheaded. She has no palpitations, no tightness or pain in neck. She has no palpitations and doesn't feel her heartbeat in her neck, or discomfort in her neck. At night when patient is tired or "exhausted", she sees black, round spots. They go away with sleep. Furthermore, patient shares with me that her memory has been getting worse since January. Her short term memory is fine but she is forgetting older information. This AM (06/06), she is not in any discomfort or pain. She had no cardiac events overnight. Of note, patient did express some frustration with the fact she had to take 13 pills. She is not dizzy or lightheaded. When she is up and moving, she can elicit L side weakness. Sitting feels fine. Review of Systems Review of Systems: All systems reviewed & are unremarkable except as noted in HPI & below Constitutional: as per Subjective / HPI Eyes: as per Subjective / HPI, + photophobia (occasionally ) and + spots in vision (black round spots at night when tired ) Ear, Nose, Mouth, Throat: as per Subjective / HPI Respiratory: as per Subjective / HPI Cardiovascular: as per Subjective / HPI and + chest pain (sharp pain in center of chest right before syncopal episode 06/05) Gastrointestinal: as per Subjective / HPI Genitourinary: as per Subjective / HPI Musculoskeletal: as per Subjective / HPI and + muscle weakness (L sided weakness with syncopal episodes) Integumentary: as per Subjective / HPI Neurologic: as per Subjective / HPI, + unsteadiness, + dizziness, + syncope, + headache(s) and + memory loss (since January 2021) vertigo Psychiatric: as per Subjective / HPI Endocrine: as per Subjective / HPI Hematologic / Lymphatic: as per Subjective / HPI Allergy / Immunological: as per Subjective / HPI Physical Exam Constitutional: WD/WN, vitals as above well developed, well nourished, well groomed and comfortable Eyes: PERRL, conjunctivae normal, anicteric sclerae normal accommodation, EOM intact bilaterally and reactive pupils patient had transient dizziness and lightheadedness during extraocular motion test, when she was tracking my hand downwards. Retinal exam was limited due to patient unable to keep eyes open for more than a few seconds at a time. ENMT: external ear and nose normal, oropharynx normal Ears: + hearing impairment (tinnitus, constant ringing in L ear ) Mouth: + dentures (pt wears dentures, dentures not in during exam) Neck: trachea midline, no thyromegaly normal visual inspection Thyroid: normal thyroid Respiratory: normal respiratory effort, lungs clear to auscultation Cardiovascular: RRR, no murmur, no edema Heart Sounds: normal S1 and normal S2 Gastrointestinal (Abdomen): normal bowel sounds, soft, nontender, no hepatosplenomegaly Musculoskeletal: no cyanosis or clubbing, extremities motor strength 5/5 Head/Neck/Chest: normocephalic, head atraumatic and neck supple Extremities: extremities normal to inspection and + limited ROM of extremities (R leg somewhat limited ROM) Skin: no rashes, warm and dry Neurologic: patellar DTR's 2+ bilat, sensation intact and PERRL, EOMI, accommodation nl, no face palsy, no dysarthria normal touch/pain/proprioception, CN's II-XI intact bilaterally, deep tendon reflexes 2+ bilaterally and moves all extremities Cranial Nerves: EOM intact bilaterally (pt became dizzy & lightheaded when tracking my hand downwards), normal hearing (tinnitus in L ear, constant) and able to rotate head bilaterally (can elicit dizziness ) Psychiatric: A+Ox3, euthymic affect Apperance: appropriately groomed Cognition: + remote memory not intact (pt unable to accurately recall events prior to Aug 2020) Lymphatic: no cervical or axillary lymphadenopathy Results & Data ([facility]) Vital Signs (Past 12 Hours) Vital Signs Temp Pulse Pulse Resp BP Pulse Ox 06/06/21 12:48 36.7 C 65 20 159/84 H 96 06/06/21 09:11 60 172/71 H 95 06/06/21 07:34 36.8 C 62 20 135/71 95 06/06/21 05:21 147/80 H 06/06/21 02:53 36.7 C 76 18 145/62 H 95
[2021-06-06 13:19] LABS: Chol HDL Ratio 3; Cholesterol 101 mg/dl (0-200); HDL Cholesterol 36 mg/dl; LDL Cholesterol Calculated 39 mg/dl; Triglycerides 131 mg/dl (0-150); VLDL Cholesterol 26 mg/dl
--- NOTE | 2021-06-06 17:34 | Billing Data ---
Date of Service June 06, 2021 Coding Level of Care Code 60161 Subseq Hosp Care Lvl 3
--- NOTE | 2021-06-06 21:48 | Electrocardiogram Report ---
Test Reason : Blood Pressure : / mmHG Vent. Rate : 056 BPM Atrial Rate : 056 BPM P-R Int : 190 ms QRS Dur : 076 ms QT Int : 446 ms P-R-T Axes : 035 -05 011 degrees QTc Int : 430 ms Sinus bradycardia Minimal voltage criteria for LVH, may be normal variant Borderline ECG When compared with ECG of 31-JAN-2021 05:25, Premature atrial complexes are no longer Present Criteria for Septal infarct are no longer Present Confirmed by Ruben Kyle ([id number]) on 06/06/2021 9:48:06 PM Referred By: REFERRED SELF Confirmed By:Ruben Kyle
--- NOTE | 2021-06-07 05:20 | Electrocardiogram Report ---
Test Reason : Blood Pressure : / mmHG Vent. Rate : 065 BPM Atrial Rate : 065 BPM P-R Int : 182 ms QRS Dur : 078 ms QT Int : 438 ms P-R-T Axes : 027 003 010 degrees QTc Int : 455 ms Normal sinus rhythm Normal ECG When compared with ECG of 05-JUN-2021 13:32, No significant change was found Confirmed by Ruben Kyle ([id number]) on 06/07/2021 5:20:17 AM Referred By: REFERRED SELF Confirmed By:Ruben Kyle
--- NOTE | 2021-06-07 05:29 | Electrocardiogram Report ---
Test Reason : Blood Pressure : / mmHG Vent. Rate : 064 BPM Atrial Rate : 064 BPM P-R Int : 180 ms QRS Dur : 076 ms QT Int : 442 ms P-R-T Axes : 040 -02 007 degrees QTc Int : 455 ms Normal sinus rhythm Septal infarct , age undetermined Abnormal ECG When compared with ECG of 05-JUN-2021 13:32, Septal infarct is now Present Confirmed by Ruben Kyle ([id number]) on 06/07/2021 5:28:41 AM Referred By: REFERRED SELF Confirmed By:Ruben Kyle
[2021-06-07] MEDS: LEVOTHYROXINE SODIUM 112 MCG TABLET PO SCH (06:26)
[2021-06-07] MEDS: FEXOFENADINE HCL 180 MG TAB PO SCH (07:50)
[2021-06-07] MEDS: CYANOCOBALAMIN 500 MCG TABLET (VITAMIN B-12) PO SCH (07:50)
[2021-06-07] MEDS: ATORVASTATIN 10 MG TAB PO SCH ×2 (07:50→21:21)
[2021-06-07] MEDS: FOLIC ACID 1 MG TAB PO SCH (07:50)
[2021-06-07] MEDS: APIXABAN 5 MG TABLET PO SCH ×2 (07:50→21:21)
[2021-06-07] MEDS: PANTOprazole 40 MG TAB PO SCH (07:50)
[2021-06-07] MEDS: CLOPIDOGREL BISULFATE 75 MG TAB PO SCH (07:50)
[2021-06-07] MEDS ORDERED: COSYNTROPIN 250 MCG in SYRINGE 4 ML IV ONE (08:00)
[2021-06-07] MEDS: INSULIN ASPART 100 UNITS/ML 3 ML PEN SC SCH ×4 (08:36→21:39)
[2021-06-07 09:02] LABS: Hematocrit (blood only) 36.5 % (37-47); Hemoglobin 11.9 g/dL (12.0-16.0); Mean Corpuscular Hemoglobin 29.8 pg (25-34); Mean Corpuscular Hgb Conc 32.6 g/dL (32-36); Mean Corpuscular Volume 91.3 fL (80-100); RDW Coefficient of Variation 13.8 % (11.5-14.5); RDW Standard Deviation 45.8 fL (36.4-46.3); White Blood Count 6.22 K/uL (4.8-10.8)
[2021-06-07 09:08] LABS: Platelet Count 87 K/uL (130-400)
--- NOTE | 2021-06-07 09:17 | Medical Student Progress Note ---
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 Syncope - Echo (06/06/21) showed left ventricular hyperdynamic with systolic function EF > 70%. - continue meclizine for vertiginous symptoms. May consider meclizine scheduled - Head/Neck CTA (06/07) showed no changes from 01/29/21 - Brain MRI (06/07) shows no changes from 01/30/21 - EEG (06/07) showed findings suggestive of lower seizure threshold - continue IV fluids (2 liter bolus Lactated Ringer's) 250 mls/hr for hydration - continue taking orthostatic vital signs (laying down, sitting, standing) TID - No orthostatics noted during evaluation - Cardiology consulted. Appreciate their assistance and recommendations. - Does not appear to be cardiac in nature. Telemetry reviewed. No arrhythmia, tachyarrhythmia, or significant bradycardia noted during today's witnessed episode - Neuro consulted. Appreciate their assistance and recommendations. - Patient to start Keppra 500mg BID Paroxysmal A-fib - continue Apixaban and Clopidogrel - continue to monitor on telemetry - keep track of loop monitor Hyperlipidemia - continue atorvastatin 10 mg HTN - Currently holding labetolol 100 mg - monitor patient's BP closely CKD Stage III - monitor BMP daily, Cr 1.23 today Type 2 Diabetes Mellitus - last A1C January 2021: 7.1 - continue monitoring glucose, continue home regimen insulin Neuropathy - sensation in all extremities bilaterally intact - continue Gabapentin as needed for symptoms Syncope type: unspecified Qualified Code(s): R55 - Syncope and collapse (2) Paroxysmal atrial fibrillation: (3) Hyperlipemia: (4) Hypertension: (5) Chronic kidney disease, stage III (moderate): Chronic kidney disease stage 3 subtype: unspecified whether 3a or 3b Qualified Code(s): N18.30 - Chronic kidney disease, stage 3 unspecified (6) 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 Admission and Anticipated Discharge Date Admission Date: June 05, 2021 Supervising Attestation I personally examined the patient and verified all frost points of history and exam, discussed case, and agree with decision making with Vanessa Lundberg MS2 Multiple episodes this afternooncalled to the bedside several timespatient s een and evaluated several times. The first time she had had a very prolonged episode, by the time I arrived at the bedside she was relatively somnolent with her eyes closed, no clearly new focal neuro deficits, equal muscle tone, able to wake up to loud verbal or gentle physical stem, and would speak somewhat slurred but more out of fatigued and dysarthriano facial droop or tongue deviation or d ifficulty word finding more discussed the slow drawl of someone who is very fatigued. This lasted for quite a while, in discussions with bedside RN and resident physician, given her marked hypertension, as we discussed in prior notes a hypertensive urgency would be extremely unlikely to present this way, but she was in a safe place where entertaining that with a therapeutic trial would be about the perfect time to do sowas given 5 mg of hydralazine, with resident physician, nursing, myself all at the bedside, following patient's symptoms and blood pressureblood pressure essentially did not budgepredominantly 200/80 type range the entire time, but slowly over the following 10 to 15 minutes her symptoms improved and she got back to baseline. To that and she was cognitively very clear speaking clearly awake and alert no new focal neuro deficits conversive with good recent and remote recall. We discussed at that point that are potential working theory of a watershed problem seem highly unlikely given that she had been given copious IV fluids and still had multiple episodes anyway, and that the very unlikely theory of fat very atypical hypertensive urgency appear to be very unlikely as well, given that her symptoms came in left with marked hypertension and did not really change in a meaningful way with treatment for the blood pressurewhich did not really move the blood pressure. To that end, our next differential was going to be whether or not this was vertigo symptoms that were it is very difficult to describe as such, and we would give her scheduled meclizine. She got the meclizine, and within less than an hour she had another episode, this time it was very short- lived with marion went out losing consciousness noting that she felt bad (has a really hard time describing what she means by feeling bad) beforehand, and then closes eyes and loses consciousness, this time she was awake alert and conversive by the time I got to the bedside. She noted that she did feel a bit of a dizzy or vertiginous sensation before the swelling, and incidentally I was standing to her leftto which she noted that looking in my direction was making her feel somewhat vertiginous. Initially I was moving to the right side of the bed so as to not provoke her vertigo, and then we discussed that it may be reasonable to trygiven that she was in a safe/monitored/controlled env ironmentto see if provoking vertigo may provoke 1 of these episodes. To that end I stayed on her left side and she looked left towards mewithin a few seconds she noted she was starting to feel very vertiginous, her face showed a appearance of mild distress, and then very quickly her eyes went shot and she briefly lost consciousness. After this she awoke somewhat fatiguednot quite as bad as her episode earlier today, but not as quickly as the episode in the middle of the day, she was able to speak she had no focal neuro deficits nothing newand when I briefly left the room to get into a computer to place orders and was discussing the case with neurology, she started having "cold shakes" to which I return to the room finding her in an appearance of rigors. Checking her temperature it was about 97 4 Fahrenheit, looking at her on monitor she was sinus rhythm at 60, lungs continue to be clear cardio regular and no new focal neuro deficits. We gave her 0.25 mg of Ativan and fairly quickly the shaking stopped (to be clear she had no loss of consciousness during any of the shaking), and shortly thereafter she started to complain of a chest heaviness or pressurenursing quickly was able to obtain an EKG while the pressure/heaviness was still going on, and it was sinus without any ST changes. Syncopal episodeswe have exhausted a very broad differential without a whole lot to show definitively. The patient herself notes she does have a very difficult time teasing apart to the different types of dizziness she feels, which is quite understandable. It seems that it might be provoked by her vertigo, and whether it is purely a neurologic vertiginous cascade that leads to her losing consciousness, or that the terrible sensation of the vertigo (combined with her having had a stroke) sets off and anxiety manifestation of syncope, not entirely clearbut it is really starting to appear that the vertigo setting off a cascade of secondary event seems most likely. We will continue to scheduled meclizine, and start to educate patient on what we are seeing going on to try to reduce anxiety. Resume labetalol since clearly it was not provoking any symptoms, and it will at least bring down her pressures to more reasonable. Consider SSRI since that may help with the vertigo, and if there is a secondary anxiety component to the syncope it may help with that as well. Consider cognitive behavioral or biofeedback type therapies. Will need to discuss with as well. Multiple times in the roomlongest episode was from around 315 to 4:00 at the bedside, but then I was back at the bedside again from around 440 to maybe 5 or 515greater than 1 hour at the bedside in direct patient care during these episodes. Subjective Patient feels well this AM, s/p Cortrosyn injection. She slept well and was sitting up enjoying breakfast while we were talking. She walked to and from the bathroom this AM by herself using things to hold onto and told me she felt steady and fine doing that. She shared that her blood pressure went up and down during the night and occasionally felt some chest pain. At 6:30 pm yesterday (06/06), she had a witnessed syncopal episode and then another one at 9:00 pm (06/06). Her nurse said both of these were with a warning and pt would say something along the lines of "I am not feeling so good" and "I'm feeling off". Her nurse shared that "she goes out for a few seconds" and then she regains awareness/consciousness. These are always less than 30 seconds. Her chest pain waxed and waned throughout these episodes. Interestingly, patient "slumped" to the right side during one of her episodes last night. This is new as she usually slumps to the left side. She was given an extra dose of Meclizine which seemed to help and she rested well after being given the medication. She is still getting headaches after her syncopal episodes. Review of Systems Review of Systems: All systems reviewed & are unremarkable except as noted in HPI & below Constitutional: as per Subjective / HPI Eyes: as per Subjective / HPI Ear, Nose, Mouth, Throat: as per Subjective / HPI Respiratory: as per Subjective / HPI Cardiovascular: as per Subjective / HPI Gastrointestinal: as per Subjective / HPI Musculoskeletal: as per Subjective / HPI Integumentary: as per Subjective / HPI Neurologic: as per Subjective / HPI Psychiatric: as per Subjective / HPI Physical Exam Constitutional: WD/WN, vitals as above well developed, well nourished, well groomed, cooperative and comfortable Eyes: PERRL, conjunctivae normal, anicteric sclerae ENMT: external ear and nose normal, oropharynx normal Neck: trachea midline, no thyromegaly Respiratory: normal respiratory effort, lungs clear to auscultation Cardiovascular: RRR, no murmur, no edema Heart Sounds: normal S1 and normal S2 Musculoskeletal: no cyanosis or clubbing, extremities motor strength 5/5 Head/Neck/Chest: normocephalic and head atraumatic Extremities: extremities normal to inspection Skin: no rashes, warm and dry Neurologic: PERRL, EOMI, accommodation nl, no face palsy, no dysarthria normal touch/pain/proprioception and CN's II-XI intact bilaterally Psychiatric: A+Ox3, euthymic affect Lymphatic: no cervical or axillary lymphadenopathy Results & Data ([facility]) Vital Signs (Past 12 Hours) Vital Signs Temp Pulse Resp BP Pulse Ox 06/07/21 07:00 36.6 C 65 20 177/84 H 95 06/07/21 03:00 37 C 68 18 164/64 H 93
[2021-06-07 09:18] LABS: Basophils # (auto) 0.03 K/uL (0-0.2); Basophils % (auto) 0.5 %; Eosinophils # (auto) 0.42 K/uL (0-0.5); Eosinophils % (auto) 6.8 %; Immature Granulocytes # (auto) 0.01 K/uL (0.00-0.02); Immature Granulocytes % (auto) 0.2 %; Lymphocytes # (auto) 2.58 K/uL (1.2-3.4); Lymphocytes % (auto) 41.5 %; Monocytes # (auto) 0.28 K/uL (0.11-0.59); Monocytes % (auto) 4.5 %; Neutrophils % (auto) 46.5 %
[2021-06-07 09:32] LABS: Alanine Aminotransferase 21 U/L (12-78); Albumin Level 2.4 gm/dl (3.4-5.0); Aspartate Aminotransferase 24 U/L (15-37); BUN Creatinine Ratio 12.5 (10-20); Blood Urea Nitrogen 16 mg/dl (7-18); Calcium 8.8 mg/dl (8.5-10.1); Carbon Dioxide 26 mmol/L (21-32); Chloride 109 mmol/L (98-107); Creatinine Clr Calc Pharmacy 39.7 ml/min; Est GFR (African American) 46.6 ml/min; Est GFR (Non-African American) 40.2 ml/min; Glucose 163 mg/dl (70-99); Potassium 3.9 mmol/L (3.5-5.1); Sodium 141 mmol/L (136-145)
[2021-06-07 09:37] LABS: Albumin Globulin Ratio 0.7 (0.9-2); Alkaline Phosphatase 100 U/L (45-117); Bilirubin,Total 0.7 mg/dl (0.2-1); Globulin 3.5 gm/dl (2.5-4.0); Total Protein 5.9 gm/dl (6.4-8.2); Troponin I < 0.015 ng/ml (0-0.045)
--- NOTE | 2021-06-07 10:49 | Neurology Consultation ---
Date of Consultation June 07, 2021 Assessment & Plan (1) Syncope: Recurrent syncope. Etiology unclear. Could be vasovagal or related to an underlying diabetic autonomic neuropathy. Cardiology has been consulted, no clear evidence of significant arrhythmia that would otherwise explain patient's recurrent loss of consciousness. The episodes are quite brief and occur without associated convulsive activity. Unlikely to be having seizures. Vertebrobasilar insufficiency not strongly suspected although cannot be completely excluded. CT angiography completed this past May did suggest mild to moderate multifocal stenoses within the posterior circulation as well as a long segment narrowing within the right V4 segment. Also, patient does have chronic lacunar infarcts within the right basal ganglia and left cerebellar hemisphere that are responsible for her mild residual left-sided weakness and ataxia. I have ordered an EEG to further exclude seizures although again, clinical suspicion is low in this regard. Would recommend an MRA of the brain and neck to further evaluate her circulation and multifocal posterior circulation stenoses as identified previously. Would also recommend an up-to-date brain MRI to reassess for acute or subacute stroke. I do not have a specific treatment recommendation for this patient to address her recurrent loss of consciousness at this point in time. I wonder if tilt table testing would be useful. She does report chronic orthostatic lightheadedness but apparently has not exhibited any orthostatic hypotension per cardiology. History of Present Illness Reason for Consultation: Syncope left-sided weakness Requesting Physician: Eugenio Pineda DO Attending Physician: Anders Dubois DO History of Present Illness The patient is an 80-year-old female who is known to me, last seen in neurology clinic May 03, 2021. She has a history of TIA and chronic stroke affecting the right basal ganglia and left cerebellar hemisphere, she has mild residual left-sided weakness and ataxia, ambulates with a walker. 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 Also prescribed clopidogrel and atorvastatin in light of cerebrovascular disease and mild to moderate multifocal stenoses within the posterior circulation, carotid siphons, and right vertebral artery. Also has an element of suspected fibromuscular dysplasia within the internal carotid arteries. On low-dose gabapentin to address mild neuropathic pain related to her diabetic peripheral neuropathy. The patient presented to the emergency department on June 05 for further evaluation of recurrent syncope. She experiences a feeling of lightheadedness/dizziness and has had witnessed brief loss of consciousness associated with these symptoms. Reportedly had 3 episodes prior to admission to the hospital. She has been evaluated by cardiology during this hospitalization. Etiology of patient's syncope not entirely clear. Patient has had her loop recorder interrogated. Although she does have paroxysmal atrial fibrillation she has not had any identified bradycardia or AV block. The patient had another witnessed syncopal episode yesterday, witnessed by her nurse. Patient was apparently sitting upright, eating and speaking at the time of the event, she apparently did not feel well, felt lightheaded and dizzy, and then had a brief loss of consciousness, about 10 seconds, no witnessed convulsive activity. Systolic blood pressure immediately following the event was in the 170s. A CT of the head completed on June 05 revealed chronic small vessel ischemic disease and chronic lacunar infarcts within the basal ganglia and left cerebellar hemisphere. A brain MRI completed on January 30, 2021 revealed chronic lacunar infarcts within the right basal ganglia and left cerebellar hemisphere, no acute process at that time. CT angiography of the head completed at that time revealed mild to moderate multifocal stenoses within the posterior circulation and mild diffuse narrowing of the bilateral carotid siphons due to calcified plaque. A CTA of the neck was negative for significant stenosis within the internal carotid arteries. There was evidence of a stable long segment area of narrowing within the right V4 segment as well as arterial tortuosity, stable minimal beaded appearance of the internal carotid arteries which could be consistent with fibromuscular dysplasia. Past medical history is also notable for insulin-dependent diabetes mellitus with associated diabetic peripheral neuropathy. Allergies Allergy/AdvReac Type Severity Reaction Status Date / Time codeine Allergy Intermediate HYPERACTIVE, Verified 06/05/21 17:04 HIVES/SYNCOPE enoxaparin Allergy Intermediate syncope Verified 06/05/21 17:04 fluorouracil Allergy Intermediate Hives Verified 06/05/21 17:04 potassium Allergy Mild IV Verified 06/05/21 17:04 potassium caused hypotension Home Medications Medication Instructions Recorded Confirmed Type albuterol sulfate 90 mcg/actuation 1 puff INHALATION Q4 PRN 03/20/19 06/05/21 History aerosol inhaler cholecalciferol (vitamin D3) 125 5,000 unit PO 3XWK 03/20/19 06/05/21 History mcg (5,000 unit) tablet ondansetron HCl 4 mg tablet 4 mg PO Q4H PRN #20 tab 06/17/19 06/05/21 Rx (Zofran) insulin lispro 100 unit/mL 80 unit SUBCUT DAILY #5 box 06/08/20 06/05/21 Rx subcutaneous pen (Humalog KwikPen (U-100) Insulin) labetalol 100 mg tablet 50 mg PO Q12H #180 tab 07/17/20 06/05/21 Rx levothyroxine 112 mcg tablet 112 mcg PO QAM #90 tab 08/25/20 06/05/21 Rx (Levoxyl) fexofenadine 180 mg tablet 180 mg PO QAM 09/03/20 06/05/21 History blood sugar diagnostic (FreeStyle #10 ea 09/27/20 05/24/21 History Lite Strips) folic acid 1 mg tablet 1 mg PO QAM #90 tab 11/30/20 06/05/21 Rx cyanocobalamin (vitamin B-12) 1,000 mcg PO DAILY 01/29/21 06/05/21 History 1,000 mcg tablet meclizine 25 mg tablet 25 mg PO TID PRN 01/29/21 06/05/21 History omeprazole 20 mg capsule,delayed 20 mg PO QAM 01/29/21 06/05/21 History release insulin glargine 100 unit/mL (3 34 unit SUBCUT HS ml 02/13/21 06/05/21 History mL) subcutaneous pen (Lantus Solostar U-100 Insulin) clopidogrel 75 mg tablet 75 mg PO QAM #90 tab 03/20/21 06/05/21 Rx gabapentin 100 mg capsule 100 mg PO HS #90 cap 03/23/21 06/05/21 Rx montelukast 10 mg tablet 10 mg PO QPM #90 tab 03/26/21 06/05/21 Rx apixaban 5 mg tablet (Eliquis) 5 mg PO BID #60 tab 04/23/21 06/05/21 Rx atorvastatin 10 mg tablet 10 mg PO BID #180 tab 06/01/21 06/05/21 Rx Patient History Medical History Aneurysm of left carotid artery Pseudoaneurysm, Neurosurg AT [facility] Arthritis Asthma INHALER PRN>HAS NOT USED FOR A WHILE Chest discomfort Chronic kidney disease, stage III (moderate) FOLLOWS W/ DR. BECKMAN Diabetes mellitus, type 2 IDDM - follows with [facility] endocrine Diastasis recti Fibromuscular hyperplasia of left carotid artery GERD (gastroesophageal reflux disease) Hiatal hernia Hyperlipemia Hypertension Hypothyroidism Idiopathic thrombocytopenia purpura referred to heme/onc for evaluation of thrombocytopenia- clinical picture suggestive of ITP - started on steroid therapy Paroxysmal atrial fibrillation Stroke 1985. [facility] LOSS. TIA (transient ischemic attack) MULTIPLE. MOST RECENT 10/2020 >FOLLOWED UP WITH PCP>FACIAL NUMBNESS AND SHORT PERIOD OF NOT BEING ABLE TO TALK. (REASON FOR PLAVIX) Surgical History H/O dilation and curettage H/O hernia repair (03/08/20) Ventral hernia repair Dr. Jane 03/08/20 H/O umbilical hernia repair History of ankle surgery RIGHT History of appendectomy History of colonoscopy History of esophageal dilatation History of esophagogastroduodenoscopy (EGD) WITH REMOVAL OF ESOPHAGEAL POLYPS History of loop recorder IMPLANTED NOVEMBER 2020 History of repair of hiatal hernia (06/16/19) Robotic assisted Laparoscopic repair of hiatal hernia with prosthetic bio- absorbable mesh, robert Fundoplication Esophagogastroduoedenoscopy Dr. Mueller 06/16/19 History of tonsillectomy and adenoidectomy History of total abdominal hysterectomy and bilateral salpingo-oophorectomy History of total knee replacement BILATERAL AND A STEEL JAD IN RIGHT LEG D/T CURVATURE Hx of cholecystectomy Family History Unknown Osteoporosis Mother Rheumatoid arthritis Family history of diabetes mellitus History of nephrectomy Stroke syndrome Hypertension Stroke Aunt Rheumatoid arthritis Father Heart disease Myocardial infarction Hx of CABG Hypertension Brother Acute myocardial infarction Myocardial infarction Other No family history of adverse response to anesthesia Denies family history of Ovarian cancer Prostate cancer Clotting disorder Breast cancer Social History Smoking Status: Never smoker Second Hand Exposure: No; Hx Alcohol Use: No Hx Substance Use: No Preferred Language: Stateless Communication Ability: Effective Visual Impairment: No Limitations Hearing Ability: Normal Clinical Documentation Consultant Required: No Beliefs That Will Affect Care: None marital status: Current Living Situation: Spouse Current Living Situation Comment: Home w/ current occupational status: retired How many Children do You have: 4 Feels Safe at Home: Yes Childhood Exposure to Second-Hand Smoke: Yes Dental Care, Regularly: No Physical Activity Frequency: Daily Seatbelt Use: always Sunscreen Use: No Assistive Devices: Walker Review of Systems Constitutional: no fever and no chills Eyes: no blind spots and no diplopia Ear, Nose, Mouth, Throat: no ear pain and no hearing loss Respiratory: no cough and no dyspnea Cardiovascular: no chest pain and no palpitations Gastrointestinal: no constipation and no diarrhea/loose stools Genitourinary: no urinary urgency and no urinary incontinence Musculoskeletal: no muscle weakness and no muscle atrophy Integumentary: no rash and no lesions Neurologic: as per Subjective / HPI Psychiatric: no behavioral changes, no depression, no abnormal sleep pattern and no anxiety Hematologic / Lymphatic: no easy bruising and no lymphadenopathy Exam (Neuro) Constitutional: well developed and well nourished; no acute distress Eyes: normal visual brandt by confrontation, PERRL, normal accommodation and EOM intact bilaterally; no fundoscopic abnormality, no nystagmus and no papilledema Cardiovascular: Vessels: normal carotid upstroke; no carotid bruit Neurologic: Oriented to:: Person, Place and Time Memory: Short Term Intact and Remote Intact Attention: Span Intact and Concentration Intact Language: Naming Objects and Repeating Phrases Speech Fluency: negative Dysarthria Speech Aphasia: negative Aphasia Fund of Knowledge: Current Events, Past History and Vocabulary Cranial Nerves: Normal II (Visual brandt full to confrontation, visual acuity normal), III, IV, (Pupils equal round reactive to light and accommodation, eye movements normal), V (Facial sensation intact), VII (There is no facial droop or weakness), VIII (Hearing intact), IX, X (Palate elevates to midline), XI (Shoulder shrug intact) and XII (Tongue protrudes to midline) Motor Strength: Normal Lower Extremities and Normal Upper Extremities; negative Pronator Drift Motor Tone: Normal Lower Extremities and Normal Upper Extremities Muscle Bulk/Involuntary Movements: No Involuntary Movements; negative Muscle Atrophy Sensation: negative Light Touch Intact, Pain/Temperature Intact, Vibration Intact or Proprioception Intact Coordination: Limited Balance, Dysdiadochokinesia Laterality: Left and Finger-Nose Abnormal; negative Heel-Smith Abnormal Deep Tendon Reflexes: Rt Triceps: 2+, Lt Triceps: 2+, Rt Biceps: 2+, Lt Biceps: 2+, Rt Brachioradialis: 2+, Lt Brachioradialis: 2+, Rt Patellar: 2+, Lt Patellar: 2+, Rt Ankle: 1+ and Lt Ankle: 1+ Special Tests: negative Babinski Present Details: Gait could not be tested in the context of patient's current neurological/medical status. Results & Data ([facility]) Vital Signs (Past 12 Hours) Vital Signs Temp Pulse Resp BP Pulse Ox 06/07/21 07:00 36.6 C 65 20 177/84 H 95 06/07/21 03:00 37 C 68 18 164/64 H 93 Laboratory Results WBC 6.22, hemoglobin 11.9, hematocrit 36.5, platelet count 87, sodium 141, potassium 3.9, creatinine 1.26, glucose 149, calcium 8.8, AST 24, ALT 21, troponin less than 0.015, triglycerides 131, cholesterol 101, LDL 39, VLDL 26, HDL 36, TSH normal Diagnostic Findings CT of the head, brain MRI, and CT angiography of the head and neck are as described in the history of present illness. I reviewed the images as well as the radiologist's interpretation of these tests. Electrocardiogram reveals a sinus rhythm with premature atrial complexes, 70 bpm. An echocardiogram reveals a normal left ventricular size with hyperdynamic systolic function, EF greater than 70%. No regional wall motion abnormalities. There is mild concentric left ventricular hypertrophy. No significant valvular abnormalities. Coding Level of Care Code 62893 Initial Inpt Care Lvl 3 Diagnoses Syncope R55 Syncope type: unspecified (1) Syncope Syncope type: unspecified Qualified Code(s): R55 - Syncope and collapse
--- NOTE | 2021-06-07 14:03 | Electroencephalogram ---
EEG Procedure Note Date of Service June 07, 2021 Start / End Times Start Time: 11:10 AM End Time: 11:30 AM Referring Physician Enrique Dang MD History Recurrent syncope, evaluate for seizure activity Home Medication List Medication Instructions Recorded Confirmed Type albuterol sulfate 90 mcg/actuation 1 puff INHALATION Q4 PRN 03/20/19 06/05/21 History aerosol inhaler cholecalciferol (vitamin D3) 125 5,000 unit PO 3XWK 03/20/19 06/05/21 History mcg (5,000 unit) tablet ondansetron HCl 4 mg tablet 4 mg PO Q4H PRN #20 tab 06/17/19 06/05/21 Rx (Zofran) insulin lispro 100 unit/mL 80 unit SUBCUT DAILY #5 box 06/08/20 06/05/21 Rx subcutaneous pen (Humalog KwikPen (U-100) Insulin) labetalol 100 mg tablet 50 mg PO Q12H #180 tab 07/17/20 06/05/21 Rx levothyroxine 112 mcg tablet 112 mcg PO QAM #90 tab 08/25/20 06/05/21 Rx (Levoxyl) fexofenadine 180 mg tablet 180 mg PO QAM 09/03/20 06/05/21 History blood sugar diagnostic (FreeStyle #10 ea 09/27/20 05/24/21 History Lite Strips) folic acid 1 mg tablet 1 mg PO QAM #90 tab 11/30/20 06/05/21 Rx cyanocobalamin (vitamin B-12) 1,000 mcg PO DAILY 01/29/21 06/05/21 History 1,000 mcg tablet meclizine 25 mg tablet 25 mg PO TID PRN 01/29/21 06/05/21 History omeprazole 20 mg capsule,delayed 20 mg PO QAM 01/29/21 06/05/21 History release insulin glargine 100 unit/mL (3 34 unit SUBCUT HS ml 02/13/21 06/05/21 History mL) subcutaneous pen (Lantus Solostar U-100 Insulin) clopidogrel 75 mg tablet 75 mg PO QAM #90 tab 03/20/21 06/05/21 Rx gabapentin 100 mg capsule 100 mg PO HS #90 cap 03/23/21 06/05/21 Rx montelukast 10 mg tablet 10 mg PO QPM #90 tab 03/26/21 06/05/21 Rx apixaban 5 mg tablet (Eliquis) 5 mg PO BID #60 tab 04/23/21 06/05/21 Rx atorvastatin 10 mg tablet 10 mg PO BID #180 tab 06/01/21 06/05/21 Rx Inpatient Medication List Acetaminophen (Acetaminophen 325 Mg Tab) 650 mg PO Q4H PRN PRN Reason: Pain or Fever Stop: 07/05/21 21:46 Last Admin: 06/06/21 01:49 Dose: 650 mg Documented by: [id number] Apixaban (Apixaban 5 Mg Tablet) 5 mg PO BID [facility] Stop: 07/06/21 01:29 Last Admin: 06/07/21 07:50 Dose: 5 mg Documented by: [id number] Admin: 06/06/21 20:31 Dose: 5 mg Documented by: [id number] Admin: 06/06/21 07:50 Dose: 5 mg Documented by: [id number] Admin: 06/06/21 01:49 Dose: 5 mg Documented by: [id number] Atorvastatin Calcium (Atorvastatin 10 Mg Tab) 10 mg PO BID [facility] Stop: 07/06/21 01:29 Last Admin: 06/07/21 07:50 Dose: 10 mg Documented by: [id number] Admin: 06/06/21 20:32 Dose: 10 mg Documented by: [id number] Admin: 06/06/21 07:50 Dose: 10 mg Documented by: [id number] Admin: 06/06/21 01:48 Dose: 10 mg Documented by: [id number] Clopidogrel Bisulfate (Clopidogrel Bisulfate 75 Mg Tab) 75 mg PO QAM [facility] Stop: 07/06/21 08:59 Last Admin: 06/07/21 07:50 Dose: 75 mg Documented by: [id number] Admin: 06/06/21 07:46 Dose: 75 mg Documented by: [id number] Cyanocobalamin (Cyanocobalamin 500 Mcg Tablet (Vitamin B-12)) 1,000 mcg PO DAILY [facility] Stop: 07/06/21 08:59 Last Admin: 06/07/21 07:50 Dose: 1,000 mcg Documented by: [id number] Admin: 06/06/21 07:46 Dose: 1,000 mcg Documented by: [id number] Fexofenadine HCl (Fexofenadine Hcl 180 Mg Tab) 180 mg PO QAM [facility] Stop: 07/06/21 08:59 Last Admin: 09/30/21 07:50 Dose: 180 mg Documented by: [id number] Admin: 06/06/21 07:46 Dose: 180 mg Documented by: [id number] Folic Acid (Folic Acid 1 Mg Tab) 1 mg PO QAM [facility] Stop: 07/06/21 08:59 Last Admin: 06/07/21 07:50 Dose: 1 mg Documented by: [id number] Admin: 06/06/21 07:47 Dose: 1 mg Documented by: [id number] Gabapentin (Gabapentin 100 Mg Cap) 100 mg PO HS [facility] Stop: 07/06/21 01:29 Last Admin: 06/06/21 20:32 Dose: 100 mg Documented by: [id number] Admin: 06/06/21 01:48 Dose: 100 mg Documented by: [id number] Insulin Aspart (Insulin Aspart 100 Units/Ml 3 Ml Pen) 0 units SC ACHS [facility] Stop: 07/06/21 07:29 Last Admin: 06/07/21 12:32 Dose: 17 units Documented by: [id number] Cosigned by: [id number] Admin: 06/07/21 08:36 Dose: 10 units Documented by: [id number] Cosigned by: [id number] Admin: 06/06/21 20:36 Dose: 1 units Documented by: [id number] Cosigned by: [id number] Admin: 06/06/21 17:22 Dose: 11 units Documented by: [id number] Cosigned by: [id number] Admin: 06/06/21 12:30 Dose: 4 units Documented by: [id number] Cosigned by: [id number] Admin: 06/06/21 08:59 Dose: 7 units Documented by: [id number] Cosigned by: [id number] Insulin Glargine (Insulin Glargine Solostar 100 Units/Ml 3 Ml Pen) 34 units SQ [facility] Stop: 07/06/21 01:29 Last Admin: 06/06/21 20:47 Dose: 34 units Documented by: [id number] Cosigned by: [id number] Admin: 06/06/21 01:50 Dose: 34 units Documented by: [id number] Cosigned by: [id number] Levothyroxine Sodium (Levothyroxine Sodium 112 Mcg Tablet) 112 mcg PO DAILYBB [facility] Stop: 07/06/21 06:29 Last Admin: 06/07/21 06:26 Dose: 112 mcg Documented by: [id number] Admin: 06/06/21 05:20 Dose: 112 mcg Documented by: [id number] Meclizine HCl (Meclizine Hcl 25 Mg Tab) 25 mg PO TID PRN PRN Reason: Dizziness Stop: 07/06/21 01:42 Last Admin: 06/06/21 18:36 Dose: 25 mg Documented by: [id number] Admin: 06/06/21 09:08 Dose: 25 mg Documented by: [id number] Montelukast Sodium (Montelukast Sodium 10 Mg Tablet) 10 mg PO QPM [facility] Stop: 07/06/21 01:29 Last Admin: 06/06/21 20:32 Dose: 10 mg Documented by: [id number] Admin: 06/06/21 01:49 Dose: 10 mg Documented by: [id number] Pantoprazole Sodium (Pantoprazole 40 Mg Tab) 40 mg PO QAM [facility]; Protocol Stop: 07/06/21 08:59 Last Admin: 06/07/21 07:50 Dose: 40 mg Documented by: [id number] Admin: 06/06/21 07:47 Dose: 40 mg Documented by: [id number] Vitamin D (Cholecalciferol 1,000 Units 25 Mcg Tab) 5,000 units PO [id number] [facility] Stop: 07/06/21 07:29 Last Admin: 06/06/21 07:47 Dose: 5,000 units Documented by: [id number] Discontinued Medications Hydralazine HCl (Hydralazine Hcl 20 Mg/Ml Vial) 10 mg IV NOW STA Stop: 06/05/21 21:43 Last Admin: 06/05/21 21:56 Dose: 10 mg Documented by: [id number] Cosyntropin 250 mcg/ Syringe 5 mls @ 2.5 mls/min IV ONE ONE Stop: 06/07/21 08:01 Last Admin: 06/07/21 07:49 Dose: 2.5 mls/min Documented by: [id number] Lactated Ringer's (Lr) 1,000 mls @ 250 mls/hr IV .Q4H [facility] Stop: 06/06/21 19:29 Last Infusion: 06/06/21 21:38 Dose: 0 mls/hr Documented by: [id number] Admin: 06/06/21 16:19 Dose: 250 mls/hr Documented by: [id number] Infusion: 06/06/21 16:05 Dose: 250 mls/hr Documented by: [id number] Admin: 06/06/21 12:05 Dose: 250 mls/hr Documented by: [id number] Metoprolol Tartrate (Metoprolol Tartrate 1 Mg/Ml Vial) 5 mg IV NOW STA Stop: 06/05/21 22:16 Last Admin: 06/05/21 22:24 Dose: 5 mg Documented by: [id number] Nitroglycerin (Nitroglycerin 2% Ointment 30gm Tube) 1 inch EXT Q6 [facility] Stop: 07/05/21 21:59 Last Admin: 06/06/21 05:20 Dose: 1 inch Documented by: [id number] Admin: 06/05/21 21:56 Dose: 1 inch Documented by: [id number] Description This is a 21 electrode EEG with a single channel dedicated to limited EKG. The electrodes were placed in accordance with the International 10-20 system. There is a posterior dominant rhythm of 10 Hz which is symmetrically distributed and attenuates with eye opening. There is a normal anterior to posterior organization. Photic stimulation is unremarkable. Hyperventilation is not performed. There is a symmetric frontal beta rhythm. There is fairly continuous left temporal 5 Hz slowing, moderate amplitude, sharply contoured waveforms throughout the majority of the study. Interpretation Borderline abnormal awake/sleepy EEG with evidence of left temporal slowing and sharps potentially suggestive of a lower seizure threshold. Further clinical correlation needed. [facility] EEG Procedure Codes Indication for Procedure (1) Syncope: (2) Seizure-like activity: Neurology Neurology: 11519 EEG include record awake & drowsy
[2021-06-07] MEDS ORDERED: levETIRAcetam 1,000 MG in 0.9 % SODIUM CHLORIDE 100 ML IV STA (14:06)
--- NOTE | 2021-06-07 14:09 | Magnetic Resonance Report ---
MR angio head wo con, MR brain wo con HISTORY: 80 years-old Female stroke, LOC, VBI? Acute strokelike symptoms COMPARISON: Head CT 06/05/2021, brain MRI 01/30/2021, CTA head 01/29/2021 TECHNIQUE: Multiplanar multisequence MRI of the brain was obtained without the use of IV contrast. MR A of the head was obtained utilizing 3-D [id number] sequencing with MIP reformats. All measuremen ts were obtained according to NASCET criteria. FINDINGS: MRA: The imaged bilateral internal carotid arteries are widely patent. Middle and anterior cerebral arteri es are patent. Dominant left vertebral artery. Mild stenoses of the distal basilar artery redemonstra joshua. Mild to moderate multifocal luminal narrowing within the posterior cerebral arteries redemonstra joshua. Findings are unchanged from the 01/29/2021 study. MRI BRAIN: No restricted diffusion to suggest acute or subacute infarct. No acute intracranial hemorrhage, midli ne shift, abnormal extra-axial collection, hydrocephalus or intracranial mass. No pathologic blooming artifact. Cerebral venous sinuses and major arterial flow voids appear patent. Bilateral mastoid eff usions. Mild mucosal thickening of the ethmoid sinuses. The skull, orbits and soft tissues are unrema rkable. Prior bilateral lens repair. Chronic lacunar infarcts of the right carlos radiata, basal ganglia and left cerebellar hemisphere re demonstrated. Age-related involutional changes. Mild to moderate T2/FLAIR hyperintensities throughout the white matter suggest chronic microvascular ischemic disease. IMPRESSION: 1. Chronic findings as above without acute intracranial abnormality. No acute or subacute infarct. 2. Mild to moderate stenoses of the posterior circulation as above, unchanged from 01/29/2021. ACT 112: Negative or not required by law. The above report was generated using voice recognition software. It may contain grammatical, syntax o r spelling errors. Electronically signed by: Francis Banda M.D. 06/07/2021 2:07 PM
[2021-06-07] MEDS ORDERED: GADOBUTROL 65ML VIAL IV ONE (15:13)
--- NOTE | 2021-06-07 15:28 | Magnetic Resonance Report ---
NECK MRA HISTORY: stroke, syncope., Vertebrobasilar insufficiency? TECHNIQUE: [id number] and gadolinium-enhanced MRA of the neck was performed both before and after the intravenous administration of contrast. All measurements were calculated based on NASCET criteri a. COMPARISON STUDY: Neck CTA 01/29/2021. FINDINGS: Suboptimal evaluation of the cervical vessels due to the motion artifact. The aortic arch a nd proximal great vessels are widely patent. The bilateral common carotid arteries appear patent. Mi ld focal stenosis of approximately 50% at the takeoff of the left internal carotid artery due to the calcified plaque. This is similar to the prior study. There is also calcified plaque within the proxi mal right internal carotid artery without significant stenosis. Slightly beaded appearance of the vonda ateral mid to distal internal carotid arteries suggesting fibromuscular dysplasia. Stable 8 mm fusifo rm aneurysmal dilatation of the distal left internal carotid artery immediately proximal to the skull base. There is a slightly hypoplastic right vertebral artery. No significant stenosis within the vonda ateral cervical vertebral arteries. No evidence for dissection or occlusion within the carotid or shaun tebral arteries. IMPRESSION: 1. Mild stenosis at the takeoff of the left internal carotid artery of approximately 50% due to the c alcified plaque. This is similar to prior studies. 2. No significant stenosis within the bilateral common carotid or right internal carotid arteries. 3. Mild aneurysmal dilatation of the distal left internal carotid artery measuring up to 8 mm. This i s also unchanged. 4. Beaded appearance to the internal carotid arteries consistent with fibromuscular dysplasia. ACT 112: Negative or not required by law. Electronically signed by: Krishan Velasquez M.D. 06/07/2021 3:27 PM
[2021-06-07] MEDS ORDERED: hydrALAZINE HCL 20 MG/ML VIAL IV STA (15:42)
[2021-06-07] MEDS ORDERED: hydrALAZINE HCL 20 MG/ML VIAL ONE (15:46)
[2021-06-07] MEDS: MECLIZINE HCL 25 MG TAB PO PRN (16:15)
[2021-06-07] MEDS ORDERED: LORazepam 0.25 MG/0.5 ML VIAL IV STA (16:55)
[2021-06-07] MEDS ORDERED: LORazepam 2 MG/4 ML VIAL ONE (16:56)
--- NOTE | 2021-06-07 19:45 | Billing Data ---
Date of Service June 07, 2021 Coding Level of Care Code 56239 Subseq Hosp Care Lvl 3
--- NOTE | 2021-06-07 19:45 | Billing Data ---
Date of Service June 07, 2021 Coding Level of Care Code 04188 Prolonged Care (int'l)
[2021-06-07] MEDS: ACETAMINOPHEN 325 MG TAB PO PRN (19:46)
[2021-06-07] MEDS: INSULIN GLARGINE SOLOSTAR 100 UNITS/ML 3 ML PEN SQ SCH (21:19)
[2021-06-07] MEDS: LABETALOL HCL 100 MG TAB PO SCH (21:20)
[2021-06-07] MEDS: levETIRAcetam 500 MG TAB PO SCH (21:21)
[2021-06-07] MEDS: MONTELUKAST SODIUM 10 MG TABLET PO SCH (21:21)
[2021-06-07] MEDS: GABAPENTIN 100 MG CAP PO SCH (21:21)
[2021-06-08] MEDS: LEVOTHYROXINE SODIUM 112 MCG TABLET PO SCH (05:39)
--- NOTE | 2021-06-08 05:51 | Electrocardiogram Report ---
Test Reason : Blood Pressure : / mmHG Vent. Rate : 070 BPM Atrial Rate : 070 BPM P-R Int : 174 ms QRS Dur : 074 ms QT Int : 414 ms P-R-T Axes : 013 -15 000 degrees QTc Int : 447 ms Sinus rhythm with Premature atrial complexes Voltage criteria for left ventricular hypertrophy Anteroseptal infarct (cited on or before 06-JUN-2021) Abnormal ECG When compared with ECG of 06-JUN-2021 06:19, Premature atrial complexes are now Present Questionable change in initial forces of Anterior leads Confirmed by Ruben Kyle ([id number]) on 06/08/2021 5:51:00 AM Referred By: REFERRED SELF Confirmed By:Ruben Kyle
[2021-06-08 08:09] LABS: Hematocrit (blood only) 34.5 % (37-47); Hemoglobin 11.5 g/dL (12.0-16.0); Mean Corpuscular Hemoglobin 30.2 pg (25-34); Mean Corpuscular Hgb Conc 33.3 g/dL (32-36); Mean Corpuscular Volume 90.6 fL (80-100); RDW Standard Deviation 46.3 fL (36.4-46.3); Red Blood Count 3.81 M/uL (4.2-5.4); White Blood Count 5.76 K/uL (4.8-10.8)
[2021-06-08 08:23] LABS: Mean Platelet Volume 10.8 fL (7.4-10.4); Platelet Count 80 K/uL (130-400)
[2021-06-08 08:29] LABS: Basophils # (auto) 0.02 K/uL (0-0.2); Basophils % (auto) 0.3 %; Eosinophils # (auto) 0.38 K/uL (0-0.5); Eosinophils % (auto) 6.6 %; Immature Granulocytes # (auto) 0.01 K/uL (0.00-0.02); Immature Granulocytes % (auto) 0.2 %; Lymphocytes # (auto) 2.38 K/uL (1.2-3.4); Lymphocytes % (auto) 41.3 %; Monocytes # (auto) 0.34 K/uL (0.11-0.59); Monocytes % (auto) 5.9 %; Neutrophils # (auto) 2.63 K/uL (1.4-6.5); Neutrophils % (auto) 45.7 %
[2021-06-08] MEDS: CLOPIDOGREL BISULFATE 75 MG TAB PO SCH (08:41)
[2021-06-08] MEDS: FEXOFENADINE HCL 180 MG TAB PO SCH (08:41)
[2021-06-08] MEDS: CHOLECALCIFEROL 1,000 UNITS 25 MCG TAB PO SCH (08:41)
[2021-06-08] MEDS: PANTOprazole 40 MG TAB PO SCH (08:42)
[2021-06-08] MEDS: LABETALOL HCL 100 MG TAB PO SCH ×2 (08:42→21:53)
[2021-06-08] MEDS: CYANOCOBALAMIN 500 MCG TABLET (VITAMIN B-12) PO SCH (08:43)
[2021-06-08] MEDS: levETIRAcetam 500 MG TAB PO SCH ×2 (08:43→21:54)
[2021-06-08] MEDS: ATORVASTATIN 10 MG TAB PO SCH ×2 (08:43→21:53)
[2021-06-08] MEDS: FOLIC ACID 1 MG TAB PO SCH (08:43)
[2021-06-08] MEDS: APIXABAN 5 MG TABLET PO SCH ×2 (08:43→21:53)
[2021-06-08 08:45] LABS: Albumin Level 2.5 gm/dl (3.4-5.0); BUN Creatinine Ratio 13.2 (10-20); Calcium 8.8 mg/dl (8.5-10.1); Creatinine Clr Calc Pharmacy 36.7 ml/min; Est GFR (African American) 42.5 ml/min; Est GFR (Non-African American) 36.7 ml/min; Potassium 3.6 mmol/L (3.5-5.1)
[2021-06-08 08:48] LABS: Albumin Globulin Ratio 0.7 (0.9-2); Bilirubin,Total 0.5 mg/dl (0.2-1); Globulin 3.3 gm/dl (2.5-4.0); Total Protein 5.8 gm/dl (6.4-8.2)
[2021-06-08] MEDS: INSULIN ASPART 100 UNITS/ML 3 ML PEN SC SCH ×4 (09:13→22:55)
--- NOTE | 2021-06-08 10:18 | Medical Student Progress Note ---
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 Syncope - Echo (06/06/21) showed left ventricular hyperdynamic with systolic function EF > 70%. - continue scheduled meclizine for vertiginous symptoms - Head/Neck CTA (06/07) showed no changes from 01/29/21 - Brain MRI (06/07) shows no changes from 01/30/21 - EEG (06/07) showed findings suggestive of lower seizure threshold - continue IV fluids (2 liter bolus Lactated Ringer's) 250 mls/hr for hydration - continue taking orthostatic vital signs (laying down, sitting, standing) TID - No orthostatics noted during evaluation - Cardiology was consulted - Does not appear to be cardiac in nature. Telemetry reviewed. No arrhythmia, tachyarrhythmia, or significant bradycardia noted during today's witnessed episode - Neuro consulted - Continue Keppra 500mg BID - Followup with Endocrinology for Cortrosyn injection and cortisol measurements once discharged - Consider continuing Ativan PRN - spent an extensive amount of time discussing her episodes/symptoms and how they may be explained by a psychogenic condition that includes an anxiety component that is associated with her vertiginous episodes Paroxysmal A-fib - continue Apixaban and Clopidogrel - continue to monitor on telemetry - keep track of loop monitor Hyperlipidemia - continue atorvastatin 10 mg HTN - continue labetolol 50 Q12 hours - monitor patient's BP closely CKD Stage III - monitor BMP daily, Cr 1.36 today Type 2 Diabetes Mellitus - last A1C January 2021: 7.1 - continue monitoring glucose, continue home regimen insulin Neuropathy - sensation in all extremities bilaterally intact - continue Gabapentin as needed for symptoms Syncope type: unspecified Qualified Code(s): R55 - Syncope and collapse (2) Hypertension: (3) Paroxysmal atrial fibrillation: (4) Hyperlipemia: (5) 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 No new complaints. Extensive discussion with patient on working diagnosis and plans. Patient asked good questions, answered to the best my ability. Later at patient request called her daughter who is a pack out operator, explained the differentials we had explored and exhausted, explained working diagnosis, she agrees completely the sounds quite logical. Vitals noted, in general she is awake and alert pleasant no distress. HEENT normocephalic atraumatic mucous membranes moist. Breathing unlabored no accessory muscle use good effort. Skin shows no rashes no pallor or icterus. Neuro without new focal deficits. Vertigo and neuro psychogenic episodesdiscussed with patient and then later her daughterit seems likely that vertigo is "the sparkly lights of fire" and that the sensation of vertigo is so unpleasant and disconcertingespecially in the context of her neuro deficits having had a strokethat it sets off essentially what would be a "neurologic panic attack"reviewing she actually does meet DSM criteria for conversion as it relates to these episodeswhich would certainly fit. To treat, we will see how she does with scheduling meclizine, and I will review the literature for the most preferred SSRIs for central vertigo suppression as it relates to the vertigoand hopefully we will be able to make enough of a "dent" in the vertigo to have her be L to tolerate vestibular physical therapy. As it relates to the neuro psychogenic episodes themselvesin discussing them with the patient, hopefully some of the fear about the episodes will lessen, which may in fact in a mind-body connection lessen the episodes and intensity. We will also work on setting up either neuro biofeedback (there is a psychology clinic on [facility]. that does this) or more conventional cognitive behavioral therapy. Hopefully home in the next day or 2 once she feels comfortable and confident with the plan. We will update the soon. Approximately 20 minutes in the room with the patient, later another 25 on the phone with the daughterapproximately 45 minutes and what would amount to [id number] time if it were not for pandemic related restrictions making [id number] visitation impossible. Subjective This morning (06/08) patient states she is feeling better than yesterday. She tells and shows me that her left eye won't "wake up fully" and that her face feels like it is "pulling up". She describes her eye as cloudy. She says that her speech is "going again" like it did in January. She feels no chest pain. She did wake up with a headache, but it went away after going back to sleep for a bit. Further, she says she feels a tingling sensation on the left side of her face, but not right side. She says there is nothing going on with her right side. When I asked her to smile, the left sided-muscles of her mouth wasn't lifting as far as the right side. She also told me her left arm feels weak this morning, more so than the past few days. She clarified some timeline questions for me and stated that she had no syncopal episodes before January 2021, but her vertiginous episodes are from years ago and she has had them off/on for a long time. She says that she normally gets the vertiginous episodes in the AM, but it can be any time of day. Review of Systems Review of Systems: All systems reviewed & are unremarkable except as noted in HPI & below Constitutional: as per Subjective / HPI and + weakness (L arm weakness) Eyes: as per Subjective / HPI Left eye cloudiness and issues with left eyelid opening fully/for prolonged periods of time Ear, Nose, Mouth, Throat: as per Subjective / HPI and + tinnitus (L ear) Respiratory: as per Subjective / HPI Cardiovascular: as per Subjective / HPI and + chest pain (yesterday evening/last night; none this AM) Gastrointestinal: as per Subjective / HPI Musculoskeletal: as per Subjective / HPI Neurologic: as per Subjective / HPI, + localized weakness (L arm ) and + numbness (L side of face) Psychiatric: as per Subjective / HPI Physical Exam Constitutional: WD/WN, vitals as above well developed, well nourished, well groomed, cooperative and comfortable Eyes: PERRL, conjunctivae normal, anicteric sclerae + eyelid abnormality (trouble keeping L eyelid open) ENMT: external ear and nose normal, oropharynx normal Neck: trachea midline, no thyromegaly normal visual inspection Thyroid: normal thyroid Respiratory: normal respiratory effort, lungs clear to auscultation Cardiovascular: RRR, no murmur, no edema Heart Sounds: normal S1 and normal S2 Gastrointestinal (Abdomen): normal bowel sounds, soft, nontender, no hepatosplenomegaly Musculoskeletal: no cyanosis or clubbing, extremities motor strength 5/5 Skin: no rashes, warm and dry Neurologic: PERRL, EOMI, accommodation nl, no face palsy, no dysarthria normal touch/pain/proprioception and CN's II-XI intact bilaterally Speech / Cognition: + abnormal speech (mildly dysarthric compared to previous few days) Psychiatric: A+Ox3, euthymic affect Results & Data ([facility]) Vital Signs (Past 12 Hours) Vital Signs Temp Pulse Pulse Resp BP Pulse Ox 06/08/21 07:06 36.4 C L 57 L 16 151/68 H 95 06/08/21 03:04 36.4 C L 61 16 116/64 95 06/07/21 23:55 76 06/07/21 23:18 36.5 C 76 16 146/70 H 95
--- NOTE | 2021-06-08 19:31 | Billing Data ---
Date of Service June 08, 2021 Coding Level of Care Code 80402 Prolonged Care (int'l)
--- NOTE | 2021-06-08 19:31 | Billing Data ---
Date of Service June 08, 2021 Coding Level of Care Code 02432 Subseq Hosp Care Lvl 3
[2021-06-08] MEDS: MONTELUKAST SODIUM 10 MG TABLET PO SCH (21:54)
[2021-06-08] MEDS: GABAPENTIN 100 MG CAP PO SCH (21:54)
--- NOTE | 2021-06-08 21:54 | Electrocardiogram Report ---
Test Reason : Blood Pressure : / mmHG Vent. Rate : 073 BPM Atrial Rate : 073 BPM P-R Int : 174 ms QRS Dur : 076 ms QT Int : 422 ms P-R-T Axes : 061 -06 025 degrees QTc Int : 464 ms Normal sinus rhythm Normal ECG When compared with ECG of 06-JUN-2021 18:20, Premature atrial complexes are no longer Present Criteria for Anteroseptal infarct are no longer Present Confirmed by Ruben Kyle ([id number]) on 06/08/2021 9:53:50 PM Referred By: REFERRED SELF Confirmed By:Ruben Kyle
[2021-06-08] MEDS: INSULIN GLARGINE SOLOSTAR 100 UNITS/ML 3 ML PEN SQ SCH (21:56)
--- NOTE | 2021-06-08 22:01 | Electrocardiogram Report ---
Test Reason : Blood Pressure : / mmHG Vent. Rate : 072 BPM Atrial Rate : 072 BPM P-R Int : 176 ms QRS Dur : 076 ms QT Int : 416 ms P-R-T Axes : 028 -15 004 degrees QTc Int : 455 ms Normal sinus rhythm Voltage criteria for left ventricular hypertrophy Anteroseptal infarct , age undetermined Nonspecific T wave abnormality Abnormal ECG When compared with ECG of 07-JUN-2021 14:24, Anteroseptal infarct is now Present Nonspecific T wave abnormality now evident in Anterior leads Confirmed by Ruben Kyle ([id number]) on 06/08/2021 10:01:09 PM Referred By: REFERRED SELF Confirmed By:Ruben Kyle
--- NOTE | 2021-06-08 22:13 | Electrocardiogram Report ---
Test Reason : Blood Pressure : / mmHG Vent. Rate : 074 BPM Atrial Rate : 074 BPM P-R Int : 182 ms QRS Dur : 068 ms QT Int : 414 ms P-R-T Axes : 035 -13 -04 degrees QTc Int : 459 ms Normal sinus rhythm Moderate voltage criteria for LVH, may be normal variant Cannot rule out Septal infarct (cited on or before 07-JUN-2021) Abnormal ECG When compared with ECG of 07-JUN-2021 15:20, Questionable change in initial forces of Anterior leads Confirmed by Ruben Kyle ([id number]) on 06/08/2021 10:13:28 PM Referred By: REFERRED SELF Confirmed By:Ruben Kyle
[2021-06-09] MEDS: LEVOTHYROXINE SODIUM 112 MCG TABLET PO SCH (06:30)
[2021-06-09] MEDS: levETIRAcetam 500 MG TAB PO SCH (08:26)
[2021-06-09] MEDS: APIXABAN 5 MG TABLET PO SCH (08:27)
[2021-06-09] MEDS: LABETALOL HCL 100 MG TAB PO SCH (08:27)
[2021-06-09] MEDS: ATORVASTATIN 10 MG TAB PO SCH (08:27)
[2021-06-09] MEDS: PANTOprazole 40 MG TAB PO SCH (08:28)
[2021-06-09] MEDS: CYANOCOBALAMIN 500 MCG TABLET (VITAMIN B-12) PO SCH (08:28)
[2021-06-09] MEDS: FEXOFENADINE HCL 180 MG TAB PO SCH (08:28)
[2021-06-09] MEDS: CLOPIDOGREL BISULFATE 75 MG TAB PO SCH (08:28)
[2021-06-09] MEDS: FOLIC ACID 1 MG TAB PO SCH (08:28)
[2021-06-09] MEDS: INSULIN ASPART 100 UNITS/ML 3 ML PEN SC SCH (09:18)
--- NOTE | 2021-06-09 18:56 | Discharge Summary ---
Date of Service June 09, 2021 Admission HPI Per Admitting Provider Patient is a very pleasant 80-year-old female known to me from prior admissions. She was in her usual state of health this morning and went to an endocrine appointment. At the endocrine appointment she had 3 separate episodes of syncopethey sent her to the ER, here she felt okay laying down, but as soon as she stood up to try to walk she felt a terrible dizzy sensation that made her feel like she was going to pass out. She has had these sensations before, but right now seems to be far worse/far more intense than recently. Typically whenever she has the symptoms at home they are fairly intense, but go away whenever she lays down. Afterwards when she lays down she does feels very tiredfrequently she will sleep for 2 to 3 hours and then feel better afterwards. She does have a very hard time describing the episodesbut with a lot of time, and degree of directed questioning (tried to do this as minimally as possible) and comparative questions, it seems that her sensations are a lightheaded kind of dizziness that starts shortly before the syncopal episode, builds in intensity to where she feels like she is going to faint/pass out, as that sensation builds in more intensity, then she feels very heavy all over, and then right before she goes out she feels a degree of heaviness in her chest. When she wakes up she feels weak all over and very tired, but the rest of the sensations have passed. It seems to happen worse when standing, but also can happen sitting. Does definitely not happen all the time. Over the summer it was hard to quantify how often it was happening, but definitely not this intensely. Separate to that, on directed questioning, she has a positional dizziness that she has a hard time describing with different words than the above sensation, but when asked to directly compare the 2, she notes that while both are a dizzy sensation they are distinctly different. This other dizzy sensation is kind of a rushing sensation that she notices when she rapidly moves her head from right to left, or when she is being moved fast (uses the example of being wheeled into the ER bay), or when things are moving fast around her (uses the example of a lot of people moving in and out of the aisle at [facility] on Friday). And has a totally different sensation she occasionally gets a very sharp stabbing chest pain that seems to come on with rest. Not a pressure, just stabbingthis happened the other day. She notes that her peripheral edema is much better than it was back in Mayright now it is essentially not present at all. She probably drinks about 60 ounces of fluid on a day on average. 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 HEENT normocephalic atraumatic mucous membranes moist. Breathing unlabored no accessory muscle use good effort. Skin shows no rashes no pallor or icterus. Neuro without any new focal neuro deficits. Skin without rashes pallor or icterus. Mental status intact. Discharge Data Allergies Allergy/AdvReac Type Severity Reaction Status Date / Time codeine Allergy Intermediate HYPERACTIVE, Verified 06/05/21 17:04 HIVES/SYNCOPE enoxaparin Allergy Intermediate syncope Verified 06/05/21 17:04 fluorouracil Allergy Intermediate Hives Verified 06/05/21 17:04 potassium Allergy Mild IV Verified 06/05/21 17:04 potassium caused hypotension Consultations 06/05/21 16:54 ED Decision to Admit Stat 06/06/21 01:01 Consult Cardiology Routine 06/06/21 10:10 Consult Neurology Routine Ordered Studies 06/05/21 13:20 CT head/brain wo con Stat 06/07/21 10:57 MR angio head wo con Routine MR angio neck wo/w con Routine MR brain wo con Routine Hospital Course (1) Syncope: Vertigo and neuro psychogenic episodesit seems likely that vertigo is "the spark that lights the fire" and that the sensation of vertigo is so unpleasant and disconcertingespecially in the context of her neuro deficits having had a strokethat it sets off essentially what would be a "neurologic panic attack"reviewing she actually does meet DSM criteria for conversion as it relates to these episodeswhich would certainly fit. To treat, will give meclizine at bedtime scheduled, and a low threshold to take up to 2 more doses throughout the day) up to 3 a day) as needed vertigo, and add SSRI (sertraline) to try to help with the vertigo as welland hopefully we will be able to make enough of a "dent" in the vertigo to have her be able to tolerate vestibular physical therapy. As it relates to the neuro psychogenic episodes themselvesin discussing them with the patient, hopefully some of the fear about the episodes will lessen, which may in fact in a mind-body connection lessen the episodes and intensity. We will also work on setting up either neuro biofeedback (there is a psychology clinic on [facility]. that does this) or more conventional cognitive behavioral therapy. At patient's request/with patient's permission, I called [facility] that does neuro feedbackand left a message for them to call the patient, as well as to call me so that I can discuss the clinical situation with them. Updated daughter who is a archives director extensively last night by phone (she definitely believes we are on the right track with this) and updated today. Stable for home. Hypertensionvariable controldefinitely seems to be sensitive to stress as far as spiking her pressureduring her episodes she was often 200/100but during episodes, it became abundantly clear that the blood pressure was purely reactive to the situations, and not in any way causative. We had also entertained side effect of labetalol potentially being cause of her episodesthis was clearly not the case, and labetalol was resumed. To save the medical team follow-up digging through this hospital stay, where there was a lot of depth/detail and several progress notes outlining her situationwhile obviously the whole chart can be reviewed, in summary below are the bulk of differentials that were entertained and ruled out as part of making the above diagnosis: -Symptomatic bradycardia -Complete heart block/Mobitz 2 -Vasoactive mechanisms such as orthostatic, vasovagal, venous stasis related, dehydration related -Vertebrobasilar insufficiency -Seizure -Stroke -Medication sensitivity/medication side effect (particularly as it relates to her labetalol) Total Time Total Time Spent Total Time Spent (In Minutes): >30 Discharge Plan Discharge Items Patient Disposition: Home - Home Health Services Reason For Visit: RECURRENT SYNCOPE Discharge Diagnosis: Vertigo with subsequent "neuro psychogenic syncope" see below Condition on Discharge: Good Activity: Resume your previous activity Non-emergency contact: Primary Care Provider and Specialist Call non-emergency contact if: you have any medication questions and your symptoms worsen Follow-up/Referrals: Jordana Chen V., MD [Primary Care Provider] - Diet: Carb Consistent or DM2 Addtl Attending Provider Instructions: Syncopal episodes -As we have discussed, we have looked at your situation "forwards backwards and sideways" and really have ruled out a ton of concerning pathology, as well as seen very compelling evidence that these events are really what would amount to a neurologic panic attack triggered by vertigo -For your peace of mindwe did not see any slow heart rhythms or heart blocks, did not see any relationship between your blood pressure and the events (other than that the events seem distressing enough that your blood pressure goes up), did not see anything compelling to confirm seizures causing it, did not see anything compelling to say that it is low blood flow to the brain, did not see anything compelling to look at it being new stroke or compromised brain tissue, etc. -What it does look like this happening is that when you get the vertigo sensation, vertigo in and of itself is extremely distressing, and with your neurologic compromise after the stroke, it is likely far more distressing of a sensation to you than it would be to nearly anyone else. From there, that awful/distressing sensation understandably can trigger an anxiety response. In your case the anxiety response appears to be the feeling faint/fainting spells. (Remember the analogywe see this all the time and people with asthma/COPDwhere they may come in with an attack that is creating "5 out of 10 breathing trouble" but then the anxiety of feeling like they cannot breathe creates "10 out of 10 shortness of breath"). -I cannot reassure you enough that having watched many of those episodes at the bedside (and of course, provoking the 1 when I had you look left towards me) you are extremely stable during them. Your blood pressure is up during them, but this seems to be "affect not because"when somebody is feeling physical or emotional stress, it is very common for blood pressure to spike. Again, we would certainly not want you running 200/100 all the time, but it really appears with you that the 200/100 is reactive to the events, not causing them. -Hopefully even understanding the cause, and knowing that these episodes are not going to kill you, or cause you harm, will "take the teeth out of the tiger"and often when we see situations like this, simply understanding what is (and what is not) going on can lessen the intensity/frequency/severity by a good bit (I would say in my experience with similar situations, simply having the patient understand what is going on improved things by 50%) -Additionally, we will try to go after the vertigo itself more aggressively (since the vertigo is "the spark that lights the fire") and also go after the anxiety type symptoms that cause the syncopal/fainting event -The main harm that could come really would be if you fall during an eventmuch like any other fainting spell, most faints themselves are benign, it is "what you hit on the way down"and it would be the same with you, the only way I could really conceive of real harm happening to you during an episode as if you fell and hit her head, or broke something from the fall, not the event itself. Vertigo -You appear to have a component of positional vertigo, caused by the inner ear, as well as probably a degree of central vertigo, likely in you manifesting as an amplification of the symptoms from the positional vertigo caused by the damage from the stroke. -To do this, we will have you take the meclizine far more liberallytake it at bedtime like clockwork, and then have a very low threshold to take another 1-2 doses throughout the day. The upside will be that it seems to help with the vertigo a good bit, the downside is that it does make you sleepy and groggy. That said, it would probably be better to have a little bit of a groggy day, then to have a bad vertigo dayso take it at bedtime scheduled, and then take it up to 2 more times throughout the day if it feels like it is going to be a bad day. -Additionally, we will initiate sertralinea serotonin reuptake inhibitorcommonly used for anxiety/depression, but often these types of medicines can help lessen sensation of central vertigo. I do not think it will take the sensation away entirely, but if currently it peaks at a "10" hopefully things will lessen to where if the sertraline is helping as well as it could/should, hopefully it would take things down to a "peak" of a "6 or 7". As we discussed, most of the time people tolerate medicines like sertraline just fine, sometimes 3 or 4 days after starting it we have a little bit of nauseathat usually goes away fairly quickly. Likewise sometimes for a week or so after starting it we can feel more dominguez/irritablebut usually that goes away fairly quickly as well. We will be starting a low-dose, but it seems like it is helping but not enough, your PCP can gradually raise the dose. -If we reach a point where it would be tolerable to do so, having a physical therapist work on you for vestibular therapy is often very helpfulparticularly for the positional vertigo part of this. Right now it is understandable that that is "too much to handle"given that the vestibular therapy to try to help with the vertigo does often provoke episodes. If we start to knock things down towards more manageable, it would be possible that doing vestibular therapy could "put you over the top" Neuro psychogenic syncope/neurologic panic attack -The actual faint/loss of consciousness itself appears to essentially be a neurologic panic attack. If we reduce the vertigo, we can reduce the trigger that causes the panic/fainting event, but we should also try to directly address the events themselves -Again to reassure you, this does not appear to be an event that would kill youand that is coming from watching many of them at the bedside myself, having my resident physician watch several as well, and having an excellent nurse watch you through the bulk of the "bad days" when you were in the hospital. Other than a spike in blood pressure that appears to be reactive to the stress of the event, you were completely stable during it. The only way it really appears you could have harm during the events is if you hit something if you fell. -Knowing the cause of the events, hopefully that can lessen the severity, simply by taking the fear out of "what is happening" -As we discussed, it is likely that you would benefit from something along the lines of neuro feedback, or cognitive behavioral therapy. [facility] on [address] [facility] phone #[phone] neuro feedback. As we discussed, I left him a message and asked him to call you to schedule an appointment, as well as to call me to discuss the situation. If you do not hear from them by about 1:00 on Friday afternoon, please call to see where things are in the scheduling process. For cost of medications - look at [employer] and [employer] - website/phone apps that can show you out of pocket costs for medications. As bizarre as it might sound, sometimes it's actually cheaper to pay out of pocket for a medication and not use your insurance than it is to pay your copay. For example, searching for the sertraline 50mg, GoodRx shows that 30 tablets of 50mg sertraline is listed for $7.67 at [facility] pharmacy (oddly - to show how crazy our system is, the same med, same dose, same amount is listed as $20.50 at [facility], $12.76 at [facility]....there's really no consistency to it. My mother in law will tavera check and shop around, using insurance and GoodRx as a "mix and match" and sometimes can save a ton of money that way) Pending Studies at Discharge: No Stand-Alone Forms: My [facility], Smoking Cessation Medications and DC Order Prescriptions: New meclizine 25 mg tablet 25 mg PO HS Qty: 60 RF: 0 sertraline 50 mg tablet 50 mg PO DAILY Qty: 30 RF: 0 Continued insulin lispro [Humalog KwikPen Insulin] 100 unit/mL insulin pen 80 unit subcut DAILY Qty: 5 RF: 3 levothyroxine [Levoxyl] 112 mcg tablet 112 mcg PO QAM Qty: 90 RF: 3 folic acid 1 mg tablet 1 mg PO QAM Qty: 90 RF: 3 Lantus Solostar U-100 Insulin 100 unit/mL (3 mL) insulin pen 34 unit subcut HS RF: 0 clopidogrel 75 mg tablet 75 mg PO QAM Qty: 90 RF: 3 gabapentin 100 mg capsule 100 mg PO HS Qty: 90 RF: 3 montelukast 10 mg tablet 10 mg PO QPM Qty: 90 RF: 1 atorvastatin 10 mg tablet 10 mg PO BID Qty: 180 RF: 1 (DME) FreeStyle Lite Strips Strip See Rx Instructions .ROUTE .MEDSUPPLY Qty: 10 RF: 0 labetalol 100 mg tablet 50 mg PO Q12H Qty: 180 RF: 3 Eliquis 5 mg tablet 5 mg PO BID Qty: 60 RF: 2 albuterol sulfate 90 mcg/actuation HFA aerosol inhaler 1 puff inhalation Q4 PRN (Reason: Wheezing) RF: 0 cholecalciferol (vitamin D3) 5,000 unit Tablet 5,000 unit PO 3XWK RF: 0 ondansetron HCl [Zofran] 4 mg tablet 4 mg PO Q4H PRN (Reason: nausea and vomiting) Qty: 20 RF: 1 fexofenadine 180 mg Tablet 180 mg PO QAM RF: 0 omeprazole 20 mg capsule,delayed release(DR/EC) 20 mg PO QAM RF: 0 cyanocobalamin (vitamin B-12) 1,000 mcg Tablet 1,000 mcg PO DAILY RF: 0 Discontinued meclizine 25 mg tablet 25 mg PO TID PRN (Reason: Dizziness) RF: 0 Discharge Orders: Discharge Order (Routine); Ordered 06/09/21 Ordered By: Anders Dubois Admission Data Admit Date/Time: 06/05/21 18:13 Attending Provider: Anders Dubois Admit Provider: Anders Dubois Primary Care Provider: Jordana Chen V. Other Providers: Anders Dubois ; Vinny Wheat ; Katya Hidalgo Other Interventions: Discharge Summary Assessment (RN) Last Done: 06/09/21 12:55 Coding Level of Care Code D/C DAY MANAGEMENT >30 MINS Diagnoses Syncope R55 Syncope type: unspecified
== END 2021-06-09 13:12 | disposition home health service (06) | DRG 882 ==
LOC: ED 13:11 → 2N 18:13

== ENCOUNTER 2024-05-14 15:56 | Inpatient (IN) ==
[2024-05-14 16:45] LABS: Basophils # (auto) 0.03 K/uL (0.00-0.20); Basophils % (auto) 0.7 %; Eosinophils # (auto) 0.18 K/uL (0.00-0.50); Eosinophils % (auto) 4.2 %; Hematocrit (blood only) 32.4 % (37.0-47.0); Hemoglobin 10.7 g/dl (12.0-16.0); Immature Granulocytes # (auto) 0.01 K/uL (0.01-0.20); Immature Granulocytes % (auto) 0.2 %; Lymphocytes # (auto) 1.97 K/uL (1.20-3.40); Lymphocytes % (auto) 45.7 %; Mean Corpuscular Hemoglobin 31.5 pg (25.0-34.0); Mean Corpuscular Volume 95.3 fL (80.0-100.0); Mean Platelet Volume 10.6 fL (9.4-12.4); Monocytes # (auto) 0.23 K/uL (0.11-0.59); Monocytes % (auto) 5.3 %; Neutrophils # (auto) 1.89 K/uL (1.40-6.50); Neutrophils % (auto) 43.9 %; Platelet Count 79 K/uL (130-400); RDW Coefficient of Variation 12.6 % (11.5-14.5); RDW Standard Deviation 43.9 fL (36.4-46.3); White Blood Count 4.31 K/ul (4.8-10.8)
[2024-05-14 17:00] LABS: Albumin Globulin Ratio 1.2 (0.9-2); Albumin Level 3.3 gm/dl (3.4-5.0); BUN Creatinine Ratio 7.1 (10-20); Bilirubin,Total 0.7 mg/dl (0.2-1.0); Calcium 8.8 mg/dl (8.6-10.3); Creatinine Clr Calc Pharmacy 29.7 ml/min; Est GFR (African American) 35.5 ml/min; Est GFR (Non-African American) 30.6 ml/min; Globulin 2.8 gm/dl (2.5-4.0); Potassium 4.1 mmol/L (3.5-5.1); Total Protein 6.1 gm/dl (6.0-8.3)
[2024-05-14 17:06] LABS: Troponin I High Sensitivity 6.6 pg/ml (0-14)
[2024-05-14 17:07] LABS: INR 1.1 (0.9-1.1); Partial Thromboplastin Time 27 Seconds (21-31); Prothrombin Time 11.4 Seconds (9.0-12.0)
[2024-05-14 17:12] LABS: Magnesium 1.8 mg/dl (1.7-2.4)
[2024-05-14] MEDS: fentaNYL citrate PF 100 MCG/2 ML VIAL IV STA (17:12)
--- NOTE | 2024-05-14 17:17 | Emergency Department Note ---
Impression & Plan Left-sided chest pain, Recurrent syncope, Hypertension ED Provider Note HISTORY OF PRESENT ILLNESS: Patient is an 83-year-old female presenting with left-sided chest pain. Patient reports that the pain has been intermittent over the last few weeks, but significantly worse in the last 18 hours. Reports that last night she was unable to sleep in her bed secondary to significant pain with laying flat and had to lay in a bed seated upright. She has a history of a loop recorder. She is on Eliquis and Plavix. Denies any missed doses of this. She was at a cardiology office visit for the chest pain when she had 3 episodes of syncope that lasted around 30 seconds. Patient reports these episodes occur frequently secondary to a stroke she had 3 years ago. She is having chest pain on arrival to the emergency department. Describes the pain as a squeezing and pressure- like sensation to the left chest. She denies any radiation of the pain. Reports that the pain "takes my breath away." She denies any DVT or PE history. Denies any history of cardiac stents. Denies any nausea or vomiting with the chest pain. ROS: as above PHYSICAL EXAM: Constitutional: Patient appears in no acute distress. HENT: Head: Normocephalic and atraumatic. Eyes: EOMI, PERRL Mouth/Throat: Mucous membranes moist. Neck: Trachea midline. Neck supple. Cardiovascular: RRR, No murmurs, rubs or gallops. Intact distal pulses. Pulmonary/Chest: No respiratory distress. Breath sounds clear and equal bilaterally. No wheezes or rales. Patient gripping the left side of her chest in pain. Abdominal: Abdomen soft, no tenderness, rebound or guarding. Musculoskeletal: No edema, tenderness or deformity noted. Skin: Warm and dry. No rash, erythema, pallor or cyanosis Psychiatric: Appropriate mood and affect for situation. Neurological: Alert and keenly responsive. CN II-XII grossly intact, moving all extremities equally and fully. MDM: - Vitals signs showed hypertension - History obtained via patient. History as above. - Chronic conditions affecting care: paroxysmal A-fib; HTN; hypothyroidism; thrombocytopenia; CVA; DM-2 - Differential diagnoses include, but are not limited to: Acute coronary syndrome; pulmonary embolism; dissection; tension pneumothorax; esophageal rupture; pneumonia - Order placed for continuous cardiac monitoring. At this time, monitor showed rate of 60 bpm with normal sinus rhythm, per my interpretation. - External medical records reviewed. Cardiology visit note dated today was reviewed. Patient had presented to clinic due to having chest pain and shortness of breath since last evening. She had 3 episodes of unresponsiveness in the office. Per their documentation, she was normotensive and had no arrhythmia with the episodes of unresponsiveness. EKG did not show any acute ischemic changes in the clinic. Her chest pain was reportedly reproducible in clinic. - EKG interpreted by myself showed normal sinus rhythm. Rate bradycardic at 58 bpm. QT 458. No acute ischemic changes. - Laboratory workup interpreted by myself showed leukopenia (WBC 4.3); thrombocytopenia (plt 79); anemia (Hgb 10.7); normal PT/INR; stable electrolytes; CKD (Cr 1.55); normal troponin - CXR negative for pneumonia, per my interpretation - CT head wo contrast negative for acute intracranial pathology - Patient given 50 mcg IV fentanyl for pain control while in ER. - On reassessment, patient is again complaining of chest pain. Chest pain does seem atypical, given her normal EKG and normal troponin level. However, repeat troponin was ordered. - HEART score 4 (History +0 slightly suspicious; EKG +0; Age +2; Risk factors +2; Initial troponin +0), amounting to a moderate score. - Discussion was had with telehealth case manager about patient's case and need for admission - Hospitalist, Dr. Prakash, consulted for admission - Patient admitted to Health systemist service for further evaluation and management. ASSESSMENT AND PLAN: Diagnosis: Left-sided chest pain; recurrent syncope; hypertension Plan: Admit Past Med/Surg History Problem List (Updated 05/14/24 @ 19:56 by Breanna Ley MD) Hypertension (Acute) Recurrent syncope (Acute) Left-sided chest pain (Acute) Carotid artery aneurysm Idiopathic polyneuropathy Gait disorder Bilateral tinnitus Sensorineural hearing loss (SNHL) of both ears Dysphonia H/O: stroke Decreased hearing Dysphasia B12 deficiency 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 (CVA) Daytime somnolence Snoring Gastroparesis Anxiety Paroxysmal atrial fibrillation Thrombocytopenia (Acute) History of loop recorder Hiatal hernia Fibromuscular hyperplasia of left carotid artery Aneurysm of left carotid artery Pseudoaneurysm, Neurosurg [facility] Hypothyroidism Chronic kidney disease, stage III (moderate) Hypertension Vitamin D deficiency History of [place] fundoplication 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 Jane 03/08/20 Constipation Fibromuscular dysplasia of both carotid arteries Atrial ectopy Cryptogenic stroke Esophageal thickening CT scan 12/14/2020 Left-sided weakness Medical History Progressive bulbar palsy Sequela of lacunar infarction Sensorineural hearing loss (SNHL) of both ears Speech abnormality Seizure-like activity Discharge planning issues DVT prophylaxis Bradycardia Syncope Chest discomfort Encounter for interrogation of cardiac recorder Belching Nausea Lung nodule Chest discomfort Uncontrolled insulin-treated type 2 diabetes mellitus Idiopathic thrombocytopenia purpura Umbilical hernia without obstruction and without gangrene Diabetes mellitus, type 2 Stroke GERD (gastroesophageal reflux disease) Hiatal hernia Hyperlipemia TIA (transient ischemic attack) Asthma Arthritis Surgical History History of loop recorder H/O umbilical hernia repair History of repair of hiatal hernia (06/16/19) History of colonoscopy History of total knee replacement History of esophagogastroduodenoscopy (EGD) History of appendectomy History of esophageal dilatation History of ankle surgery H/O dilation and curettage History of tonsillectomy and adenoidectomy Hx of cholecystectomy History of total abdominal hysterectomy and bilateral salpingo-oophorectomy Family History Unknown Osteoporosis Mother Rheumatoid arthritis Family history of diabetes mellitus History of nephrectomy Stroke syndrome Hypertension Stroke Aunt Rheumatoid arthritis Father Heart disease Myocardial infarction Hx of CABG Hypertension Brother Acute myocardial infarction Myocardial infarction Other No family history of adverse response to anesthesia No family history of bleeding disorder Denies family history of Ovarian cancer Prostate cancer Clotting disorder Breast cancer Social History Smoking Status: Never smoker Second Hand Exposure: No; Do You Dip or Chew Tobacco: No; Hx Alcohol Use: No Hx Substance Use: No Preferred Language: Tunisian Communication Ability: Effective Visual Impairment: No Limitations Hearing Ability: Normal Building Operator Required: No Beliefs That Will Affect Care: None marital status: Current Living Situation: Spouse Current Living Situation Comment: Home w/ current occupational status: 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 How many Children do You have: 4 Feels Safe at Home: Yes Childhood Exposure to Second-Hand Smoke: Yes Dental Care, Regularly: No Physical Activity Frequency: Daily Seatbelt Use: always Sunscreen Use: No Assistive Devices: Walker Allergies Allergies Allergy/AdvReac Type Severity Reaction Status Date / Time codeine Allergy Intermediate HYPERACTIVE, Verified 04/05/24 14:08 HIVES/SYNCOPE enoxaparin Allergy Intermediate syncope Verified 04/05/24 14:08 fluorouracil Allergy Intermediate Hives Verified 04/05/24 14:08 potassium Allergy Mild IV Verified 04/05/24 14:08 potassium caused hypotension Home Meds Home Medications Medication Instructions Recorded Confirmed cholecalciferol (vitamin D3) 125 5,000 unit PO 3XWK 03/20/19 04/05/24 mcg (5,000 unit) tablet fexofenadine 180 mg tablet 180 mg PO QAM 09/03/20 04/05/24 cyanocobalamin (vitamin B-12) 1,000 mcg PO DAILY 01/29/21 04/05/24 1,000 mcg tablet Previous Rx's Medication Instructions Recorded ondansetron HCl 4 mg tablet 4 mg PO Q4H PRN nausea and 06/17/19 (Zofran) vomiting #20 tabs gabapentin 100 mg capsule 200 mg (2 x 100 mg) PO HS #180 caps 04/02/23 blood sugar diagnostic (FreeStyle #200 ea 04/22/23 Lite Strips) meclizine 25 mg tablet See Rx Instructions .Route 06/13/23 .COMPLEX #90 tabs albuterol sulfate 90 mcg/actuation 1 puff inhalation Q4 PRN Wheezing 06/25/23 aerosol inhaler #20.1 grams insulin glargine 100 unit/mL (3 See Rx Instructions subcut HS #30 08/13/23 mL) subcutaneous pen (Lantus mL Solostar U-100 Insulin) apixaban 2.5 mg tablet 2.5 mg PO BID #180 tabs 08/27/23 omeprazole 20 mg capsule,delayed 20 mg PO QAM #90 caps 10/13/23 release folic acid 1 mg tablet 1 mg PO QAM #90 tabs 02/29/24 labetalol 100 mg tablet 50 mg (1/2 x 100 mg) PO Q12H #90 11/14/23 tabs montelukast 10 mg tablet See Rx Instructions .Route 11/16/23 .COMPLEX #90 tabs lancing device #1 ea 01/09/24 atorvastatin 20 mg tablet 20 mg PO DAILY #90 tabs 01/29/24 levothyroxine 88 mcg tablet 88 mcg PO DAILY #90 tabs 01/29/24 pen needle, diabetic 32 gauge x #400 ea 03/16/24" (BD Ultra-Fine Jayleen Pen Needle) olmesartan 40 mg tablet 40 mg PO DAILY #90 tabs 03/18/24 lancets 28 gauge (FreeStyle #200 ea 03/24/24 Lancets) clopidogrel 75 mg tablet 75 mg PO QAM #90 tabs 04/01/24 Results & Data (ED) Vital Signs Vital Signs - 24 hr 05/14/24 16:20 05/14/24 16:40 05/14/24 17:00 Temperature 36.8 C Temperature Source Oral Pulse Rate 59 L 62 64 Pulse Rate from SpO2 Sensor 63 Respiratory Rate 17 19 Respiratory Effort / Characteristics Non-Labored Spontaneous Respiratory Depth Normal Blood Pressure 207/98 H 221/91 H Blood Pressure Mean 134 134 Pulse Oximetry 95 99 Oxygen Delivery Method Room Air Oxygen Flow Rate Sepsis Recent Fever Within 48 Hours No Sepsis New/Unexplained Change in Mental Status No Sepsis Action Taken by Nursing No Action Required 05/14/24 17:24 05/14/24 17:33 05/14/24 19:06 Temperature Temperature Source Pulse Rate 58 L 59 L 60 Pulse Rate from SpO2 Sensor 58 L 59 L Respiratory Rate 15 11 L 12 Respiratory Effort / Characteristics Respiratory Depth Blood Pressure 208/81 H 201/92 H 191/82 H Blood Pressure Mean 123 128 118 Pulse Oximetry 100 99 97 Oxygen Delivery Method Nasal Cannula Oxygen Flow Rate 2 Sepsis Recent Fever Within 48 Hours Sepsis New/Unexplained Change in Mental Status Sepsis Action Taken by Nursing 05/14/24 19:30 Temperature Temperature Source Pulse Rate 60 Pulse Rate from SpO2 Sensor Respiratory Rate 14 Respiratory Effort / Characteristics Respiratory Depth Blood Pressure 191/82 H Blood Pressure Mean 118 Pulse Oximetry 97 Oxygen Delivery Method Oxygen Flow Rate Sepsis Recent Fever Within 48 Hours Sepsis New/Unexplained Change in Mental Status Sepsis Action Taken by Nursing Laboratory Data 05/14/24 16:10 09/06/24 16:10 Lab Results 05/14/24 Range/Units 16:10 WBC 4.31 L (4.8-10.8) K/ul RBC 3.40 L (4.20-5.40) M/uL Hgb 10.7 L (12.0-16.0) g/dl Hct 32.4 L (37.0-47.0) % MCV 95.3 (80.0-100.0) fL MCH 31.5 (25.0-34.0) pg MCHC 33.0 (32.0-36.0) g/dL RDW Std Deviation 43.9 (36.4-46.3) fL RDW Coeff of [place] 12.6 (11.5-14.5) % Plt Count 79 L (130-400) K/uL MPV 10.6 (9.4-12.4) fL Immature Gran % (Auto) 0.2 % Neut % (Auto) 43.9 % Lymph % (Auto) 45.7 % Bacon % (Auto) 5.3 % Eos % (Auto) 4.2 % Baso % (Auto) 0.7 % Neut # (Auto) 1.89 (1.40-6.50) K/uL Lymph # (Auto) 1.97 (1.20-3.40) K/uL Bacon # (Auto) 0.23 (0.11-0.59) K/uL Eos # (Auto) 0.18 (0.00-0.50) K/uL Baso # (Auto) 0.03 (0.00-0.20) K/uL Immature Gran # (Auto) 0.01 (0.01-0.20) K/uL PT 11.4 (9.0-12.0) Seconds INR 1.1 (0.9-1.1) APTT 27 (21-31) Seconds PTT Ratio 1.0 Sodium 140 (136-145) mmol/L Potassium 4.1 (3.5-5.1) mmol/L Chloride 109 H (98-107) mmol/L Carbon Dioxide 27 (21-32) mmol/L Anion Gap 4 (3-11) BUN 11 (6-23) mg/dl Creatinine 1.55 H (0.6-1.2) mg/dl Est Cr Clr Drug Dosing 29.7 ml/min Est GFR ( Amer) 35.5 ml/min Est GFR (Non-Af Amer) 30.6 ml/min BUN/Creatinine Ratio 7.1 L (10-20) Glucose 137 H (70-99(Fasting)) mg/dl Calcium 8.8 (8.6-10.3) mg/dl Magnesium 1.8 (1.7-2.4) mg/dl Total Bilirubin 0.7 (0.2-1.0) mg/dl AST 23 (13-39) U/L ALT 15 (7-52) U/L Alkaline Phosphatase 97 (34-104) U/L Troponin I High Sens 6.6 (0-14) pg/ml Total Protein 6.1 (6.0-8.3) gm/dl Albumin 3.3 L (3.4-5.0) gm/dl Globulin 2.8 (2.5-4.0) gm/dl Albumin/Globulin Ratio 1.2 (0.9-2) Administered Medications Discontinued Medications Fentanyl Citrate (Fentanyl Citrate Pf 100 Mcg/2 Ml Vial) 50 mcg IV NOW STA Stop: 05/14/24 17:08 Last Admin: 05/14/24 17:12 Dose: 50 mcg Documented By: EDWIN Imaging Data Radiologist's Impression: Chest X-Ray 05/14/24 16:19 XR chest 1V not portable HISTORY: 83 years-old Female Chest pain, nonspecific COMPARISON: 06/05/2021 TECHNIQUE: AP view of the chest FINDINGS: Cardiac silhouette is enlarged. Loop recorder device. Calcified plaque of the thoracic aorta. No pneumothorax, pleural effusion, airspace consolidation or overt pulmonary edema. Degenerative changes of the shoulders and spine. Mild mid thoracic dextroscoliosis. Mild right hemidiaphragmatic elevation. IMPRESSION: Cardiomegaly without acute process. ACT 112: Negative or not required by law. The above report was generated using voice recognition software. It may contain grammatical, syntax or spelling errors. Electronically signed by: Francis Banda M.D. 05/14/2024 5:[address] 05/14/24 16:47 CT SCAN OF THE BRAIN WITHOUT IV CONTRAST CLINICAL HISTORY: Syncopal episodes. COMPARISON STUDY: CT of the brain dated 02/28/2023. TECHNIQUE: Unenhanced axial CT scan of the brain is performed from the vertex to the skull base. A dose lowering technique was utilized adhering to the principles of ALARA. CT DOSE: 625.8 mGy.cm FINDINGS: Brain parenchyma: There is age-related involutional change noting mild subcortical and periventricular microangiopathic disease. There is no hemorrhage, mass effect, or evidence of acute territorial ischemia by CT criteria. There is a small chronic infarct in the right basal ganglia/periventricular white matter. Cuevas-white matter differentiation is preserved. No extra-axial fluid collection is seen. Ventricles, sulci, cisterns: Prominent secondary to involutional change. Intracranial vasculature: There is atherosclerotic calcification of the cavernous carotid and vertebral arteries. Calvarium: Unremarkable. Sinuses and mastoids: A small radiodense metallic foreign body is again seen in the base of the right maxillary sinus. The paranasal sinuses are otherwise clear. There are bilateral mastoid effusions. Orbits: The bony orbits are grossly intact. There are bilateral ocular lens implants. IMPRESSION: There is no hemorrhage, mass effect, or evidence of acute territorial ischemia by CT criteria. ACT 112: Negative or not required by law. Electronically signed by: Huan Quintero M.D. 05/14/2024 5:37 PM Discharge Plan Visit Data Chief Complaint: Cardiac Assessment Stated Complaint: CHEST PRESSURE, SYNCOPE ED Provider: Breanna Ley Discharge Problem: Left-sided chest pain, Recurrent syncope, Hypertension Forms Stand Alone Forms: [employer] Prescriptions Prescriptions: No Action (DME) FreeStyle Lite Strips Strip See Rx Instructions .ROUTE .MEDSUPPLY Qty: 200 3RF Rx Instructions: test BID meclizine 25 mg tablet See Rx Instructions .ROUTE .COMPLEX Qty: 90 3RF Dose Instruction: TAKE 1 TABLET AT BEDTIME Rx Instructions: TAKE 1 TABLET AT BEDTIME insulin glargine [Lantus Solostar U-100 Insulin] 100 unit/mL (3 mL) insulin pen See Rx Instructions subcut HS Qty: 30 3RF Rx Instructions: subcutaneously; 22-30 units at bedtime apixaban 2.5 mg tablet 2.5 mg PO BID Qty: 180 3RF omeprazole 20 mg capsule,delayed release(DR/EC) 20 mg PO QAM Qty: 90 3RF folic acid 1 mg tablet 1 mg PO QAM Qty: 90 3RF labetalol 100 mg tablet 50 mg PO Q12H Qty: 90 3RF montelukast 10 mg tablet See Rx Instructions .ROUTE .COMPLEX Qty: 90 3RF Dose Instruction: TAKE 1 TABLET EVERY EVENING Rx Instructions: TAKE 1 TABLET EVERY EVENING atorvastatin 20 mg tablet 20 mg PO DAILY Qty: 90 3RF levothyroxine 88 mcg tablet 88 mcg PO DAILY Qty: 90 1RF (DME) pen needle, diabetic [BD Ultra-Fine Jayleen Pen Needle] 32 gauge x 5/32" needle See Rx Instructions .ROUTE .MEDSUPPLY Qty: 400 3RF Rx Instructions: use 4 needles daily olmesartan 40 mg tablet 40 mg PO DAILY Qty: 90 2RF (DME) lancets [FreeStyle Lancets] 28 gauge misc See Rx Instructions .Route Qty: 200 3RF Rx Instructions: test 2 times daily clopidogrel 75 mg tablet 75 mg PO QAM Qty: 90 3RF gabapentin 100 mg capsule 200 mg PO HS Qty: 180 3RF albuterol sulfate 90 mcg/actuation HFA aerosol inhaler 1 puff inhalation Q4 PRN (Reason: Wheezing) Qty: 20.1 3RF (DME) lancing device Misc See Rx Instructions .Route Qty: 1 0RF Rx Instructions: use to check blood sugar - Freestyle lancing device cholecalciferol (vitamin D3) 5,000 unit Tablet 5,000 unit PO 3XWK Rx Instructions: TAKE WITH FOOD ondansetron HCl [Zofran] 4 mg tablet 4 mg PO Q4H PRN (Reason: nausea and vomiting) Qty: 20 1RF fexofenadine 180 mg Tablet 180 mg PO QAM cyanocobalamin (vitamin B-12) 1,000 mcg Tablet 1,000 mcg PO DAILY Referrals Referrals: Jordana Chen MD [Primary Care Provider] -
--- NOTE | 2024-05-14 17:26 | XRay Report ---
XR chest 1V not portable HISTORY: 83 years-old Female Chest pain, nonspecific COMPARISON: 06/05/2021 TECHNIQUE: AP view of the chest FINDINGS: Cardiac silhouette is enlarged. Loop recorder device. Calcified plaque of the thoracic aorta. No pneu mothorax, pleural effusion, airspace consolidation or overt pulmonary edema. Degenerative changes of the shoulders and spine. Mild mid thoracic dextroscoliosis. Mild right hemidiaphragmatic elevation. IMPRESSION: Cardiomegaly without acute process. ACT 112: Negative or not required by law. The above report was generated using voice recognition software. It may contain grammatical, syntax o r spelling errors. Electronically signed by: Francis Banda M.D. 05/14/2024 5:25 PM
--- NOTE | 2024-05-14 17:39 | CT Scan Report ---
CT SCAN OF THE BRAIN WITHOUT IV CONTRAST CLINICAL HISTORY: Syncopal episodes. COMPARISON STUDY: CT of the brain dated 02/28/2023. TECHNIQUE: Unenhanced axial CT scan of the brain is performed from the vertex to the skull base. A do se lowering technique was utilized adhering to the principles of ALARA. CT DOSE: 625.8 mGy.cm FINDINGS: Brain parenchyma: There is age-related involutional change noting mild subcortical and periventricula r microangiopathic disease. There is no hemorrhage, mass effect, or evidence of acute territorial isc hemia by CT criteria. There is a small chronic infarct in the right basal ganglia/periventricular whi te matter. Cuevas-white matter differentiation is preserved. No extra-axial fluid collection is seen. Ventricles, sulci, cisterns: Prominent secondary to involutional change. Intracranial vasculature: There is atherosclerotic calcification of the cavernous carotid and vertebr al arteries. Calvarium: Unremarkable. Sinuses and mastoids: A small radiodense metallic foreign body is again seen in the base of the right maxillary sinus. The paranasal sinuses are otherwise clear. There are bilateral mastoid effusions. Orbits: The bony orbits are grossly intact. There are bilateral ocular lens implants. IMPRESSION: There is no hemorrhage, mass effect, or evidence of acute territorial ischemia by CT anthony rankin. ACT 112: Negative or not required by law. Electronically signed by: Huan Quintero M.D. 05/14/2024 5:37 PM
--- NOTE | 2024-05-14 20:39 | History & Physical Report ---
Date of Service May 14, 2024 Assessment & Plan (1) Chest pain: Plan: Patient with likely non-cardiac chest pain - reproducible on exam. Troponin unremarkable and EKG with no evidence of ischemia -Admit to medical with telemetry -Check 2D echo -Lidoderm patch -Toradol x 1 dose (2) HTN (hypertension): Plan: Patient with elevated blood pressures -Continue Losartan 100mg daily -Continue Labetalol 50mg po BID -Hydralazine 25mg po TID as needed for BP > 180/110 (3) Syncope: Plan: Patient with episodes of unresponsiveness - had three in the Cardiology office prior to arrival, one witnessed event resulting in Code Purple on the floor. Does not seem to be true syncope - patient with stable VS throughout event. Possibly seizure activity with focal findings - she did report a funny sensation in her LUE preceding and following the unresponsive episode? Possibly secondary to her underlying neurocognitive issues -Consider Neuro consultation -Seizure precautions Plan History of CVA -Continue Plavix -Continue Atorvastatin Diabetes -Lantus 5u BID -ISS Hypothyroidism -Continue Synthroid Hypertension -Continue Losartan GERD -Continue Protonix History of Present Illness Chief Complaint: chest pain Primary Care Provider: Jordana Chen MD Unique Alegria is an 83yo female with history of DM, HTN, HLP, GERD and PAF presenting from Cardiology offices after being seen with chest pain. Patient reports one day of intermittent substernal chest discomfort. She describes the pain as squeezing, occurs intermittently and lasts a few minutes then resolves on its own. Discomfort is 7-10/10 in severity with associated tingling in the left hand and forearm and shortness of breath. She denies trauma, recent illness, muscle strain or heart burn symptoms. In the Cardiology office patient found to have reproducible chest wall pain. She did have three episodes of unresponsiveness while in the Cardiology office - noted to be normotensive with no arrhythmia during the episodes. Patient reports that she has been having unresponsive episodes for over 6 months now. She can feel them coming on and she alerts her who will escort her to a chair or a bed. She becomes unresponsive and develops numbness in her left arm. She states that these episodes are due to her "mini strokes" and has been seen by Neurology in the past. 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 She has had a borderline abnormal EEG and was on Keppra in the past although Neurology was not convinced that her unresponsive episode are secondary to seizures. Patient had a Code Purple upon arrival to the floor. Became unresponsive, hypertensive Minimally responsive for several minutes CT Head, CTA Head and Neck and repeat blood work including prolactin ordered Allergies Allergy/AdvReac Type Severity Reaction Status Date / Time codeine Allergy Intermediate HYPERACTIVE, Verified 04/05/24 14:08 HIVES/SYNCOPE enoxaparin Allergy Intermediate syncope Verified 04/05/24 14:08 fluorouracil Allergy Intermediate Hives Verified 04/05/24 14:08 potassium Allergy Mild IV Verified 04/05/24 14:08 potassium caused hypotension Home Medications Medication Instructions Recorded Confirmed Type cholecalciferol (vitamin D3) 125 5,000 unit PO 3XWK 03/20/19 04/05/24 History mcg (5,000 unit) tablet ondansetron HCl 4 mg tablet 4 mg PO Q4H PRN nausea and 06/17/19 04/05/24 Rx (Zofran) vomiting #20 tabs fexofenadine 180 mg tablet 180 mg PO QAM 09/03/20 04/05/24 History cyanocobalamin (vitamin B-12) 1,000 mcg PO DAILY 01/29/21 04/05/24 History 1,000 mcg tablet gabapentin 100 mg capsule 200 mg (2 x 100 mg) PO HS #180 caps 04/02/23 04/05/24 Rx blood sugar diagnostic (FreeStyle #200 ea 04/22/23 04/05/24 Rx Lite Strips) meclizine 25 mg tablet See Rx Instructions .Route 06/13/23 04/05/24 Rx .COMPLEX #90 tabs albuterol sulfate 90 mcg/actuation 1 puff inhalation Q4 PRN Wheezing 06/25/23 04/05/24 Rx aerosol inhaler #20.1 grams insulin glargine 100 unit/mL (3 See Rx Instructions subcut HS #30 08/13/23 04/05/24 Rx mL) subcutaneous pen (Lantus mL Solostar U-100 Insulin) apixaban 2.5 mg tablet 2.5 mg PO BID #180 tabs 08/27/23 04/05/24 Rx omeprazole 20 mg capsule,delayed 20 mg PO QAM #90 caps 10/13/23 04/05/24 Rx release folic acid 1 mg tablet 1 mg PO QAM #90 tabs 11/06/23 04/05/24 Rx labetalol 100 mg tablet 50 mg (1/2 x 100 mg) PO Q12H #90 11/14/23 04/05/24 Rx tabs montelukast 10 mg tablet See Rx Instructions .Route 11/16/23 04/05/24 Rx .COMPLEX #90 tabs lancing device #1 ea 01/09/24 04/05/24 Rx atorvastatin 20 mg tablet 20 mg PO DAILY #90 tabs 01/29/24 04/05/24 Rx levothyroxine 88 mcg tablet 88 mcg PO DAILY #90 tabs 01/29/24 04/05/24 Rx pen needle, diabetic 32 gauge x #400 ea 03/16/24 04/05/24 Rx 5/32" (BD Ultra-Fine Jayleen Pen Needle) olmesartan 40 mg tablet 40 mg PO DAILY #90 tabs 03/18/24 04/05/24 Rx lancets 28 gauge (FreeStyle #200 ea 03/24/24 04/05/24 Rx Lancets) clopidogrel 75 mg tablet 75 mg PO QAM #90 tabs 04/01/24 04/05/24 Rx Past Med/Surg History Problem List Hypertension (Acute) Recurrent syncope (Acute) Left-sided chest pain (Acute) Carotid artery aneurysm Idiopathic polyneuropathy Gait disorder Bilateral tinnitus Sensorineural hearing loss (SNHL) of both ears Dysphonia H/O: stroke Decreased hearing Dysphasia B12 deficiency 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 (CVA) Daytime somnolence Snoring Gastroparesis Anxiety Paroxysmal atrial fibrillation Thrombocytopenia (Acute) History of loop recorder Hiatal hernia Fibromuscular hyperplasia of left carotid artery Aneurysm of left carotid artery Pseudoaneurysm, Neurosurg AT [facility] Hypothyroidism Chronic kidney disease, stage III (moderate) Hypertension Vitamin D deficiency History of Randolph fundoplication 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 Jane 03/08/20 Constipation Fibromuscular dysplasia of both carotid arteries Atrial ectopy Cryptogenic stroke Esophageal thickening CT scan 12/14/2020 Left-sided weakness Medical History Progressive bulbar palsy Sequela of lacunar infarction Sensorineural hearing loss (SNHL) of both ears Speech abnormality Seizure-like activity Discharge planning issues DVT prophylaxis Bradycardia Syncope Chest discomfort Encounter for interrogation of cardiac recorder Belching Nausea Lung nodule Chest discomfort Uncontrolled insulin-treated type 2 diabetes mellitus Idiopathic thrombocytopenia purpura referred to heme/onc for evaluation of thrombocytopenia- clinical picture suggestive of ITP - started on steroid therapy Umbilical hernia without obstruction and without gangrene Diabetes mellitus, type 2 IDDM - follows with [facility] endocrine Stroke 1985. MILD [facility] MEMORY LOSS. GERD (gastroesophageal reflux disease) Hiatal hernia Hyperlipemia TIA (transient ischemic attack) MULTIPLE. MOST RECENT 10/2020 >FOLLOWED UP WITH PCP>FACIAL NUMBNESS AND SHORT PERIOD OF NOT BEING ABLE TO TALK. (REASON FOR PLAVIX) Asthma INHALER PRN>HAS NOT USED FOR A WHILE Arthritis Surgical History History of loop recorder IMPLANTED NOVEMBER 2020 H/O umbilical hernia repair History of repair of hiatal hernia (06/16/19) Robotic assisted Laparoscopic repair of hiatal hernia with prosthetic bio- absorbable mesh, randolph Fundoplication Esophagogastroduoedenoscopy Dr. Mueller 06/16/19 History of colonoscopy History of total knee replacement BILATERAL AND A STEEL JAD IN RIGHT LEG D/T CURVATURE History of esophagogastroduodenoscopy (EGD) WITH REMOVAL OF ESOPHAGEAL POLYPS History of appendectomy History of esophageal dilatation History of ankle surgery RIGHT H/O dilation and curettage History of tonsillectomy and adenoidectomy Hx of cholecystectomy History of total abdominal hysterectomy and bilateral salpingo-oophorectomy Family History Unknown Osteoporosis Mother Rheumatoid arthritis Family history of diabetes mellitus History of nephrectomy Stroke syndrome Hypertension Stroke Aunt Rheumatoid arthritis Father Heart disease Myocardial infarction Hx of CABG Hypertension Brother Acute myocardial infarction Myocardial infarction Other No family history of adverse response to anesthesia No family history of bleeding disorder Denies family history of Ovarian cancer Prostate cancer Clotting disorder Breast cancer Social History Smoking Status: Never smoker Second Hand Exposure: No; Do You Dip or Chew Tobacco: No; Hx Alcohol Use: No Hx Substance Use: No Preferred Language: Malaysian Communication Ability: Effective Visual Impairment: No Limitations Hearing Ability: Normal Aluminum Polisher Required: No Beliefs That Will Affect Care: None marital status: Current Living Situation: Family Current Living Situation Comment: Home w/ current occupational status: 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 How many Children do You have: 4 Other Information That Helps Us Care for You: No Feels Safe at Home: Yes Safety Concerns: Feels Safe At This Time Childhood Exposure to Second-Hand Smoke: Yes Dental Care, Regularly: No Physical Activity Frequency: Daily Seatbelt Use: always Sunscreen Use: No Assistive Devices: Cane, Denture - Upper, Denture - Lower, Glasses, Hearing Aid - Bilateral and Walker Review of Systems Review of Systems: All systems reviewed & are unremarkable except as noted in HPI & below Physical Exam Physical Exam: General: patient resting comfortably, NAD, non-toxic in appearance, mildly dysarthric speech Skin: warm, dry, intact, no rashes or lesions HEENT: NC/AT, PERRL, EOMI, anicteric sclera, conjunctiva without injection, external ear normal to inspection and nontender, nares patent, moist mucus membranes, dentition intact, no oropharyngeal lesions, neck supple, trachea midline, no LAD, no thyromegaly, no JVD Heart: +S1/S2, regular, no m/r/g, +reproducible chest wall pain which is similar to presenting discomfort Lungs: equal air entry bilaterally, no rales/rhonchi/wheezes Abd: +BS, soft, NT/ND, no masses/organomegaly/ascites Ext: warm, 2+ pulses in UE/LE bilaterally, no clubbing/cyanosis or edema Neuro: mild weakness of LUE, mild dysarthria Results & Data Results & Data Vital Signs (Past 12 Hours) Vital Signs Temp Pulse Resp BP Pulse Ox O2 Del Method O2 Flow Rate 05/14/24 19:30 60 14 191/82 H 97 05/14/24 19:06 60 12 191/82 H 97 05/14/24 17:33 59 L 11 L 201/92 H 99 05/14/24 17:24 58 L 15 208/81 H 100 Nasal Cannula 2 05/14/24 17:00 64 19 221/91 H 99 05/14/24 16:40 62 05/14/24 16:20 36.8 C 59 L 17 207/98 H 95 Room Air Laboratory Results Laboratory Results WBC 4.81 K/ul (4.8-10.8) 05/15/24 01:54 RBC 3.35 M/uL (4.20-5.40) L 05/15/24 01:54 Hgb 10.7 g/dl (12.0-16.0) L 05/15/24 01:54 Hct 31.4 % (37.0-47.0) L 05/15/24 01:54 MCV 93.7 fL (80.0-100.0) 05/15/24 01:54 MCH 31.9 pg (25.0-34.0) 05/15/24 01:54 MCHC 34.1 g/dL (32.0-36.0) 05/15/24 01:54 RDW Std Deviation 42.9 fL (36.4-46.3) 05/15/24 01:54 RDW Coeff of [place] 12.5 % (11.5-14.5) 05/15/24 01:54 Plt Count 78 K/uL (130-400) L 05/15/24 01:54 MPV 10.8 fL (9.4-12.4) 05/15/24 01:54 Immature Gran % (Auto) 0.2 % 05/15/24 01:54 Neut % (Auto) 41.7 % 05/15/24 01:54 Lymph % (Auto) 48.4 % 05/15/24 01:54 [place] % (Auto) 5.4 % 05/15/24 01:54 Eos % (Auto) 3.7 % 05/15/24 01:54 Baso % (Auto) 0.6 % 05/15/24 01:54 Neut # (Auto) 2.00 K/uL (1.40-6.50) 05/15/24 01:54 Lymph # (Auto) 2.33 K/uL (1.20-3.40) 05/15/24 01:54 [place] # (Auto) 0.26 K/uL (0.11-0.59) 05/15/24 01:54 Eos # (Auto) 0.18 K/uL (0.00-0.50) 05/15/24 01:54 Baso # (Auto) 0.03 K/uL (0.00-0.20) 05/15/24 01:54 Immature Gran # (Auto) 0.01 K/uL (0.01-0.20) 05/15/24 01:54 PT 11.4 Seconds (9.0-12.0) 05/14/24 16:10 INR 1.1 (0.9-1.1) 05/14/24 16:10 APTT 27 Seconds (21-31) 05/14/24 16:10 PTT Ratio 1.0 05/14/24 16:10 Sodium 140 mmol/L (136-145) 05/15/24 01:54 Potassium 3.8 mmol/L (3.5-5.1) 05/15/24 01:54 Chloride 109 mmol/L (98-107) H 05/15/24 01:54 Carbon Dioxide 27 mmol/L (21-32) 05/15/24 01:54 Anion Gap 4 (3-11) 05/15/24 01:54 BUN 14 mg/dl (6-23) 05/15/24 01:54 Creatinine 1.61 mg/dl (0.6-1.2) H 05/15/24 01:54 Est Cr Clr Drug Dosing 28.2 ml/min 05/15/24 01:54 Est GFR ( Amer) 33.9 ml/min 05/15/24 01:54 Est GFR (Non-Af Amer) 29.3 ml/min 05/15/24 01:54 BUN/Creatinine Ratio 8.7 (10-20) L 05/15/24 01:54 Glucose 171 mg/dl (70-99(Fasting)) H 05/15/24 01:54 POC Glucose 170 mg/dl (70-99) H 05/15/24 01:41 Calcium 8.8 mg/dl (8.6-10.3) 05/15/24 01:54 Magnesium 1.8 mg/dl (1.7-2.4) 05/14/24 16:10 Total Bilirubin 0.6 mg/dl (0.2-1.0) 05/15/24 01:54 AST 21 U/L (13-39) 05/15/24 01:54 ALT 14 U/L (7-52) 05/15/24 01:54 Alkaline Phosphatase 87 U/L (34-104) 05/15/24 01:54 Troponin I High Sens 8.3 pg/ml (0-14) 05/15/24 01:54 Total Protein 5.9 gm/dl (6.0-8.3) L 05/15/24 01:54 Albumin 3.2 gm/dl (3.4-5.0) L 05/15/24 01:54 Globulin 2.7 gm/dl (2.5-4.0) 05/15/24 01:54 Albumin/Globulin Ratio 1.2 (0.9-2) 05/15/24 01:54 Prolactin 7.85 ng/ml 05/15/24 01:54 Impressions Chest X-Ray 05/14/24 16:19 XR chest 1V not portable HISTORY: 83 years-old Female Chest pain, nonspecific COMPARISON: 06/05/2021 TECHNIQUE: AP view of the chest FINDINGS: Cardiac silhouette is enlarged. Loop recorder device. Calcified plaque of the thoracic aorta. No pneumothorax, pleural effusion, airspace consolidation or overt pulmonary edema. Degenerative changes of the shoulders and spine. Mild mid thoracic dextroscoliosis. Mild right hemidiaphragmatic elevation. IMPRESSION: Cardiomegaly without acute process. ACT 112: Negative or not required by law. The above report was generated using voice recognition software. It may contain grammatical, syntax or spelling errors. Electronically signed by: Francis Banda M.D. 05/14/2024 5:[address] 05/15/24 01:42 Exam(s): CT HEAD Without Contrast EXAM: CT Head Without Intravenous Contrast CLINICAL HISTORY: Reason for exam: confusion,. TECHNIQUE: Axial computed tomography images of the head/brain without intravenous contrast. CTDI is 35.37 mGy and DLP is 974.33 mGy-cm. Automated exposure control was utilized for the study. A dose lowering technique was utilized adhering to the principles of ALARA. COMPARISON: Prior head CT from May 14, 2024. FINDINGS: Brain: Unremarkable. No hemorrhage. No significant white matter disease. No edema. Ventricles: Unremarkable. No ventriculomegaly. Bones/joints: Hyperostosis frontalis interna. No acute fracture. Soft tissues: Unremarkable. Sinuses: Unremarkable as visualized. No acute sinusitis. Mastoid air cells: Small amount of fluid in the right mastoid air cells. No mastoid effusion. IMPRESSION: No evidence of acute intracranial pathology. Electronically signed by: Mary Alonso MD 05/15/24 04:44 AM Head CTA 05/15/24 01:48 Exam(s): CTA HEAD With Contrast IV Amt: 119 ML EXAM: CT Angiography Head With Intravenous Contrast CLINICAL HISTORY: Reason for exam: confusion, stroke like symptoms. TECHNIQUE: Axial computed tomographic angiography images of the head with intravenous contrast. CTDI is 35.37 mGy and DLP is 974.33 mGy-cm. Automated exposure control was utilized for the study. A dose lowering technique was utilized adhering to the principles of ALARA. MIP reconstructed images were created and reviewed. CONTRAST: Patient received 119 ML of IV contrast COMPARISON: Prior head CT from the 2020. FINDINGS: The dural venous sinuses are patent. Right internal carotid artery: No acute findings. Intracranial segment is patent with no significant stenosis. No aneurysm. Right anterior cerebral artery: Unremarkable. No occlusion or significant stenosis. No aneurysm. Right middle cerebral artery: Unremarkable. No occlusion or significant stenosis. No aneurysm. Right posterior cerebral artery: Unremarkable. No occlusion or significant stenosis. No aneurysm. Right vertebral artery: Unremarkable as visualized. Left internal carotid artery: No acute findings. Intracranial segment is patent with no significant stenosis. No aneurysm. Left anterior cerebral artery: Unremarkable. No occlusion or significant stenosis. No aneurysm. Left middle cerebral artery: Unremarkable. No occlusion or significant stenosis. No aneurysm. Left posterior cerebral artery: Unremarkable. No occlusion or significant stenosis. No aneurysm. Left vertebral artery: Unremarkable as visualized. Basilar artery: Unremarkable. No occlusion or significant stenosis. No aneurysm. IMPRESSION: Negative CT angiogram of the head. Electronically signed by: Mary Alonso MD 05/15/24 04:40 AM Neck CTA 05/15/24 01:48 Exam(s): CTA NECK With Contrast IV Amt: 119 ML EXAM: CT Angiography Neck With Intravenous Contrast CLINICAL HISTORY: Reason for exam: confusion. TECHNIQUE: Routine carotid CT angiography protocol was performed with intravenous contrast. NASCET criteria using the distal ICAs for comparison were used for evaluation of stenoses. CTDI is 35.37 mGy and DLP is 974.33 mGy-cm. Automated exposure control was utilized for the study. A dose lowering technique was utilized adhering to the principles of ALARA. MIP reconstructed images were created and reviewed. CONTRAST: Patient received 119 ML of IV contrast COMPARISON: Prior MRA of the neck from May 24, 2022. FINDINGS: VASCULATURE: Right common carotid artery: Unremarkable. No occlusion or significant stenosis. No dissection. Right internal carotid artery: There is a 50% stenosis of the proximal right ICA.. No dissection. Right external carotid artery: Unremarkable. No occlusion. Right vertebral artery: Unremarkable. No occlusion or significant stenosis. No dissection. Left common carotid artery: Unremarkable. No occlusion or significant stenosis. No dissection. Left internal carotid artery: Unremarkable. Extracranial segment is patent with no occlusion or significant stenosis. No dissection. Left external carotid artery: Unremarkable. No occlusion. Left vertebral artery: Unremarkable. No occlusion or significant stenosis. No dissection. NECK: Bones/joints: There is a critical spinal canal stenosis at C6-7. Recommend MRI of the cervical spine to evaluate for myelopathy. No acute fracture. Soft tissues: Unremarkable. Lung apices: Clear. CAROTID STENOSIS REFERENCE USING NASCET CRITERIA: % ICA stenosis = (1 - narrowest ICA diameter/diameter of distal cervical ICA) x 100. Mild - <50% stenosis. Moderate - 50-69% stenosis. Severe - 70-94% stenosis. Near occlusion - 95-99% stenosis. Occluded - 100% stenosis. IMPRESSION: There is a 50% stenosis of the proximal right ICA. Electronically signed by: Mary Alonso MD 05/15/24 04:50 AM ECG Additional Comments: EKG with no acute ischemic changes PG Care Time/CCT Total # of Minutes Spent Total Time Spent with Patient: Total time spent is greater than 50% in coordination of care (as documented) at patient's floor/unit and/or counseling patient: Prolonged Care Time 25 minutes -An additional 25 minutes of care time was spent with the patient in response to her Code Purple. Patient was evaluated at bedside - EKG, repeat images and labs ordered Studies independently viewed and interpreted by me Patient re-evaluated several times Coding Level of Care Code 34717 INT INP/OBS CARE 3/75MIN Diagnoses Chest pain R07.9 Chest pain type: unspecified HTN (hypertension) I10 Syncope R55 (1) Chest pain Chest pain type: unspecified Qualified Code(s): R07.9 - Chest pain, unspecified
[2024-05-14] MEDS ORDERED: DEXTROSE 50% 50 ML SYRINGE IV PRN (23:27)
[2024-05-14] MEDS ORDERED: CARBOHYDRATES FOR HYPOGLYCEMIA PO PRN (23:27)
[2024-05-14] MEDS ORDERED: ONDANSETRON INJ 2 MG/ML 2 ML VIAL IV PRN (23:27)
[2024-05-14] MEDS ORDERED: GLUCOSE 40% GEL 15 GM TUBE PO PRN (23:27)
[2024-05-14] MEDS ORDERED: GLUCOSE 10 TAB/TUBE PO PRN (23:27)
[2024-05-14] MEDS ORDERED: GLUCAGON FOR INJ 1 MG VIAL SQ PRN (23:27)
[2024-05-14] MEDS: ACETAMINOPHEN 500 MG TAB PO SCH (23:58)
[2024-05-14] MEDS: KETOROLAC TROMETHAMINE 15 MG/ML VIAL IV ONE (23:58)
[2024-05-14] MEDS: LIDOCAINE 5% 1 PATCH TD STA (23:59)
[2024-05-14] MEDS: LABETALOL HCL 100 MG TAB PO SCH (23:59)
[2024-05-14] MEDS: APIXABAN 2.5 MG TAB PO SCH (23:59)
[2024-05-14] MEDS ORDERED: ALBUTEROL HFA 8 GM INHALER INH PRN (23:59)
[2024-05-15] MEDS: INSULIN ASPART PER UNIT CHARGE SC SCH (00:23)
[2024-05-15] MEDS: hydrALAZINE 10 MG TAB PO PRN (01:17)
[2024-05-15] MEDS: OPTIRAY 320 125ml IV ONE (02:08)
[2024-05-15 02:28] LABS: Basophils # (auto) 0.03 K/uL (0.00-0.20); Basophils % (auto) 0.6 %; Eosinophils # (auto) 0.18 K/uL (0.00-0.50); Eosinophils % (auto) 3.7 %; Hematocrit (blood only) 31.4 % (37.0-47.0); Hemoglobin 10.7 g/dl (12.0-16.0); Immature Granulocytes # (auto) 0.01 K/uL (0.01-0.20); Immature Granulocytes % (auto) 0.2 %; Lymphocytes # (auto) 2.33 K/uL (1.20-3.40); Lymphocytes % (auto) 48.4 %; Mean Corpuscular Hemoglobin 31.9 pg (25.0-34.0); Mean Corpuscular Hgb Conc 34.1 g/dL (32.0-36.0); Mean Corpuscular Volume 93.7 fL (80.0-100.0); Mean Platelet Volume 10.8 fL (9.4-12.4); Monocytes # (auto) 0.26 K/uL (0.11-0.59); Monocytes % (auto) 5.4 %; Neutrophils % (auto) 41.7 %; Platelet Count 78 K/uL (130-400); RDW Coefficient of Variation 12.5 % (11.5-14.5); RDW Standard Deviation 42.9 fL (36.4-46.3); Red Blood Count 3.35 M/uL (4.20-5.40); White Blood Count 4.81 K/ul (4.8-10.8)
[2024-05-15 02:57] LABS: Albumin Globulin Ratio 1.2 (0.9-2); Albumin Level 3.2 gm/dl (3.4-5.0); BUN Creatinine Ratio 8.7 (10-20); Bilirubin,Total 0.6 mg/dl (0.2-1.0); Calcium 8.8 mg/dl (8.6-10.3); Creatinine Clr Calc Pharmacy 28.2 ml/min; Est GFR (African American) 33.9 ml/min; Est GFR (Non-African American) 29.3 ml/min; Globulin 2.7 gm/dl (2.5-4.0); Potassium 3.8 mmol/L (3.5-5.1); Total Protein 5.9 gm/dl (6.0-8.3)
[2024-05-15 03:02] LABS: Troponin I High Sensitivity 8.3 pg/ml (0-14)
--- NOTE | 2024-05-15 04:41 | CT Scan Report ---
Exam(s): CTA HEAD With Contrast IV Amt: 119 ML EXAM: CT Angiography Head With Intravenous Contrast CLINICAL HISTORY: Reason for exam: confusion, stroke like symptoms. TECHNIQUE: Axial computed tomographic angiography images of the head with intravenous contrast. CTDI is 35.37 mGy and DLP is 974.33 mGy-cm. Automated exposure control was utilized for the study. A dose lowering technique was utilized adhering to the principles of ALARA. MIP reconstructed images were created and reviewed. CONTRAST: Patient received 119 ML of IV contrast COMPARISON: Prior head CT from the 2020. FINDINGS: The dural venous sinuses are patent. Right internal carotid artery: No acute findings. Intracranial segment is patent with no significant stenosis. No aneurysm. Right anterior cerebral artery: Unremarkable. No occlusion or significant stenosis. No aneurysm. Right middle cerebral artery: Unremarkable. No occlusion or significant stenosis. No aneurysm. Right posterior cerebral artery: Unremarkable. No occlusion or significant stenosis. No aneurysm. Right vertebral artery: Unremarkable as visualized. Left internal carotid artery: No acute findings. Intracranial segment is patent with no significant stenosis. No aneurysm. Left anterior cerebral artery: Unremarkable. No occlusion or significant stenosis. No aneurysm. Left middle cerebral artery: Unremarkable. No occlusion or significant stenosis. No aneurysm. Left posterior cerebral artery: Unremarkable. No occlusion or significant stenosis. No aneurysm. Left vertebral artery: Unremarkable as visualized. Basilar artery: Unremarkable. No occlusion or significant stenosis. No aneurysm. IMPRESSION: Negative CT angiogram of the head. Electronically signed by: Mary Alonso MD 05/15/24 04:40 AM
--- NOTE | 2024-05-15 04:44 | CT Scan Report ---
Exam(s): CT HEAD Without Contrast EXAM: CT Head Without Intravenous Contrast CLINICAL HISTORY: Reason for exam: confusion,. TECHNIQUE: Axial computed tomography images of the head/brain without intravenous contrast. CTDI is 35.37 mGy and DLP is 974.33 mGy-cm. Automated exposure control was utilized for the study. A dose lowering technique was utilized adhering to the principles of ALARA. COMPARISON: Prior head CT from May 14, 2024. FINDINGS: Brain: Unremarkable. No hemorrhage. No significant white matter disease. No edema. Ventricles: Unremarkable. No ventriculomegaly. Bones/joints: Hyperostosis frontalis interna. No acute fracture. Soft tissues: Unremarkable. Sinuses: Unremarkable as visualized. No acute sinusitis. Mastoid air cells: Small amount of fluid in the right mastoid air cells. No mastoid effusion. IMPRESSION: No evidence of acute intracranial pathology. Electronically signed by: Mary Alonso MD 05/15/24 04:44 AM
--- NOTE | 2024-05-15 04:51 | CT Scan Report ---
Exam(s): CTA NECK With Contrast IV Amt: 119 ML EXAM: CT Angiography Neck With Intravenous Contrast CLINICAL HISTORY: Reason for exam: confusion. TECHNIQUE: Routine carotid CT angiography protocol was performed with intravenous contrast. NASCET criteria using the distal ICAs for comparison were used for evaluation of stenoses. CTDI is 35.37 mGy and DLP is 974.33 mGy-cm. Automated exposure control was utilized for the study. A dose lowering technique was utilized adhering to the principles of ALARA. MIP reconstructed images were created and reviewed. CONTRAST: Patient received 119 ML of IV contrast COMPARISON: Prior MRA of the neck from May 24, 2022. FINDINGS: VASCULATURE: Right common carotid artery: Unremarkable. No occlusion or significant stenosis. No dissection. Right internal carotid artery: There is a 50% stenosis of the proximal right ICA.. No dissection. Right external carotid artery: Unremarkable. No occlusion. Right vertebral artery: Unremarkable. No occlusion or significant stenosis. No dissection. Left common carotid artery: Unremarkable. No occlusion or significant stenosis. No dissection. Left internal carotid artery: Unremarkable. Extracranial segment is patent with no occlusion or significant stenosis. No dissection. Left external carotid artery: Unremarkable. No occlusion. Left vertebral artery: Unremarkable. No occlusion or significant stenosis. No dissection. NECK: Bones/joints: There is a critical spinal canal stenosis at C6-7. Recommend MRI of the cervical spine to evaluate for myelopathy. No acute fracture. Soft tissues: Unremarkable. Lung apices: Clear. CAROTID STENOSIS REFERENCE USING NASCET CRITERIA: % ICA stenosis = (1 - narrowest ICA diameter/diameter of distal cervical ICA) x 100. Mild - <50% stenosis. Moderate - 50-69% stenosis. Severe - 70-94% stenosis. Near occlusion - 95-99% stenosis. Occluded - 100% stenosis. IMPRESSION: There is a 50% stenosis of the proximal right ICA. Electronically signed by: Mary Alonso MD 05/15/24 04:50 AM
[2024-05-15] MEDS ORDERED: hydrALAZINE HCL 25 MG TAB PO PRN (06:04)
[2024-05-15] MEDS: LEVOTHYROXINE SODIUM 88 MCG TABLET PO SCH (06:30)
--- NOTE | 2024-05-15 09:45 | Neurology Consultation ---
Date of Consultation May 15, 2024 Assessment & Plan (1) Observed seizure-like activity: (2) Recurrent syncope: (3) H/O: stroke: (4) Progressive bulbar palsy: (5) Fibromuscular dysplasia of both carotid arteries: (6) Carotid artery aneurysm: Plan 83-year-old female with progressive bulbar palsy characterized by severe dysarthria, mild to moderate dysphagia, atrial fibrillation, on Eliquis, history of stroke with residual left-sided hemisensory deficit, recurrent episodes of unresponsiveness which have been occurring intermittently over the past few years, often preceded by left upper extremity paresthesia, spasm or twitching of the left facial musculature, followed by collapse without observed tonic-clonic activity. Collapse associated with unresponsiveness, often brief, less than 1 minute, often times recurrent. Recent episode was associated with chest pain and occurred while at a cardiology appointment yesterday. She had a very similar episode while having an EMG in our office in February 2023. She has had an abnormal EEG previously. Although a trial of levetiracetam had previously been recommended, this medication was never started as there was some uncertainty at that time as to whether the episodes were truly seizures or related to vasovagal syncope. She has had a loop recorder for several years, she does have atrial fibrillation and is prescribed apixaban. 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 At this point, I would recommend starting an antiseizure medication. Would recommend Keppra 500 mg twice daily. Would also recommend ambulatory EEG monitoring which can be arranged as an outpatient. Patient may continue with apixaban, atorvastatin, clopidogrel, and gabapentin. She does not require another brain MRI at this time. She may follow-up with myself or an MELY in neurology clinic in 2 to 3 weeks. Please call with any questions. History of Present Illness Reason for Consultation: recurrent unresponsive episodes Requesting Physician: tanisha Attending Physician: Raymundo Vickers MD History of Present Illness The patient is an 83-year-old female who is known to me. She has a history of chronic infarcts including a chronic right carlos radiata infarct with residual left heminumbness, bilateral fibromuscular dysplasia of the cervical internal carotid arteries, mild aneurysmal dilatation of the distal left cervical internal carotid artery, recurrent episodes of unresponsiveness which began several years ago. Some of these episodes are preceded by numbness and tingling of the left arm, spreading from the hand proximally, her spouse has observed some drawing up or spasm of the left facial musculature prior to these episodes. The associated collapse, loss of consciousness is typically brief, less than 1 minute. She has not exhibited any tonic-clonic activity. These episodes are sometimes triggered by stress, pain, discomfort. She had an episode occur while having an EMG in our office in February 2023. EMS was summoned and she was taken to the [facility] emergency department at that time for further evaluation. According to her spouse, she has had occasional episodes while at home, occurring without obvious trigger, few times per month. She had another similar episode while at a cardiology appointment yesterday, 3 brief episodes of unresponsiveness in the context of squeezing chest pain. She has had a loop recorder since December 2020, history of paroxysmal atrial fibrillation, on [facility]. An EEG completed during an admission to [facility] in May 2021 revealed fairly continuous left temporal 5 Hz slowing and associated sharply contoured waveforms. I suggested starting Keppra at that time, although given that the episodes at that time were felt to be more consistent with syncope, perhaps provoked by stress, this medication was not provided at time of discharge. I had last seen her in neurology clinic February 13, 2024 for routine follow-up. 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 We have been monitoring her fibromuscular dysplasia and carotid artery aneurysm, history of chronic stroke with residual symptoms, as well as diabetic peripheral neuropathy for which she is prescribed gabapentin. She did have a CT of the head and CTA of the head and neck completed overnight. There is no evidence of hemorrhage or acute process. No occlusive lesion identified on CT angiography. There is a chronic lacunar infarct within the right carlos radiata and frontal lobe atrophy, no hydrocephalus. Allergies Allergy/AdvReac Type Severity Reaction Status Date / Time codeine Allergy Intermediate HYPERACTIVE, Verified 04/05/24 14:08 HIVES/SYNCOPE enoxaparin Allergy Intermediate syncope Verified 04/05/24 14:08 fluorouracil Allergy Intermediate Hives Verified 04/05/24 14:08 potassium Allergy Mild IV Verified 04/05/24 14:08 potassium caused hypotension Home Medications Medication Instructions Recorded Confirmed Type cholecalciferol (vitamin D3) 125 5,000 unit PO 3XWK 07/13/19 09/07/24 History mcg (5,000 unit) tablet fexofenadine 180 mg tablet 180 mg PO QAM 09/03/20 05/15/24 History cyanocobalamin (vitamin B-12) 1,000 mcg PO DAILY 01/29/21 05/15/24 History 1,000 mcg tablet gabapentin 100 mg capsule 200 mg (2 x 100 mg) PO HS #180 caps 04/02/23 05/15/24 Rx blood sugar diagnostic (FreeStyle #200 ea 04/22/23 04/05/24 Rx Lite Strips) meclizine 25 mg tablet See Rx Instructions .Route 06/13/23 05/15/24 Rx .COMPLEX #90 tabs albuterol sulfate 90 mcg/actuation 1 puff inhalation Q4 PRN Wheezing 06/25/23 05/15/24 Rx aerosol inhaler #20.1 grams apixaban 2.5 mg tablet 2.5 mg PO BID #180 tabs 08/27/23 05/15/24 Rx omeprazole 20 mg capsule,delayed 20 mg PO QAM #90 caps 10/13/23 05/15/24 Rx release folic acid 1 mg tablet 1 mg PO QAM #90 tabs 11/06/23 05/15/24 Rx labetalol 100 mg tablet 50 mg (1/2 x 100 mg) PO Q12H #90 11/14/23 05/15/24 Rx tabs montelukast 10 mg tablet See Rx Instructions .Route 11/16/23 05/15/24 Rx .COMPLEX #90 tabs lancing device #1 ea 01/09/24 04/05/24 Rx atorvastatin 20 mg tablet 20 mg PO DAILY #90 tabs 01/29/24 05/15/24 Rx levothyroxine 88 mcg tablet 88 mcg PO DAILY #90 tabs 01/29/24 05/15/24 Rx pen needle, diabetic 32 gauge x #400 ea 03/16/24 04/05/24 Rx 5/32" (BD Ultra-Fine Jayleen Pen Needle) olmesartan 40 mg tablet 40 mg PO DAILY #90 tabs 03/18/24 05/15/24 Rx lancets 28 gauge (FreeStyle #200 ea 03/24/24 04/05/24 Rx Lancets) clopidogrel 75 mg tablet 75 mg PO QAM #90 tabs 04/01/24 05/15/24 Rx insulin glargine 100 unit/mL (3 22 - 30 unit subcut HS 05/15/24 05/15/24 History mL) subcutaneous pen (Lantus Solostar U-100 Insulin) Patient History Medical History Progressive bulbar palsy Sequela of lacunar infarction Sensorineural hearing loss (SNHL) of both ears Speech abnormality Seizure-like activity Discharge planning issues DVT prophylaxis Bradycardia Syncope Chest discomfort Encounter for interrogation of cardiac recorder Belching Nausea Lung nodule Chest discomfort Uncontrolled insulin-treated type 2 diabetes mellitus Idiopathic thrombocytopenia purpura referred to heme/onc for evaluation of thrombocytopenia- clinical picture suggestive of ITP - started on steroid therapy Umbilical hernia without obstruction and without gangrene Diabetes mellitus, type 2 IDDM - follows with [facility] Stroke 1985. MILD LONG-TERM MEMORY LOSS. GERD (gastroesophageal reflux disease) Hiatal hernia Hyperlipemia TIA (transient ischemic attack) MULTIPLE. MOST RECENT 10/2020 >FOLLOWED UP WITH PCP>FACIAL NUMBNESS AND SHORT PERIOD OF NOT BEING ABLE TO TALK. (REASON FOR PLAVIX) Asthma INHALER PRN>HAS NOT USED FOR A WHILE Arthritis Surgical History History of loop recorder IMPLANTED NOVEMBER 2020 H/O umbilical hernia repair History of repair of hiatal hernia (06/16/19) Robotic assisted Laparoscopic repair of hiatal hernia with prosthetic bio- absorbable mesh, robert Fundoplication Esophagogastroduoedenoscopy Dr. Mueller 06/16/19 History of colonoscopy History of total knee replacement BILATERAL AND A STEEL JAD IN RIGHT LEG D/T CURVATURE History of esophagogastroduodenoscopy (EGD) WITH REMOVAL OF ESOPHAGEAL POLYPS History of appendectomy History of esophageal dilatation History of ankle surgery RIGHT H/O dilation and curettage History of tonsillectomy and adenoidectomy Hx of cholecystectomy History of total abdominal hysterectomy and bilateral salpingo-oophorectomy Family History Unknown Osteoporosis Mother Rheumatoid arthritis Family history of diabetes mellitus History of nephrectomy Stroke syndrome Hypertension Stroke Aunt Rheumatoid arthritis Father Heart disease Myocardial infarction Hx of CABG Hypertension Brother Acute myocardial infarction Myocardial infarction Other No family history of adverse response to anesthesia No family history of bleeding disorder Denies family history of Ovarian cancer Prostate cancer Clotting disorder Breast cancer Social History Smoking Status: Never smoker Second Hand Exposure: No; Do You Dip or Chew Tobacco: No; Hx Alcohol Use: No Hx Substance Use: No Preferred Language: Arabic Communication Ability: Effective Visual Impairment: No Limitations Hearing Ability: Normal Electronic Service Technician Required: No Beliefs That Will Affect Care: None marital status: Current Living Situation: Family Current Living Situation Comment: Home w/ current occupational status: 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 How many Children do You have: 4 Other Information That Helps Us Care for You: No Feels Safe at Home: Yes Safety Concerns: Feels Safe At This Time Childhood Exposure to Second-Hand Smoke: Yes Dental Care, Regularly: No Physical Activity Frequency: Daily Seatbelt Use: always Sunscreen Use: No Assistive Devices: Cane, Denture - Upper, Denture - Lower, Glasses, Hearing Aid - Bilateral and Walker Review of Systems Constitutional: no fever and no chills Eyes: no blind spots and no diplopia Ear, Nose, Mouth, Throat: no hearing loss Respiratory: no cough and no dyspnea Cardiovascular: as per Subjective / HPI and + chest pain Gastrointestinal: no nausea and no vomiting Genitourinary: no urinary incontinence Musculoskeletal: no myalgia Integumentary: no rash and no lesions Neurologic: as per Subjective / HPI, + loss of sensation and + abnormal speech; no headache(s), no confusion and no memory loss Psychiatric: no depression, no irritability and no anxiety Hematologic / Lymphatic: no easy bleeding and no easy bruising Exam (Neuro) Constitutional: well developed; no acute distress Eyes: normal visual brandt by confrontation, PERRL and EOM intact bilaterally; no nystagmus Neurologic: Oriented to:: Person, Place and Time Memory: Short Term Intact and Remote Intact Attention: Span Intact and Concentration Intact Speech Fluency: Dysarthria; negative Dysfluency Speech Aphasia: negative Aphasia Fund of Knowledge: Current Events, Past History and Vocabulary Cranial Nerves: Normal II, III, IV, , VII, VIII, IX, X, XI and XII; Abnorm V Motor Strength: Hemiparesis (Mild) Laterality: Left Motor Tone: Normal Lower Ex tremities and Normal Upper Extremities Muscle Bulk/Involuntary Movements: No Involuntary Movements; negative Muscle Atrophy Sensation: negative Light Touch Intact, Pain/Temperature Intact or Proprioception Intact Coordination: Finger-Nose Abnormal Laterality: Left and Heel-Smith Abnormal Laterality: Left Deep Tendon Reflexes: Rt Triceps: 2+, Lt Triceps: 2+, Rt Biceps: 2+, Lt Biceps: 2+, Rt Brachioradialis: 2+, Lt Brachioradialis: 2+, Rt Patellar: 2+, Lt Patellar: 2+, Rt Ankle: 1+ and Lt Ankle: 1+ Special Tests: Babinski Present (left) Details: Patient has a left hemisensory deficit, face arm and leg Results & Data Vital Signs (Past 12 Hours) Vital Signs Temp Pulse Pulse Resp BP BP Pulse Ox 05/15/24 07:50 36.6 C 53 L 15 146/67 H 97 05/15/24 04:02 36.4 C L 57 L 18 160/76 H 99 05/14/24 23:38 36.6 C 63 18 212/74 H 100 05/14/24 23:38 36.7 C 61 18 191/76 H 99 05/14/24 23:27 61 05/14/24 22:24 60 14 206/59 H 99 05/14/24 21:42 64 18 194/78 H 95 O2 Del Method O2 Flow Rate 05/15/24 07:50 Nasal Cannula 2 05/15/24 04:02 Nasal Cannula 2 05/14/24 23:38 Nasal Cannula 2 05/14/24 23:38 Nasal Cannula 2 05/14/24 23:27 05/14/24 22:24 05/14/24 21:42 Laboratory Results WBC 4.81, hemoglobin 10.7, hematocrit 31.4, platelet count 78, sodium 140, potassium 3.8, BUN 14, creatinine 1.61, glucose 122, calcium 8.8, magnesium 1.8, AST 21, ALT 14, prolactin 7.85 Diagnostic Findings An electrocardiogram reveals a normal sinus rhythm. CT of the head, CTA of the head and neck are as described in the history of present illness, I independently reviewed these images. Previous brain MRI from May 2022 reviewed as well. There is generalized atrophy, disproportionately affecting the bilateral frontal lobes, no hydrocephalus, there is a chronic lacunar infarct within the right carlos radiata. EEG from June 07, 2021 revealed left temporal slowing and sharply contoured waveforms. Coding Level of Care Code 12099 INT INP/OBS CARE 3/75MIN Diagnoses Observed seizure-like activity R56.9 Recurrent syncope R55 H/O: stroke Z86.73 Progressive bulbar palsy G12.22 Fibromuscular dysplasia of both carotid arteries I77.3 Carotid artery aneurysm I72.0 Time Spent (min) 90 Comment Total time includes patient contact, chart review, counseling, note preparation
[2024-05-15] MEDS: FOLIC ACID 1 MG TAB PO SCH (10:09)
[2024-05-15] MEDS: PANTOprazole 40 MG TAB PO SCH (10:09)
[2024-05-15] MEDS: CLOPIDOGREL BISULFATE 75 MG TAB PO SCH (10:09)
[2024-05-15] MEDS: ATORVASTATIN 20 MG TAB PO SCH (10:09)
[2024-05-15] MEDS: LANTUS PER UNIT CHARGE SQ SCH (10:10)
[2024-05-15] MEDS: LOSARTAN POTASSIUM 50 MG TAB PO SCH (10:10)
--- NOTE | 2024-05-15 10:31 | Hospitalist Progress Note ---
Date of Service May 15, 2024 Assessment & Plan (1) Chest pain: Plan: Noncardiac. Reproducible with pressure. Troponin series negative. No acute EKG changes. No evidence of acute coronary syndrome. (2) Progressive bulbar palsy: Plan: With recurrent unresponsive episodes despite normal blood pressure and normal heart rate. No true syncope. Appreciate neurology consultation and recommendations. EEG ordered but doubt seizure disorder. (3) HTN (hypertension): Plan: Elevated on admission. Now improved. Continue losartan and labetalol. (4) Type 2 diabetes mellitus: Plan: ADA diet. Sliding scale coverage. Low-dose Lantus. Avoid hypoglycemia Plan Hopeful discharge back to home within the next day or 2 Admission and Anticipated Discharge Date Admission Date: May 14, 2024 Subjective Alert and oriented. Neurology consultation noted. The patient has progressive bulbar palsy. She takes Eliquis chronically for paroxysmal atrial fibrillation. Normal sinus rhythm on admission. Head CT scan on admission negative for acute findings. Head and neck CTA reveals 50% right ICA stenosis of no clinical consequence at this time. OT and PT assessments have been requested. Fortunately, troponin levels are negative x 3 and no acute EKG changes seen. Chest pain is palpable and noncardiac. OT and PT assessments requested Review of Systems 2 Review of Systems: Constitutionalno fever or chills ENTno blurred vision, no double vision, no epistaxis, no sore throat Respiratoryno cough, no wheezing, no shortness of breath Cardiacno palpitations. Atypical chest discomfort. Recurrent unresponsive episodes with normal blood pressure and normal heart rate. Freddy nausea, vomiting, diarrhea, melena, hematochezia GUno urinary retention, no urinary incontinence, no dysuria, no hematuria Musculoskeletalno joint pain, no muscle tenderness Skinno bruising, no rashes, no pruritus Neurono isolated weakness, no paresthesia. She is having recurrent unresponsive episodes however Psychno depression, no anxiety Physical Exam 2 Physical Exam: General-alert and oriented x3, no fever, no chills HEENT-head atraumatic and normocephalic, pupils equal and reactive to light, extraocular muscles intact Neck-no lymphadenopathy or thyromegaly, trachea midline Chest-clear to auscultation. No rales, wheezing or rhonchi Cardiac-regular rate and rhythm, normal S1 and S2 Abdomen-normal bowel sounds, no hepatosplenomegaly Extremities-no cyanosis, clubbing, or edema Neuro-cranial nerves II through XII intact, motor and sensory function within normal limits, strength symmetrical with generalized weakness consistent with age, no focal deficits Psych-normal affect, normal mood Results & Data Results & Data Vital Signs (Past 12 Hours) Vital Signs Temp Pulse Pulse Resp BP Pulse Ox O2 Del Method 05/15/24 07:50 36.6 C 53 L 15 146/67 H 97 Nasal Cannula 05/15/24 04:02 36.4 C L 57 L 18 160/76 H 99 Nasal Cannula 05/14/24 23:38 36.6 C 63 18 212/74 H 100 Nasal Cannula 05/14/24 23:38 36.7 C 61 18 191/76 H 99 Nasal Cannula 05/14/24 23:27 61 O2 Flow Rate 05/15/24 07:50 2 05/15/24 04:02 2 05/14/24 23:38 2 05/14/24 23:38 2 05/14/24 23:27 Laboratory Results 05/15/24 01:54 05/15/24 01:54 PG Care Time/CCT Total # of Minutes Spent Total Time Spent with Patient: Total time spent is greater than 50% in coordination of care (as documented) at patient's floor/unit and/or counseling patient: Coding Level of Care Code 72483 SUB INP/OBS CARE 3/50MIN Diagnoses Chest pain R07.9 Chest pain type: unspecified Progressive bulbar palsy G12.22 HTN (hypertension) I10 Type 2 diabetes mellitus E11.9 (1) Chest pain Chest pain type: unspecified Qualified Code(s): R07.9 - Chest pain, unspecified
[2024-05-15] MEDS: METOPROLOL TARTRATE 25 MG TAB PO SCH (14:49)
[2024-05-15] MEDS: dilTIAZem HCl 5 MG/ML 5 ML VIAL IV STA (15:17)
--- NOTE | 2024-05-15 16:50 | XCELERA ---
[id number] \\[id number]
[2024-05-15] MEDS: MONTELUKAST SODIUM 10 MG TABLET PO SCH (21:01)
[2024-05-15] MEDS: MECLIZINE HCL 25 MG TAB PO SCH (21:02)
[2024-05-15] MEDS: GABAPENTIN 100 MG CAP PO SCH (21:03)
--- NOTE | 2024-05-16 14:21 | Hospitalist Progress Note ---
Date of Service May 16, 2024 Assessment & Plan (1) Chest pain: Plan: Noncardiac. Reproducible with pressure. Troponin series negative. No acute EKG changes. No evidence of acute coronary syndrome. (2) Progressive bulbar palsy: Plan: With recurrent unresponsive episodes despite normal blood pressure and normal heart rate. No true syncope. Appreciate neurology consultation and recommendations. (3) HTN (hypertension): Plan: Elevated on admission. Now improved. Continue losartan. Labetalol has been switched to metoprolol (4) Type 2 diabetes mellitus: Plan: ADA diet. Sliding scale coverage. Low-dose Lantus. Avoid hypoglycemia (5) Paroxysmal atrial fibrillation: Plan: Rapid ventricular rate when she had atrial fibrillation earlier this admission. Labetalol has been switched to metoprolol. Plan Hopeful discharge back to home tomorrow, May 17 Admission and Anticipated Discharge Date Admission Date: May 14, 2024 Subjective Alert and oriented. No new problems. OT and PT assessments requested and pending. Free T3 and free T4 levels are normal. Labetalol has been switched to metoprolol earlier this admission for better heart rate control with paroxysmal atrial fibrillation. Review of Systems 2 Review of Systems: Constitutionalno fever or chills ENTno blurred vision, no double vision, no epistaxis, no sore throat Respiratoryno cough, no wheezing, no shortness of breath Cardiacno palpitations. Atypical chest discomfort. Recurrent unresponsive episodes with normal blood pressure and normal heart rate. Freddy nausea, vomiting, diarrhea, melena, hematochezia GUno urinary retention, no urinary incontinence, no dysuria, no hematuria Musculoskeletalno joint pain, no muscle tenderness Skinno bruising, no rashes, no pruritus Neurono isolated weakness, no paresthesia. She is having recurrent unresponsive episodes however Psychno depression, no anxiety Physical Exam 2 Physical Exam: General-alert and oriented x3, no fever, no chills HEENT-head atraumatic and normocephalic, pupils equal and reactive to light, extraocular muscles intact Neck-no lymphadenopathy or thyromegaly, trachea midline Chest-clear to auscultation. No rales, wheezing or rhonchi Cardiac-regular rate and rhythm, normal S1 and S2 Abdomen-normal bowel sounds, no hepatosplenomegaly Extremities-no cyanosis, clubbing, or edema Neuro-cranial nerves II through XII intact, motor and sensory function within normal limits, strength symmetrical with generalized weakness consistent with age, no focal deficits Psych-normal affect, normal mood Results & Data Results & Data Vital Signs (Past 12 Hours) Vital Signs Temp Pulse Pulse Resp BP Pulse Ox O2 Del Method 05/16/24 11:28 36.6 C 52 L 16 121/71 100 Nasal Cannula 05/16/24 09:00 67 05/16/24 07:53 36.6 C 53 L 16 155/62 H 100 Nasal Cannula 05/16/24 03:52 36.6 C 72 16 139/69 95 Room Air O2 Flow Rate 05/16/24 11:28 2 05/16/24 09:00 05/16/24 07:53 2 05/16/24 03:52 Laboratory Results 05/15/24 01:54 05/15/24 01:54 PG Care Time/CCT Total # of Minutes Spent Total Time Spent with Patient: Total time spent is greater than 50% in coordination of care (as documented) at patient's floor/unit and/or counseling patient: Coding Level of Care Code 43457 SUB INP/OBS CARE 2/35MIN Diagnoses Chest pain R07.9 Chest pain type: unspecified Progressive bulbar palsy G12.22 HTN (hypertension) I10 Type 2 diabetes mellitus E11.9 Paroxysmal atrial fibrillation I48.0 (1) Chest pain Chest pain type: unspecified Qualified Code(s): R07.9 - Chest pain, unspecified
--- NOTE | 2024-05-16 18:54 | Electrocardiogram Report ---
Test Reason : Blood Pressure : */* mmHG Vent. Rate : 58 BPM Atrial Rate : 58 BPM P-R Int : 182 ms QRS Dur : 74 ms QT Int : 458 ms P-R-T Axes : 57 -12 0 degrees QTcB Int : 449 ms Sinus bradycardia Minimal voltage criteria for LVH, may be normal variant ( R in aVL ) Anterior infarct , age undetermined Abnormal ECG When compared with ECG of 28-Feb-2023 13:04, Anterior infarct is now Present Confirmed by Ruben Kyle ([id number]) on 05/16/2024 6:53:52 PM Referred By: Vinny Wheat Confirmed By: Ruben Kyle
--- NOTE | 2024-05-16 18:54 | Electrocardiogram Report ---
Test Reason : Blood Pressure : */* mmHG Vent. Rate : 60 BPM Atrial Rate : 60 BPM P-R Int : 188 ms QRS Dur : 74 ms QT Int : 424 ms P-R-T Axes : -9 -10 5 degrees QTcB Int : 424 ms Normal sinus rhythm Moderate voltage criteria for LVH, may be normal variant Cannot rule out Septal infarct (cited on or before 14-May-2024) Nonspecific T wave abnormality Abnormal ECG When compared with ECG of 14-May-2024 16:13, Questionable change in initial forces of Anteroseptal leads Confirmed by Ruben Kyle ([id number]) on 05/16/2024 6:54:21 PM Referred By: Vinny Wheat Confirmed By: Ruben Kyle
--- NOTE | 2024-05-16 18:58 | Electrocardiogram Report ---
Test Reason : Blood Pressure : */* mmHG Vent. Rate : 63 BPM Atrial Rate : 63 BPM P-R Int : 188 ms QRS Dur : 72 ms QT Int : 442 ms P-R-T Axes : 4 -10 -7 degrees QTcB Int : 452 ms Normal sinus rhythm Minimal voltage criteria for LVH, may be normal variant Septal infarct (cited on or before 14-May-2024) Abnormal ECG When compared with ECG of 15-May-2024 14:17, Sinus rhythm has replaced Atrial flutter Vent. rate has decreased by [address] no longer depressed in Anterolateral leads Confirmed by Ruben Kyle ([id number]) on 05/16/2024 6:58:30 PM Referred By: Vinny Wheat Confirmed By: Ruben Kyle
--- NOTE | 2024-05-16 18:58 | Electrocardiogram Report ---
Test Reason : Blood Pressure : */* mmHG Vent. Rate : 120 BPM Atrial Rate : 131 BPM P-R Int : * ms QRS Dur : 74 ms QT Int : 330 ms P-R-T Axes : * -8 -72 degrees QTcB Int : 466 ms Possible Atrial flutter Left ventricular hypertrophy with repolarization abnormality Cannot rule out Septal infarct (cited on or before 14-May-2024) Nonspecific ST abnormality Abnormal ECG When compared with ECG of 15-May-2024 01:42, Atrial flutter has replaced Sinus rhythm Vent. rate has increased by [address] now depressed in Anterolateral leads Confirmed by Ruben Kyle ([id number]) on 05/16/2024 6:57:56 PM Referred By: Vinny Wheat Confirmed By: Ruben Kyle
[2024-05-17 06:29] LABS: Basophils # (auto) 0.04 K/uL (0.00-0.20); Basophils % (auto) 0.7 %; Eosinophils # (auto) 0.26 K/uL (0.00-0.50); Eosinophils % (auto) 4.4 %; Hematocrit (blood only) 33.2 % (37.0-47.0); Hemoglobin 11.3 g/dl (12.0-16.0); Immature Granulocytes # (auto) 0.01 K/uL (0.01-0.20); Immature Granulocytes % (auto) 0.2 %; Lymphocytes # (auto) 2.54 K/uL (1.20-3.40); Lymphocytes % (auto) 42.9 %; Mean Corpuscular Hemoglobin 31.8 pg (25.0-34.0); Mean Corpuscular Volume 93.5 fL (80.0-100.0); Mean Platelet Volume 10.8 fL (9.4-12.4); Monocytes # (auto) 0.32 K/uL (0.11-0.59); Monocytes % (auto) 5.4 %; Neutrophils # (auto) 2.75 K/uL (1.40-6.50); Neutrophils % (auto) 46.4 %; Platelet Count 81 K/uL (130-400); RDW Coefficient of Variation 12.4 % (11.5-14.5); RDW Standard Deviation 43.1 fL (36.4-46.3); Red Blood Count 3.55 M/uL (4.20-5.40); White Blood Count 5.92 K/ul (4.8-10.8)
[2024-05-17 06:43] LABS: BUN Creatinine Ratio 12.6 (10-20); Calcium 9.1 mg/dl (8.6-10.3); Est GFR (African American) 26.3 ml/min; Est GFR (Non-African American) 22.7 ml/min; Potassium 4.2 mmol/L (3.5-5.1)
--- NOTE | 2024-05-17 09:10 | CT Scan Report ---
CT SCAN OF THE BRAIN WITHOUT IV CONTRAST CLINICAL HISTORY: Change in mental status. Episode of unresponsiveness. COMPARISON STUDY: CT of the brain dated 05/15/2024. TECHNIQUE: Unenhanced axial CT scan of the brain is performed from the vertex to the skull base. A do se lowering technique was utilized adhering to the principles of ALARA. CT DOSE: 625.8 mGy.cm FINDINGS: Brain parenchyma: There is age-related involutional change noting [id number] subcortical and pe riventricular microangiopathic disease. There is no hemorrhage, mass effect, or evidence of acute ter ritorial ischemia by CT criteria. A chronic lacunar infarct is seen in the right basal ganglia/perive ntricular white matter. Cuevas-white matter differentiation is preserved. No extra-axial fluid collecti on is seen. Ventricles, sulci, cisterns: Prominent secondary to involutional change. Intracranial vasculature: There is atherosclerotic calcification of the cavernous carotid and vertebr al arteries. Calvarium: Unremarkable. Sinuses and mastoids: A small metallic foreign bodies again seen in the base of the right maxillary s inus. The paranasal sinuses are otherwise clear. There are bilateral mastoid effusions, right larger than left. Orbits: The bony orbits are grossly intact. There are bilateral ocular lens implants. IMPRESSION: There is no hemorrhage, mass effect, or evidence of acute territorial ischemia by CT anthony rankin. ACT 112: Negative or not required by law. Electronically signed by: Huan Quintero M.D. 05/17/2024 9:09 AM
--- NOTE | 2024-05-17 09:25 | Hospitalist Progress Note ---
Date of Service May 17, 2024 Assessment & Plan (1) Seizure: Plan: Has had multiple unresponsive episodes that seem to have an aura prior to occurrence. She was lethargic afterwards consistent with a postictal period Her blood pressures would become quite elevated, no jerking or repetitive movements but did seem to have some tonic qualities Blood sugar was normal at the time of the unresponsive episode here CT angiogram of the head and neck shows known 50% stenosis of the right proximal internal carotid artery Also incidentally found to have critical stenosis at the C6-C7 [id number] as an outpatient with neurology Seen by neurology and due to her history of previous strokes and progressive bulbar palsy, she is at risk for seizure Start Keppra 500 Mg p.o. twice daily She is already on gabapentin 200 mg at bedtime EEG read today as normal but was performed just before the event happened Neurology recommends ambulatory EEG monitoring Continue to monitor This does not seem to be syncope or orthostasis. She had no arrhythmias during the unresponsive events here in the hospital Recommend follow-up with neurology after discharge (2) NAIMA (acute kidney injury): Plan: NAIMA on CKD stage 3 Creatinine up to 1.99 today from baseline of 1.6 Possibly due to poor p.o. intake? Unclear cause. Also with uncontrolled hypertension Will hold home losartan and give IV fluids Work on improved blood pressure control as below (3) Chest pain: Plan: Presented with chest pain, serial troponins negative, noncardiac. Reproducible with pressure. No acute EKG changes. No evidence of acute coronary syndrome. 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 (6) Paroxysmal atrial fibrillation: Plan: Rapid ventricular rate when she had atrial fibrillation earlier this admission. Labetalol has been switched to metoprolol for better rate control She is now sinus rhythm but her blood pressures remain uncontrolled Change metoprolol to carvedilol 6.25 Mg p.o. twice daily Continue apixaban (7) Type 2 diabetes mellitus: Plan: ADA diet. Sliding scale coverage. Low-dose Lantus. Avoid hypoglycemia Plan GERD-continue Protonix History of stroke-continue Plavix, atorvastatin, Eliquis Hypothyroidism-TSH was normal in 01/2024, continue home levothyroxine DVT prophylaxis-Eliquis Disposition-continued stay on medical floor with telemetry due to unresponsive episode Admission and Anticipated Discharge Date Admission Date: May 14, 2024 Subjective Patient was a code purple early in the morning after having an unresponsive episode. Nursing staff reports that the patient just a few minutes prior had been up to the bathroom independently and back and had eaten her breakfast. When they went back to check on her after she completed her EEG, she was laying in the bed unresponsive. I came to the bed within minutes and she was starting to come around to verbal stimulation and gentle tactile stimulation. She had a pulse and was breathing on her own. Her blood pressures were significantly elevated around 210 over 90s. Her heart rate was sinus bradycardia in the 50s and her pulse ox was normal. She did start to wake up more and was very lethargic and dysarthric and was able to say her name and was trying to tell me something. After quick review of her chart, I saw that she had had multiple previous very similar episodes in the past. She was able to squeeze both my hands bilaterally and move both legs bilaterally to command. She was sent for CT of the head which was negative and I contacted the neurologist. Later, the patient was able to tell me that she felt like she was enclosed in a cast iron cage right before the unresponsive episode happened and she remembered this clearly. She could not move her body and felt trapped. Due to suspected recurrent seizure, she was started on Keppra. Went back to check on the patient 2 more times throughout the day and she was doing well otherwise. She did feel sleepy after taking the Keppra Telemetry otherwise with sinus bradycardia with rates in the 50s to 60s Physical Exam Constitutional: WD/WN, vitals as above Eyes: PERRL, conjunctivae normal, anicteric sclerae ENMT: external ear and nose normal, oropharynx normal Respiratory: normal respiratory effort, lungs clear to auscultation Cardiovascular: RRR, no murmur, no edema Gastrointestinal (Abdomen): normal bowel sounds, soft, nontender, no hepatosplenomegaly Musculoskeletal: no cyanosis or clubbing, extremities motor strength 5/5 Skin: no rashes, warm and dry Neurologic: PERRL, EOMI, accommodation nl, no face palsy, no dysarthria moves all extremities and awake; no focal motor deficits and not confused Psychiatric: A+Ox3, euthymic affect Results & Data Results & Data Vital Signs (Past 12 Hours) Vital Signs Temp Pulse Pulse Resp BP Pulse Ox O2 Del Method 05/17/24 07:42 36.6 C 54 L 16 152/75 H 96 Room Air 05/17/24 04:00 36.5 C 57 L 18 148/67 H 97 Room Air 05/16/24 23:42 49 L 05/16/24 22:29 36.5 C 45 L 18 126/69 99 Room Air Laboratory Results CBC, BMP reviewed Diagnostic Findings CT head noncontrast reviewed PG Care Time/CCT Total # of Minutes Spent Total Time Spent with Patient: Total time spent is greater than 50% in coordination of care (as documented) at patient's floor/unit and/or counseling patient: Coding Level of Care Code 05818 SUB INP/OBS CARE 3/50MIN Diagnoses Seizure R56.9 NAIMA (acute kidney injury) N17.9 Chest pain R07.9 Chest pain type: unspecified HTN (hypertension) I10 Progressive bulbar palsy G12.22 Paroxysmal atrial fibrillation I48.0 Type 2 diabetes mellitus E11.9 (3) Chest pain Chest pain type: unspecified Qualified Code(s): R07.9 - Chest pain, unspecified
--- NOTE | 2024-05-17 10:05 | Neurology Progress Note ---
Date of Service May 17, 2024 Assessment & Plan (1) Seizure: Admission and Anticipated Discharge Date Admission Date: May 14, 2024 Subjective pt this morning after EEG, she noted to have confusion event. it last maybe 10 min but not clear as to how long it lasted. per my technical stenographer, she was ok during EEG and then after the procedure, she was confused. currently doing well and back to herself. Results & Data Vital Signs (Past 12 Hours) Vital Signs Temp Pulse Pulse Resp BP Pulse Ox O2 Del Method 05/17/24 09:25 56 L 170/77 H 05/17/24 07:42 36.6 C 54 L 16 152/75 H 96 Room Air 05/17/24 04:00 36.5 C 57 L 18 148/67 H 97 Room Air 05/16/24 23:42 49 L 05/16/24 22:29 36.5 C 45 L 18 126/69 99 Room Air Exam (Neuro) Physical Exam: Neuro: Mental: Alert, fluent speech, normal comprehension, CN: PERRL, Full EOM Motor: No abnormal movements, Impression:83-year-old female with progressive bulbar palsy characterized by severe dysarthria, mild to moderate dysphagia, atrial fibrillation, on Eliquis, history of stroke with residual left-sided hemisensory deficit, recurrent episodes of unresponsiveness which have been occurring intermittently over the past few years, often preceded by left upper extremity paresthesia, spasm or twitching of the left facial musculature, followed by collapse without observed tonic-clonic activity. Collapse associated with unresponsiveness, often brief, less than 1 minute, often times recurrent. Recent episode was associated with chest pain and occurred while at a cardiology appointment yesterday. She had a very similar episode while having an EMG in our office in February 2023. She has had an abnormal EEG previously. Although a trial of levetiracetam had previously been recommended, this medication was never started as there was some uncertainty at that time as to whether the episodes were truly seizures or related to vasovagal syncope. She has had a loop recorder for several years, she does have atrial fibrillation and is prescribed apixaban. 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 Recommendations: agree with starting keppra as recommended 500mg po bid seizure precaution. well known to dr. Dang as outpt neurology she can f/u with him when discharged. will place EEG report on chart today once read. call again if new question. Chart reviewed I have spent more than 50% educating patient about potential diagnosis and neurological evaluation and coordinating care with patient's treatment team. Total time spent (including chart review and coordination of care): 35 min (this includes chart review). PG Care Time/CCT Total # of Minutes Spent Total Time Spent with Patient: Total time spent is greater than 50% in coordination of care (as documented) at patient's floor/unit and/or counseling patient: Coding Level of Care Code 50036 SUB INP/OBS CARE 2/35MIN Diagnoses Seizure R56.9
[2024-05-17] MEDS: levETIRAcetam 500 MG TAB PO SCH (10:28)
--- NOTE | 2024-05-17 12:50 | Electroencephalogram ---
EEG Procedure Note Date of Service May 17, 2024 Start / End Times Start Time: 812 End Time: 832 Referring Physician zena garay History confusion Home Medication List Medication Instructions Recorded Confirmed Type cholecalciferol (vitamin D3) 125 5,000 unit PO 3XWK 03/20/19 05/15/24 History mcg (5,000 unit) tablet fexofenadine 180 mg tablet 180 mg PO QAM 09/03/20 05/15/24 History cyanocobalamin (vitamin B-12) 1,000 mcg PO DAILY 01/29/21 05/15/24 History 1,000 mcg tablet gabapentin 100 mg capsule 200 mg (2 x 100 mg) PO HS #180 caps 04/02/23 05/15/24 Rx blood sugar diagnostic (FreeStyle #200 ea 04/22/23 04/05/24 Rx Lite Strips) meclizine 25 mg tablet See Rx Instructions .Route 06/13/23 05/15/24 Rx .COMPLEX #90 tabs albuterol sulfate 90 mcg/actuation 1 puff inhalation Q4 PRN Wheezing 06/25/23 05/15/24 Rx aerosol inhaler #20.1 grams apixaban 2.5 mg tablet 2.5 mg PO BID #180 tabs 08/27/23 05/15/24 Rx omeprazole 20 mg capsule,delayed 20 mg PO QAM #90 caps 10/13/23 05/15/24 Rx release folic acid 1 mg tablet 1 mg PO QAM #90 tabs 11/06/23 05/15/24 Rx labetalol 100 mg tablet 50 mg (1/2 x 100 mg) PO Q12H #90 11/14/23 05/15/24 Rx tabs montelukast 10 mg tablet See Rx Instructions .Route 11/16/23 05/15/24 Rx .COMPLEX #90 tabs lancing device #1 ea 01/09/24 04/05/24 Rx atorvastatin 20 mg tablet 20 mg PO DAILY #90 tabs 01/29/24 05/15/24 Rx levothyroxine 88 mcg tablet 88 mcg PO DAILY #90 tabs 01/29/24 05/15/24 Rx pen needle, diabetic 32 gauge x #400 ea 03/16/24 04/05/24 Rx 5/32" (BD Ultra-Fine Jayleen Pen Needle) olmesartan 40 mg tablet 40 mg PO DAILY #90 tabs 03/18/24 05/15/24 Rx lancets 28 gauge (FreeStyle #200 ea 03/24/24 04/05/24 Rx Lancets) clopidogrel 75 mg tablet 75 mg PO QAM #90 tabs 04/01/24 05/15/24 Rx insulin glargine 100 unit/mL (3 22 - 30 unit subcut HS 05/15/24 05/15/24 History mL) subcutaneous pen (Lantus Solostar U-100 Insulin) Inpatient Medication List Acetaminophen (Acetaminophen 500 Mg Tab) 1,000 mg PO TID [facility] Stop: 06/13/24 23:26 Last Admin: 05/17/24 07:43 Dose: 1,000 mg Documented By: Admin: 05/16/24 20:03 Dose: 1,000 mg Documented By: Admin: 05/16/24 13:45 Dose: 1,000 mg Documented By: RLJuan Admin: 05/16/24 08:54 Dose: 1,000 mg Documented By: Admin: 05/15/24 21:01 Dose: 1,000 mg Documented By: W Admin: 05/15/24 14:00 Dose: 1,000 mg Documented By: RLJuan Admin: 05/15/24 10:16 Dose: 1,000 mg Documented By: Admin: 05/14/24 23:58 Dose: 1,000 mg Documented By: RAMAKRISHNA Apixaban (Apixaban 2.5 Mg Tab) 2.5 mg PO BID [facility] Stop: 06/13/24 23:26 Last Admin: 05/17/24 07:42 Dose: 2.5 mg Documented By: Admin: 05/16/24 20:04 Dose: 2.5 mg Documented By: W Admin: 05/16/24 08:39 Dose: 2.5 mg Documented By: Admin: 05/15/24 21:03 Dose: 2.5 mg Documented By: Admin: 05/15/24 10:09 Dose: 2.5 mg Documented By: Admin: 05/14/24 23:59 Dose: 2.5 mg Documented By: MELISSAK Atorvastatin Calcium (Atorvastatin 20 Mg Tab) 20 mg PO DAILY [facility] Stop: 06/14/24 08:59 Last Admin: 05/17/24 07:41 Dose: 20 mg Documented By: Admin: 05/16/24 08:38 Dose: 20 mg Documented By: Admin: 05/15/24 10:09 Dose: 20 mg Documented By: FERNANDO Clopidogrel Bisulfate (Clopidogrel Bisulfate 75 Mg Tab) 75 mg PO [facility] Stop: 06/14/24 08:59 Last Admin: 05/17/24 07:41 Dose: 75 mg Documented By: Admin: 05/16/24 08:37 Dose: 75 mg Documented By: Admin: 05/15/24 10:09 Dose: 75 mg Documented By: FERNANDO Folic Acid (Folic Acid 1 Mg Tab) 1 mg PO [facility] Stop: 06/14/24 08:59 Last Admin: 05/17/24 07:41 Dose: 1 mg Documented By: Admin: 05/16/24 08:37 Dose: 1 mg Documented By: Admin: 05/15/24 10:09 Dose: 1 mg Documented By: FERNANDO Gabapentin (Gabapentin 100 Mg Cap) 200 mg PO [facility] Stop: 06/14/24 20:59 Last Admin: 05/16/24 20:03 Dose: 200 mg Documented By: Admin: 05/15/24 21:03 Dose: 200 mg Documented By: MARIAN Insulin Aspart (Insulin Aspart Per Unit Charge) 0 units [facility] Stop: 06/13/24 23:26 Last Admin: 05/17/24 12:36 Dose: 2 units Documented By: LETA Co-signed By: MARIBEL Admin: 05/17/24 09:31 Dose: 4 units Documented By: LETA Co-signed By: MARIBEL Admin: 05/16/24 20:16 Dose: Not Given Documented By: Admin: 05/16/24 18:05 Dose: Not Given Documented By: Admin: 05/16/24 13:45 Dose: 2 units Documented By: FERNANDO Co-signed By: MARYJANE Admin: 05/16/24 08:54 Dose: 2 units Documented By: FERNANDO Co-signed By: MARYJANE Admin: 05/15/24 20:49 Dose: Not Given Documented By: Admin: 05/15/24 18:06 Dose: 2 units Documented By: FERNANDO Co-signed By: MARIBEL Admin: 05/15/24 13:56 Dose: 3 units Documented By: FERNANDO Co-signed By: MARYJANE Admin: 05/15/24 10:08 Dose: 3 units Documented By: FERNANDO Co-signed By: MARIBEL Admin: 05/15/24 00:23 Dose: 1 units Documented By: RAMAKRISHNA Co-signed By: SLOAN Insulin Glargine (Lantus Per Unit Charge) 5 units SQ BID [facility] Stop: 06/14/24 08:59 Last Admin: 05/17/24 09:31 Dose: 5 units Documented By: LETA Co-signed By: MARIBEL Admin: 05/16/24 20:18 Dose: 5 units Documented By: MARIAN Co-signed By: NARENDRA Admin: 05/16/24 08:55 Dose: 5 units Documented By: FERNANDO Co-signed By: MARYJANE Admin: 05/15/24 21:01 Dose: 5 units Documented By: MARIAN Co-signed By: KWASI Admin: 05/15/24 10:10 Dose: 5 units Documented By: FERNANDO Co-signed By: MARIBEL Levetiracetam (Levetiracetam 500 Mg Tab) 500 mg PO BID [facility] Stop: 06/16/24 09:29 Last Admin: 05/17/24 10:28 Dose: 500 mg Documented By: LETA Levothyroxine Sodium (Levothyroxine Sodium 88 Mcg Tablet) 88 mcg PO DAILYBB [facility] Stop: 06/14/24 06:29 Last Admin: 05/17/24 05:52 Dose: 88 mcg Documented By: Admin: 05/16/24 05:45 Dose: 88 mcg Documented By: Admin: 05/15/24 06:30 Dose: 88 mcg Documented By: RAMAKRISHNA Losartan Potassium (Losartan Potassium 50 Mg Tab) 100 mg PO DAILY [facility] Stop: 06/14/24 08:59 Last Admin: 05/17/24 07:42 Dose: 100 mg Documented By: Admin: 05/16/24 08:38 Dose: 100 mg Documented By: Admin: 05/15/24 10:10 Dose: 100 mg Documented By: FERNANDO Meclizine HCl (Meclizine Hcl 25 Mg Tab) 25 mg PO HS [facility] Stop: 06/14/24 20:59 Last Admin: 05/16/24 20:04 Dose: 25 mg Documented By: Admin: 05/15/24 21:02 Dose: 25 mg Documented By: MARIAN Metoprolol Tartrate (Metoprolol Tartrate 25 Mg Tab) 25 mg PO BID [facility] Stop: 06/14/24 14:24 Last Admin: 05/17/24 07:41 Dose: 25 mg Documented By: Admin: 05/16/24 20:00 Dose: Not Given Documented By: Admin: 05/16/24 08:38 Dose: 25 mg Documented By: Admin: 05/15/24 21:03 Dose: 25 mg Documented By: Admin: 05/15/24 14:49 Dose: 25 mg Documented By: FERNANDO Montelukast Sodium (Montelukast Sodium 10 Mg Tablet) 10 mg PO HS [facility] Stop: 06/14/24 20:59 Last Admin: 05/16/24 20:04 Dose: 10 mg Documented By: Admin: 05/15/24 21:01 Dose: 10 mg Documented By: MARIAN Pantoprazole Sodium (Pantoprazole 40 Mg Tab) 40 mg [facility] Stop: 06/14/24 08:59 Last Admin: 05/17/24 07:41 Dose: 40 mg Documented By: Admin: 05/16/24 08:39 Dose: 40 mg Documented By: Admin: 05/15/24 10:09 Dose: 40 mg Documented By: FERNANDO Discontinued Medications Diltiazem HCl (Diltiazem Hcl 5 Mg/Ml 5 Ml Vial) 10 mg IV NOW STA Stop: 05/15/24 14:25 Last Admin: 05/15/24 15:17 Dose: Not Given Documented By: FERNANDO Fentanyl Citrate (Fentanyl Citrate Pf 100 Mcg/2 Ml Vial) 50 mcg IV NOW STA Stop: 05/14/24 17:08 Last Admin: 05/14/24 17:12 Dose: 50 mcg Documented By: EDWIN Hydralazine HCl (Hydralazine 10 Mg Tab) 10 mg PO TID PRN PRN Reason: hypertension Stop: 06/14/24 08:59 Last Admin: 05/15/24 01:17 Dose: 10 mg Documented By: RAMAKRISHNA Ioversol (Optiray 320 125ml) 119 ml IV ONCE ONE Stop: 05/15/24 02:08 Last Admin: 05/15/24 02:08 Dose: 119 ml Documented By: AVNI Ketorolac Tromethamine (Ketorolac Tromethamine 15 Mg/Ml Vial) 15 mg IV NOW ONE Stop: 05/14/24 23:28 Last Admin: 05/14/24 23:58 Dose: 15 mg Documented By: RAMAKRISHNA Labetalol HCl (Labetalol Hcl 100 Mg Tab) 50 mg PO Q12 [facility] Stop: 06/13/24 23:26 Last Admin: 05/15/24 10:12 Dose: Not Given Documented By: Admin: 05/14/24 23:59 Dose: 50 mg Documented By: RAMAKRISHNA Lidocaine (Lidocaine 5% 1 Patch) 1 patch TD NOW STA Stop: 05/14/24 23:28 Last Admin: 05/14/24 23:59 Dose: 1 patch Documented By: RAMAKRISHNA Miscellaneous (Remove Lidoderm Patch) 1 each N/A TODAY@1127 ONE Stop: 05/15/24 11:28 Last Admin: 05/15/24 13:56 Dose: Not Given Documented By: FERNANDO Description This is a 21 electrode EEG with a single channel dedicated to limited EKG. The electrodes were placed in accordance with the International 10-20 system. Interpretation This is a 21 electrode EEG with a single channel dedicated to limited EKG. The electrodes were placed in accordance with the International 10-20 system. There is a posterior dominant rhythm of 8 to 9 Hz which is symmetrically distributed and attenuates with eye opening. There is a normal anterior to posterior organization. Photic stimulation: unremarkable Hyperventilation performed: ___ unremarkable; _x_ not performed. There is no focal slowing. No epileptiform abnormalities. Sleep stage: __x not achieved, ___drowsy state, ___ Stage II, ___ REM stage achieved. Interpretation Normal-appearing awake EEG. A normal EEG does not completely exclude a diagnosis of epilepsy. [facility] EEG Procedure Codes Indication for Procedure (1) Seizure: Neurology Neurology: 49611 EEG include record awake & drowsy
[2024-05-17] MEDS: LACTATED RINGER'S 1,000 ML IV SCH (20:16)
[2024-05-17] MEDS: amLODIPine BESYLATE 5 MG TAB PO SCH (20:17)
[2024-05-18 06:09] LABS: Basophils # (auto) 0.03 K/uL (0.00-0.20); Basophils % (auto) 0.6 %; Eosinophils % (auto) 3.8 %; Hematocrit (blood only) 31.7 % (37.0-47.0); Hemoglobin 10.6 g/dl (12.0-16.0); Immature Granulocytes # (auto) 0.01 K/uL (0.01-0.20); Immature Granulocytes % (auto) 0.2 %; Lymphocytes # (auto) 2.44 K/uL (1.20-3.40); Lymphocytes % (auto) 46.1 %; Mean Corpuscular Hemoglobin 31.5 pg (25.0-34.0); Mean Corpuscular Hgb Conc 33.4 g/dL (32.0-36.0); Mean Corpuscular Volume 94.1 fL (80.0-100.0); Mean Platelet Volume 10.4 fL (9.4-12.4); Monocytes # (auto) 0.29 K/uL (0.11-0.59); Monocytes % (auto) 5.5 %; Neutrophils # (auto) 2.32 K/uL (1.40-6.50); Neutrophils % (auto) 43.8 %; Platelet Count 75 K/uL (130-400); RDW Coefficient of Variation 12.4 % (11.5-14.5); RDW Standard Deviation 42.9 fL (36.4-46.3); Red Blood Count 3.37 M/uL (4.20-5.40); White Blood Count 5.29 K/ul (4.8-10.8)
[2024-05-18 06:20] LABS: BUN Creatinine Ratio 13.3 (10-20); Calcium 8.8 mg/dl (8.6-10.3); Creatinine Clr Calc Pharmacy 22.5 ml/min; Est GFR (African American) 25.6 ml/min; Est GFR (Non-African American) 22.1 ml/min; Potassium 4.1 mmol/L (3.5-5.1)
[2024-05-18 07:42] VITALS: RESP 20; O2SAT 95
[2024-05-18] MEDS: carvediloL 6.25 MG TAB PO SCH (08:29)
[2024-05-18] MEDS: LACTATED RINGER'S 1,000 ML IV SCH (08:37)
[2024-05-18 11:23] VITALS: TEMP 97.9
[2024-05-18 13:40] VITALS: BP 121/71
--- NOTE | 2024-05-18 13:40 | Discharge Summary ---
Discharge Summary Date of Service May 18, 2024 Principal Dx & Hospital Course #1 = Principal Diagnosis (1) Seizure: Has had multiple unresponsive episodes that seem to have an aura prior to occurrence. She was lethargic afterwards consistent with a postictal period At home, her describes them as staring spells but then she is able to still ambulate unsteadily to get her to lie down after they occur. 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 twice daily She is already on gabapentin 200 mg at bedtime EEG read as normal but was performed just before one of the events happened Neurology recommends ambulatory EEG monitoring-will have her f/u with Neuro and set this up This does not seem to be syncope or orthostasis. She had no arrhythmias during the unresponsive events here in the hospital Recommend follow-up with neurology after discharge (2) NAIMA (acute kidney injury): NAIMA on CKD stage 3 Creatinine up to 2.0 and stable on day of discharge from baseline of 1.6 Possibly due to poor p.o. intake? Unclear cause. Also with uncontrolled hypertension. She did receive contrast with CTA head/neck Is making urine. Was given IVFs Will hold home ARB on discharge and repeat BMP in 2 days with results to Nephro and PCP Work on improved blood pressure control as below (3) Chest pain: Presented with chest pain, serial troponins negative, noncardiac. Reproducible with pressure. No acute EKG changes. No evidence of acute coronary syndrome. 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 (6) Paroxysmal atrial fibrillation: Rapid ventricular rate when she had atrial fibrillation earlier this admission. Labetalol has been switched to metoprolol for better rate control, but now remains in sinus and having bradycardia in 50s-60s--> switch back to labetalol Continue apixaban (7) Type 2 diabetes mellitus: ADA diet. Resume home Lantus Plan GERD-continue Protonix History of stroke-continue Plavix, atorvastatin, Eliquis Hypothyroidism-TSH was normal in 01/2024, continue home levothyroxine DVT prophylaxis-Eliquis Disposition-dc to home, ambulating independently, back to baseline. 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 Patient reports one day of intermittent substernal chest discomfort. She describes the pain as squeezing, occurs intermittently and lasts a few minutes then resolves on its own. Discomfort is 7-10/10 in severity with associated tingling in the left hand and forearm and shortness of breath. She denies trauma, recent illness, muscle strain or heart burn symptoms. In the Cardiology office patient found to have reproducible chest wall pain. She did have three episodes of unresponsiveness while in the Cardiology office - noted to be normotensive with no arrhythmia during the episodes. Patient reports that she has been having unresponsive episodes for over 6 months now. She can feel them coming on and she alerts her who will escort her to a chair or a bed. She becomes unresponsive and develops numbness in her left arm. She states that these episodes are due to her "mini strokes" and has been seen by Neurology in the past. 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 She has had a borderline abnormal EEG and was on Keppra in the past although Neurology was not convinced that her unresponsive episode are secondary to seizures. Patient had a Code Purple upon arrival to the floor. Became unresponsive, hypertensive Minimally responsive for several minutes CT Head, CTA Head and Neck and repeat blood work including prolactin ordered Discharge Exam Constitutional WD/WN, vitals as above Respiratory normal respiratory effort, lungs clear to auscultation Cardiovascular RRR, no murmur, no edema Gastrointestinal (Abdomen) normal bowel sounds, soft, nontender, no hepatosplenomegaly Musculoskeletal no cyanosis or clubbing, extremities motor strength 5/5 Skin no rashes, warm and dry Neurologic moves all extremities and awake; no focal motor deficits and not confused Psychiatric A+Ox3, euthymic affect Discharge Plan Discharge Items Patient Disposition: Home - Self-Care Reason For Visit: CHEST WALL PAIN Discharge Diagnosis: Chest pain, noncardiac Unresponsive episodes-possible partial complex seizures Uncontrolled hypertension Acute kidney injury Condition on Discharge: Good Activity: Resume your previous activity Non-emergency contact: Primary Care Provider and Neurologist Call non-emergency contact if: you have any medication questions and your symptoms worsen Follow-up/Referrals: Enrique Dang MD [Physician] - (Please make a hospital follow up appointment with Dr. Dang or his assistant chief engineer/PA within 2-3 weeks.) Jordana Chen MD [Primary Care Provider] - 05/27/24 10:30 am Diet: Carb Consistent or DM2 and Heart Healthy Ambulatory Orders: Basic Metabolic Panel (Routine) Timeframe: 2 Days Location: Determined by Patient Ordered By: Brianne Lemus Attending Provider Instructions: You were admitted with chest pain that was deemed to not be coming from your heart. Fortunately, this resolved. While you were here, you had 2 episodes of becoming unresponsive, similar to previous episodes at home, but one was a bit worse as you described. The Neurologist recommended you start on Keppra in case these episodes are seizures. Please follow up with the Neurologist in the next 2-3 weeks. Your blood pressure was uncontrolled while here and you were started on a new medication called amlodipine. Please monitor your blood pressures at home if possible and follow up with your PCP. Your kidney function is down a bit from your baseline. Please HOLD OFF ON TAKING your olmesartan until after you have your repeat blood work checked on to see if your kidney function has returned to baseline. Pending Studies at Discharge: No Stand-Alone Forms: [facility], Smoking Cessation Medications and DC Order Prescriptions: New amlodipine 2.5 mg tablet 2.5 mg PO DAILY Qty: 30 0RF levetiracetam [Keppra] 500 mg Tablet 500 mg PO BID Qty: 60 0RF Continued (DME) FreeStyle Lite Strips Strip See Rx Instructions .ROUTE .MEDSUPPLY Qty: 200 3RF Rx Instructions: test BID meclizine 25 mg tablet See Rx Instructions .ROUTE .COMPLEX Qty: 90 3RF Dose Instruction: TAKE 1 TABLET AT BEDTIME Rx Instructions: TAKE 1 TABLET AT BEDTIME apixaban 2.5 mg tablet 2.5 mg PO BID Qty: 180 3RF omeprazole 20 mg capsule,delayed release(DR/EC) 20 mg PO QAM Qty: 90 3RF folic acid 1 mg tablet 1 mg PO QAM Qty: 90 3RF labetalol 100 mg tablet 50 mg PO Q12H Qty: 90 3RF montelukast 10 mg tablet See Rx Instructions .ROUTE .COMPLEX Qty: 90 3RF Dose Instruction: TAKE 1 TABLET EVERY EVENING Rx Instructions: TAKE 1 TABLET EVERY EVENING atorvastatin 20 mg tablet 20 mg PO DAILY Qty: 90 3RF levothyroxine 88 mcg tablet 88 mcg PO DAILY Qty: 90 1RF (DME) pen needle, diabetic [BD Ultra-Fine Jayleen Pen Needle] 32 gauge x 5/32" needle See Rx Instructions .ROUTE .MEDSUPPLY Qty: 400 3RF Rx Instructions: use 4 needles daily (DME) lancets [FreeStyle Lancets] 28 gauge misc See Rx Instructions .Route Qty: 200 3RF Rx Instructions: test 2 times daily clopidogrel 75 mg tablet 75 mg PO QAM Qty: 90 3RF gabapentin 100 mg capsule 200 mg PO HS Qty: 180 3RF albuterol sulfate 90 mcg/actuation HFA aerosol inhaler 1 puff inhalation Q4 PRN (Reason: Wheezing) Qty: 20.1 3RF (DME) lancing device Misc See Rx Instructions .Route Qty: 1 0RF Rx Instructions: use to check blood sugar - Freestyle lancing device cholecalciferol (vitamin D3) 5,000 unit Tablet 5,000 unit PO 3XWK Rx Instructions: Unable to verify OTC meds at this date/time. fexofenadine 180 mg Tablet 180 mg PO QAM Rx Instructions: Unable to verify OTC meds at this date/time. cyanocobalamin (vitamin B-12) 1,000 mcg Tablet 1,000 mcg PO DAILY Rx Instructions: Unable to verify OTC meds at this date/time. insulin glargine [Lantus Solostar U-100 Insulin] 100 unit/mL (3 mL) insulin pen 22 - 30 unit subcut HS Rx Instructions: subcutaneously; 22-30 units at bedtime Held olmesartan 40 mg tablet 40 mg PO DAILY Qty: 90 2RF Hold Instructions: Resume on 05/21/24. Hold until your blood work results are reviewed by Dr. Tolliver Discharge Orders: Discharge Order (Routine); Ordered 05/18/24 Ordered By: Brianne Olivas Admission Data Admit Date/Time: 05/14/24 20:38 Attending Provider: Brianne Olivas Admit Provider: Cher Prakash Primary Care Provider: Jordana Chen V. Other Providers: Cher Prakash; Enrique Dang; Sukhjinder Styles; Kaila Jhaveri; Amelia Funes; Teressa Ruelas; Kimani Crane Hospital Stay Data Consultations 05/14/24 19:37 ED Decision to Admit Stat 05/15/24 08:21 Consult Neurology Routine Diagnostic Imagining Performed 05/14/24 16:47 CT head/brain wo con Stat 05/15/24 01:[address] [CT head/brain wo con] Stat 05/15/24 01:48 CT angio head w con Stat CT angio neck with con Stat 05/17/24 08:50 CT head/brain wo con Stat ECHO EEG Pending Results Patient Have Any Pending Studies at Discharge: No Discharge Instructions Given to Patient (Per Discharging Provider) You were admitted with chest pain that was deemed to not be coming from your heart. Fortunately, this resolved. While you were here, you had 2 episodes of becoming unresponsive, similar to previous episodes at home, but one was a bit worse as you described. The Neurologist recommended you start on Keppra in case these episodes are seizures. Please follow up with the Neurologist in the next 2-3 weeks. Your blood pressure was uncontrolled while here and you were started on a new medication called amlodipine. Please monitor your blood pressures at home if possible and follow up with your PCP. Your kidney function is down a bit from your baseline. Please HOLD OFF ON TAKING your olmesartan until after you have your repeat blood work checked on to see if your kidney function has returned to baseline. Total Time Total Time Spent Total Time Spent (In Minutes): 35 min Total Time Includes: Examination of the Patient, Discharge Planning and Medication Reconciliation Coding Level of Care Code 04314 INP/OBS DISCH >30 MIN Diagnoses Seizure R56.9 NAIMA (acute kidney injury) N17.9 Chest pain R07.9 Chest pain type: unspecified HTN (hypertension) I10 Progressive bulbar palsy G12.22 Paroxysmal atrial fibrillation I48.0 Type 2 diabetes mellitus E11.9
[2024-05-18 14:19] VITALS: PULSE 57
== END 2024-05-18 14:39 | disposition home or self-care (01) | DRG 101 ==
LOC: ED 15:56 → SUATTDRO 20:38 → 2N 20:38

== ENCOUNTER 2025-06-25 17:53 | Inpatient (IN) ==
--- NOTE | 2025-06-25 18:05 | Emergency Department Note ---
Impression & Plan AMS (altered mental status), Anemia, Thrombocytopenia, Observed seizure-like activity ED Provider Note ED Provider Note NAME: JACKIE CESPEDES AGE:84 SEX: Female : 1940 ARRIVES VIA: EMS INFORMANT: Patient ED PROVIDER(s): Babak Cooper CHIEF COMPLAINT: weakness HPI: 84-year-old female presents to the emergency room with complaints of unresponsive episode. Patient's states that she was unresponsive at home. He states that she was laying in the bed and would not wake up. He states that this happens sometimes and then she has episodes of confusion or inability to move following. He states that she has had a few the last few weeks. She had the 1 today that was much longer than normal, so he called 911 and brought her to the emergency room because he could not wake her up. He states that she does have a history of seizure-like activity, she had an EEG continuously at home several years ago. She was getting worked up through [facility]. She was unable to tolerate antiepileptics because they made her tired, so they had not really followed through with much more regarding that. At some point they saw Dr. Woods at [facility]. Patient arrival in the emergency room with some dysarthria which is at her baseline per her family. She has some weakness in the left lower extremity and some numbness in the left upper extremity which is also her baseline from prior strokes. 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 Patient states she feels like she is in a cuckoo and and cannot really move when the episodes first happened. She is unaware of the unresponsive episodes that proceed them. PAST MEDICAL HISTORY:See Below PAST SURGICAL HISTORY:See Below FAMILY HISTORY:See Below SOCIAL HISTORY:See Below HOME MEDICATIONS:See Below ALLERGIES:See Below VITALS:See Below PHYSICAL EXAMINATION: GENERAL: alert, well appearing, well nourished, no distress, non-toxic EYE EXAM: normal conjunctiva, PERRL and EOM's grossly intact OROPHARYNX: no exudate, no erythema, lips, buccal mucosa, and tongue normal and mucous membranes are moist NECK: supple, no nuchal rigidity, no adenopathy, non-tender LUNGS: Clear to auscultation. Normal chest wall mechanics, no w/r/r HEART: no murmurs, S1 normal and S2 normal ABDOMEN: abdomen soft, non-tender, normo-active bowel sounds, no masses, no rebound or guarding. BACK: Back is symmetrical on inspection and there is no deformity, no midline tenderness, no CVA tenderness. SKIN: no rashes, petechiae, orbruising UPPER EXTREMITIES: upper extremities are grossly normal. FROM, nml pulses b/l. LOWER EXTREMITIES: No pitting edema. FROM, nml pulses b/l. NEURO EXAM: Normal sensorium, cranial nerves II-XII grossly intact, normal speech, no facial droop,nogross weakness of arms, no gross weakness of legs. Gross sensation intact. No ataxia. Vital Signs: reviewed and remarkable Differential Diagnosis: Alcohol intoxication, toxicologic, infection, hypoglycemia, electrolyte abnormalities, cardiac sources, intracerebral event, neurologic, trauma, as well as other pathologies. MEDICAL DECISION MAKIN-year-old female presents emergency room with complaints of altered sensorium. While in the emergency room, patient had an additional episode. Nursing had called me to the room to evaluate because she was unresponsive and would not wake up. Her blood pressure was high in the 220s systolic, her blood sugar was within normal limits, her oxygen stayed good. She had fixed mid point Bowls on exam. She had some spasticity in her left side which is normally her weak side. She had some repetitive oral movements and some vocalizations that were repetitive over about a minute and 1/2 to 2 minutes before we gave 2 mg of Ativan and they ceased. She then slowly came back to baseline and was able to move extremities x 4 and have her typical dysarthria. Patient's NIH is again 0. She is not a tPA candidate secondary to low NIH and symptoms resolved. Spoke with neuro at [facility] and [facility], ultimately patient will be admitted by our hospitalist. Spoke with patient and family, they are agreeable. Consultation(s): Consultation with both [facility] neuro Dr. Flores and Dr. Martinez at [facility] With recommendations to maintain the patient at our facility. Hospitalist had seen the patient after the [facility] consult and asked for the [facility] consult for transfer. ER Treatment Provided: See below Diagnostics Interpreted By Me: -ECG: EKG shows sinus rhythm at a rate of [address] changes, PACs. Some movement. Poor baseline. -Cardiac Monitoring: An order was placed for continuous cardiac monitoring. The monitor shows a rate of 60 with NS rhythm. -Laboratory studies: As stated above and show below. -Imaging studies: CT head no acute changes. Triage Nursing Note Reviewed Prior/Outside Records Reviewed Past Med/Surg History Problem List (Updated 06/25/25 @ 21:40 by Marialuisa Cooper DO) Observed seizure-like activity (Acute) Thrombocytopenia (Acute) Anemia (Acute) AMS (altered mental status) (Acute) Sleep attack Type 2 diabetes mellitus Encounter for interrogation of cardiac recorder Petechiae Anticoagulant long-term use Dysarthria Progressive bulbar palsy Hypertension (Acute) Recurrent syncope (Acute) Idiopathic polyneuropathy Gait disorder Bilateral tinnitus Sensorineural hearing loss (SNHL) of both ears Dysphonia H/O: stroke Dysphasia B12 deficiency 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 (CVA) Daytime somnolence Gastroparesis Paroxysmal atrial fibrillation Thrombocytopenia (Acute) History of loop recorder Hiatal hernia Fibromuscular hyperplasia of left carotid artery Aneurysm of left carotid artery Pseudoaneurysm, Neurosurg AT [facility] Hypothyroidism Chronic kidney disease, stage III (moderate) Hypertension Vitamin D deficiency History of Randolph fundoplication 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 Diabetic nephropathy associated with type 2 diabetes mellitus Neuropathy due to type 2 diabetes mellitus Loss of protective sensation of skin of foot Health care maintenance Constipation Cryptogenic stroke Esophageal thickening CT scan 12/14/2020 Medical History Stasis dermatitis of both legs Encounter for loop recorder at end of battery life Decreased hearing Snoring Anxiety Syncope Left-sided weakness NAIMA (acute kidney injury) Seizure Paroxysmal atrial fibrillation Carotid artery aneurysm Atrial ectopy Fibromuscular dysplasia of both carotid arteries Diastasis recti Sequela of lacunar infarction Sensorineural hearing loss (SNHL) of both ears Speech abnormality Seizure-like activity Discharge planning issues DVT prophylaxis Bradycardia Chest discomfort Belching Nausea Lung nodule Chest discomfort Uncontrolled insulin-treated type 2 diabetes mellitus Idiopathic thrombocytopenia purpura Umbilical hernia without obstruction and without gangrene Diabetes mellitus, type 2 Stroke GERD (gastroesophageal reflux disease) Hiatal hernia Hyperlipemia TIA (transient ischemic attack) Asthma Arthritis Surgical History H/O hernia repair (03/08/20) History of loop recorder H/O umbilical hernia repair History of repair of hiatal hernia (06/16/19) History of colonoscopy History of total knee replacement History of esophagogastroduodenoscopy (EGD) History of appendectomy History of esophageal dilatation History of ankle surgery H/O dilation and curettage History of tonsillectomy and adenoidectomy Hx of cholecystectomy History of total abdominal hysterectomy and bilateral salpingo-oophorectomy Family History Unknown Osteoporosis Mother Rheumatoid arthritis Family history of diabetes mellitus History of nephrectomy Stroke syndrome Hypertension Stroke Aunt Rheumatoid arthritis Father Heart disease Myocardial infarction Hx of CABG Hypertension Brother Acute myocardial infarction Myocardial infarction Other No family history of adverse response to anesthesia No family history of bleeding disorder Denies family history of Ovarian cancer Prostate cancer Clotting disorder Breast cancer Social History Smoking Status: Never smoker Second Hand Exposure: No; Do You Dip or Chew Tobacco: No; Hx Alcohol Use: No Hx Substance Use: No Preferred Language: Emirati Communication Ability: Effective Visual Impairment: No Limitations Hearing Ability: Normal Clinical Statistical Programmer Required: No Beliefs That Will Affect Care: None marital status: Current Living Situation: Family Current Living Situation Comment: Home w/ current occupational status: 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 How many Children do You have: 4 Feels Safe at Home: Yes Childhood Exposure to Second-Hand Smoke: Yes Dental Care, Regularly: No Physical Activity Frequency: Daily Seatbelt Use: always Sunscreen Use: No Assistive Devices: Cane and Walker Allergies Allergies Allergy/AdvReac Type Severity Reaction Status Date / Time codeine Allergy Intermediate HYPERACTIVE, Verified 03/28/25 11:09 HIVES/SYNCOPE enoxaparin Allergy Intermediate syncope Verified 03/28/25 11:09 fluorouracil Allergy Intermediate Hives Verified 03/28/25 11:09 potassium Allergy Mild IV Verified 03/28/25 11:09 potassium caused hypotension Home Meds Home Medications Medication Instructions Recorded Confirmed cholecalciferol (vitamin D3) 125 5,000 unit PO 3XWK 03/20/19 06/25/25 mcg (5,000 unit) tablet fexofenadine 180 mg tablet 180 mg PO QAM 09/03/20 06/25/25 cyanocobalamin (vitamin B-12) 1,000 mcg PO DAILY 01/29/21 06/25/25 1,000 mcg tablet Previous Rx's Medication Instructions Recorded albuterol sulfate 90 mcg/actuation 1 puff inhalation Q4 PRN Wheezing 06/25/23 aerosol inhaler #20.1 grams lancing device #1 ea 01/09/24 pen needle, diabetic 32 gauge x #400 ea 03/16/24 532" (BD Ultra-Fine Jayleen Pen Needle) blood sugar diagnostic (FreeStyle #200 ea 06/10/24 Lite Strips) triamcinolone acetonide 0.5 % 1 applic topical BID #30 grams 08/25/24 topical ointment apixaban 2.5 mg tablet 2.5 mg PO BID #180 tabs 09/17/24 omeprazole 20 mg capsule,delayed 20 mg PO QAM #90 caps 10/07/24 release folic acid 1 mg tablet 1 mg PO QAM #90 tabs 10/31/24 insulin glargine 100 unit/mL (3 22 - 30 unit (0.22 - 0.3 mL) 11/03/24 mL) subcutaneous pen (Lantus subcut HS #27 mL Solostar U-100 Insulin) labetalol 100 mg tablet 50 mg (1/2 x 100 mg) PO Q12H #90 11/17/24 tabs meclizine 25 mg tablet See Rx Instructions .Route 11/23/24 .COMPLEX #90 tabs montelukast 10 mg tablet See Rx Instructions .Route 11/23/24 .COMPLEX #90 tabs atorvastatin 20 mg tablet 20 mg PO DAILY #90 tabs 02/02/25 olmesartan 40 mg tablet 40 mg PO DAILY #90 tabs 02/14/25 clopidogrel 75 mg tablet 75 mg PO QAM #90 tabs 04/06/25 gabapentin 100 mg capsule 100 mg PO .COMPLEX #270 caps 04/20/25 levothyroxine 88 mcg tablet 88 mcg PO DAILY #90 tabs 04/21/25 lancets 28 gauge (FreeStyle #200 ea 05/19/25 Lancets) Results & Data (ED) Vital Signs Vital Signs - 24 hr 06/25/25 17:49 06/25/25 18:14 06/25/25 18:24 Temperature 37.0 C Temperature Source Oral Pulse Rate 56 L 65 60 Pulse Rate [Apical] Pulse Rate from SpO2 Sensor Pulse Rhythm Regular Regular Respiratory Rate 20 18 Respiratory Effort / Characteristics Non-Labored Spontaneous Respiratory Depth Normal Respiratory Pattern Regular Blood Pressure 229/91 H Blood Pressure Mean 137 Pulse Oximetry 97 95 Oxygen Delivery Method Room Air Room Air Sepsis Recent Fever Within 48 Hours No Sepsis New/Unexplained Change in Mental Status No Sepsis Action Taken by Nursing No Action Required End-Tidal CO2 End Tidal CO2 (18-54mmHg) 06/25/25 19:09 06/25/25 19:12 06/25/25 19:22 Temperature Temperature Source Pulse Rate 63 63 Pulse Rate [Apical] Pulse Rate from SpO2 Sensor 61 62 Pulse Rhythm Respiratory Rate 16 Respiratory Effort / Characteristics Respiratory Depth Respiratory Pattern Blood Pressure 250/90 H Blood Pressure Mean 122 Pulse Oximetry 96 96 Oxygen Delivery Method Sepsis Recent Fever Within 48 Hours Sepsis New/Unexplained Change in Mental Status Sepsis Action Taken by Nursing End-Tidal CO2 End Tidal CO2 (18-54mmHg) 06/25/25 19:22 06/25/25 19:22 06/25/25 19:22 Temperature Temperature Source Pulse Rate Pulse Rate [Apical] Pulse Rate from SpO2 Sensor Pulse Rhythm Respiratory Rate Respiratory Effort / Characteristics Respiratory Depth Respiratory Pattern Blood Pressure 250/90 H 250/90 H 250/90 H Blood Pressure Mean 122 122 122 Pulse Oximetry Oxygen Delivery Method Sepsis Recent Fever Within 48 Hours Sepsis New/Unexplained Change in Mental Status Sepsis Action Taken by Nursing End-Tidal CO2 End Tidal CO2 (18-54mmHg) 06/25/25 19:25 06/25/25 19:27 06/25/25 19:40 Temperature Temperature Source Pulse Rate 63 59 L 61 Pulse Rate [Apical] Pulse Rate from SpO2 Sensor 59 L Pulse Rhythm Respiratory Rate 21 Respiratory Effort / Characteristics Respiratory Depth Respiratory Pattern Blood Pressure 250/90 H 166/79 H Blood Pressure Mean Pulse Oximetry 95 Oxygen Delivery Method Sepsis Recent Fever Within 48 Hours Sepsis New/Unexplained Change in Mental Status Sepsis Action Taken by Nursing End-Tidal CO2 41 End Tidal CO2 (18-54mmHg) 06/25/25 19:40 06/25/25 19:40 06/25/25 19:41 Temperature Temperature Source Pulse Rate Pulse Rate [Apical] 58 L Pulse Rate from SpO2 Sensor Pulse Rhythm Respiratory Rate 15 Respiratory Effort / Characteristics Respiratory Depth Respiratory Pattern Blood Pressure 166/79 H 166/79 H Blood Pressure Mean 135 135 Pulse Oximetry 96 Oxygen Delivery Method Room Air Sepsis Recent Fever Within 48 Hours Sepsis New/Unexplained Change in Mental Status Sepsis Action Taken by Nursing End-Tidal CO2 End Tidal CO2 (18-54mmHg) 47 06/25/25 19:45 06/25/25 19:45 06/25/25 19:45 Temperature Temperature Source Pulse Rate 61 Pulse Rate [Apical] Pulse Rate from SpO2 Sensor 57 L Pulse Rhythm Respiratory Rate Respiratory Effort / Characteristics Respiratory Depth Respiratory Pattern Blood Pressure 168/85 H 168/85 H Blood Pressure Mean 122 122 Pulse Oximetry 93 Oxygen Delivery Method Sepsis Recent Fever Within 48 Hours Sepsis New/Unexplained Change in Mental Status Sepsis Action Taken by Nursing End-Tidal CO2 48 End Tidal CO2 (18-54mmHg) 06/25/25 19:57 06/25/25 20:00 06/25/25 20:09 Temperature Temperature Source Pulse Rate 64 62 Pulse Rate [Apical] Pulse Rate from SpO2 Sensor 64 57 L Pulse Rhythm Respiratory Rate 17 Respiratory Effort / Characteristics Respiratory Depth Respiratory Pattern Blood Pressure 184/82 H Blood Pressure Mean 117 Pulse Oximetry 94 95 Oxygen Delivery Method Sepsis Recent Fever Within 48 Hours Sepsis New/Unexplained Change in Mental Status Sepsis Action Taken by Nursing End-Tidal CO2 50 46 End Tidal CO2 (18-54mmHg) 06/25/25 20:12 06/25/25 20:16 06/25/25 20:39 Temperature Temperature Source Pulse Rate 61 63 Pulse Rate [Apical] Pulse Rate from SpO2 Sensor 57 L 63 Pulse Rhythm Respiratory Rate 15 Respiratory Effort / Characteristics Respiratory Depth Respiratory Pattern Blood Pressure 174/62 H Blood Pressure Mean 95 Pulse Oximetry 93 96 Oxygen Delivery Method Sepsis Recent Fever Within 48 Hours Sepsis New/Unexplained Change in Mental Status Sepsis Action Taken by Nursing End-Tidal CO2 48 49 End Tidal CO2 (18-54mmHg) 06/25/25 20:45 06/25/25 21:00 06/25/25 21:12 Temperature Temperature Source Pulse Rate 78 63 Pulse Rate [Apical] Pulse Rate from SpO2 Sensor Pulse Rhythm Respiratory Rate 20 Respiratory Effort / Characteristics Respiratory Depth Respiratory Pattern Blood Pressure 195/84 H Blood Pressure Mean 144 Pulse Oximetry Oxygen Delivery Method Sepsis Recent Fever Within 48 Hours Sepsis New/Unexplained Change in Mental Status Sepsis Action Taken by Nursing End-Tidal CO2 45 45 End Tidal CO2 (18-54mmHg) Laboratory Data 06/25/25 18:05 06/25/25 18:05 Lab Results 06/25/25 06/25/2506/25/25 Range/Units 17:58 18:05 18:10 WBC 4.29 L (4.8-10.8) K/ul RBC 3.38 L (4.20-5.40) M/uL Hgb 10.7 L (12.0-16.0) g/dl POC Hgb 10.9 L (12.0-16.0) g/dl Hct 32.7 L (37.0-47.0) % POC Hct 32 L (37-47) % MCV 96.7 (80.0-100.0) fL MCH 31.7 (25.0-34.0) pg MCHC 32.7 (32.0-36.0) g/dL RDW Std Deviation 45.2 (36.4-46.3) fL RDW Coeff of Fallon 12.7 (11.5-14.5) % Plt Count 75 L (130-400) K/uL MPV 11.2 (9.4-12.4) fL Immature Gran % (Auto) 0.2 % Neut % (Auto) 46.6 % Lymph % (Auto) 44.3 % Dyer % (Auto) 5.6 % Eos % (Auto) 2.8 % Baso % (Auto) 0.5 % Neut # (Auto) 2.00 (1.40-6.50) K/uL Lymph # (Auto) 1.90 (1.20-3.40) K/uL Dyer # (Auto) 0.24 (0.11-0.59) K/uL Eos # (Auto) 0.12 (0.00-0.50) K/uL Baso # (Auto) 0.02 (0.00-0.20) K/uL Immature Gran # (Auto) 0.01 (0.01-0.20) K/uL POC Sodium 140 (135-144) mmol/L Sodium 138 (136-145) mmol/L POC Potassium 4.2 (3.3-5.0) mmol/L Potassium 4.1 (3.5-5.1) mmol/L POC Chloride 104 (101-112) mmol/L Chloride 106 (98-107) mmol/L Carbon Dioxide 28 (21-32) mmol/L POC Total CO2 25 (24-31) mmol/L Anion Gap 4 (3-11) POC Anion Gap 17.0 (16-25) mmol/L POC BUN 11 (7-18) mg/dl BUN 12 (6-23) mg/dl Creatinine 1.68 H (0.6-1.2) mg/dl POC Creatinine 1.8 H (0.6-1.3) mg/dl Est Cr Clr Drug Dosing 27.2 ml/min eGFR 29.81 BUN/Creatinine Ratio 7.1 L (10-20) Glucose 147 H (70-99(Fasting)) mg/dl POC Glucose 144 H (70-99) mg/dl POC Glucose (other) 142 H (70-99) mg/dl Lactate (0.4-2.0) mmol/L Calcium 9.3 (8.6-10.3) mg/dl POC Ioniz Calcium Stanley 1.20 (1.12-1.32) mmol/l Magnesium 1.8 (1.7-2.4) mg/dl Total Bilirubin 0.5 (0.2-1.0) mg/dl AST 26 (13-39) U/L ALT 15 (7-52) U/L Alkaline Phosphatase 104 (34-104) U/L Troponin I High Sens 5.6 (0-14) pg/ml Total Protein 6.0 (6.0-8.3) gm/dl Albumin 3.1 L (3.4-5.0) gm/dl Globulin 2.9 (2.5-4.0) gm/dl Albumin/Globulin Ratio 1.1 (0.9-2) TSH 1.130 (0.300-4.500) uIu/ml 06/25/25 06/25/25 Range/Units 19:21 19:58 WBC (4.8-10.8) K/ul RBC (4.20-5.40) M/uL Hgb (12.0-16.0) g/dl POC Hgb (12.0-16.0) g/dl Hct (37.0-47.0) % POC Hct (37-47) % MCV (80.0-100.0) fL MCH (25.0-34.0) pg MCHC (32.0-36.0) g/dL RDW Std Deviation (36.4-46.3) fL RDW Coeff of Fallon (11.5-14.5) % Plt Count (130-400) K/uL MPV (9.4-12.4) fL Immature Gran % (Auto) % Neut % (Auto) % Lymph % (Auto) % Dyer % (Auto) % Eos % (Auto) % Baso % (Auto) % Neut # (Auto) (1.40-6.50) K/uL Lymph # (Auto) (1.20-3.40) K/uL Dyer # (Auto) (0.11-0.59) K/uL Eos # (Auto) (0.00-0.50) K/uL Baso # (Auto) (0.00-0.20) K/uL Immature Gran # (Auto) (0.01-0.20) K/uL POC Sodium (135-144) mmol/L Sodium (136-145) mmol/L POC Potassium (3.3-5.0) mmol/L Potassium (3.5-5.1) mmol/L POC Chloride (101-112) mmol/L Chloride (98-107) mmol/L Carbon Dioxide (21-32) mmol/L POC Total CO2 (24-31) mmol/L Anion Gap (3-11) POC Anion Gap (16-25) mmol/L POC BUN (7-18) mg/dl BUN (6-23) mg/dl Creatinine (0.6-1.2) mg/dl POC Creatinine (0.6-1.3) mg/dl Est Cr Clr Drug Dosing ml/min eGFR BUN/Creatinine Ratio (10-20) Glucose (70-99(Fasting)) mg/dl POC Glucose 124 H (70-99) mg/dl POC Glucose (other) (70-99) mg/dl Lactate 1.1 (0.4-2.0) mmol/L Calcium (8.6-10.3) mg/dl POC Ioniz Calcium Stanley (1.12-1.32) mmol/l Magnesium (1.7-2.4) mg/dl Total Bilirubin (0.2-1.0) mg/dl AST (13-39) U/L ALT (7-52) U/L Alkaline Phosphatase (34-104) U/L Troponin I High Sens (0-14) pg/ml Total Protein (6.0-8.3) gm/dl Albumin (3.4-5.0) gm/dl Globulin (2.5-4.0) gm/dl Albumin/Globulin Ratio (0.9-2) TSH (0.300-4.500) uIu/ml Administered Medications Discontinued Medications Labetalol HCl (Labetalol Hcl Iv 5 Mg/Ml 20ml) 10 mg IV NOW STA Stop: 06/25/25 19:21 Last Admin: 06/25/25 19:25 Dose: 10 mg Documented By: Levetiracetam (Levetiracetam 500 Mg/5 Ml Vial) 1,000 mg IV NOW STA Stop: 06/25/25 19:47 Last Admin: 06/25/25 20:46 Dose: 1,000 mg Documented By: Lorazepam (Lorazepam 1 Mg/1 Ml Syr Ed Inj Use) Confirm Administered Dose 2 mg .ROUTE .STK-MED ONE Stop: 06/25/25 19:19 Last Admin: 06/25/25 19:25 Dose: 2 mg Documented By: Lorazepam (Lorazepam 1 Mg/1 Ml Syr Ed Inj Use) 2 mg IV ONE STA Stop: 06/25/25 19:20 Last Admin: 06/25/25 19:25 Dose: Not Given Documented By: Imaging Data Radiologist's Impression: Head CT 06/25/25 18:14 CT of the head without contrast Technique: Noncontrast axial of the head. Coronal and sagittal reformatted images made available for review Comparison made to prior exam dated 05/17/2024 Findings: Chronic right basal ganglia and carlos radiata lacunar infarcts. No acute intracranial hemorrhage. No acute transcortical infarct. No midline shift. Ventricles, sulci, cisterns within normal limits. Bone windows demonstrate no focal abnormality Impression Head CT negative for acute intracranial abnormality. Electronically signed by Anders Bourne 06-25-2025 8:08 PM Discharge Plan Visit Data Chief Complaint: TIA Symptoms ED Provider: Marialuisa Cooper Discharge Problem: AMS (altered mental status), Anemia, Thrombocytopenia, Observed seizure-like activity Patient Disposition: Admitted As Inpatient Condition: Fair Forms Stand Alone Forms: [facility], Important Visit Information Prescriptions Prescriptions: No Action (DME) pen needle, diabetic [BD Ultra-Fine Jayleen Pen Needle] 32 gauge x 5/32" needle See Rx Instructions .ROUTE .MEDSUPPLY Qty: 400 3RF Rx Instructions: use 4 needles daily (DME) FreeStyle Lite Strips Strip See Rx Instructions .ROUTE .MEDSUPPLY Qty: 200 3RF Rx Instructions: test BID apixaban 2.5 mg tablet 2.5 mg PO BID Qty: 180 3RF omeprazole 20 mg capsule,delayed release(DR/EC) 20 mg PO QAM Qty: 90 3RF folic acid 1 mg tablet 1 mg PO QAM Qty: 90 3RF insulin glargine [Lantus Solostar U-100 Insulin] 100 unit/mL (3 mL) insulin pen 22 - 30 unit subcut HS Qty: 27 3RF Rx Instructions: subcutaneously; 22-30 units at bedtime labetalol 100 mg tablet 50 mg PO Q12H Qty: 90 3RF montelukast 10 mg tablet See Rx Instructions .ROUTE .COMPLEX Qty: 90 3RF Dose Instruction: TAKE 1 TABLET EVERY EVENING Rx Instructions: TAKE 1 TABLET EVERY EVENING meclizine 25 mg tablet See Rx Instructions .ROUTE .COMPLEX Qty: 90 3RF Dose Instruction: TAKE 1 TABLET AT BEDTIME Rx Instructions: TAKE 1 TABLET AT BEDTIME atorvastatin 20 mg tablet 20 mg PO DAILY Qty: 90 3RF clopidogrel 75 mg tablet 75 mg PO QAM Qty: 90 3RF levothyroxine 88 mcg tablet 88 mcg PO DAILY Qty: 90 1RF (DME) lancets [FreeStyle Lancets] 28 gauge misc See Rx Instructions .Route Qty: 200 3RF Rx Instructions: test 2 times daily albuterol sulfate 90 mcg/actuation HFA aerosol inhaler 1 puff inhalation Q4 PRN (Reason: Wheezing) Qty: 20.1 3RF (DME) lancing device Misc See Rx Instructions .Route Qty: 1 0RF Rx Instructions: use to check blood sugar - Freestyle lancing device olmesartan 40 mg tablet 40 mg PO DAILY Qty: 90 3RF Hold Instructions: Resume on 05/21/24. Hold until your blood work results are reviewed by Dr. Tolliver triamcinolone acetonide 0.5 % ointment 1 applic topical BID Qty: 30 1RF gabapentin 100 mg capsule 100 mg PO .COMPLEX Qty: 270 1RF Rx Instructions: 100 mg orally take one cap in the morning, theb take 2 caps in the evening; cholecalciferol (vitamin D3) 5,000 unit Tablet 5,000 unit PO 3XWK Rx Instructions: Unable to verify OTC meds at this date/time. fexofenadine 180 mg Tablet 180 mg PO QAM Rx Instructions: Unable to verify OTC meds at this date/time. cyanocobalamin (vitamin B-12) 1,000 mcg Tablet 1,000 mcg PO DAILY Rx Instructions: Unable to verify OTC meds at this date/time. Referrals Referrals: Jordana Chen MD [Primary Care Provider] -
[2025-06-25 18:29] LABS: Hematocrit (blood only) 32.7 % (37.0-47.0); Hemoglobin 10.7 g/dl (12.0-16.0); Immature Granulocytes # (auto) 0.01 K/uL (0.01-0.20); Immature Granulocytes % (auto) 0.2 %; Mean Corpuscular Hemoglobin 31.7 pg (25.0-34.0); Mean Corpuscular Volume 96.7 fL (80.0-100.0); Platelet Count 75 K/uL (130-400); RDW Standard Deviation 45.2 fL (36.4-46.3); Red Blood Count 3.38 M/uL (4.20-5.40); White Blood Count 4.29 K/ul (4.8-10.8)
[2025-06-25 18:46] LABS: Alanine Aminotransferase 15.0 U/L (7-52); Albumin Globulin Ratio 1.1 (0.9-2); Albumin Level 3.1 gm/dl (3.4-5.0); Alkaline Phosphatase 104.0 U/L (34-104); Anion Gap 4.0 (3-11); Bilirubin,Total 0.5 mg/dl (0.2-1.0); Blood Urea Nitrogen 12.0 mg/dl (6-23); Calcium 9.3 mg/dl (8.6-10.3); Carbon Dioxide 28.0 mmol/L (21-32); Chloride 106.0 mmol/L (98-107); Creatinine Clr Calc Pharmacy 27.2 ml/min; Globulin 2.9 gm/dl (2.5-4.0); Glucose 147.0 mg/dl (70-99(Fasting)); Potassium 4.1 mmol/L (3.5-5.1); Sodium 138.0 mmol/L (136-145); Total Protein 6.0 gm/dl (6.0-8.3)
[2025-06-25] MEDS: LORazepam 1 MG/1 ML SYR ED Inj Use ONE (19:25)
[2025-06-25] MEDS: LORazepam 1 MG/1 ML SYR ED Inj Use IV STA (19:25)
[2025-06-25] MEDS: LABETALOL HCL IV 5 MG/ML 20ML IV STA ×2 (19:25→23:30)
--- NOTE | 2025-06-25 20:09 | CT Scan Report ---
CT of the head without contrast Technique: Noncontrast axial of the head. Coronal and sagittal reformatted images made available for review Comparison made to prior exam dated 05/17/2024 Findings: Chronic right basal ganglia and carlos radiata lacunar infarcts. No acute intracranial hemorrhage. No acute transcortical infarct. No midline shift. Ventricles, sulci, cisterns within normal limits. Bone windows demonstrate no focal abnormality Impression Head CT negative for acute intracranial abnormality. Electronically signed by Anders Bourne 06-25-2025 8:08 PM
[2025-06-25 20:14] LABS: Magnesium 1.8 mg/dl (1.7-2.4)
[2025-06-25 20:31] LABS: Thyroid Stimulating Hormone 1.13 uIu/ml (0.300-4.500)
--- NOTE | 2025-06-25 23:04 | History & Physical Report ---
Date of Service June 25, 2025 Assessment & Plan (1) Observed seizure-like activity: (2) Progressive bulbar palsy: (3) Type 2 diabetes mellitus: (4) Hypertension: (5) Paroxysmal atrial fibrillation: (6) Hypothyroidism: Plan 84yo female with history of prior CVA with left sided sensory-deficit, progressive bulbar palsy presenting with episode of unresponsiveness, witnessed seizure-like episode in the ER #Observed seizure-like activity - patient has had seizure workup in the past. Is currently not on any anti-epileptic agents. Seizure activity resolved with Ativan 2mg IV and given 1gm Keppra -Admit to PCU -Maintain seizure precautions -Check MRI brain -Check EEG -Neurology consultation appreciated -Will not continue anti-epileptics for now #Progressive bulbar palsy - uncertain if patient's current episodes are sec ondary to progression of this disease? -Continue Gabapentin -Neurology consultation appreciated #PAF -Continue Apixaban 2.5mg po BID -Continue Labetalol #Hypertension - patient with elevated blood pressure -Losartan 50mg po daily (patient on Olmesartan at home) -Labetalol 50mg po BID #Hypothyroidism -Continue Synthroid #Diabetes -Lantus 10u BID -ISS #Prior CVA -Continue Plavix 75mg po qAM -Atorvastatin 20mg po daily History of Present Illness Chief Complaint: seizure-like episode, unresponsive Primary Care Provider: Jordana Chen MD Unique Alegria is an 84yo female with history of prior stroke with residual left- sided hemisensory deficit, PAF on Apixaban anticoagulation, HTN, HLP, DM, GERD and progressive bulbar palsy presenting from home with episode of unresponsiveness. Patient has had similar episodes in the past - typically has a syncopal or near syncopal event or becomes confused. Episodes are followed by extreme somnolence. She follows with Neurology - last seen 02/17/25. Has had EEGs in the past including prolonged EEG monitoring at home performed through [facility]. She was on seizure medications in the past several years ago but patient was not able to tolerate them. Today patient has been unresponsive throughout the day - has been unable to wake her up. Witnessed seizure-like episode in the ER with tightness of the left foot, fixed eyes, muscular contractions of left neck and vocalization. Patient was given Ativan 2mg IV with improvement. Allergies Allergy/AdvReac Type Severity Reaction Status Date / Time codeine Allergy Intermediate HYPERACTIVE, Verified 03/28/25 11:09 HIVES/SYNCOPE enoxaparin Allergy Intermediate syncope Verified 03/28/25 11:09 fluorouracil Allergy Intermediate Hives Verified 03/28/25 11:09 potassium Allergy Mild IV Verified 03/28/25 11:09 potassium caused hypotension Home Medications Medication Instructions Recorded Confirmed Type cholecalciferol (vitamin D3) 125 5,000 unit PO 3XWK 03/20/19 06/25/25 History mcg (5,000 unit) tablet fexofenadine 180 mg tablet 180 mg PO QAM 09/03/20 06/25/25 History cyanocobalamin (vitamin B-12) 1,000 mcg PO DAILY 01/29/21 06/25/25 History 1,000 mcg tablet albuterol sulfate 90 mcg/actuation 1 puff inhalation Q4 PRN Wheezing 06/25/23 06/25/25 Rx aerosol inhaler #20.1 grams lancing device #1 ea 01/09/24 06/25/25 Rx pen needle, diabetic 32 gauge x #400 ea 03/16/24 06/25/25 Rx 5/32" (BD Ultra-Fine Jayleen Pen Needle) blood sugar diagnostic (FreeStyle #200 ea 06/10/24 06/25/25 Rx Lite Strips) triamcinolone acetonide 0.5 % 1 applic topical BID #30 grams 08/25/24 06/25/25 Rx topical ointment apixaban 2.5 mg tablet 2.5 mg PO BID #180 tabs 09/17/24 06/25/25 Rx omeprazole 20 mg capsule,delayed 20 mg PO QAM #90 caps 10/07/24 06/25/25 Rx release folic acid 1 mg tablet 1 mg PO QAM #90 tabs 10/31/24 06/25/25 Rx insulin glargine 100 unit/mL (3 22 - 30 unit (0.22 - 0.3 mL) 11/03/24 06/25/25 Rx mL) subcutaneous pen (Lantus subcut HS #27 mL Solostar U-100 Insulin) labetalol 100 mg tablet 50 mg (1/2 x 100 mg) PO Q12H #90 11/17/24 06/25/25 Rx tabs meclizine 25 mg tablet See Rx Instructions .Route 11/23/24 06/25/25 Rx .COMPLEX #90 tabs montelukast 10 mg tablet See Rx Instructions .Route 11/23/24 06/25/25 Rx .COMPLEX #90 tabs atorvastatin 20 mg tablet 20 mg PO DAILY #90 tabs 02/02/25 06/25/25 Rx olmesartan 40 mg tablet 40 mg PO DAILY #90 tabs 02/14/25 06/25/25 Rx clopidogrel 75 mg tablet 75 mg PO QAM #90 tabs 04/06/25 06/25/25 Rx gabapentin 100 mg capsule 100 mg PO .COMPLEX #270 caps 04/20/25 06/25/25 Rx levothyroxine 88 mcg tablet 88 mcg PO DAILY #90 tabs 04/21/25 06/25/25 Rx lancets 28 gauge (FreeStyle #200 ea 05/19/25 06/25/25 Rx Lancets) Past Med/Surg History Problem List Observed seizure-like activity (Acute) Thrombocytopenia (Acute) Anemia (Acute) AMS (altered mental status) (Acute) Sleep attack Type 2 diabetes mellitus Encounter for interrogation of cardiac recorder Petechiae Anticoagulant long-term use Dysarthria Progressive bulbar palsy Hypertension (Acute) Recurrent syncope (Acute) Idiopathic polyneuropathy Gait disorder Bilateral tinnitus Sensorineural hearing loss (SNHL) of both ears Dysphonia H/O: stroke Dysphasia B12 deficiency 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 (CVA) Daytime somnolence Gastroparesis Paroxysmal atrial fibrillation Thrombocytopenia (Acute) History of loop recorder Hiatal hernia Fibromuscular hyperplasia of left carotid artery Aneurysm of left carotid artery Pseudoaneurysm, Neurosurg [facility] Hypothyroidism Chronic kidney disease, stage III (moderate) Hypertension Vitamin D deficiency History of Randolph fundoplication 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 Diabetic nephropathy associated with type 2 diabetes mellitus Neuropathy due to type 2 diabetes mellitus Loss of protective sensation of skin of foot Health care maintenance Constipation Cryptogenic stroke Esophageal thickening CT scan 12/14/2020 Medical History Stasis dermatitis of both legs Encounter for loop recorder at end of battery life Decreased hearing Snoring Anxiety Syncope Left-sided weakness NAIMA (acute kidney injury) Seizure Paroxysmal atrial fibrillation Carotid artery aneurysm Atrial ectopy Fibromuscular dysplasia of both carotid arteries Diastasis recti Sequela of lacunar infarction Sensorineural hearing loss (SNHL) of both ears Speech abnormality Seizure-like activity Discharge planning issues DVT prophylaxis Bradycardia Chest discomfort Belching Nausea Lung nodule Chest discomfort Uncontrolled insulin-treated type 2 diabetes mellitus Idiopathic thrombocytopenia purpura referred to heme/onc for evaluation of thrombocytopenia- clinical picture suggestive of ITP - started on steroid therapy Umbilical hernia without obstruction and without gangrene Diabetes mellitus, type 2 IDDM - follows with [facility] endocrine Stroke 1985. MILD CUSTODIAL MEMORY LOSS. GERD (gastroesophageal reflux disease) Hiatal hernia Hyperlipemia TIA (transient ischemic attack) MULTIPLE. MOST RECENT 10/2020 >FOLLOWED UP WITH PCP>FACIAL NUMBNESS AND SHORT PERIOD OF NOT BEING ABLE TO TALK. (REASON FOR PLAVIX) Asthma INHALER PRN>HAS NOT USED FOR A WHILE Arthritis Surgical History H/O hernia repair (03/08/20) Ventral hernia repair Dr. Jane 03/08/20 History of loop recorder IMPLANTED NOVEMBER 2020 H/O umbilical hernia repair History of repair of hiatal hernia (06/16/19) Robotic assisted Laparoscopic repair of hiatal hernia with prosthetic bio- absorbable mesh, randolph Fundoplication Esophagogastroduoedenoscopy Dr. Mueller 06/16/19 History of colonoscopy History of total knee replacement BILATERAL AND A STEEL JAD IN RIGHT LEG D/T CURVATURE History of esophagogastroduodenoscopy (EGD) WITH REMOVAL OF ESOPHAGEAL POLYPS History of appendectomy History of esophageal dilatation History of ankle surgery RIGHT H/O dilation and curettage History of tonsillectomy and adenoidectomy Hx of cholecystectomy History of total abdominal hysterectomy and bilateral salpingo-oophorectomy Family History Unknown Osteoporosis Mother Rheumatoid arthritis Family history of diabetes mellitus History of nephrectomy Stroke syndrome Hypertension Stroke Aunt Rheumatoid arthritis Father Heart disease Myocardial infarction Hx of CABG Hypertension Brother Acute myocardial infarction Myocardial infarction Other No family history of adverse response to anesthesia No family history of bleeding disorder Denies family history of Ovarian cancer Prostate cancer Clotting disorder Breast cancer Social History (Reviewed 10/18/25 @ 23:17 by GAYLA Hong Smoking Status: Never smoker Second Hand Exposure: No; Do You Dip or Chew Tobacco: No; Hx Alcohol Use: No Hx Substance Use: No Preferred Language: Lebanese Communication Ability: Effective Visual Impairment: No Limitations Hearing Ability: Normal 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 Beliefs That Will Affect Care: None marital status: Current Living Situation: Family Current Living Situation Comment: Home w/ current occupational status: 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 How many Children do You have: 4 Feels Safe at Home: Yes Childhood Exposure to Second-Hand Smoke: Yes Dental Care, Regularly: No Physical Activity Frequency: Daily Seatbelt Use: always Sunscreen Use: No Assistive Devices: Cane and Walker Review of Systems Review of Systems: Unobtainable due to cognitive status Physical Exam Physical Exam: General: patient somnolent, opens eyes to voice, does not follow commands Skin: warm, dry, intact, no rashes or lesions HEENT: NC/AT, PERRL, anicteric sclera, conjunctiva without injection, external ear normal to inspection and nontender, nares patent, moist mucus membranes, dentition intact, no oropharyngeal lesions, neck supple, trachea midline, no LAD, no thyromegaly, no JVD Heart: +S1/S2, regular, tachycardic, no m/r/g Lungs: equal air entry bilaterally, no rales/rhonchi/wheezes Abd: +BS, soft, ND, no masses/organomegaly/ascites Ext: warm, 2+ pulses in UE/LE bilaterally, no clubbing/cyanosis or edema Results & Data Results & Data Vital Signs (Past 12 Hours) Vital Signs Temp Pulse Pulse Resp BP Pulse Ox O2 Del Method 06/25/25 22:39 62 16 96 Room Air 06/25/25 22:30 160/92 H 06/25/25 21:47 56 L 06/25/25 21:30 192/79 H 06/25/25 21:27 61 17 97 Room Air 06/25/25 21:12 63 06/25/25 21:00 195/84 H 06/25/25 20:45 78 20 06/25/25 20:39 63 15 96 06/25/25 20:16 174/62 H 06/25/25 20:12 61 93 06/25/25 20:09 62 17 95 06/25/25 20:00 184/82 H 06/25/25 19:57 64 94 06/25/25 19:45 168/85 H 06/25/25 19:45 168/85 H 06/25/25 19:45 61 93 06/25/25 19:41 58 L 15 96 Room Air 06/25/25 19:40 166/79 H 06/25/25 19:40 166/79 H 06/25/25 19:40 61 166/79 H 06/25/25 19:27 59 L 21 95 06/25/25 19:25 63 250/90 H 06/25/25 19:22 250/90 H 06/25/25 19:22 250/90 H 06/25/25 19:22 250/90 H 06/25/25 19:22 250/90 H 06/25/25 19:12 63 16 96 06/25/25 19:09 63 96 06/25/25 18:24 60 06/25/25 18:14 65 18 95 Room Air 06/25/25 17:49 37.0 C 56 L 20 229/91 H 97 Room Air Laboratory Results Laboratory Results WBC 4.29 K/ul (4.8-10.8) L 06/25/25 18:05 RBC 3.38 M/uL (4.20-5.40) L 06/25/25 18:05 Hgb 10.7 g/dl (12.0-16.0) L 06/25/25 18:05 POC Hgb 10.9 g/dl (12.0-16.0) L 06/25/25 18:10 Hct 32.7 % (37.0-47.0) L 06/25/25 18:05 POC Hct 32 % (37-47) L 06/25/25 18:10 MCV 96.7 fL (80.0-100.0) 06/25/25 18:05 MCH 31.7 pg (25.0-34.0) 06/25/25 18:05 MCHC 32.7 g/dL (32.0-36.0) 06/25/25 18:05 RDW Std Deviation 45.2 fL (36.4-46.3) 06/25/25 18:05 RDW Coeff of Fallon 12.7 % (11.5-14.5) 06/25/25 18:05 Plt Count 75 K/uL (130-400) L 06/25/25 18:05 MPV 11.2 fL (9.4-12.4) 06/25/25 18:05 Immature Gran % (Auto) 0.2 % 06/25/25 18:05 Neut % (Auto) 46.6 % 06/25/25 18:05 Lymph % (Auto) 44.3 % 06/25/25 18:05 Billings % (Auto) 5.6 % 06/25/25 18:05 Eos % (Auto) 2.8 % 06/25/25 18:05 Baso % (Auto) 0.5 % 06/25/25 18:05 Neut # (Auto) 2.00 K/uL (1.40-6.50) 06/25/25 18:05 Lymph # (Auto) 1.90 K/uL (1.20-3.40) 06/25/25 18:05 Billings # (Auto) 0.24 K/uL (0.11-0.59) 06/25/25 18:05 Eos # (Auto) 0.12 K/uL (0.00-0.50) 06/25/25 18:05 Baso # (Auto) 0.02 K/uL (0.00-0.20) 06/25/25 18:05 Immature Gran # (Auto) 0.01 K/uL (0.01-0.20) 06/25/25 18:05 POC Sodium 140 mmol/L (135-144) 06/25/25 18:10 Sodium 138 mmol/L (136-145) 06/25/25 18:05 POC Potassium 4.2 mmol/L (3.3-5.0) 06/25/25 18:10 Potassium 4.1 mmol/L (3.5-5.1) 06/25/25 18:05 POC Chloride 104 mmol/L (101-112) 06/25/25 18:10 Chloride 106 mmol/L (98-107) 06/25/25 18:05 Carbon Dioxide 28 mmol/L (21-32) 06/25/25 18:05 POC Total CO2 25 mmol/L (24-31) 06/25/25 18:10 Anion Gap 4 (3-11) 06/25/25 18:05 POC Anion Gap 17.0 mmol/L (16-25) 06/25/25 18:10 POC BUN 11 mg/dl (7-18) 06/25/25 18:10 BUN 12 mg/dl (6-23) 06/25/25 18:05 Creatinine 1.68 mg/dl (0.6-1.2) H 06/25/25 18:05 POC Creatinine 1.8 mg/dl (0.6-1.3) H 06/25/25 18:10 Est Cr Clr Drug Dosing 27.2 ml/min 06/25/25 18:05 eGFR 29.81 06/25/25 18:05 BUN/Creatinine Ratio 7.1 (10-20) L 06/25/25 18:05 Glucose 147 mg/dl (70-99(Fasting)) H 06/25/25 18:05 POC Glucose 124 mg/dl (70-99) H 06/25/25 19:21 POC Glucose (other) 142 mg/dl (70-99) H 06/25/25 18:10 Lactate 1.1 mmol/L (0.4-2.0) 06/25/25 19:58 Calcium 9.3 mg/dl (8.6-10.3) 06/25/25 18:05 POC Ioniz Calcium Stanley 1.20 mmol/l (1.12-1.32) 06/25/25 18:10 Magnesium 1.8 mg/dl (1.7-2.4) 06/25/25 18:05 Total Bilirubin 0.5 mg/dl (0.2-1.0) 06/25/25 18:05 AST 26 U/L (13-39) 06/25/25 18:05 ALT 15 U/L (7-52) 06/25/25 18:05 Alkaline Phosphatase 104 U/L (34-104) 06/25/25 18:05 Troponin I High Sens 5.6 pg/ml (0-14) 06/25/25 18:05 Total Protein 6.0 gm/dl (6.0-8.3) 06/25/25 18:05 Albumin 3.1 gm/dl (3.4-5.0) L 06/25/25 18:05 Globulin 2.9 gm/dl (2.5-4.0) 06/25/25 18:05 Albumin/Globulin Ratio 1.1 (0.9-2) 06/25/25 18:05 TSH 1.130 uIu/ml (0.300-4.500) 06/25/25 18:05 Urine Comment 06/25/25 23:[address] 06/25/25 18:14 CT of the head without contrast Technique: Noncontrast axial of the head. Coronal and sagittal reformatted images made available for review Comparison made to prior exam dated 05/17/2024 Findings: Chronic right basal ganglia and carlos radiata lacunar infarcts. No acute intracranial hemorrhage. No acute transcortical infarct. No midline shift. Ventricles, sulci, cisterns within normal limits. Bone windows demonstrate no focal abnormality Impression Head CT negative for acute intracranial abnormality. Electronically signed by Anders Bourne 06-25-2025 8:08 PM Code Status & VTE Plan VTE Prophylaxis Plan VTE Prophylaxis will be ordered: Yes PG Care Time/CCT Total # of Minutes Spent Total Time Spent with Patient: Total time spent is greater than 50% in coordination of care (as documented) at patient's floor/unit and/or counseling patient: Coding Level of Care Code 35494 INT INP/OBS CARE 3/75MIN Diagnoses Observed seizure-like activity R56.9 Progressive bulbar palsy G12.22 Type 2 diabetes mellitus E11.9 Primary hypertension I10 Hypertension type: primary hypertension Paroxysmal atrial fibrillation I48.0 Hypothyroidism E03.9 (4) Hypertension Hypertension type: primary hypertension Qualified Code(s): I10 - Essential (primary) hypertension
[2025-06-25 23:16] LABS: Appearance Urine Slightly Cloudy (Clear); Glucose Urine UA Negative (Negative)
[2025-06-25 23:36] LABS: Epithelial Cell Urine 0-2 /hpf (0-2)
[2025-06-25] MEDS ORDERED: ONDANSETRON INJ 2 MG/ML 2 ML VIAL IV PRN (23:55)
[2025-06-25] MEDS ORDERED: ALBUTEROL HFA 8 GM INHALER INH PRN (23:55)
[2025-06-25] MEDS ORDERED: CARBOHYDRATES FOR HYPOGLYCEMIA PO PRN (23:55)
[2025-06-25] MEDS ORDERED: DEXTROSE 50% 50 ML SYRINGE IV PRN (23:55)
[2025-06-25] MEDS ORDERED: LORazepam Inj 2 MG in SYRINGE 1 ML IV PRN (23:55)
[2025-06-25] MEDS ORDERED: GLUCOSE 10 TAB/TUBE PO PRN (23:55)
[2025-06-25] MEDS ORDERED: GLUCOSE 40% GEL 15 GM TUBE PO PRN (23:55)
[2025-06-25] MEDS ORDERED: GLUCAGON FOR INJ 1 MG VIAL SQ PRN (23:55)
[2025-06-26] MEDS: LOSARTAN POTASSIUM 50 MG TAB PO ONE (00:52)
[2025-06-26] MEDS: DAPTOmycin 400 MG in SYRINGE 0 ML IV SCH (01:56)
[2025-06-26] MEDS: cefTRIAXone SODIUM 2,000 MG/50 ML BAG IV SCH (01:56)
[2025-06-26] MEDS: LEVOTHYROXINE SODIUM 88 MCG TABLET PO SCH (06:11)
[2025-06-26] MEDS: ACETAMINOPHEN 325 MG TAB PO PRN (08:38)
[2025-06-26] MEDS: INSULIN ASPART PER UNIT CHARGE SC SCH (09:00)
[2025-06-26] MEDS ORDERED: INFLUENZA VACC TS2025-26(65y+)/PF (IIV3) 0.5mL Syr IM ONE (09:00)
[2025-06-26] MEDS ORDERED: ATORVASTATIN 20 MG TAB PO SCH (09:00)
[2025-06-26] MEDS ORDERED: PNEUMOCOCCAL VACCINE (PCV20) 20-VAL CONJ-DIP CRM/PF 0.5 ML SYR IM ONE (09:00)
[2025-06-26] MEDS: GABAPENTIN 100 MG CAP PO SCH ×2 (09:02→19:52)
[2025-06-26] MEDS: FOLIC ACID 1 MG TAB PO SCH (09:02)
[2025-06-26] MEDS: APIXABAN 2.5 MG TAB PO SCH (09:02)
[2025-06-26] MEDS: LOSARTAN POTASSIUM 50 MG TAB PO SCH (09:02)
[2025-06-26] MEDS: FEXOFENADINE HCL 180 MG TAB PO SCH (09:02)
[2025-06-26] MEDS: LABETALOL HCL 100 MG TAB PO SCH (09:02)
[2025-06-26] MEDS: CLOPIDOGREL BISULFATE 75 MG TAB PO SCH (09:03)
[2025-06-26] MEDS: LANTUS PER UNIT CHARGE SQ SCH (09:56)
--- NOTE | 2025-06-26 15:31 | Neurology Consultation ---
Date of Consultation June 26, 2025 Assessment & Plan (1) Observed seizure-like activity: Given the observed spell in the ED with repetitive oral movements and vocalizations that resolved with lorazepam, concern for recurrent seizure activity is highest on the differential. Per the record, she did not tolerate levetiracetam maintenance dosing due to sleepiness in the past, and is currently off AEDs. Would recommend the following: -repeat EEG if able, ideally during symptomatic period but even spot EEG would be helpful -empiric AED. Given past trouble tolerating levetiracetam, would consider starting low dose lacosamide 50mg bid with outpatient neurology follow up for dose adjustment and monitoring -no driving, no bathing unattended (2) Sleep attack: Differential of these unresponsive spells includes post-ictal periods, sleep attacks, excessive daytime somnolence, possibly blood pressure or blood sugar related, though no evidence of hypoglycemia with this current event. 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 Progressive bulbar palsy is considered to be a variant of motor neuron disease and could progress to generalized weakness with upper and lower motor neuron signs, but is not associated with seizures, syncope, or sleep attacks. Follow up with outpatient neurology as scheduled. (4) Idiopathic polyneuropathy: Continue gabapentin; not specifically addressed this visit. Follow up with outpatient neurology as scheduled (5) H/O: stroke: -continue secondary stroke prevention with modification of vascular risk factors including antiplatelet, statin with goal LDL <70, tight glycemic control with goal HbA1c <7 Telehealth Consultation Telehealth Information Telehealth Information: I performed this visit using a real-time telehealth connection between my location and the patients originating location ([facility]). After connecting through interactive tele-video, patient was identified by name and date of and/or wristband check.Patient (or authorized healthcare software sales representative) was informed that this was a telemedicine visit and it was being conducted confidentially over secure lines. My office door was closed and no one else was present in the room with me.Patient (or authorized healthcare software sales representative) provided consent to proceed with the visit, expressed an understanding of privacy and security of the telemedicine visit, and gave permission to have a hospital software sales representative in the room in order to assist with the visit and to conduct portions of the visit, as needed. I informed the patient (or authorized healthcare software sales representative) that I reviewed their record and presented the opportunity for them to ask any questions regarding the visit today. The patient agreed to participate. Time Spent with Patient: Initial => 40 min History of Present Illness Reason for Consultation: unresponsive episodes Attending Physician: Pop Nava MD History of Present Illness 84 yo patient with history of progressive bulbar palsy resulting in baseline dysarthria and dysphagia, prior stroke, recurrent stereotyped unresponsive events which have previously but not currently been treated with antiepileptics is here after prolonged period of unresponsiveness at home yesterday afternoon. History is obtained from the chart and from the patient's who is at the bedside. Patient's notes that at baseline, Unique is ambulatory, has been doing yardwork recently, is able to shower independently and take her pills. Yesterday, she woke up, showered, and sat in her chair. It is not uncommon for her to have a rest in the afternoon. He tried to rouse her, which typially he can do with a nudge or voice, but she did not rouse. This is also not unprecedented, so he thought she needed more rest and waited a few hours, at which point he became concerned when he again could not rouse her, and he called 911 at that point. He tells me that when EMS arrived, she was able to ambulate to the restroom with minor assistance and was responding to questions. After arrival to the ED, she was noted to have another unresponsive episode characterized by L sided stiffening, BP into the 220s systolic, repetitive oral movements and vocalizations. It is not clear if she exhibited gaze deviation at this time. The episode lasted 1.5-2 min and ceased with administration of lorazepam. [facility] neurology was consulted by phone as was [facility] neurology by phone. I do not see documentation of these discussions but recommendation was to admit locally. Pt was also loaded with Kejuanra in the ED. Overnight, there have not been recurrent episodes. She is sleepy but was more alert and awake before our visit per the PA at bedside and patient's . The unresponsive episodes are not characterized by urinary incontinence or tongue biting. Past notes do indicate some syncopal type events sometimes preceded by a stressful episode such as a medical procedure, with question of vasovagal events. Patient has undergone cardiac and 48h ambulatory EEG monitoring in the past. It is not clear if the ambulatory EEG captured any events. Allergies Allergy/AdvReac Type Severity Reaction Status Date / Time codeine Allergy Intermediate HYPERACTIVE, Verified 03/28/25 11:09 HIVES/SYNCOPE enoxaparin Allergy Intermediate syncope Verified 03/28/25 11:09 fluorouracil Allergy Intermediate Hives Verified 03/28/25 11:09 potassium Allergy Mild IV Verified 03/28/25 11:09 potassium caused hypotension Home Medications Medication Instructions Recorded Confirmed Type cholecalciferol (vitamin D3) 125 5,000 unit PO 3XWK 03/20/19 06/25/25 History mcg (5,000 unit) tablet fexofenadine 180 mg tablet 180 mg PO QAM 09/03/20 06/25/25 History cyanocobalamin (vitamin B-12) 1,000 mcg PO DAILY 01/29/21 06/25/25 History 1,000 mcg tablet albuterol sulfate 90 mcg/actuation 1 puff inhalation Q4 PRN Wheezing 06/25/23 06/25/25 Rx aerosol inhaler #20.1 grams lancing device #1 ea 01/09/24 06/25/25 Rx pen needle, diabetic 32 gauge x #400 ea 03/16/24 06/25/25 Rx 5/32" (BD Ultra-Fine Jayleen Pen Needle) blood sugar diagnostic (FreeStyle #200 ea 06/10/24 06/25/25 Rx Lite Strips) triamcinolone acetonide 0.5 % 1 applic topical BID #30 grams 08/25/24 06/25/25 Rx topical ointment apixaban 2.5 mg tablet 2.5 mg PO BID #180 tabs 09/17/24 06/25/25 Rx omeprazole 20 mg capsule,delayed 20 mg PO QAM #90 caps 10/07/24 06/25/25 Rx release folic acid 1 mg tablet 1 mg PO QAM #90 tabs 10/31/24 06/25/25 Rx insulin glargine 100 unit/mL (3 22 - 30 unit (0.22 - 0.3 mL) 11/03/24 06/25/25 Rx mL) subcutaneous pen (Lantus subcut HS #27 mL Solostar U-100 Insulin) labetalol 100 mg tablet 50 mg (1/2 x 100 mg) PO Q12H #90 11/17/24 06/25/25 Rx tabs meclizine 25 mg tablet See Rx Instructions .Route 11/23/24 06/25/25 Rx .COMPLEX #90 tabs montelukast 10 mg tablet See Rx Instructions .Route 11/23/24 06/25/25 Rx .COMPLEX #90 tabs atorvastatin 20 mg tablet 20 mg PO DAILY #90 tabs 02/02/25 06/25/25 Rx olmesartan 40 mg tablet 40 mg PO DAILY #90 tabs 02/14/25 06/25/25 Rx clopidogrel 75 mg tablet 75 mg PO QAM #90 tabs 04/06/25 06/25/25 Rx gabapentin 100 mg capsule 100 mg PO .COMPLEX #270 caps 04/20/25 06/25/25 Rx levothyroxine 88 mcg tablet 88 mcg PO DAILY #90 tabs 04/21/25 06/25/25 Rx lancets 28 gauge (FreeStyle #200 ea 05/19/25 06/25/25 Rx Lancets) Patient History Medical History Stasis dermatitis of both legs Encounter for loop recorder at end of battery life Decreased hearing Snoring Anxiety Syncope Left-sided weakness NAIMA (acute kidney injury) Seizure Paroxysmal atrial fibrillation Carotid artery aneurysm Atrial ectopy Fibromuscular dysplasia of both carotid arteries Diastasis recti Sequela of lacunar infarction Sensorineural hearing loss (SNHL) of both ears Speech abnormality Seizure-like activity Discharge planning issues DVT prophylaxis Bradycardia Chest discomfort Belching Nausea Lung nodule Chest discomfort Uncontrolled insulin-treated type 2 diabetes mellitus Idiopathic thrombocytopenia purpura referred to heme/onc for evaluation of thrombocytopenia- clinical picture suggestive of ITP - started on steroid therapy Umbilical hernia without obstruction and without gangrene Diabetes mellitus, type 2 IDDM - follows with [facility] endocrine Stroke 1985. MILD [facility] MEMORY LOSS. GERD (gastroesophageal reflux disease) Hiatal hernia Hyperlipemia TIA (transient ischemic attack) MULTIPLE. MOST RECENT 10/2020 >FOLLOWED UP WITH PCP>FACIAL NUMBNESS AND SHORT PERIOD OF NOT BEING ABLE TO TALK. (REASON FOR PLAVIX) Asthma INHALER PRN>HAS NOT USED FOR A WHILE Arthritis Surgical History H/O hernia repair (03/08/20) Ventral hernia repair Dr. Jane 03/08/20 History of loop recorder IMPLANTED NOVEMBER 2020 H/O umbilical hernia repair History of repair of hiatal hernia (06/16/19) Robotic assisted Laparoscopic repair of hiatal hernia with prosthetic bio- absorbable mesh, robert Fundoplication Esophagogastroduoedenoscopy Dr. Mueller 06/16/19 History of colonoscopy History of total knee replacement BILATERAL AND A STEEL JAD IN RIGHT LEG D/T CURVATURE History of esophagogastroduodenoscopy (EGD) WITH REMOVAL OF ESOPHAGEAL POLYPS History of appendectomy History of esophageal dilatation History of ankle surgery RIGHT H/O dilation and curettage History of tonsillectomy and adenoidectomy Hx of cholecystectomy History of total abdominal hysterectomy and bilateral salpingo-oophorectomy Family History Unknown Osteoporosis Mother Rheumatoid arthritis Family history of diabetes mellitus History of nephrectomy Stroke syndrome Hypertension Stroke Aunt Rheumatoid arthritis Father Heart disease Myocardial infarction Hx of CABG Hypertension Brother Acute myocardial infarction Myocardial infarction Other No family history of adverse response to anesthesia No family history of bleeding disorder Denies family history of Ovarian cancer Prostate cancer Clotting disorder Breast cancer Social History Smoking Status: Never smoker Second Hand Exposure: No; Do You Dip or Chew Tobacco: No; Hx Alcohol Use: No Hx Substance Use: No Preferred Language: Vincentian Communication Ability: Impaired Communication Ability Comment: Dysarthria Visual Impairment: No Limitations Hearing Ability: Normal Mag[employer] Developer Required: No Beliefs That Will Affect Care: None marital status: Current Living Situation: Spouse Current Living Situation Comment: Home w/ current occupational status: 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 She did have some diarrhea in the recent past but not in the past few days. Occasional urinary incontinence not associated with these episodes. Physical Exam At the time of our video visit at ~11am, patient was resting comfortably in bed, NAD. RRR, breathing RA. She did not have any visible rash or skin problems. Abdomen was nondistended. She was sleeping but briefly roused to tactile stimulation enough to follow a few basic midline commands, but drifted quickly back to sleep. No verbal language output was appreciated but she did follow a few commands. CN notable for facial symmetry with good activation of the frontalis bilaterally and absence of gaze deviation. Mouth remained open throughout. She attempted but did not succeed at tongue protrusion. Dysarthria was not evaluated as she did not attempt speech. Motor: no drift, able to activate both UE, no adventitious movements noted. She did not lift her LE up off the bed but this was likely more related to mental status. coordination, sensation, reflexes, and gait were not tested due to patients mental status. Results & Data Vital Signs (Past 12 Hours) Vital Signs Temp Pulse Pulse Resp BP Pulse Ox O2 Del Method 06/26/25 14:00 62 06/26/25 09:00 68 06/26/25 08:04 36.7 C 71 16 129/59 L 96 Room Air 06/26/25 05:18 36.5 C 71 20 168/74 H 96 Room Air Laboratory Results 06/25/25 23:05 Urine Culture - Pending Urine,Clean Catch 06/26/25 06/26/25 06/25/25 11:17 07:21 23:05 WBC RBC Hgb POC Hgb Hct POC Hct MCV MCH MCHC RDW Std Deviation RDW Coeff of [place] Plt Count MPV Immature Gran % (Auto) Neut % (Auto) Lymph % (Auto) [place] % (Auto) Eos % (Auto) Baso % (Auto) Neut # (Auto) Lymph # (Auto) [place] # (Auto) Eos # (Auto) Baso # (Auto) Immature Gran # (Auto) POC Sodium Sodium POC Potassium Potassium POC Chloride Chloride Carbon Dioxide POC Total CO2 Anion Gap POC Anion Gap POC BUN BUN Creatinine POC Creatinine Est Cr Clr Drug Dosing eGFR BUN/Creatinine Ratio Glucose POC Glucose 150 H 128 H POC Glucose (other) Lactate Calcium POC Ioniz Calcium Stanley Magnesium Total Bilirubin AST ALT Alkaline Phosphatase Troponin I High Sens Total Protein Albumin Globulin Albumin/Globulin Ratio TSH Urine Color Yellow Urine Appearance Slightly Cloudy Urine pH 6.0 Ur Specific [place] 1.010 Urine Protein Negative Urine Glucose (UA) Negative Urine Ketones Negative Urine Blood Trace-lysed H Urine Nitrite Positive A Urine Bilirubin Negative Urine Urobilinogen Negative Ur Leukocyte Esterase 2+ H Urine RBC 3-5 H Urine WBC 11-20 H Ur Epithelial Cells 0-2 Urine Bacteria 4+ H Urine Comment 06/25/25 06/25/25 06/25/25 19:58 19:21 18:10 WBC RBC Hgb POC Hgb 10.9 L Hct POC Hct 32 L MCV MCH MCHC RDW Std Deviation RDW Coeff of [place] Plt Count MPV Immature Gran % (Auto) Neut % (Auto) Lymph % (Auto) [place] % (Auto) Eos % (Auto) Baso % (Auto) Neut # (Auto) Lymph # (Auto) [place] # (Auto) Eos # (Auto) Baso # (Auto) Immature Gran # (Auto) POC Sodium 140 Sodium POC Potassium 4.2 Potassium POC Chloride 104 Chloride Carbon Dioxide POC Total CO2 25 Anion Gap POC Anion Gap 17.0 POC BUN 11 BUN Creatinine POC Creatinine 1.8 H Est Cr Clr Drug Dosing eGFR BUN/Creatinine Ratio Glucose POC Glucose 124 H POC Glucose (other) 142 H Lactate 1.1 Calcium POC Ioniz Calcium Stanley 1.20 Magnesium Total Bilirubin AST ALT Alkaline Phosphatase Troponin I High Sens Total Protein Albumin Globulin Albumin/Globulin Ratio TSH Urine Color Urine Appearance Urine pH Ur Specific [place] Urine Protein Urine Glucose (UA) Urine Ketones Urine Blood Urine Nitrite Urine Bilirubin Urine Urobilinogen Ur Leukocyte Esterase Urine RBC Urine WBC Ur Epithelial Cells Urine Bacteria Urine Comment 06/25/25 06/25/25 18:05 17:58 WBC 4.29 L RBC 3.38 L Hgb 10.7 L POC Hgb Hct 32.7 L POC Hct MCV 96.7 MCH 31.7 MCHC 32.7 RDW Std Deviation 45.2 RDW Coeff of [place] 12.7 Plt Count 75 L MPV 11.2 Immature Gran % (Auto) 0.2 Neut % (Auto) 46.6 Lymph % (Auto) 44.3 [place] % (Auto) 5.6 Eos % (Auto) 2.8 Baso % (Auto) 0.5 Neut # (Auto) 2.00 Lymph # (Auto) 1.90 [place] # (Auto) 0.24 Eos # (Auto) 0.12 Baso # (Auto) 0.02 Immature Gran # (Auto) 0.01 POC Sodium Sodium 138 POC Potassium Potassium 4.1 POC Chloride Chloride 106 Carbon Dioxide 28 POC Total CO2 Anion Gap 4 POC Anion Gap POC BUN BUN 12 Creatinine 1.68 H POC Creatinine Est Cr Clr Drug Dosing 27.2 eGFR 29.81 BUN/Creatinine Ratio 7.1 L Glucose 147 H POC Glucose 144 H POC Glucose (other) Lactate Calcium 9.3 POC Ioniz Calcium Stanley Magnesium 1.8 Total Bilirubin 0.5 AST 26 ALT 15 Alkaline Phosphatase 104 Troponin I High Sens 5.6 Total Protein 6.0 Albumin 3.1 L Globulin 2.9 Albumin/Globulin Ratio 1.1 TSH 1.130 Urine Color Urine Appearance Urine pH Ur Specific [place] Urine Protein Urine Glucose (UA) Urine Ketones Urine Blood Urine Nitrite Urine Bilirubin Urine Urobilinogen Ur Leukocyte Esterase Urine RBC Urine WBC Ur Epithelial Cells Urine Bacteria Urine Comment Diagnostic Findings Head CT 06/25/25 18:14 CT of the head without contrast Technique: Noncontrast axial of the head. Coronal and sagittal reformatted images made available for review Comparison made to prior exam dated 05/17/2024 Findings: Chronic right basal ganglia and carlos radiata lacunar infarcts. No acute intracranial hemorrhage. No acute transcortical infarct. No midline shift. Ventricles, sulci, cisterns within normal limits. Bone windows demonstrate no focal abnormality Impression Head CT negative for acute intracranial abnormality. Electronically signed by Anders Bourne 06-25-2025 8:08 PM Medications Administered Home Medications Medication Instructions Recorded Confirmed Last Taken cholecalciferol (vitamin D3) 125 5,000 unit PO 3XWK 03/20/19 06/25/25 06/04/21 mcg (5,000 unit) tablet fexofenadine 180 mg tablet 180 mg PO QAM 09/03/20 06/25/25 06/05/21 cyanocobalamin (vitamin B-12) 1,000 mcg PO DAILY 01/29/21 06/25/25 06/05/21 1,000 mcg tablet albuterol sulfate 90 mcg/actuation 1 puff inhalation Q4 PRN Wheezing 06/25/23 06/25/25 Unknown aerosol inhaler #20.1 grams lancing device #1 ea 01/09/24 06/25/25 Unknown pen needle, diabetic 32 gauge x #400 ea 03/16/24 06/25/25 Unknown 32" (BD Ultra-Fine Jayleen Pen Needle) blood sugar diagnostic (FreeStyle #200 ea 06/10/24 06/25/25 Unknown Lite Strips) triamcinolone acetonide 0.5 % 1 applic topical BID #30 grams 08/25/24 06/25/25 Unknown topical ointment apixaban 2.5 mg tablet 2.5 mg PO BID #180 tabs 09/17/24 06/25/25 Unknown omeprazole 20 mg capsule,delayed 20 mg PO QAM #90 caps 10/07/24 06/25/25 Unknown release folic acid 1 mg tablet 1 mg PO QAM #90 tabs 10/31/24 06/25/25 Unknown insulin glargine 100 unit/mL (3 22 - 30 unit (0.22 - 0.3 mL) 11/03/24 06/25/25 Unknown mL) subcutaneous pen (Lantus subcut HS #27 mL Solostar U-100 Insulin) labetalol 100 mg tablet 50 mg (1/2 x 100 mg) PO Q12H #90 11/17/24 06/25/25 Unknown tabs meclizine 25 mg tablet See Rx Instructions .Route 11/23/24 06/25/25 Unknown .COMPLEX #90 tabs montelukast 10 mg tablet See Rx Instructions .Route 11/23/24 06/25/25 Unknown .COMPLEX #90 tabs atorvastatin 20 mg tablet 20 mg PO DAILY #90 tabs 02/02/25 06/25/25 Unknown olmesartan 40 mg tablet 40 mg PO DAILY #90 tabs 02/14/25 06/25/25 Unknown clopidogrel 75 mg tablet 75 mg PO QAM #90 tabs 04/06/25 06/25/25 Unknown gabapentin 100 mg capsule 100 mg PO .COMPLEX #270 caps 04/20/25 06/25/25 Unknown levothyroxine 88 mcg tablet 88 mcg PO DAILY #90 tabs 04/21/25 06/25/25 Unknown lancets 28 gauge (FreeStyle #200 ea 05/19/25 06/25/25 Unknown Lancets) Active Medications Generic Name Dose Route Start Last Admin Trade Name Freq PRN Reason Stop Dose Admin Acetaminophen 650 mg 06/25/25 23:55 06/26/25 08:38 Acetaminophen 325 Mg Tab PO 07/25/25 23:54 650 mg Q4H PRN Administration Pain or Fever Apixaban 2.5 mg 06/26/25 09:00 06/26/25 09:02 Apixaban 2.5 Mg Tab PO 07/26/25 08:59 2.5 mg BID LUIS Administration Clopidogrel Bisulfate 75 mg 06/26/25 09:00 06/26/25 09:03 Clopidogrel Bisulfate 75 Mg Tab PO 07/26/25 08:59 75 mg QAM LUIS Administration Fexofenadine HCl 180 mg 06/26/25 09:00 06/26/25 09:02 Fexofenadine Hcl 180 Mg Tab PO 07/26/25 08:59 180 mg QAM LUIS Administration Folic Acid 1 mg 06/26/25 09:00 06/26/25 09:02 Folic Acid 1 Mg Tab PO 07/26/25 08:59 1 mg QAM LUIS Administration Gabapentin 100 mg 06/26/25 09:00 06/26/25 09:02 Gabapentin 100 Mg Cap PO 07/26/25 08:59 100 mg QAM LUIS Administration Daptomycin 400 mg/ Syringe 8 mls @ 4 mls/min 06/26/25 02:00 06/26/25 01:56 IV 07/01/25 01:59 4 mls/min Q2D LUIS Administration Protocol Ceftriaxone Sodium 2,000 mg in 50 mls @ 100 mls/hr 06/26/25 02:00 06/26/25 02:30 Rocephin IV 07/01/25 01:59 Infused Q24H LUIS Infusion Insulin Aspart 0 units 06/26/25 07:30 06/26/25 12:10 Insulin Aspart Per Unit Charge SC 07/26/25 07:29 Not Given ACHS LUIS Insulin Glargine 10 units 06/26/25 09:00 06/26/25 09:56 Lantus Per Unit Charge SQ 07/26/25 08:59 10 units BID LUIS Administration Labetalol HCl 50 mg 06/26/25 09:00 06/26/25 09:02 Labetalol Hcl 100 Mg Tab PO 07/26/25 08:59 50 mg BID LUIS Administration Levothyroxine Sodium 88 mcg 06/26/25 06:30 06/26/25 06:11 Levothyroxine Sodium 88 Mcg Tablet PO 07/26/25 06:29 88 mcg DAILYBB LUIS Administration Losartan Potassium 50 mg 06/26/25 09:00 06/26/25 09:02 Losartan Potassium 50 Mg Tab PO 07/26/25 08:59 50 mg QAM LUIS Administration Total Time Total Time Spent Total Time Spent (In Minutes): 40 Total Time Includes: Examination of the Patient, Medication Reconciliation, Communication With Other Providers and Other
[2025-06-26] MEDS: GADOBUTROL 30ML VIAL IV ONE (16:38)
--- NOTE | 2025-06-26 16:53 | Magnetic Resonance Report ---
MRI of the brain performed with and without IV contrast History: Seizure Comparison: 05/24/2022 Technique: Multiplanar T1 weighted, axial T2/FLAIR, and susceptibility images were obtained without intravenous contrast. Following intravenous gadolinium based contrast administration, axial T2 weighted, diffusion, and T1-weighted images were obtained. Findings: No evidence for intracranial mass lesion, mass-effect, midline shift, or abnormal extra-axial fluid collection. Postcontrast images demonstrate no abnormal intracranial enhancement. The orbits are grossly unremarkable. There is moderate cerebral atrophy. There is a small chronic lacunar infarct in the right carlos radiata of the frontal lobe. Few tiny chronic infarcts in the cerebellum. The mesial temporal lobes appear symmetric without visualized edema, or mass. No abnormally reduced diffusion or evidence for acute infarct. Normal intravascular flow voids. Impression: Normal brain MRI with and without IV contrast. No evidence for mesial temporal sclerosis. Electronically signed by Andrea Thomson 06-26-2025 4:53 PM
--- NOTE | 2025-06-26 18:43 | Hospitalist Progress Note ---
Date of Service June 26, 2025 Assessment & Plan (1) Observed seizure-like activity: (2) Progressive bulbar palsy: (3) Type 2 diabetes mellitus: (4) Hypertension: (5) Paroxysmal atrial fibrillation: (6) Hypothyroidism: Plan 84yo female with history of prior CVA with left sided sensory-deficit, progressive bulbar palsy presenting with episode of unresponsiveness, witnessed seizure-like episode in the ER #Observed seizure-like activity - patient has had seizure workup in the past. Is currently not on any anti-epileptic agents. Seizure activity resolved with Ativan 2mg IV and given 1gm Keppra -Admit to PCU -Maintain seizure precautions -MRI brain - normal -Check EEG -Neurology consultation appreciated - start lacosamide 50mg PO BID #Toxic encephalopathy Suspect secondary to Ativan and Keppra, will monitor for improvement after this CXR to assess for infection #Possible UTI Continue daptomycin + ceftriaxone pending urine culture #Progressive bulbar palsy - uncertain if patient's current episodes are secondary to progression of this disease? -Continue Gabapentin -Neurology consultation appreciated #PAF -Continue Apixaban 2.5mg po BID -Continue Labetalol #Hypertension - patient with elevated blood pressure -Losartan 50mg po daily (patient on Olmesartan at home) -Labetalol 50mg po BID #Hypothyroidism -Continue Synthroid #Diabetes -Lantus 10u BID -ISS #Prior CVA -Continue Plavix 75mg po qAM -Atorvastatin 20mg po daily VTE Prophylaxis - Eliquis Disposition - continue on PCU Admission and Anticipated Discharge Date Admission Date: June 25, 2025 Subjective Very lethargic after Ativan and Keppra given yesterday. But able to wake her up for short periods and orientated x3. Reports coming to the ER as found on floor. Denies any urinary symptoms. Review of Systems Review of Systems: All systems reviewed & are unremarkable except as noted in HPI & below Physical Exam Constitutional: WD/WN, vitals as above ENMT: external ear and nose normal, oropharynx normal Respiratory: normal respiratory effort, lungs clear to auscultation Cardiovascular: RRR, no murmur, no edema Gastrointestinal (Abdomen): normal bowel sounds, soft, nontender, no hepatosplenomegaly Musculoskeletal: no cyanosis or clubbing, extremities motor strength 5/5 Skin: no rashes, warm and dry Neurologic: moves all extremities and awake; not confused Psychiatric: Orientation: alert (to voice) and oriented x 3 Results & Data Results & Data Vital Signs (Past 12 Hours) Vital Signs Temp Pulse Pulse Resp BP Pulse Ox O2 Del Method 06/26/25 15:59 36.5 C 62 16 174/70 H 97 Room Air 06/26/25 14:00 62 06/26/25 09:00 68 06/26/25 08:04 36.7 C 71 16 129/59 L 96 Room Air PG Care Time/CCT Total # of Minutes Spent Total Time Spent with Patient: Total time spent is greater than 50% in coordination of care (as documented) at patient's floor/unit and/or counseling patient: Coding Level of Care Code 73752 SUB INP/OBS CARE 2/35MIN Diagnoses Observed seizure-like activity R56.9 Progressive bulbar palsy G12.22 Type 2 diabetes mellitus E11.9 Primary hypertension I10 Hypertension type: primary hypertension Paroxysmal atrial fibrillation I48.0 Hypothyroidism E03.9 (4) Hypertension Hypertension type: primary hypertension Qualified Code(s): I10 - Essential (primary) hypertension
--- NOTE | 2025-06-26 19:34 | XRay Report ---
EXAM: Portable AP chest radiograph TECHNIQUE: AP portable radiograph of the chest was obtained. INDICATION: Shortness of breath Comparison: Chest radiograph May 14, 2024 FINDINGS: LINES and TUBES: Loop recorder device. CARDIOVASCULAR: Cardiac silhouette is stable enlarged in size. LUNGS/PLEURA: No focal consolidation identified. Mild pulmonary vascular congestion and chronic interstitial lung changes are seen without significant change from previous. No significant pleural fluid. No discernible pneumothorax. OSSEOUS/OTHER: No displaced acute osseous process identified. IMPRESSION: Mild congestive changes of the cardiovascular system that appear similar to the previous radiograph dated May 2024. Electronically signed by Kris Costa 06-26-2025 7:34 PM
[2025-06-26] MEDS: LACOSAMIDE 50 MG TABLET PO SCH (20:02)
--- NOTE | 2025-06-26 21:51 | Communication Note ---
Date of Service: June 26, 2025 Responded to flory purple overnight - called d/t sudden unresponsiveness in the setting of markedly elevated BP. Per RN, patient was alert and oriented after shift change. Prior to code, notified by RN that BP was elevated ([id number]) and patient was c/o new HARRIS. Patient was given IV Hydralazine 10mg, became unresponsive shortly after. Patient assessed at bedside, unresponsive to verbal or noxious stimuli, eyes closed, unable to follow commands. Upper extremities flaccid. SBP in the 250s, o/w vitals and blood sugar were WNL. IV labetalol was drawn up but not administered, as BP had lowered to SBP~170. Even though episodic unresponsiveness appears to be a recurrent issue and patient just had a reassuring brain MRI, decision made to obtain repeat CT head w/o contrast, CTA head/neck in light of magnitude of BP elevation in conjunction with clinical presentation. Imaging work up came back negative for acute changes. Notified by RN soon after that patient had returned to her early shift baseline. BP has remained acceptable since. Will start IV fluids @100mL/h x1L to hopefully reduce likelihood of developing contrast nephropathy. Check AM BMP. Discussed overnight events by phone with patient's , Cortez, and daughter, Peyton. Resident Activity Tracking Resident Involvement: Resident Care Provided Care Provided: Adult Hospital Medicine
[2025-06-26] MEDS: OPTIRAY 320 125ml IV ONE (21:56)
[2025-06-26 22:07] LABS: Hematocrit (blood only) 34.9 % (37.0-47.0); Hemoglobin 11.5 g/dl (12.0-16.0); Immature Granulocytes # (auto) 0.01 K/uL (0.01-0.20); Immature Granulocytes % (auto) 0.2 %; Mean Corpuscular Hemoglobin 31.8 pg (25.0-34.0); Mean Corpuscular Volume 96.4 fL (80.0-100.0); Platelet Count 76 K/uL (130-400); RDW Standard Deviation 44.2 fL (36.4-46.3); Red Blood Count 3.62 M/uL (4.20-5.40); White Blood Count 5.32 K/ul (4.8-10.8)
--- NOTE | 2025-06-26 22:10 | Electrocardiogram Report ---
Test Reason : Blood Pressure : */* mmHG Vent. Rate : 61 BPM Atrial Rate : 61 BPM P-R Int : 200 ms QRS Dur : 74 ms QT Int : 422 ms P-R-T Axes : 71 15 52 degrees QTcB Int : 424 ms Sinus rhythm with Premature atrial complexes Otherwise normal ECG When compared with ECG of 15-May-2024 14:49, Premature atrial complexes are now Present T wave inversion no longer evident in Inferior leads Confirmed by Vinny Wheat ([id number]) on 06/26/2025 10:10:20 PM Referred By: REFERRED SELF Confirmed By: Vinny Wheat
[2025-06-26] MEDS: LABETALOL HCL IV 5 MG/ML 20ML IV STA (22:17)
[2025-06-26] MEDS: LABETALOL HCL IV 5 MG/ML 20ML IV ONE (22:18)
[2025-06-26 22:23] LABS: Alanine Aminotransferase 12.0 U/L (7-52); Albumin Globulin Ratio 1.1 (0.9-2); Albumin Level 3.2 gm/dl (3.4-5.0); Alkaline Phosphatase 87.0 U/L (34-104); Anion Gap 4.0 (3-11); Bilirubin,Total 0.7 mg/dl (0.2-1.0); Blood Urea Nitrogen 15.0 mg/dl (6-23); Calcium 9.3 mg/dl (8.6-10.3); Carbon Dioxide 27.0 mmol/L (21-32); Chloride 106.0 mmol/L (98-107); Creatinine Clr Calc Pharmacy 27.6 ml/min; Globulin 3.0 gm/dl (2.5-4.0); Glucose 152.0 mg/dl (70-99(Fasting)); Potassium 4.1 mmol/L (3.5-5.1); Sodium 137.0 mmol/L (136-145); Total Protein 6.2 gm/dl (6.0-8.3)
--- NOTE | 2025-06-26 22:43 | CT Scan Report ---
Exam(s): CT HEAD Without Contrast EXAM: CT Head Without Intravenous Contrast CLINICAL HISTORY: Reason for exam: stroke r/o. PAIN: Pain Notes: STROKE ALERT OPTIRAY 320 120ML EK TECHNIQUE: Axial computed tomography images of the head/brain without intravenous contrast. CTDI is 44.71 mGy and DLP is 1191.37 mGy-cm. Automated exposure control was utilized for the study. A dose lowering technique was utilized adhering to the principles of ALARA. COMPARISON: No relevant prior studies available. FINDINGS: Brain: Chronic lacunar infarct right carlos radiata. Age-appropriate cerebral volume loss. No hemorrhage. No significant white matter disease. Ventricles: Unremarkable. No ventriculomegaly. Bones/joints: Unremarkable. No acute fracture. Soft tissues: Unremarkable. Sinuses: Unremarkable as visualized. No acute sinusitis. Mastoid air cells: Unremarkable as visualized. No mastoid effusion. IMPRESSION: No acute findings in the head/brain. Communications: Call Doctor Stroke Electronically signed by: Anders Bourne MD 06/26/25 22:42 PM
--- NOTE | 2025-06-26 22:45 | CT Scan Report ---
Exam(s): CTA HEAD With Contrast IV Amt: 120ml optiray 320 EXAM: CT Angiography Head With Intravenous Contrast CLINICAL HISTORY: Reason for exam: stroke r/o. PAIN: Pain Notes: STROKE ALERT OPTIRAY 320 120ML EK TECHNIQUE: Axial computed tomographic angiography images of the head with intravenous contrast. CTDI is 44.71 mGy and DLP is 1191.37 mGy-cm. Automated exposure control was utilized for the study. A dose lowering technique was utilized adhering to the principles of ALARA. MIP reconstructed images were created and reviewed. CONTRAST: Patient received 120ml optiray 320 of IV contrast COMPARISON: No relevant prior studies available. FINDINGS: Right internal carotid artery: No acute findings. Intracranial segment is patent with no significant stenosis. No aneurysm. Right anterior cerebral artery: Unremarkable. No occlusion or significant stenosis. No aneurysm. Right middle cerebral artery: Unremarkable. No occlusion or significant stenosis. No aneurysm. Right posterior cerebral artery: Unremarkable. No occlusion or significant stenosis. No aneurysm. Right vertebral artery: Unremarkable as visualized. Left internal carotid artery: No acute findings. Intracranial segment is patent with no significant stenosis. No aneurysm. Left anterior cerebral artery: Unremarkable. No occlusion or significant stenosis. No aneurysm. Left middle cerebral artery: Unremarkable. No occlusion or significant stenosis. No aneurysm. Left posterior cerebral artery: Unremarkable. No occlusion or significant stenosis. No aneurysm. Left vertebral artery: Unremarkable as visualized. Basilar artery: Unremarkable No aneurysm. IMPRESSION: Unremarkable exam Communications: Call Doctor Stroke Electronically signed by: Anders Bourne MD 06/26/25 22:44 PM
--- NOTE | 2025-06-26 22:46 | CT Scan Report ---
Exam(s): CTA NECK With Contrast IV Amt: 120ml optiray 320 EXAM: CT Angiography Neck With Intravenous Contrast CLINICAL HISTORY: Reason for exam: r/o stroke. PAIN: Pain Notes: STROKE ALERT OPTIRAY 320 120ML EK TECHNIQUE: Routine carotid CT angiography protocol was performed with intravenous contrast. NASCET criteria using the distal ICAs for comparison were used for evaluation of stenoses. CTDI is 44.71 mGy and DLP is 1191.37 mGy-cm. Automated exposure control was utilized for the study. A dose lowering technique was utilized adhering to the principles of ALARA. MIP reconstructed images were created and reviewed. CONTRAST: Patient received 120ml optiray 320 of IV contrast COMPARISON: None. FINDINGS: VASCULATURE: Right common carotid artery: Unremarkable. No occlusion or significant stenosis. No dissection. Right internal carotid artery: Unremarkable. Extracranial segment is patent with no occlusion or significant stenosis. No dissection. Right external carotid artery: Unremarkable. No occlusion. Right vertebral artery: Unremarkable. No occlusion or significant stenosis. No dissection. Left common carotid artery: Unremarkable. No occlusion or significant stenosis. No dissection. Left internal carotid artery: Unremarkable. Extracranial segment is patent with no occlusion or significant stenosis. No dissection. Left external carotid artery: Unremarkable. No occlusion. Left vertebral artery: Unremarkable. No occlusion or significant stenosis. No dissection. NECK: Bones/joints: Unremarkable. No acute fracture. Soft tissues: Unremarkable. Lung apices: Clear. CAROTID STENOSIS REFERENCE USING NASCET CRITERIA: % ICA stenosis = (1 - narrowest ICA diameter/diameter of distal cervical ICA) x 100. Mild - <50% stenosis. Moderate - 50-69% stenosis. Severe - 70-94% stenosis. Near occlusion - 95-99% stenosis. Occluded - 100% stenosis. IMPRESSION: Negative CTA neck. Communications: Call Doctor Stroke Electronically signed by: Anders Bourne MD 06/26/25 22:45 PM
[2025-06-27] MEDS: LACTATED RINGER'S 1,000 ML IV SCH (00:55)
[2025-06-27 06:43] LABS: Anion Gap 5.0 (3-11); Blood Urea Nitrogen 16.0 mg/dl (6-23); Calcium 8.9 mg/dl (8.6-10.3); Carbon Dioxide 28.0 mmol/L (21-32); Chloride 105.0 mmol/L (98-107); Creatinine Clr Calc Pharmacy 27.2 ml/min; Glucose 139.0 mg/dl (70-99(Fasting)); Potassium 4.3 mmol/L (3.5-5.1); Sodium 138.0 mmol/L (136-145)
[2025-06-27 07:43] VITALS: TEMP 98.1
--- NOTE | 2025-06-27 08:19 | Electroencephalogram ---
EEG Procedure Note Date of Service June 27, 2025 Start / End Times Start Time: 6:47 AM End Time: 7:07 AM Referring Physician Dwain Kwon History Seizure-like episodes Home Medication List Medication Instructions Recorded Confirmed Type cholecalciferol (vitamin D3) 125 5,000 unit PO 3XWK 03/20/19 06/25/25 History mcg (5,000 unit) tablet fexofenadine 180 mg tablet 180 mg PO QAM 09/03/20 06/25/25 History cyanocobalamin (vitamin B-12) 1,000 mcg PO DAILY 01/29/21 06/25/25 History 1,000 mcg tablet albuterol sulfate 90 mcg/actuation 1 puff inhalation Q4 PRN Wheezing 06/25/23 06/25/25 Rx aerosol inhaler #20.1 grams lancing device #1 ea 01/09/24 06/25/25 Rx pen needle, diabetic 32 gauge x #400 ea 03/16/24 06/25/25 Rx 5/32" (BD Ultra-Fine Jayleen Pen Needle) blood sugar diagnostic (FreeStyle #200 ea 06/10/24 06/25/25 Rx Lite Strips) triamcinolone acetonide 0.5 % 1 applic topical BID #30 grams 08/25/24 06/25/25 Rx topical ointment apixaban 2.5 mg tablet 2.5 mg PO BID #180 tabs 09/17/24 06/25/25 Rx omeprazole 20 mg capsule,delayed 20 mg PO QAM #90 caps 10/07/24 06/25/25 Rx release folic acid 1 mg tablet 1 mg PO QAM #90 tabs 10/31/24 06/25/25 Rx insulin glargine 100 unit/mL (3 22 - 30 unit (0.22 - 0.3 mL) 11/03/24 06/25/25 Rx mL) subcutaneous pen (Lantus subcut HS #27 mL Solostar U-100 Insulin) labetalol 100 mg tablet 50 mg (1/2 x 100 mg) PO Q12H #90 11/17/24 06/25/25 Rx tabs meclizine 25 mg tablet See Rx Instructions .Route 11/23/24 06/25/25 Rx .COMPLEX #90 tabs montelukast 10 mg tablet See Rx Instructions .Route 11/23/24 06/25/25 Rx .COMPLEX #90 tabs atorvastatin 20 mg tablet 20 mg PO DAILY #90 tabs 02/02/25 06/25/25 Rx olmesartan 40 mg tablet 40 mg PO DAILY #90 tabs 02/14/25 06/25/25 Rx clopidogrel 75 mg tablet 75 mg PO QAM #90 tabs 04/06/25 06/25/25 Rx gabapentin 100 mg capsule 100 mg PO .COMPLEX #270 caps 04/20/25 06/25/25 Rx levothyroxine 88 mcg tablet 88 mcg PO DAILY #90 tabs 04/21/25 06/25/25 Rx lancets 28 gauge (FreeStyle #200 ea 05/19/25 06/25/25 Rx Lancets) Inpatient Medication List Acetaminophen (Acetaminophen 325 Mg Tab) 650 mg PO Q4H PRN PRN Reason: Pain or Fever Stop: 07/25/25 23:54 Last Admin: 06/27/25 00:55 Dose: 650 mg Documented By: Admin: 06/26/25 08:38 Dose: 650 mg Documented By: ARIANNA Apixaban (Apixaban 2.5 Mg Tab) 2.5 mg PO BID [facility] Stop: 07/26/25 08:59 Last Admin: 06/26/25 19:53 Dose: 2.5 mg Documented By: Admin: 06/26/25 09:02 Dose: 2.5 mg Documented By: OS Clopidogrel Bisulfate (Clopidogrel Bisulfate 75 Mg Tab) 75 mg PO QA [facility]IS Stop: 07/26/25 08:59 Last Admin: 06/26/25 09:03 Dose: 75 mg Documented By: OS Fexofenadine HCl (Fexofenadine Hcl 180 Mg Tab) 180 mg PO QA [facility]IS Stop: 07/26/25 08:59 Last Admin: 06/26/25 09:02 Dose: 180 mg Documented By: OS Folic Acid (Folic Acid 1 Mg Tab) 1 mg PO QA LUIS Stop: 07/26/25 08:59 Last Admin: 06/26/25 09:02 Dose: 1 mg Documented By: OS Gabapentin (Gabapentin 100 Mg Cap) 100 mg PO QA LUIS Stop: 07/26/25 08:59 Last Admin: 06/26/25 09:02 Dose: 100 mg Documented By: OS Gabapentin (Gabapentin 100 Mg Cap) 200 mg PO [facility] Stop: 07/26/25 20:59 Last Admin: 06/26/25 19:52 Dose: 200 mg Documented By: MENA Daptomycin 400 mg/ Syringe 8 mls @ 4 mls/min IV Q2D LUIS; Protocol Stop: 07/01/25 01:59 Last Admin: 06/26/25 01:56 Dose: 4 mls/min Documented By: [id number] Ceftriaxone Sodium (Rocephin) 2,000 mg in 50 mls @ 100 mls/hr IV Q24H LUIS Stop: 07/01/25 01:59 Last Infusion: 06/27/25 03:25 Dose: Infused Documented By: Admin: 06/27/25 00:55 Dose: 100 mls/hr Documented By: Infusion: 06/26/25 02:30 Dose: Infused Documented By: [id number] Admin: 06/26/25 01:56 Dose: 100 mls/hr Documented By: [id number] Lactated Ringer's (Lr) 1,000 mls @ 100 mls/hr IV .Q10H LUIS Stop: 06/27/25 09:44 Last Admin: 06/27/25 00:55 Dose: 100 mls/hr Documented By: MENA Insulin Aspart (Insulin Aspart Per Unit Charge) 0 units SC ACHS LUIS Stop: 07/26/25 07:29 Last Admin: 06/26/25 20:56 Dose: 1 units Documented By: MENA Co-signed By: [facility] Admin: 06/26/25 18:02 Dose: 1 units Documented By: OS Co-signed By: MitzyO Admin: 06/26/25 12:10 Dose: Not Given Documented By: Admin: 06/26/25 09:00 Dose: Not Given Documented By: OS Insulin Glargine (Lantus Per Unit Charge) 10 units SQ BID LUIS Stop: 07/26/25 08:59 Last Admin: 06/26/25 20:56 Dose: 10 units Documented By: MENA Co-signed By: [facility] Admin: 06/26/25 09:56 Dose: 10 units Documented By: OS Co-signed By: YARELIS Labetalol HCl (Labetalol Hcl 100 Mg Tab) 50 mg PO BID LUIS Stop: 07/26/25 08:59 Last Admin: 06/26/25 19:53 Dose: 50 mg Documented By: Admin: 06/26/25 09:02 Dose: 50 mg Documented By: OS Lacosamide (Lacosamide 50 Mg Tablet) 50 mg PO BID LUIS Stop: 07/26/25 20:59 Last Admin: 06/26/25 20:02 Dose: 50 mg Documented By: MOLINAP Levothyroxine Sodium (Levothyroxine Sodium 88 Mcg Tablet) 88 mcg PO DAILYBB [facility]IS Stop: 07/26/25 06:29 Last Admin: 06/27/25 06:32 Dose: 88 mcg Documented By: Admin: 06/26/25 06:11 Dose: 88 mcg Documented By: [id number] Losartan Potassium (Losartan Potassium 50 Mg Tab) 50 mg PO QAM LUIS Stop: 07/26/25 08:59 Last Admin: 06/26/25 09:02 Dose: 50 mg Documented By: OS Discontinued Medications Gadobutrol (Gadobutrol 30ml Vial) 8.6 ml IV ONCE ONE Stop: 06/26/25 16:38 Last Admin: 06/26/25 16:38 Dose: 8.6 ml Documented By: LINDEN Hydralazine HCl (Hydralazine Hcl 20 Mg/Ml Vial) 10 mg IV NOW STA Stop: 06/26/25 00:38 Last Admin: 06/26/25 00:48 Dose: 10 mg Documented By: [id number] Hydralazine HCl (Hydralazine Hcl 20 Mg/Ml Vial) 10 mg IV NOW STA Stop: 06/26/25 21:32 Last Admin: 06/26/25 21:32 Dose: 10 mg Documented By: MENA Hydralazine HCl (Hydralazine Hcl 20 Mg/Ml Vial) Confirm Administered Dose 20 mg .ROUTE .STK-MED ONE Stop: 06/26/25 21:33 Last Admin: 06/26/25 21:46 Dose: Not Given Documented By: MENA Ioversol (Optiray 320 125ml) 120 ml IV ONCE ONE Stop: 06/26/25 21:56 Last Admin: 06/26/25 21:56 Dose: 120 ml Documented By: DEONTE Labetalol HCl (Labetalol Hcl Iv 5 Mg/Ml 20ml) 10 mg IV NOW STA Stop: 06/25/25 19:21 Last Admin: 06/25/25 19:25 Dose: 10 mg Documented By: Labetalol HCl (Labetalol Hcl Iv 5 Mg/Ml 20ml) 10 mg IV NOW STA Stop: 06/25/25 23:14 Last Admin: 06/25/25 23:30 Dose: 10 mg Documented By: Labetalol HCl (Labetalol Hcl Iv 5 Mg/Ml 20ml) 10 mg IV NOW STA Stop: 06/26/25 21:44 Last Admin: 06/26/25 22:17 Dose: Not Given Documented By: MENA Labetalol HCl (Labetalol Hcl Iv 5 Mg/Ml 20ml) Confirm Administered Dose 5 mg IV .STK-MED ONE Stop: 06/26/25 21:48 Last Admin: 06/26/25 22:18 Dose: Not Given Documented By: MENA Levetiracetam (Levetiracetam 500 Mg/5 Ml Vial) 1,000 mg IV NOW STA Stop: 06/25/25 19:47 Last Admin: 06/25/25 20:46 Dose: 1,000 mg Documented By: Lorazepam (Lorazepam 1 Mg/1 Ml Syr Ed Inj Use) Confirm Administered Dose 2 mg .ROUTE .STK-MED ONE Stop: 06/25/25 19:19 Last Admin: 06/25/25 19:25 Dose: 2 mg Documented By: Lorazepam (Lorazepam 1 Mg/1 Ml Syr Ed Inj Use) 2 mg IV ONE STA Stop: 06/25/25 19:20 Last Admin: 06/25/25 19:25 Dose: Not Given Documented By: Losartan Potassium (Losartan Potassium 50 Mg Tab) 50 mg PO ONCE ONE Stop: 06/26/25 00:35 Last Admin: 06/26/25 00:52 Dose: Not Given Documented By: [id number] Description This is a 21 electrode EEG with a single channel dedicated to limited EKG. The electrodes were placed in accordance with the International 10-20 system. There is attenuation of the background rhythm which is a frequency of 8 to 10 Hz. There is a normal anterior to posterior organization. Photic stimulation is unremarkable. Hyperventilation is not performed. There is a symmetric frontal beta rhythm. There is fairly continuous left temporal 3-1/2 to 4 Hz slowing throughout the study with intermittent left temporal sharps. Interpretation Abnormal awake/drowsy EEG with left temporal slowing and sharps potentially indicating an increased risk for focal onset seizures. [facility] EEG Procedure Codes Indication for Procedure (1) Observed seizure-like activity: Neurology Neurology: 81512 EEG include record awake & drowsy
[2025-06-27] MEDS ORDERED: LABETALOL HCL IV 5 MG/ML 20ML IV STA (09:59)
[2025-06-27] MEDS: LORazepam Inj 1 MG in SYRINGE 0.5 ML IV STA (10:16)
[2025-06-27] MEDS: LABETALOL HCL IV 5 MG/ML 20ML IV STA ×2 (10:27→11:06)
[2025-06-27] MEDS: LORazepam Inj 1 MG in SYRINGE 0.5 ML IV PRN (10:33)
[2025-06-27 10:45] VITALS: RESP 18
[2025-06-27 10:50] LABS: iSTAT Art Bld Gas Base Excess 1.0 mmol/L (-9-1.8); iSTAT Art Bld Gas pCO2 Correct 43 mmHg (35-46); iSTAT Art Bld Gas pH Corrected 7.388 (7.35-7.45); iSTAT Arterial Blood Gas pO2 C 63
[2025-06-27] MEDS: LACOSAMIDE 50 MG in SODIUM CHLORIDE 0.9% 50 ML IV ONE (10:53)
[2025-06-27] MEDS: LABETALOL HCL IV 5 MG/ML 20ML IV ONE (11:06)
--- NOTE | 2025-06-27 11:52 | Discharge Summary ---
Discharge Summary Date of Service June 27, 2025 Principal Dx & Hospital Course #1 = Principal Diagnosis (1) Observed seizure-like activity: (2) Progressive bulbar palsy: (3) Type 2 diabetes mellitus: (4) Hypertension: (5) Paroxysmal atrial fibrillation: (6) Hypothyroidism: Plan Unique Alegria is an 84 year old female admitted to [facility] from June 25 - 2024 due to unresponsive episodes. She had a witnessed seizure-like episode in the ER with tightness of the left foot, fixed eyes, muscular contractions of left neck and vocalization which improved with lorazepam 2mg IV. She was also given Keppra 1g IV. Brain MRI was negative. She was seen by neurology and recommended starting Vimpat 50mg BID which was started 9pm 06/26. She had additional unresponsive episode in setting of markedly eleva joshua blood pressure and stroke alert was called the night after admission. CT angios were negative. She appeared to improve with hydralazine 10mg IV. She was alert and orientated and talking normally on 06/27 morning but then suddenly started having slurring of speech and again became unresponsive but no limb jerking was witnessed. EEG was concerning for seizure possibility but not taken at the time of her episode. On discussion with neurology she was given lorazepam 1mg IV x2 and increased Vimpat to 100mg (additional 50mg IV given). It was also in the setting of elevated blood pressure and she was given labetalol 10mg IV. Unclear whether these episodes are post ictal after seizure, the seizure itself or alternative diagnosis. BSG was normal with this mornings episode. On further discussion with neurology we will transfer to [facility] for continuous EEG monitoring. Accepting physician is Dr Leonides MD. Although no specific symptoms of UTI, urine analysis was suggestive of infection and urine culture grew E. coli with sensitivities pending. She was treated with daptomycin and ceftriaxone initially and daptomycin has now been discontinued. Please note medications below are outpatient medications. Please see separate scanned sheet for inpatient medications. 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 Patient has had similar episodes in the past - typically has a syncopal or near syncopal event or becomes confused. Episodes are followed by extreme somnolence. She follows with Neurology - last seen 02/17/25. Has had EEGs in the past including prolonged EEG monitoring at home performed through [facility]. She was on seizure medications in the past several years ago but patient was not able to tolerate them. Today patient has been unresponsive throughout the day - has been unable to wake her up. Witnessed seizure-like episode in the ER with tightness of the left foot, fixed eyes, muscular contractions of left neck and vocalization. Patient was given Ativan 2mg IV with improvement. Discharge Exam Constitutional WD/WN, vitals as above ENMT external ear and nose normal, oropharynx normal Respiratory normal respiratory effort, lungs clear to auscultation Cardiovascular RRR, no murmur, no edema Gastrointestinal (Abdomen) normal bowel sounds, soft, nontender, no hepatosplenomegaly Skin no rashes, warm and dry Neurologic + does not move all extremities and + not awake Psychiatric Orientation: alert (to noxious stimuli); + not oriented x 3 Discharge Plan Discharge Items Patient Disposition: Transfer Acute Care Hospital Reason For Visit: SEIZURE, UNRESPONSIVE Discharge Diagnosis: Seizure, unresponsive episodes Condition on Discharge: Fair Activity: Resume your previous activity Non-emergency contact: Neurologist Call non-emergency contact if: you have any medication questions and your symptoms worsen Follow-up/Referrals: Jordana Chen MD [Primary Care Provider] - Diet: Regular Addtl Attending Provider Instructions: You were admitted to [facility] from June 25 - 2024 due to unresponsive episode. You had a witnessed seizure-like episode in the ER with tightness of the left foot, fixed eyes, muscular contractions of left neck and vocalization which improved with lorazepam 2mg IV. She was also given Keppra 1g IV. Brain MRI was negative. She was seen by neurology and recommended start Vimpat 50mg BID which was started 9pm 06/26. She had additional unresponsive episode in setting of markedly elevated blood pressure and stroke alert was called. CT angios were negative. She appeared to improve with hydralazine 10mg IV. She was alert and orientated and talking normally on 06/27 morning but then suddenly started having slurring of speech and again became unresponsive. On discussion with neurology she was given lorazepam 1mg IV x2 and increased Vimpat to 100mg (additional 50mg IV given). It was also in the setting of elevated blood pressure and she was given labetalol 10mg IV. Unclear whether these episodes are post ictal after seizure or the seizure itself or alternative diagnosis. BSG was normal with this mornings episode. Therefore on further discussion with neurology we will transfer to [facility] for continuous EEG monitoring. Although no specific symptoms of UTI, urine analysis was suggestive of infection and urine culture grew E. coli with sensitivities pending. She was treated with daptomycin and ceftriaxone initially and daptomycin has now been discontinued. Please note medications below are outpatient medications. Please see separate scanned sheet for inpatient medications. Pending Studies at Discharge: No Stand-Alone Forms: [facility] Hospital Skilled Items Patient informed of condition?: No DNR: No Discharge Level of Care: Other Communicable Disease: No Discharge Prognosis: Stable Lines: None and Peripheral IV Urinary Catheter: No Medications and DC Order Prescriptions: Continued (DME) pen needle, diabetic [BD Ultra-Fine Jayleen Pen Needle] 32 gauge x 5/32" needle See Rx Instructions .ROUTE .MEDSUPPLY Qty: 400 3RF Rx Instructions: use 4 needles daily (DME) FreeStyle Lite Strips Strip See Rx Instructions .ROUTE .MEDSUPPLY Qty: 200 3RF Rx Instructions: test BID apixaban 2.5 mg tablet 2.5 mg PO BID Qty: 180 3RF omeprazole 20 mg capsule,delayed release(DR/EC) 20 mg PO QAM Qty: 90 3RF folic acid 1 mg tablet 1 mg PO QAM Qty: 90 3RF insulin glargine [Lantus Solostar U-100 Insulin] 100 unit/mL (3 mL) insulin pen 22 - 30 unit subcut HS Qty: 27 3RF Rx Instructions: subcutaneously; 22-30 units at bedtime labetalol 100 mg tablet 50 mg PO Q12H Qty: 90 3RF montelukast 10 mg tablet See Rx Instructions .ROUTE .COMPLEX Qty: 90 3RF Dose Instruction: TAKE 1 TABLET EVERY EVENING Rx Instructions: TAKE 1 TABLET EVERY EVENING meclizine 25 mg tablet See Rx Instructions .ROUTE .COMPLEX Qty: 90 3RF Dose Instruction: TAKE 1 TABLET AT BEDTIME Rx Instructions: TAKE 1 TABLET AT BEDTIME atorvastatin 20 mg tablet 20 mg PO DAILY Qty: 90 3RF clopidogrel 75 mg tablet 75 mg PO QAM Qty: 90 3RF levothyroxine 88 mcg tablet 88 mcg PO DAILY Qty: 90 1RF (DME) lancets [FreeStyle Lancets] 28 gauge misc See Rx Instructions .Route Qty: 200 3RF Rx Instructions: test 2 times daily albuterol sulfate 90 mcg/actuation HFA aerosol inhaler 1 puff inhalation Q4 PRN (Reason: Wheezing) Qty: 20.1 3RF (DME) lancing device Misc See Rx Instructions .Route Qty: 1 0RF Rx Instructions: use to check blood sugar - Freestyle lancing device olmesartan 40 mg tablet 40 mg PO DAILY Qty: 90 3RF Hold Instructions: Resume on 05/21/24. Hold until your blood work results are reviewed by Dr. Tolliver triamcinolone acetonide 0.5 % ointment 1 applic topical BID Qty: 30 1RF gabapentin 100 mg capsule 100 mg PO .COMPLEX Qty: 270 1RF Rx Instructions: 100 mg orally take one cap in the morning, theb take 2 caps in the evening; cholecalciferol (vitamin D3) 5,000 unit Tablet 5,000 unit PO 3XWK Rx Instructions: Unable to verify OTC meds at this date/time. fexofenadine 180 mg Tablet 180 mg PO QAM Rx Instructions: Unable to verify OTC meds at this date/time. cyanocobalamin (vitamin B-12) 1,000 mcg Tablet 1,000 mcg PO DAILY Rx Instructions: Unable to verify OTC meds at this date/time. Discharge Orders: Discharge Order (Routine); Ordered 06/27/25 Ordered By: Pop Nava Admission Data Admit Date/Time: 06/25/25 21:36 Attending Provider: Pop Nava Admit Provider: Cher Prakash Primary Care Provider: Jordana Chen V. Other Providers: Pepe Ivey Other Interventions: Discharge Summary Assessment (RN) Last Done: 06/27/25 12:55 Hospital Stay Data Consultations 06/26/25 08:05 Consult Neurology Routine Diagnostic Imagining Performed 06/25/25 18:14 CT head/brain wo con Stat 06/26/25 08:06 MRI Brain [MR brain seizure wo/w con] Routine 06/26/25 21:41 CT head/brain wo con Stat CTA head w con [CT angio head w con] Stat 06/26/25 22:10 CTA neck with con [CT angio neck with con] Stat Pending Results Patient Have Any Pending Studies at Discharge: No Discharge Instructions Given to Patient (Per Discharging Provider) You were admitted to [facility] from June 25 - 2024 due to unresponsive episode. You had a witnessed seizure-like episode in the ER with tightness of the left foot, fixed eyes, muscular contractions of left neck and vocalization which improved with lorazepam 2mg IV. She was also given Keppra 1g IV. Brain MRI was negative. She was seen by neurology and recommended start Vimpat 50mg BID which was started 9pm 06/26. She had additional unresponsive episode in setting of markedly elevated blood pressure and stroke alert was called. CT angios were negative. She appeared to improve with hydralazine 10mg IV. She was alert and orientated and talking normally on 06/27 morning but then suddenly started having slurring of speech and again became unresponsive. On discussion with neurology she was given lorazepam 1mg IV x2 and increased Vimpat to 100mg (additional 50mg IV given). It was also in the setting of elevated blood pressure and she was given labetalol 10mg IV. Unclear whether these episodes are post ictal after seizure or the seizure itself or alternative diagnosis. BSG was normal with this mornings episode. Therefore on further discussion with neurology we will transfer to [facility] for continuous EEG monitoring. Although no specific symptoms of UTI, urine analysis was suggestive of infection and urine culture grew E. coli with sensitivities pending. She was treated with daptomycin and ceftriaxone initially and daptomycin has now been discontinued. Please note medications below are outpatient medications. Please see separate scanned sheet for inpatient medications. Total Time Total Time Spent Total Time Spent (In Minutes): 60 Total Time Includes: Examination of the Patient, Discharge Planning, Medication Reconciliation and Communication With Other Providers Coding Level of Care Code 50917 INP/OBS DISCH >30 MIN Diagnoses Observed seizure-like activity R56.9 Progressive bulbar palsy G12.22 Type 2 diabetes mellitus E11.9 Primary hypertension I10 Hypertension type: primary hypertension Paroxysmal atrial fibrillation I48.0 Hypothyroidism E03.9
[2025-06-27 12:12] VITALS: PULSE 59; O2SAT 96
[2025-06-27 12:57] VITALS: BP 126/63
[2025-06-27] MEDS ORDERED: LACOSAMIDE 100 MG in SODIUM CHLORIDE 0.9% 50 ML IV SCH (21:00)
--- NOTE | 2025-06-28 21:06 | Communication Note ---
Date of Service: June 28, 2025 Received call for patient to transfer back from [facility]. Discussed care with Dr Coyle ([facility]). Unresponsive episode captured on continuous EEG and not consistent with seizure. Episodes appear to be consistent with hypertensive encephalopathy and losartan was increased. Description of episode is identical to what I witnessed on her day of discharge so patient was accepted back to [facility] to continue to optimize her BP in order to have less episodes. Unfortunately ETA is midnight tonight. Of note she is usually alert and orientated x3 but takes a long time to recover from episodes. Suggest treating BP relatively aggressively if sBP > 180.
== END 2025-06-27 14:06 | disposition short-term general hospital (02) | DRG 100 ==
LOC: ED 17:53 → SUATTDRO 21:36 → 2E 21:36
DX: G12.22 Progressive bulbar palsy; Z79.899 Other long term (current) drug therapy; Z88.5 Allergy status to narcotic agent; Z90.49 Acquired absence of other specified parts of digestive tract; Z79.890 Hormone replacement therapy; I48.0 Paroxysmal atrial fibrillation; E78.5 Hyperlipidemia, unspecified; R29.818 Other symptoms and signs involving the nervous system; R56.9 Unspecified convulsions; K21.9 Gastro-esophageal reflux disease without esophagitis; I69.918 Other symptoms and signs involving cognitive functions following unspecified cerebrovascular disease; R82.71 Bacteriuria; E11.9 Type 2 diabetes mellitus without complications; Z90.710 Acquired absence of both cervix and uterus; B96.20 Unspecified Escherichia coli [E. coli] as the cause of diseases classified elsewhere; G92.9 Unspecified toxic encephalopathy; Z79.4 Long term (current) use of insulin; Z96.659 Presence of unspecified artificial knee joint; E03.9 Hypothyroidism, unspecified; I10 Essential (primary) hypertension; Z88.8 Allergy status to other drugs, medicaments and biological substances

== ENCOUNTER 2025-06-30 13:00 | Inpatient (IN) ==
[2025-06-30] MEDS ORDERED: ACETAMINOPHEN 325 MG TAB PO PRN (16:01)
[2025-06-30] MEDS ORDERED: CARBOHYDRATES FOR HYPOGLYCEMIA PO PRN (16:01)
[2025-06-30] MEDS ORDERED: DEXTROSE 50% 50 ML SYRINGE IV PRN (16:01)
[2025-06-30] MEDS ORDERED: ONDANSETRON INJ 2 MG/ML 2 ML VIAL IV PRN (16:01)
[2025-06-30] MEDS ORDERED: GLUCOSE 40% GEL 15 GM TUBE PO PRN (16:01)
[2025-06-30] MEDS ORDERED: GLUCAGON FOR INJ 1 MG VIAL SQ PRN (16:01)
[2025-06-30] MEDS ORDERED: GLUCOSE 10 TAB/TUBE PO PRN (16:01)
[2025-06-30] MEDS: Patient's HEIGHT &/or WEIGHT Needed STA (16:31)
[2025-06-30] MEDS ORDERED: ALBUTEROL HFA 8 GM INHALER INH PRN (17:17)
--- NOTE | 2025-06-30 17:17 | History & Physical Report ---
Date of Service June 30, 2025 Assessment & Plan (1) Hypertension: Plan: Syncopal episodes suspected due to symptomatic hypertension Had continued episodes at [facility] while on continuous EEG which did not correlate with any epileptiform activity. Seizure ruled out; suspected to have symptomatic hypertension Reviewed with [facility] neurology prior to transfer back per agreement. Patient had been stable with no episodes in last 24 hours, some episodes in the day or 2 prior which seem to correlate with hypertension. Suspected to have symptomatic severe resistant hypertension which improved with losartan 50 mg twice daily dosing Patient was listed as taking losartan and olmesartan, dual ARB therapy discontinued and losartan continued Continue amlodipine Continue labetalol Labetalol x 1 ordered for hypertension on arrival, heart rate 67 at bedside. She is on p.o. labetalol 50 mg every 12 hours. Can uptitrate if needed. Alternatively if limited by heart rate can use hydralazine 2.5 mg IV for BP greater than 180 and consider adding nitrate Resistant hypertension on multiple medications. DEVAN evaluation ordered Lacosamide discontinued per discussion with [facility] Goal BP less than 140. Improved after 1 dose of labetalol and evening meds ordered following arrival PT/OT pending. CKD Baseline creatinine approximately 1.652.0 Creatinine 1.73 Renally dose medications Hypothyroidism Synthroid continued Type II DM Type II DM diet Glargine 10 units twice daily Aspart SSI Goal BSG [id number] Glucose checks AC/at bedtime History of CVA with residual vertigo, some speech deficits Per sometimes has difficulty with speech and murmuring particularly when tired. No strength deficits Continue Plavix. 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 [facility] documentation reviewed. Medications reviewed updated by nurse per her sheet discharge reconciliation. Per review of his records patient initially presented if she was found unresponsive in bed and would not wake up. She was admitted 06/25 - 06/27 and had been noted to have fixed eyes and muscular contractions and vocalizations which improved after lorazepam and Keppra. Brain MRI did not show any acute findings. She started on Vimpat on 06/26. He did have elevated blood pressure and recurrent symptoms for which she was reevaluated as a stroke alert CTA was negative. Symptoms improved after hydralazine 10 mg IV but had another episode of slurring speech and unresponsiveness. She was transferred for continuous EEG monitoring. After [facility] admission imaging studies including continuous EEG showed mild diffuse cerebral dysfunction but no focal slowing or epileptiform activity. Patient had an episode of symptoms and hypertension systolics [id number] which correlated with unresponsiveness, EEG for that time period was reviewed and showed no evidence of epileptiform activity. This was felt to be effectively ruled out at that time. She continued to have some intermittent episodes of unresponsive sometimes with BP correlation sometimes without, she had improved blood pressure control reportedly 06/29 - 06/30 and no symptomatic episodes and was recommended for transfer back per transfer agreement. She is felt to have a combination of hypertensive encephalopathy and possible some stroke recrudescence.. BP control was recommended and she was transferred back to [facility] for ongoing care Prior imaging review: CTAneck: Negative, CTAhead: Negative, CThead: No acute findings MRI 06/26/2025: Normal MRI. No evidence of mesial temporal sclerosis On bedside evaluation Unique is intermittently confused. She follows some commands but not all, intermittently repeats her statements/echolalia and di fficult to gauge mentation Did attempt to obtain collateral from her by phone. He reports that she does have speech difficulties at baseline but is generally reorientable and then is able to communicate. He will be arriving to the hospital shortly to assist with collateral in the HPI and to identify current versus abnormal On arrival BP 178/78, and with existing concerns for symptomatic hypertension. Labetalol ordered. On reevaluation blood pressure 140s, mentation improved. is at bedside. She is able to follow commands, answer some questions although is very tangential/easily distracted. 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 Patient reports she would like to go home however is not aware of why she is in the hospital poor historian and tangential to recurrently circumferential. Discussed with her while improved from prior, she is still at around 30% of her normal baseline a month ago. At time of reassessment she denies pain, headache, fever, chills, sweats. Medical History: Reviewed Medications: Reviewed Surgical History: Reviewed Family history: Reviewed Allergies: Reviewed Social History: Reviewed Code Status: Full, confirmed w pts Allergies Allergy/AdvReac Type Severity Reaction Status Date / Time codeine Allergy Intermediate HYPERACTIVE, Verified 03/28/25 11:09 HIVES/SYNCOPE enoxaparin Allergy Intermediate syncope Verified 03/28/25 11:09 fluorouracil Allergy Intermediate Hives Verified 03/28/25 11:09 potassium Allergy Mild IV Verified 03/28/25 11:09 potassium caused hypotension Home Medications Medication Instructions Recorded Confirmed Type cholecalciferol (vitamin D3) 125 5,000 unit PO 3XWK 03/20/19 06/30/25 History mcg (5,000 unit) tablet fexofenadine 180 mg tablet 180 mg PO QAM 09/03/20 06/30/25 History cyanocobalamin (vitamin B-12) 1,000 mcg PO DAILY 01/29/21 06/30/25 History 1,000 mcg tablet albuterol sulfate 90 mcg/actuation 1 puff inhalation Q4 PRN Wheezing 06/25/23 06/30/25 Rx aerosol inhaler #20.1 grams lancing device #1 ea 01/09/24 06/25/25 Rx pen needle, diabetic 32 gauge x #400 ea 03/16/24 06/25/25 Rx 5/32" (BD Ultra-Fine Jayleen Pen Needle) blood sugar diagnostic (FreeStyle #200 ea 06/10/24 06/25/25 Rx Lite Strips) triamcinolone acetonide 0.5 % 1 applic topical BID #30 grams 08/25/24 06/30/25 Rx topical ointment apixaban 2.5 mg tablet 2.5 mg PO BID #180 tabs 09/17/24 06/30/25 Rx omeprazole 20 mg capsule,delayed 20 mg PO QAM #90 caps 10/07/24 06/30/25 Rx release folic acid 1 mg tablet 1 mg PO QAM #90 tabs 10/31/24 06/30/25 Rx insulin glargine 100 unit/mL (3 22 - 30 unit (0.22 - 0.3 mL) 11/03/24 06/30/25 Rx mL) subcutaneous pen (Lantus subcut HS #27 mL Solostar U-100 Insulin) labetalol 100 mg tablet 50 mg (1/2 x 100 mg) PO Q12H #90 11/17/24 06/30/25 Rx tabs atorvastatin 20 mg tablet 20 mg PO DAILY #90 tabs 02/02/25 06/30/25 Rx olmesartan 40 mg tablet 40 mg PO DAILY #90 tabs 02/14/25 06/30/25 Rx clopidogrel 75 mg tablet 75 mg PO QAM #90 tabs 04/06/25 06/30/25 Rx levothyroxine 88 mcg tablet 88 mcg PO DAILY #90 tabs 04/21/25 06/30/25 Rx lancets 28 gauge (FreeStyle #200 ea 05/19/25 06/25/25 Rx Lancets) amlodipine 2.5 mg tablet 2.5 mg PO DAILY 06/30/25 06/30/25 History ceftriaxone 2 gram intravenous 2 g IV DAILY 06/30/25 06/30/25 History piggyback gabapentin 100 mg capsule 100 mg PO HS 06/30/25 06/30/25 History lacosamide 50 mg tablet 50 mg PO BID 06/30/25 06/30/25 History losartan 50 mg tablet 50 mg PO BID 06/30/25 06/30/25 History meclizine 25 mg tablet 25 mg PO TID PRN Dizziness 06/30/25 06/30/25 History montelukast 10 mg tablet 10 mg PO PM 06/30/25 06/30/25 History Past Med/Surg History Problem List Observed seizure-like activity (Acute) Thrombocytopenia (Acute) Anemia (Acute) AMS (altered mental status) (Acute) Sleep attack Type 2 diabetes mellitus Encounter for interrogation of cardiac recorder Petechiae Anticoagulant long-term use Dysarthria Progressive bulbar palsy Hypertension (Acute) Recurrent syncope (Acute) Idiopathic polyneuropathy Gait disorder Bilateral tinnitus Sensorineural hearing loss (SNHL) of both ears Dysphonia H/O: stroke Dysphasia B12 deficiency 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 (CVA) Daytime somnolence Gastroparesis Paroxysmal atrial fibrillation Thrombocytopenia (Acute) History of loop recorder Hiatal hernia Fibromuscular hyperplasia of left carotid artery Aneurysm of left carotid artery Pseudoaneurysm, Neurosurg [facility] Hypothyroidism Chronic kidney disease, stage III (moderate) Hypertension Vitamin D deficiency History of Randolph fundoplication 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 Diabetic nephropathy associated with type 2 diabetes mellitus Neuropathy due to type 2 diabetes mellitus Loss of protective sensation of skin of foot Health care maintenance Constipation Cryptogenic stroke Esophageal thickening CT scan 12/14/2020 Medical History Stasis dermatitis of both legs Encounter for loop recorder at end of battery life Decreased hearing Snoring Anxiety Syncope Left-sided weakness NAIMA (acute kidney injury) Seizure Paroxysmal atrial fibrillation Carotid artery aneurysm Atrial ectopy Fibromuscular dysplasia of both carotid arteries Diastasis recti Sequela of lacunar infarction Sensorineural hearing loss (SNHL) of both ears Speech abnormality Seizure-like activity Discharge planning issues DVT prophylaxis Bradycardia Chest discomfort Belching Nausea Lung nodule Chest discomfort Uncontrolled insulin-treated type 2 diabetes mellitus Idiopathic thrombocytopenia purpura referred to heme/onc for evaluation of thrombocytopenia- clinical picture suggestive of ITP - started on steroid therapy Umbilical hernia without obstruction and without gangrene Diabetes mellitus, type 2 IDDM - [facility] Stroke 1985. MILD RESIDENTIAL MEMORY LOSS. GERD (gastroesophageal reflux disease) Hiatal hernia Hyperlipemia TIA (transient ischemic attack) MULTIPLE. MOST RECENT 10/2020 >FOLLOWED UP WITH PCP>FACIAL NUMBNESS AND SHORT PERIOD OF NOT BEING ABLE TO TALK. (REASON FOR PLAVIX) Asthma INHALER PRN>HAS NOT USED FOR A WHILE Arthritis Surgical History H/O hernia repair (03/08/20) Ventral hernia repair Dr. Jane 03/08/20 History of loop recorder IMPLANTED NOVEMBER 2020 H/O umbilical hernia repair History of repair of hiatal hernia (06/16/19) Robotic assisted Laparoscopic repair of hiatal hernia with prosthetic bio- absorbable mesh, randolph Fundoplication Esophagogastroduoedenoscopy Dr. Mueller 06/16/19 History of colonoscopy History of total knee replacement BILATERAL AND A STEEL JAD IN RIGHT LEG D/T CURVATURE History of esophagogastroduodenoscopy (EGD) WITH REMOVAL OF ESOPHAGEAL POLYPS History of appendectomy History of esophageal dilatation History of ankle surgery RIGHT H/O dilation and curettage History of tonsillectomy and adenoidectomy Hx of cholecystectomy History of total abdominal hysterectomy and bilateral salpingo-oophorectomy Family History Unknown Osteoporosis Mother Rheumatoid arthritis Family history of diabetes mellitus History of nephrectomy Stroke syndrome Hypertension Stroke Aunt Rheumatoid arthritis Father Heart disease Myocardial infarction Hx of CABG Hypertension Brother Acute myocardial infarction Myocardial infarction Other No family history of adverse response to anesthesia No family history of bleeding disorder Denies family history of Ovarian cancer Prostate cancer Clotting disorder Breast cancer Social History Smoking Status: Never smoker Second Hand Exposure: No; Do You Dip or Chew Tobacco: No; Hx Alcohol Use: No Hx Substance Use: No Preferred Language: Vietnamese Communication Ability: Impaired Communication Ability Comment: Dysarthria Visual Impairment: No Limitations Hearing Ability: Normal Parts Consultant Required: No Beliefs That Will Affect Care: None marital status: Current Living Situation: Spouse Current Living Situation Comment: Home w/ current occupational status: 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 Pupils equal and reactive to light. Does track provider and answer some questions, vision and hearing appear grossly intact Pulm: CTAB A&P. -wheezes, -rales, -rhonchi. Symmetrical chest rise. No increased work of breathing. No respiratory distress. Cardiac: RRR, -mrg. Radial pulses intact and symmetrical. Abdominal: Nontender, nondistended, soft. BS present. Extremities: Moves all extremities equally. Limited strength/sensation exam due to engagement. Results & Data Results & Data Vital Signs (Past 12 Hours) Vital Signs Temp Resp BP Pulse Ox O2 Del Method 06/30/25 16:05 37.1 C 16 178/78 H 94 Room Air Code Status & VTE Plan VTE Prophylaxis Plan VTE Prophylaxis will be ordered: Yes PG Care Time/CCT Total # of Minutes Spent Total Time Spent with Patient: Total time spent is greater than 50% in coordination of care (as documented) at patient's floor/unit and/or counseling patient: Coding Level of Care Code 55586 INT INP/OBS CARE 3/75MIN Diagnoses Primary hypertension I10 Hypertension type: primary hypertension Recurrent syncope R55 Idiopathic polyneuropathy G60.9 B12 deficiency E53.8 Paroxysmal atrial fibrillation I48.0 Stage 3 chronic kidney disease, unspecified whether stage 3a or 3b CKD N18.30 Chronic kidney disease stage 3 subtype: unspecified whether 3a or 3b 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
[2025-06-30 17:41] LABS: Hematocrit (blood only) 35.8 % (37.0-47.0); Hemoglobin 12.2 g/dl (12.0-16.0); Immature Granulocytes # (auto) 0.02 K/uL (0.01-0.20); Immature Granulocytes % (auto) 0.3 %; Mean Corpuscular Hemoglobin 33.2 pg (25.0-34.0); Mean Corpuscular Volume 97.3 fL (80.0-100.0); Platelet Count 117 K/uL (130-400); RDW Standard Deviation 44.9 fL (36.4-46.3); Red Blood Count 3.68 M/uL (4.20-5.40); White Blood Count 5.78 K/ul (4.8-10.8)
[2025-06-30 17:58] LABS: Alanine Aminotransferase 13.0 U/L (7-52); Albumin Globulin Ratio 1.0 (0.9-2); Albumin Level 3.3 gm/dl (3.4-5.0); Alkaline Phosphatase 81.0 U/L (34-104); Anion Gap 7.0 (3-11); Bilirubin,Total 0.8 mg/dl (0.2-1.0); Blood Urea Nitrogen 21.0 mg/dl (6-23); Calcium 9.3 mg/dl (8.6-10.3); Carbon Dioxide 27.0 mmol/L (21-32); Chloride 104.0 mmol/L (98-107); Creatinine Clr Calc Pharmacy 26.4 ml/min; Globulin 3.3 gm/dl (2.5-4.0); Glucose 167.0 mg/dl (70-99(Fasting)); Potassium 4.0 mmol/L (3.5-5.1); Sodium 138.0 mmol/L (136-145); Total Protein 6.6 gm/dl (6.0-8.3)
[2025-06-30] MEDS: LABETALOL HCL IV 5 MG/ML 20ML IV STA (18:00)
[2025-06-30] MEDS: LABETALOL HCL 100 MG TAB PO SCH (18:05)
[2025-06-30] MEDS: INSULIN ASPART PER UNIT CHARGE SC SCH (18:12)
[2025-06-30] MEDS: MONTELUKAST SODIUM 10 MG TABLET PO SCH (21:23)
[2025-06-30] MEDS: LACOSAMIDE 50 MG TABLET PO SCH (21:24)
[2025-06-30] MEDS: GABAPENTIN 100 MG CAP PO SCH (21:24)
[2025-06-30] MEDS: LANTUS PER UNIT CHARGE SQ SCH (21:24)
[2025-06-30] MEDS: APIXABAN 2.5 MG TAB PO SCH (21:24)
[2025-06-30] MEDS: LOSARTAN POTASSIUM 50 MG TAB PO SCH (21:24)
[2025-07-01] MEDS: LEVOTHYROXINE SODIUM 88 MCG TABLET PO SCH (06:12)
[2025-07-01] MEDS: ATORVASTATIN 20 MG TAB PO SCH (08:24)
[2025-07-01] MEDS: MECLIZINE HCL 25 MG TAB PO PRN (08:24)
[2025-07-01] MEDS: FEXOFENADINE HCL 180 MG TAB PO SCH (08:24)
[2025-07-01] MEDS: CYANOCOBALAMIN (B-12) 500 MCG TABLET PO SCH (08:24)
[2025-07-01] MEDS: FOLIC ACID 1 MG TAB PO SCH (08:25)
[2025-07-01] MEDS: CLOPIDOGREL BISULFATE 75 MG TAB PO SCH (08:25)
[2025-07-01] MEDS: CHOLECALCIFEROL 125 MCG (5,000 UNITS) TAB PO SCH (09:00)
[2025-07-01 09:06] LABS: Hematocrit (blood only) 31.5 % (37.0-47.0); Hemoglobin 10.6 g/dl (12.0-16.0); Immature Granulocytes # (auto) 0.02 K/uL (0.01-0.20); Immature Granulocytes % (auto) 0.3 %; Mean Corpuscular Hemoglobin 32.9 pg (25.0-34.0); Mean Corpuscular Volume 97.8 fL (80.0-100.0); Platelet Count 103 K/uL (130-400); RDW Standard Deviation 44.9 fL (36.4-46.3); Red Blood Count 3.22 M/uL (4.20-5.40); White Blood Count 6.22 K/ul (4.8-10.8)
[2025-07-01 09:19] LABS: Anion Gap 7.0 (3-11); Blood Urea Nitrogen 21.0 mg/dl (6-23); Calcium 9.0 mg/dl (8.6-10.3); Carbon Dioxide 27.0 mmol/L (21-32); Chloride 105.0 mmol/L (98-107); Creatinine Clr Calc Pharmacy 26.7 ml/min; Glucose 116.0 mg/dl (70-99(Fasting)); Potassium 3.8 mmol/L (3.5-5.1); Sodium 139.0 mmol/L (136-145)
[2025-07-01 09:36] LABS: INR 1.2 (0.9-1.1); Prothrombin Time 12.4 Seconds (9.0-12.0)
--- NOTE | 2025-07-01 11:08 | Ultrasound Report ---
US duplex renal art/vein BI CLINICAL HISTORY: resistant HTN. ?DEVAN COMPARISON STUDY: No previous studies for comparison. FINDINGS: The study was difficult from a technical standpoint due to the patient's body habitus and i nability to breath-hold. There were no elevated renal artery velocities. The renal waveforms reveal n o evidence of a tardus deformity. The right renal vein could not be visualized, but this likely relat es to technical factors. IMPRESSION: 1. Technically difficult study. 2. There are no elevated velocities to indicate renal artery stenosis ACT 112: Negative or not required by law. Electronically signed by: Virgilio Young M.D. 07/01/2025 11:07 AM
--- NOTE | 2025-07-01 16:15 | Hospitalist Progress Note ---
Date of Service July 01, 2025 Assessment & Plan (1) Hypertension: Plan: Syncopal episodes suspected due to symptomatic hypertension Had continued episodes at [facility] while on continuous EEG which did not correlate with any epileptiform activity. Seizure ruled out; suspected to have symptomatic hypertension Reviewed with [facility] neurology prior to transfer back per agreement. Patient had been stable with no episodes in last 24 hours, some episodes in the day or 2 prior which seem to correlate with hypertension. Suspected to have symptomatic severe resistant hypertension which improved with losartan 50 mg twice daily dosing Patient was listed as taking losartan and olmesartan, dual ARB therapy discontinued and losartan continued Continue amlodipine Continue labetalol Renal artery Doppler does not show evidence of DEVAN Lacosamide discontinued per discussion with [facility] Blood pressure greatly improved 07/01 and generally 120s all day without hypo or hypertension. Will plan to continue labetalol, amlodipine 5 mg, losartan twice daily at this time. Given strength deficits and need for very close monitoring of her blood pressure due to development of encephalopathy with pressures around or exceeding 170 do recommend she progress to inpatient rehab where she can both have physical rehab and the benefit of daily physician adjustments to her antihypertensives as needed Cognitive decline Suspect combination of some baseline cognitive decline exacerbated by superimposed hypertensive encephalopathy. Also likely with some stroke recrudescence when hypertensive Continue good blood pressure control, delirium precautions CKD Baseline creatinine approximately 1.652.0 Creatinine remains at baseline Renally dose medications Hypothyroidism Synthroid continued Type II DM Type II DM diet Glargine 10 units twice daily Aspart SSI Goal BSG [id number] Glucose checks AC/at bedtime History of CVA with residual vertigo, some speech deficits No new stroke deficits Continue Plavix. 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 Thought process is much more clear she is redirectable, cooperative, and follows commands today. 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 Denies pain. He is hopeful to get out of the hospital soon as possible. Denies headache. Thought process is much more linear however does note she still has significant memory deficits and is confused in certain people in her family and almost like she is missing memory of certain periods of time. Likely has some underlying cognitive decline which may be exacerbated or accelerated by her hypertensive emergencies. She does not appear to be actively delirious at time of reassessment. She has had extensive workup and no infectious or acute superimposed stroke etiologies, and seizure has been ruled out. Recommend delirium precautions, continued blood pressure control which fortunately has been very good with systolic 120s today, rehab and further monitoring. Was seen by PT who recommend rehab Physical Exam Physical Exam: General: Oriented to name, "hospital ". Follows commands. Circumferential and sometimes linear thought process HEENT: Atraumatic, normocephalic. Pupils equal and reactive to light. Pulm: CTAB A&P. -wheezes, -rales, -rhonchi. Symmetrical chest rise. No increased work of breathing. No respiratory distress. Cardiac: RRR, -mrg. Radial pulses intact and symmetrical. Abdominal: Nontender, nondistended, soft. BS present. Extremities: Moves all extremities equally. 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 Results & Data Results & Data Vital Signs (Past 12 Hours) Vital Signs Temp Pulse Pulse Resp BP Pulse Ox O2 Del Method 07/01/25 15:01 77 07/01/25 11:02 36.5 C 71 18 126/72 93 Room Air 07/01/25 10:10 Room Air 07/01/25 07:47 36.5 C 72 18 125/61 91 Room Air 07/01/25 07:26 73 PG Care Time/CCT Total # of Minutes Spent Total Time Spent with Patient: Total time spent is greater than 50% in coordination of care (as documented) at patient's floor/unit and/or counseling patient: Coding Level of Care Code 79697 SUB INP/OBS CARE 3/50MIN Diagnoses Primary hypertension I10 Hypertension type: primary hypertension Recurrent syncope R55 Idiopathic polyneuropathy G60.9 B12 deficiency E53.8 Paroxysmal atrial fibrillation I48.0 Stage 3 chronic kidney disease, unspecified whether stage 3a or 3b CKD N18.30 Chronic kidney disease stage 3 subtype: unspecified whether 3a or 3b 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
[2025-07-01] MEDS: LABETALOL HCL 100 MG TAB PO SCH (20:34)
[2025-07-02 07:14] LABS: Hematocrit (blood only) 31.1 % (37.0-47.0); Hemoglobin 10.8 g/dl (12.0-16.0); Immature Granulocytes # (auto) 0.03 K/uL (0.01-0.20); Immature Granulocytes % (auto) 0.5 %; Mean Corpuscular Hemoglobin 33.5 pg (25.0-34.0); Mean Corpuscular Volume 96.6 fL (80.0-100.0); Platelet Count 104 K/uL (130-400); RDW Standard Deviation 44.3 fL (36.4-46.3); Red Blood Count 3.22 M/uL (4.20-5.40); White Blood Count 6.11 K/ul (4.8-10.8)
[2025-07-02 07:35] LABS: Anion Gap 7.0 (3-11); Blood Urea Nitrogen 28.0 mg/dl (6-23); Calcium 8.8 mg/dl (8.6-10.3); Carbon Dioxide 27.0 mmol/L (21-32); Chloride 105.0 mmol/L (98-107); Creatinine Clr Calc Pharmacy 23.3 ml/min; Glucose 90.0 mg/dl (70-99(Fasting)); Potassium 3.7 mmol/L (3.5-5.1); Sodium 139.0 mmol/L (136-145)
[2025-07-02] MEDS: D5W AND LACTATED RINGERS 1,000 ML IV SCH (09:15)
[2025-07-02] MEDS: [UNRECOGNIZED DRUG - OTHER] PO SCH (17:43)
--- NOTE | 2025-07-02 17:43 | Hospitalist Progress Note ---
Date of Service July 02, 2025 Assessment & Plan (1) Hypertension: Plan: Syncopal episodes suspected due to symptomatic hypertension Had continued episodes at [facility] while on continuous EEG which did not correlate with any epileptiform activity. Seizure ruled out; suspected to have symptomatic hypertension Reviewed with [facility] neurology prior to transfer back per agreement. Patient had been stable with no episodes in last 24 hours, some episodes in the day or 2 prior which seem to correlate with hypertension. Suspected to have symptomatic severe resistant hypertension which improved with losartan 50 mg twice daily dosing Patient was listed as taking losartan and olmesartan, dual ARB therapy discontinued and losartan continued Continue amlodipine Continue labetalol Renal artery Doppler does not show evidence of DEVAN Lacosamide discontinued per discussion with [facility] Blood pressure greatly improved 07/01 and generally 120s all day without hypo or hypertension. Will plan to continue labetalol, amlodipine 5 mg, losartan twice daily at this time. Given strength deficits and need for very close monitoring of her blood pressure due to development of encephalopathy with pressures around or exceeding 170. She was seen by PT and recommended for inpatient rehab. 07/02 she has made a significant gains in mentation, blood pressure has been stable over the last 24 hours and her cognitive function is vastly improved. She has not had any further unresponsive spells/episodes. Given this may be appropriate for progression home, PT/OT reevaluation is pending but given current strength hopeful for home with home health discharge CKD Baseline creatinine approximately 1.652.0 Creatinine remains at baseline Renally dose medications Hypothyroidism Synthroid continued Type II DM Type II DM diet Glargine 10 units twice daily Aspart SSI Goal BSG [id number] Glucose checks AC/at bedtime History of CVA with residual vertigo, some speech deficits No new stroke deficits Continue Plavix. 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 Her mentation continues to greatly improved. She is alert oriented to name, place she is pleasant and cooperative. She also lineal thought process and is very excited go home. Strength also appears greatly improved. Overall hopeful to progress enough to go home with home hospice rather than rehab. PT reevaluation pending. Physical Exam Physical Exam: General: Oriented to name and hospital. Follows command. Greatly improved mentation and linear goal-directed thought process today. HEENT: Atraumatic, normocephalic. Pupils equal and reactive to light. Vision and hearing grossly intact Pulm: CTAB A&P. -wheezes, -rales, -rhonchi. Symmetrical chest rise. No increased work of breathing. No respiratory distress. Cardiac: RRR, -mrg. Radial pulses intact and symmetrical. Abdominal: Nontender, nondistended, soft. BS present. Extremities: Moves all extremities equally. Ambulates with a walker with minimal assistance in the hallway this afternoon Results & Data Results & Data Vital Signs (Past 12 Hours) Vital Signs Temp Pulse Pulse Resp BP Pulse Ox O2 Del Method 07/02/25 17:29 73 07/02/25 15:27 36.8 C 70 16 120/74 96 Room Air 07/02/25 11:38 36.6 C 68 18 115/66 95 Room Air 07/02/25 07:52 36.5 C 65 16 104/67 95 Room Air 07/02/25 07:13 66 PG Care Time/CCT Total # of Minutes Spent Total Time Spent with Patient: Total time spent is greater than 50% in coordination of care (as documented) at patient's floor/unit and/or counseling patient: Coding Level of Care Code 01198 SUB INP/OBS CARE 2/35MIN Diagnoses Primary hypertension I10 Hypertension type: primary hypertension Recurrent syncope R55 Idiopathic polyneuropathy G60.9 B12 deficiency E53.8 Paroxysmal atrial fibrillation I48.0 Stage 3 chronic kidney disease, unspecified whether stage 3a or 3b CKD N18.30 Chronic kidney disease stage 3 subtype: unspecified whether 3a or 3b 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
[2025-07-02 19:55] VITALS: RESP 18
--- NOTE | 2025-07-03 07:07 | Discharge Summary ---
Discharge Summary Date of Service July 03, 2025 Principal Dx & Hospital Course #1 = Principal Diagnosis (1) Hypertension: Summary: Unique is an 84-year-old female who presented with episodes of severe confusion and syncopal episodes with some shaking initially suspected for seizures. She was transferred to [facility] and had continue episodes while on continuous EEG; these did not correlate with any seizure activity and seizure was ruled out. Lacosamide was discontinued. Episodes did correlate with hypertension, her symptoms resolved and mentation was vastly improved following adequate blood pressure control. She is initially recommended for rehab however family strongly preferred discharge home with home health services and on evaluation blood pressure was stable [id number], cognition returned to near baseline, and she had good strength and was ambulating independently with a walker around the halls day of discharge and this was felt to be reasonable. To do as outpatient: 1. Continue antihypertensive regimen of losartan 50 mg twice daily, labetalol 50 mg twice daily, and amlodipine 2.5 mg in the morning. Afternoon blood pressure check around 123 PM, if blood pressure is consistently running above goal then can take an additional 2.5 mg of amlodipine for a total of 5 mg daily 2. Continued follow-up and adjustment of blood pressure medications as needed. Of note she had severe hypertensive encephalopathy which was recurrent with blood pressures greater than 170. As long as she is not having orthostatic symptoms would err on a more conservative blood pressure goal 3. Repeat BMP to ensure renal stability 4. Continue home health Syncopal episodes, confusion due to hypertensive encephalopathy Had continued episodes at [facility] while on continuous EEG which did not correlate with any epileptiform activity. Seizure ruled out; suspected to have symptomatic hypertension Reviewed with [facility] neurology prior to transfer back per agreement. Patient had been stable with no episodes in last 24 hours, some episodes in the day or 2 prior which seem to correlate with hypertension. Suspected to have symptomatic severe resistant hypertension which improved with losartan 50 mg twice daily dosing Patient was listed as taking losartan and olmesartan, dual ARB therapy discontinued and losartan continued Continue amlodipine Continue labetalol Renal artery Doppler does not show evidence of DEVAN Lacosamide discontinued per discussion with [facility] Blood pressure greatly improved 07/01 and generally 120s all day without hypo or hypertension. Will plan to continue labetalol, amlodipine 5 mg, losartan twice daily at this time. Given strength deficits and need for very close monitoring of her blood pressure due to development of encephalopathy with pressures around or exceeding 170. She was seen by PT and recommended for inpatient rehab. 07/02 she has made a significant gains in mentation, blood pressure has been stable over the last 24 hours and her cognitive function is vastly improved. She has not had any further unresponsive spells/episodes. On reevaluation she was ambulating independently with a walker, could stand to sit without assistance and with arms crossed, and had a regular gait. Preferred discharge home with home health services which was reasonable and arranged CDS query notation: Unique was treated for and had a presentation consistent with severe hypertensive encephalopathy CKD Baseline creatinine approximately 1.652.0 Creatinine remains at baseline Renally dose medications Hypothyroidism Synthroid continued Type II DM Type II DM diet Glargine 10 units twice daily Aspart SSI Goal BSG [id number] Glucose checks AC/at bedtime History of CVA with residual vertigo, some speech deficits No new stroke deficits Continue Plavix. 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 [facility] documentation reviewed. Medications reviewed updated by nurse per her sheet discharge reconciliation. Per review of his records patient initially presented if she was found unresponsive in bed and would not wake up. She was admitted 06/25 - 06/27 and had been noted to have fixed eyes and muscular contractions and vocalizations which improved after lorazepam and Keppra. Brain MRI did not show any acute findings. She started on Vimpat on 06/26. He did have elevated blood pressure and recurrent symptoms for which she was re evaluated as a stroke alert CTA was negative. Symptoms improved after hydralazine 10 mg IV but had another episode of slurring speech and unresponsiveness. She was transferred for continuous EEG monitoring. After [facility] admission imaging studies including continuous EEG showed mild diffuse cerebral dysfunction but no focal slowing or epileptiform activity. Patient had an episode of symptoms and hypertension systolics [id number] which correlated with unresponsiveness, EEG for that time period was reviewed and showed no evidence of epileptiform activity. This was felt to be effectively ruled out at that time. She continued to have some intermittent episodes of unresponsive sometimes with BP correlation sometimes without, she had improved blood pressure control reportedly 06/29 - 06/30 and no symptomatic episodes and was recommended for transfer back per transfer agreement. She is felt to have a combination of hypertensive encephalopathy and possible some stroke recrudescence.. BP control was recommended and she was transferred back to [facility] for ongoing care Prior imaging review: CTAneck: Negative, CTAhead: Negative, CThead: No acute findings MRI 06/26/2025: Normal MRI. No evidence of mesial temporal sclerosis On bedside evaluation Unique is intermittently confused. She follows some commands but not all, intermittently repeats her statements/echolalia and difficult to gauge mentation Did attempt to obtain collateral from her by phone. He reports that she does have speech difficulties at baseline but is generally reorientable and then is able to communicate. He will be arriving to the hospital shortly to assist with collateral in the HPI and to identify current versus abnormal On arrival BP 178/78, and with existing concerns for symptomatic hypertension. Labetalol ordered. On reevaluation blood pressure 140s, mentation improved. is at bedside. She is able to follow commands, answer some questions although is very tangential/easily distracted. Director Part strength, hip flexion, ankle dorsiflexion/plantarflexion 5/5. Patient reports she would like to go home however is not aware of why she is in the hospital poor historian and tangential to recurrently circumferential. Discussed with her while improved from prior, she is still at around 30% of her normal baseline a month ago. At time of reassessment she denies pain, headache, fever, chills, sweats. Medical History: Reviewed Medications: Reviewed Surgical History: Reviewed Family history: Reviewed Allergies: Reviewed Social History: Reviewed Code Status: Full, confirmed w pts Discharge Exam General: Oriented to name and hospital. Follows commands. Mentation remains im proved. HEENT: Atraumatic, normocephalic. Pupils equal and reactive to light. Vision and hearing grossly intact Pulm: CTAB A&P. -wheezes, -rales, -rhonchi. Symmetrical chest rise. No increased work of breathing. No respiratory distress. Cardiac: RRR, -mrg. Radial pulses intact and symmetrical. Abdominal: Nontender, nondistended, soft. BS present. Extremities: Moves all extremities equally. Eating breakfast comfortably sitting up in bed independently Discharge Plan Discharge Items Patient Disposition: Home - Home Health Services Reason For Visit: SYMPTOMATIC HYPERTENSION Discharge Diagnosis: Symptomatic hypertension, hypertensive encephalopathy Activity: As commented below Non-emergency contact: Primary Care Provider Call non-emergency contact if: you have any medication questions, your symptoms worsen and your pain is not controlled Follow-up/Referrals: Jordana Chen MD [Primary Care Provider] - 07/11/25 3:00 pm (appointment is with Alona Gonzales PA-C.) Diet: Heart Healthy Addtl Attending Provider Instructions: You are seen in the hospital for confusion, and unresponsive episode suspicious for possible seizures. You were transferred to [facility] and had continuous EEG which did not show any seizure activity which correlated with episodes which occurred while on monitoring. These episodes did occur in context with blood pressure greater than 170. Your losartan was increased and you were transferred back to [facility] for ongoing care and blood pressure management. Her medications were subsequently adjusted and he maintained a blood pressure in the 120s for 24 hours with no hypertensive swings, no lightheadedness or dizziness, and no further episodes. Your confusion vastly improved on 07/02/2025. You are initially recommended for inpatient rehab both due to strength concerns and for close monitoring of blood pressure; however you subsequently continued to do well had stable blood pressure more able to ambulate relatively independently and preferred discharge home with home health services which was reasonable. Your lacosamide has been discontinued. This was discussed with [facility] urology. As you experienced episodes while on continuous EEG which did not show any signs of correlated seizure activity, seizures were ruled out and there was felt to be no benefit of ongoing lacosamide so this has been discontinued. Your blood pressure medications have been updated. Please follow the blood pressure regimen as below Amlodipine 2.5 mg by mouth daily in the morning around 9am. Check your blood pressure daily around lunch. If >150 systolic on 2 repeat checks, take an additional 2.5mg (5mg daily total). Losartan 50 mg by mouth twice daily (breakfast ~9am and dinner ~7pm) Labetalol 50 mg by mouth once with breakfast ~9am, and once before bed ~10pm Your olmesartan was discontinued. You should not take olmesartan at the same time as losartan, and losartan has been continued instead. Please check your blood pressure periodically. When you check your blood pressure you should be sitting and resting for at least a couple of minutes and then check your blood pressure while your arm is at heart level. If your blood pressure is consistently above 150 please contact your primary care physician for recommendations. You experienced severe confusion and symptoms when your blood pressure went above 170. If you experience lightheadedness, dizziness, lightheadedness or passing out when standing these can be signs of low blood pressure, please contact your doctor for recommendations or present to the emergency department if you are very concerned. If you develop any new or worsening symptoms including fever, chills, sweats, chest pain, chest pressure, difficulty breathing, uncontrolled nausea/vomiting, rash, wheezing, passing out or nearly passing out, bleeding, black/bloody bowel movements, or other new or concerning symptoms please call your primary care physician, or call 911 for re-evaluation in the emergency department if you are very concerned. Pending Studies at Discharge: No Stand-Alone Forms: My [facility] [address], Smoking Cessation Medications and DC Order Prescriptions: New amlodipine 5 mg Tablet 2.5 mg PO DAILY Qty: 30 0RF losartan 50 mg tablet 50 mg PO BID Qty: 60 0RF Continued (DME) pen needle, diabetic [BD Ultra-Fine Jayleen Pen Needle] 32 gauge x 5/32" needle See Rx Instructions .ROUTE .MEDSUPPLY Qty: 400 3RF Rx Instructions: use 4 needles daily (DME) FreeStyle Lite Strips Strip See Rx Instructions .ROUTE .MEDSUPPLY Qty: 200 3RF Rx Instructions: test BID apixaban 2.5 mg tablet 2.5 mg PO BID Qty: 180 3RF omeprazole 20 mg capsule,delayed release(DR/EC) 20 mg PO QAM Qty: 90 3RF folic acid 1 mg tablet 1 mg PO QAM Qty: 90 3RF insulin glargine [Lantus Solostar U-100 Insulin] 100 unit/mL (3 mL) insulin pen 22 - 30 unit subcut HS Qty: 27 3RF Rx Instructions: subcutaneously; 22-30 units at bedtime labetalol 100 mg tablet 50 mg PO Q12H Qty: 90 3RF atorvastatin 20 mg tablet 20 mg PO DAILY Qty: 90 3RF clopidogrel 75 mg tablet 75 mg PO QAM Qty: 90 3RF levothyroxine 88 mcg tablet 88 mcg PO DAILY Qty: 90 1RF (DME) lancets [FreeStyle Lancets] 28 gauge misc See Rx Instructions .Route Qty: 200 3RF Rx Instructions: test 2 times daily albuterol sulfate 90 mcg/actuation HFA aerosol inhaler 1 puff inhalation Q4 PRN (Reason: Wheezing) Qty: 20.1 3RF (DME) lancing device Misc See Rx Instructions .Route Qty: 1 0RF Rx Instructions: use to check blood sugar - Freestyle lancing device triamcinolone acetonide 0.5 % ointment 1 applic topical BID Qty: 30 1RF cholecalciferol (vitamin D3) 5,000 unit Tablet 5,000 unit PO 3XWK Rx Instructions: Unable to verify OTC meds at this date/time. fexofenadine 180 mg Tablet 180 mg PO QAM Rx Instructions: Unable to verify OTC meds at this date/time. cyanocobalamin (vitamin B-12) 1,000 mcg Tablet 1,000 mcg PO DAILY Rx Instructions: Unable to verify OTC meds at this date/time. meclizine 25 mg tablet 25 mg PO TID PRN (Reason: Dizziness) Rx Instructions: TAKE 1 TABLET AT BEDTIME montelukast 10 mg tablet 10 mg PO PM Rx Instructions: TAKE 1 TABLET EVERY EVENING gabapentin 100 mg capsule 100 mg PO HS Rx Instructions: 100 mg orally take one cap in the morning, theb take 2 caps in the evening; Discontinued olmesartan 40 mg tablet 40 mg PO DAILY Qty: 90 3RF Hold Instructions: Resume on 05/21/24. Hold until your blood work results are reviewed by Dr. Tolliver losartan 50 mg Tablet 50 mg PO BID amlodipine 2.5 mg Tablet 2.5 mg PO DAILY ceftriaxone 2 gram Piggyback 2 g IV DAILY lacosamide 50 mg Tablet 50 mg PO BID Discharge Orders: Discharge Order (Routine); Ordered 07/03/25 Ordered By: Juan F Nance/Other Patient Handouts: Managing Type 2 Diabetes Admission Data Admit Date/Time: 06/30/25 16:02 Attending Provider: Juan F Gamino Admit Provider: Juan F Gamino Primary Care Provider: Jordana Chen V. Other Providers: [facility],Home Healthcare Other Interventions: Discharge Summary Assessment (RN) Last Done: 07/03/25 10:16 Hospital Stay Data Diagnostic Imagining Performed 07/01/25 US duplex renal art/vein BI Routine Pending Results Patient Have Any Pending Studies at Discharge: No Discharge Instructions Given to Patient (Per Discharging Provider) You are seen in the hospital for confusion, and unresponsive episode suspicious for possible seizures. You were transferred to [facility] and had continuous EEG which did not show any seizure activity which correlated with episodes which occurred while on monitoring. These episodes did occur in context with blood pressure greater than 170. Your losartan was increased and you were transferred back to [facility] for ongoing care and blood pressure management. Her medications were subsequently adjusted and he maintained a blood pressure in the 120s for 24 hours with no hypertensive sw ings, no lightheadedness or dizziness, and no further episodes. Your confusion vastly improved on 07/02/2025. You are initially recommended for inpatient rehab both due to strength concerns and for close monitoring of blood pressure; however you subsequently continued to do well had stable blood pressure more able to ambulate relatively independently and preferred discharge home with home health services which was reasonable. Your lacosamide has been discontinued. This was discussed with [facility] neurology. As you experienced episodes while on continuous EEG which did not show any signs of correlated seizure activity, seizures were ruled out and there was felt to be no benefit of ongoing lacosamide so this has been discontinued. Your blood pressure medications have been updated. Please follow the blood pressure regimen as below Amlodipine 2.5 mg by mouth daily in the morning around 9am. Check your blood pressure daily around lunch. If >150 systolic on 2 repeat checks, take an additional 2.5mg (5mg daily total). Losartan 50 mg by mouth twice daily (breakfast ~9am and dinner ~7pm) Labetalol 50 mg by mouth once with breakfast ~9am, and once before bed ~10pm Your olmesartan was discontinued. You should not take olmesartan at the same time as losartan, and losartan has been continued instead. Please check your blood pressure periodically. When you check your blood p ressure you should be sitting and resting for at least a couple of minutes and then check your blood pressure while your arm is at heart level. If your blood pressure is consistently above 150 please contact your primary care physician for recommendations. You experienced severe confusion and symptoms when your blood pressure went above 170. If you experience lightheadedness, dizziness, lightheadedness or passing out when standing these can be signs of low blood pressure, please contact your doctor for recommendations or present to the emergency department if you are very concerned. If you develop any new or worsening symptoms including fever, chills, sweats, chest pain, chest pressure, difficulty breathing, uncontrolled nausea/vomiting, rash, wheezing, passing out or nearly passing out, bleeding, black/bloody bowel movements, or other new or concerning symptoms please call your primary care physician, or call 911 for re-evaluation in the emergency department if you are very concerned. 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
[2025-07-03 07:34] LABS: Hematocrit (blood only) 32.1 % (37.0-47.0); Hemoglobin 10.5 g/dl (12.0-16.0); Immature Granulocytes # (auto) 0.01 K/uL (0.01-0.20); Immature Granulocytes % (auto) 0.2 %; Mean Corpuscular Hemoglobin 32.1 pg (25.0-34.0); Mean Corpuscular Volume 98.2 fL (80.0-100.0); Platelet Count 112 K/uL (130-400); RDW Standard Deviation 45.1 fL (36.4-46.3); Red Blood Count 3.27 M/uL (4.20-5.40); White Blood Count 6.17 K/ul (4.8-10.8)
[2025-07-03 07:54] LABS: Anion Gap 6.0 (3-11); Blood Urea Nitrogen 28.0 mg/dl (6-23); Calcium 8.9 mg/dl (8.6-10.3); Carbon Dioxide 28.0 mmol/L (21-32); Chloride 106.0 mmol/L (98-107); Creatinine Clr Calc Pharmacy 22.5 ml/min; Glucose 113.0 mg/dl (70-99(Fasting)); Potassium 3.8 mmol/L (3.5-5.1); Sodium 140.0 mmol/L (136-145)
[2025-07-03 08:26] VITALS: BP 110/46; PULSE 114; TEMP 97.5; O2SAT 96
== END 2025-07-03 11:27 | disposition home health service (06) | DRG 683 ==
LOC: 2N 15:55